=== PATIENT | male | born 1975 | race Caucasian/White ===

== ENCOUNTER 2018-04-03 13:10 | Emergency (ER) | payer OTHER, MEDICAID, SELFPAY ==
[2018-04-03 13:18] VITALS: BP 161/103; PULSE 85; RESP 16; TEMP 36.7; O2SAT 98; BMI 19.6
--- NOTE | 2018-04-03 13:35 | PC.NURSE ---
dental pain is upper and lower on left side. pt is in the middle of dental work, having cavities filled along with a root canal. pt couldn't finish the root canal due to bleeding, they have rescheduled to complete it.
--- NOTE | 2018-04-03 13:56 | ED.DENTAL ---
HPI - Dental/Oral <Pam Calle PA-C - Last Filed: 04/03/18 21:46> General Chief complaint: Dental/Oral Stated complaint: oral pain Time Seen by Provider: 04/03/18 13:48 Source: patient Mode of arrival: ambulatory Limitations: no limitations History of Present Illness HPI Narrative: This 42-year-old male comes in today due to dental pain. He states this is on the left side, both upper and lower teeth. He states that he had a crown placed and partial root canal last week and has follow-up with his dentist on Monday. He states that he has been taking Tylenol and ibuprofen (4 of each today), and tried salt water rinse and [id number] benzocaine without relief. He denies fever or drainage from the gums. He states this has been gradually worsening and comes in due to being unable to see the dentist sooner. Related Data Home Medications Medication Instructions Recorded Confirmed insulin aspart U-100 [Novolog See Label Instructions .ROUTE 04/03/18 04/03/18 Flexpen U-100 Insulin] .COMPLEX insulin glargine [Lantus U-100 35 unit SUBCUT DAILY 04/03/18 04/03/18 Insulin] Allergies Allergy/AdvReac Type Severity Reaction Status Date / Time No Known Drug Allergies Allergy Unknown Unverified 10/18/17 12:17 promethazine AdvReac Unknown GET LOOPY Verified 04/03/18 13:23 Exam <Pam Calle PA-C - Last Filed: 04/03/18 21:46> Narrative Exam Narrative: GENERAL APPEARANCE: Patient sitting comfortably, in no distress. HEAD: Mild left maxillary tenderness, none elsewhere EYES: PERRL, EOMI. EARS: Normal auditory canals, TMS intact with normal light reflexes. ORAL CAVITY: Left inferior dental work appears intact. Minimal tenderness over the tooth. Left upper labial surface there does appear to be some separation of the gum tissue where he is mildly tender. Otherwise, gums appear normal. No erythema or drainage. THROAT: Clear. NECK/THYROID: Neck supple, full range of motion, no cervical lymphadenopathy. LUNGS: Clear to auscultation bilaterally, clear to percussion, no cough on exam. HEART: RRR without murmur, nl S1, S2, no S3 or S4. MUSCULOSKELETAL: Full range of motion of the jaw with tenderness on lateral and medial deviation, able to open fully without tenderness. No crepitus Initial Vital Signs Initial Vital Signs: Vital Signs Temperature 98.0 F 04/03/18 13:18 Pulse Rate 85 04/03/18 13:18 Respiratory Rate 16 04/03/18 13:18 Blood Pressure 161/103 H 04/03/18 13:18 Pulse Oximetry 98 04/03/18 13:18 <Lalit Pineda DO - Last Filed: 04/04/18 07:03> Initial Vital Signs Initial Vital Signs: Vital Signs Temperature 98.0 F 04/03/18 13:18 Pulse Rate 85 04/03/18 13:18 Respiratory Rate 16 04/03/18 13:18 Blood Pressure 161/103 H 04/03/18 13:18 Pulse Oximetry 98 04/03/18 13:18 Course <Pam Calle PA-C - Last Filed: 04/03/18 21:46> Additional Information: We phoned patient's dentist and they are able to see him immediately, so he was discharged to follow up there Vital Signs - 8 hr 04/03/18 14:26 Pulse Rate 95 H Respiratory Rate 18 Blood Pressure 150/94 H Pulse Oximetry 100 <Lalit Pineda DO - Last Filed: 04/04/18 07:03> Vital Signs - 8 hr 04/03/18 14:26 Pulse Rate 95 H Respiratory Rate 18 Blood Pressure 150/94 H Pulse Oximetry 100 Discharge Plan Departure Patient Disposition: Home Clinical Impression: Pain, dental Discharge Date/Time: 04/03/18 14:26 Interventions: ED Discharge Assessment Last Done: 04/03/18 14:26 Instructions: DI for Dental Pain Activity Restrictions/Additional Instructions: We spoke with Dr. Jara's office and they will see you right away (please go directly there). There is no clear sign of infection or problem with your crown on your exam. You do seem to have some muscle pain in the jaw (it is possible that there is more than one problem contributing to your pain, so please review with him). Prescriptions: No Action insulin glargine [Lantus U-100 Insulin] 100 unit/mL Solution 35 unit SUBCUT DAILY RF: 0 insulin aspart U-100 [Novolog Flexpen U-100 Insulin] 100 unit/mL Insulin Pen See Label Instructions .ROUTE .COMPLEX RF: 0 <Lalit Pineda, DO - Last Filed: 04/04/18 07:03> Cosign ED Attending Royalature Attestation: I was available for consultation during this patient's emergency department encounter
[2018-04-03 14:26] VITALS: BP 150/94; PULSE 95; RESP 18; O2SAT 100
== END 2018-04-03 14:26 | disposition home or self-care (01) ==
PROVIDERS: Emergency Provider Internal Medicine
DX: K08.89 Other specified disorders of teeth and supporting structures (principal)
CPT/HCPCS: 99282

== ENCOUNTER 2019-07-30 12:03 | Emergency (ER) | payer OTHER, MEDICAID, SELFPAY ==
[2019-07-30 12:16] VITALS: BP 114/70; PULSE 110; RESP 13; TEMP 36.2; O2SAT 97
--- NOTE | 2019-07-30 13:03 | ED_ITS ---
HPI - Skin/Abscess/Foreign Bdy General Chief complaint: Skin/Abscess/Foreign Body Stated complaint: INFECTION ON LEFT LIMB Time Seen by Provider: 07/30/19 13:03 Source: patient Mode of arrival: Ambulatory Limitations: no limitations History of Present Illness HPI narrative: This is a 43-year-old male emergency department with complaint of redness and swelling of his left lower extremity. 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 He is also a type 1 diabetic. Patient states he was out in the snow about week ago and states that he banged his leg around a lot and he thinks that he had some scabs and abrasions. He states most of them healed but 1 had a small area that looked like a pimple that seemed to become more red went deeper and is now streaking up his leg. He denies fevers. He denies chills. He denies any chest pain or shortness of breath, no nausea, no vomiting no other GI or urinary symptoms. He states he doesn't really have pain in the leg. He states the area had several cm sized area of redness and it started streaking up his leg 2-3 days ago. Related Data Home Medications Medication Instructions Recorded Confirmed insulin aspart U-100 [Novolog See Rx Instructions .ROUTE .COMPLEX 04/03/18 07/30/19 Flexpen U-100 Insulin] insulin glargine [Basaglar KwikPen 35 unit SUBCUT 07/30/19 U-100 Insulin] methylphenidate HCl 36 mg PO BID 07/30/19 Previous Rx's Medication Instructions Recorded clindamycin HCl 300 mg PO QID #40 cap 07/30/19 Allergies Allergy/AdvReac Type Severity Reaction Status Date / Time No Known Drug Allergies Allergy Unknown Unverified 10/18/17 12:17 promethazine AdvReac Unknown GET LOOPY Verified 04/03/18 13:23 Review of Systems Review of Systems ROS Unobtainable: All systems reviewed & are unremarkable except as noted in HPI and below Patient History Medical History (Updated 07/30/19 @ 13:18 by Portia Maharaj DO) Insulin dependent diabetes mellitus (Chronic) Surgical History (Updated 07/30/19 @ 13:15 by Portia Maharaj DO) Hx of BKA (Acute) Social History Smoking Status: Never smoker Smoking Status: Never smoker alcohol intake frequency: 0-2 drinks per day Substance Use Type: does not use Exam Narrative Exam Narrative: GENERAL: Alert and oriented x three, thin, well-appearing male in mild distress. HEENT: Head normocephalic, atraumatic, EOMI, pupils reactive, face symmetric, moist mucous membranes NECK: Supple, full range of motion CARDIOVASCULAR: Regular rate and rhythm without murmurs, rubs or gallops. RESPIRATORY: Breath sounds equal bilaterally, no wheezes rales or rhonchi. ABDOMEN: Soft, nontender. Normoactive bowel sounds all 4 quadrants. No guarding or rebound, rigidity, no mass : No CVA tenderness EXTREMITIES: Normal range of motion, patient has left BKA with an area of erythema that is 3cm in size and streaking up thigh above knee. There is a scab without drainage or open skin. Non-tender to touch with no fluctuence. Moderate induration at site of scab. Neurovascularly intact. Distal end of BKA is healed. NEUROLOGICAL: Cranial nerves II through XII grossly intact. Moving all extremities SKIN: Warm, dry, no petechiae, see above. Initial Vital Signs Initial Vital Signs: Vital Signs Temperature 97.1 F L 07/30/19 12:16 Pulse Rate 110 H 07/30/19 12:16 Respiratory Rate 13 07/30/19 12:16 Blood Pressure 114/70 07/30/19 12:16 Pulse Oximetry 97 07/30/19 12:16 Course Orders Ordered: ED Orders 07/30/19 13:53 Basic Metabolic Panel Stat Complete Blood Count AUTO DIFF Stat Lactate (Lactic Acid) Stat Procalcitonin Stat 07/30/19 13:59 Blood Culture Stat Discontinued Medications Clindamycin Phosphate (Cleocin) 900 mg in 50 mls @ 50 mls/hr IV NOW ONE Stop: 07/30/19 14:10 Last Infusion: 07/30/19 14:48 Dose: 0 mls/hr Documented by: Admin: 07/30/19 13:57 Dose: 50 mls/hr Documented by: GEOFF Vital Signs Vital signs: Vital Signs - 8 hr 07/30/19 13:35 07/30/19 15:02 Temperature 98.4 F Pulse Rate 102 H 104 H Respiratory Rate 16 16 Blood Pressure 118/75 Blood Pressure [Left Arm] 138/78 Pulse Oximetry 99 99 MDM - Skin/Abscess/Foreign Bdy Lab Data Result diagrams: 07/30/19 13:53 07/30/19 13:53 Labs: Lab Results 07/30/19 07/30/19 07/30/19 Range/Units 13:53 13:53 13:53 WBC 13.5 H (4.5-11.0) X10^3/uL RBC 4.88 (4.5-5.9) X10^6/uL Hgb 15.0 (13.5-17.5) g/dL Hct 41.6 (41-53) % MCV 85.3 (80-100) fL MCH 30.7 (26-34) PG MCHC 36.1 H (30-36) % RDW 12.8 (11.6-14.8) % Plt Count 189 (150-400) X10^3/uL Neut % (Auto) 81.0 H (50-75) % Lymph % (Auto) 11.3 L (25-40) % [place] % (Auto) 5.9 (3-14) % Eos % (Auto) 0.7 L (2-4) % Baso % (Auto) 1.1 (0-2) % Neut # (Auto) 49659 H (1788-8045) /uL Lymph # (Auto) 1500 (9232-2572) /uL [place] # (Auto) 800 (0-900) /uL Eos # (Auto) 100 (0-450) /uL Baso # (Auto) 100 (0-100) /uL Sodium 134 L (137-145) mmol/L Potassium 3.9 (3.4-5.1) mmol/L Chloride 95 L (98-107) mmol/L Carbon Dioxide 31 (22-32) mmol/L BUN 25 H (9-20) mg/dL Creatinine 0.90 (0.66-1.25) mg/dL Estimated GFR > 60.0 (>60) mL/min BUN/Creatinine Ratio 27.8 H (6-22) Glucose 334 H (70-100) mg/dL Lactate (0.7-2.1) mmol/L Calcium 9.6 (8.4-10.2) mg/dL Procalcitonin 0.45 (<0.5) ng/mL 07/30/19 Range/Units 13:53 WBC (4.5-11.0) X10^3/uL RBC (4.5-5.9) X10^6/uL Hgb (13.5-17.5) g/dL Hct (41-53) % MCV (80-100) fL MCH (26-34) PG MCHC (30-36) % RDW (11.6-14.8) % Plt Count (150-400) X10^3/uL Neut % (Auto) (50-75) % Lymph % (Auto) (25-40) % [place] % (Auto) (3-14) % Eos % (Auto) (2-4) % Baso % (Auto) (0-2) % Neut # (Auto) (9427-0873) /uL Lymph # (Auto) (7888-5368) /uL [place] # (Auto) (0-900) /uL Eos # (Auto) (0-450) /uL Baso # (Auto) (0-100) /uL Sodium (137-145) mmol/L Potassium (3.4-5.1) mmol/L Chloride (98-107) mmol/L Carbon Dioxide (22-32) mmol/L BUN (9-20) mg/dL Creatinine (0.66-1.25) mg/dL Estimated GFR (>60) mL/min BUN/Creatinine Ratio (6-22) Glucose (70-100) mg/dL Lactate 2.0 (0.7-2.1) mmol/L Calcium (8.4-10.2) mg/dL Procalcitonin (<0.5) ng/mL MDM Narrative Medical decision making narrative: Patient and I discussed plan for labs, culture and start Clindamycin. Per patient he has not had issues with skin infections in the past. Patient rechecked his glucose with his own monitor at 1430 and is 230 range. Strict return precautions given and patient expressed understanding. Discharge Plan Departure Patient Disposition: Home Clinical Impression: Cellulitis of left leg Discharge Date/Time: 07/30/19 15:03 Instructions: DI for Cellulitis -- Adult Activity Restrictions/Additional Instructions: Return to the emergency department in the next 24 hours if your symptoms are worsening, otherwise follow up with your primary care for recheck. Take antibiotics daily until completely gone. Take your next dose during dinner tonight. Prescription was sent to [facility] in [place]. Continue home medication as prescribed. Return to the emergency department for fevers greater 100.4 F, rapidly worsening swelling, redness, drainage from your leg, new pain, lightheadedness, passing out, persistent vomiting, new chest pain or shortness of breath or other new or concerning symptoms. Prescriptions: New clindamycin HCl 300 mg capsule 300 mg PO QID Qty: 40 RF: 0 No Action methylphenidate HCl 36 mg tablet extended release 24hr 36 mg PO BID RF: 0 Basaglar KwikPen U-100 Insulin 100 unit/mL (3 mL) insulin pen 35 unit SUBCUT RF: 0 Novolog Flexpen U-100 Insulin 100 unit/mL Insulin Pen See Rx Instructions .ROUTE .COMPLEX RF: 0
[2019-07-30 13:35] VITALS: BP 138/78; PULSE 102; RESP 16; O2SAT 99
[2019-07-30 13:57] LABS: Add Manual Diff / Slide Review NO; Basophils Absolute Auto 100 /uL (0-100); Basophils Percent Auto 1.1 % (0-2); Eosinophils Absolute Auto 100 /uL (0-450); Eosinophils Percent Auto 0.7 % (2-4); Hematocrit 41.6 % (41-53); Lymphocytes Absolute Auto 1500 /uL (1100-4500); Lymphocytes Percent Auto 11.3 % (25-40); Mean Corpuscular HGB Conc 36.1 % (30-36); Mean Corpuscular Hemoglobin 30.7 PG (26-34); Mean Corpuscular Volume 85.3 fL (80-100); Monocytes Absolute Auto 800 /uL (0-900); Monocytes Percent Auto 5.9 % (3-14); Neutrophils Absolute Auto 10900 /uL (1500-7000); Platelet Count 189 X10^3/uL (150-400); Red Blood Cell Count 4.88 X10^6/uL (4.5-5.9); Red Cell Distribution Width 12.8 % (11.6-14.8); White Blood Cell Count 13.5 X10^3/uL (4.5-11.0)
[2019-07-30] MEDS: CLINDAMYCIN 900 MG/50 ML PIGGYBACK 50 MG IV (13:57)
[2019-07-30 14:10] LABS: BUN Creatinine Ratio 27.8 (6-22); Blood Urea Nitrogen 25 mg/dL (9-20); Calcium 9.6 mg/dL (8.4-10.2); Carbon Dioxide 31 mmol/L (22-32); Chloride 95 mmol/L (98-107); Estimated Glomerular Filt Rate > 60.0 mL/min (>60); Glucose 334 mg/dL (70-100); HEMOLYSIS < 15 (0-50); Potassium 3.9 mmol/L (3.4-5.1); Sodium 134 mmol/L (137-145)
[2019-07-30 14:41] LABS: Procalcitonin 0.45 ng/mL (<0.5)
--- NOTE | 2019-07-30 15:01 | PC.NURSE ---
Patient states he was using prosthetic while out in the snow on uneven ground and developed a sore to BKA. The sore has scabbed and healed however there is redness travelling up from scab on Left leg.
[2019-07-30 15:02] VITALS: BP 118/75; PULSE 104; RESP 16; TEMP 36.9; O2SAT 99
== END 2019-07-30 15:03 | disposition home or self-care (01) ==
PROVIDERS: Emergency Provider Emergency Medicine
DX: L03.116 Cellulitis of left lower limb (principal); E10.8 Type 1 diabetes mellitus with unspecified complications; Z79.4 Long term (current) use of insulin
CPT/HCPCS: 36415; 80048; 83605; 84145; 85025; 87040; 96365; 99284

== ENCOUNTER 2019-08-01 19:38 | Emergency (ER) | payer OTHER, MEDICAID, SELFPAY ==
[2019-08-01 19:59] VITALS: BP 150/85; PULSE 96; RESP 18; TEMP 36.8; O2SAT 100
[2019-08-01] MEDS: CEFTRIAXONE 2 GM/50 ML FROZ.PIGGY IV (23:13)
[2019-08-01 23:25] LABS: Alanine Aminotransferase 21 IU/L (<50); Albumin 3.9 g/dL (3.5-5.0); Albumin Globulin Ratio 1.2 (1.0-2.8); Alkaline Phosphatase 101 U/L (38-126); Aspartate Aminotransferase 25 IU/L (17-59); Bilirubin Total 0.9 mg/dL (0.2-1.3); Blood Urea Nitrogen 30 mg/dL (9-20); Calcium 9.4 mg/dL (8.4-10.2); Carbon Dioxide 29 mmol/L (22-32); Chloride 98 mmol/L (98-107); Estimated Glomerular Filt Rate > 60.0 mL/min (>60); Globulin 3.3 g/dL (1.7-4.1); Glucose 211 mg/dL (70-100); HEMOLYSIS < 15 (0-50); Potassium 3.7 mmol/L (3.4-5.1); Sodium 137 mmol/L (137-145); Total Protein 7.2 g/dL (6.3-8.2)
[2019-08-01 23:35] LABS: Add Manual Diff / Slide Review NO; Basophils Absolute Auto 100 /uL (0-100); Basophils Percent Auto 0.9 % (0-2); Eosinophils Absolute Auto 500 /uL (0-450); Eosinophils Percent Auto 5.4 % (2-4); Hematocrit 37.2 % (41-53); Hemoglobin 13.3 g/dL (13.5-17.5); Lymphocytes Absolute Auto 2300 /uL (1100-4500); Lymphocytes Percent Auto 26.2 % (25-40); Mean Corpuscular HGB Conc 35.8 % (30-36); Mean Corpuscular Hemoglobin 30.6 PG (26-34); Mean Corpuscular Volume 85.5 fL (80-100); Monocytes Absolute Auto 800 /uL (0-900); Monocytes Percent Auto 8.6 % (3-14); Neutrophils Absolute Auto 5300 /uL (1500-7000); Neutrophils Percent Auto 58.9 % (50-75); Platelet Count 243 X10^3/uL (150-400); Red Blood Cell Count 4.36 X10^6/uL (4.5-5.9); Red Cell Distribution Width 12.7 % (11.6-14.8)
[2019-08-02 00:42] VITALS: BP 146/93; PULSE 108; RESP 20; O2SAT 98
--- NOTE | 2019-08-02 01:53 | ED.EXTPRO ---
HPI - Extremity Problem General Chief complaint: Extremity Problem,Nontraumatic Stated complaint: INFECTION IN LT LEG Time Seen by Provider: 08/01/19 23:10 Source: patient Mode of arrival: Ambulatory Limitations: no limitations History of Present Illness HPI Narrative: 43-year-old gentleman, type 1 diabetes, with traumatic left BKA amputation. Presents with increasing pain and swelling to the distal portion of the stump. Apparently he had been out walking in the snow with his prosthesis recently. The uneven and slippery surface caused some abrasion from the prosthesis which cause some swelling that has since become infected. He was started on clindamycin recently but is noticing increased pain and is concerned that there's an abscess developing. There is no lymphangitic spread. Some ecchymosis and moderate erythema around the site itself. He denies fever and has no inguinal adenopathy Related Data Home Medications Medication Instructions Recorded Confirmed insulin aspart U-100 [Novolog See Rx Instructions .ROUTE .COMPLEX 04/03/18 07/30/19 Flexpen U-100 Insulin] insulin glargine [Basaglar KwikPen 35 unit SUBCUT 07/30/19 U-100 Insulin] methylphenidate HCl 36 mg PO BID 07/30/19 Previous Rx's Medication Instructions Recorded clindamycin HCl 300 mg PO QID #40 cap 07/30/19 Allergies Allergy/AdvReac Type Severity Reaction Status Date / Time No Known Drug Allergies Allergy Unknown Unverified 10/18/17 12:17 promethazine AdvReac Unknown GET LOOPY Verified 04/03/18 13:23 Review of Systems Review of Systems Narrative: All systems reviewed and are unremarkable except as noted in HPI and below Patient History Medical History Insulin dependent diabetes mellitus (Chronic) Surgical History Hx of BKA (Acute) Social History Smoking Status: Never smoker Smoking Status: Never smoker alcohol intake frequency: 0-2 drinks per day Substance Use Type: does not use Exam Narrative Exam Narrative: General: Alert appropriate in no acute distress Respiratory: Able to speak in full sentences, no obvious respiratory distress Skin: No obvious rashes, warm and dry Neurologic: Grossly intact no obvious asymmetries or abnormalities Psych, appropriate insight and affect, cooperative Left lower extremity with below-knee amputation. On the medial aspect of the stump there are 2 confluent areas each approximately 4 x 4 cm in size. The most distal 1 has some developing central skin breakdown is already to drain slightly. The area slightly more proximal to that feels full that is not yet draining. Initial Vital Signs Initial Vital Signs: Vital Signs Temperature 98.3 F 08/01/19 19:59 Pulse Rate 96 H 08/01/19 19:59 Respiratory Rate 18 08/01/19 19:59 Blood Pressure 150/85 H 08/01/19 19:59 Pulse Oximetry 100 08/01/19 19:59 Course Course Course Narrative: Procedure: I&D of left lower extremity abscess x2 10 cc of lidocaine 1% with epi is injected in total. 5 cc in the lower portion 5 cc in the proximal portion Using an 11 blade needle I incision is made over the central portion of the lower area of interest. Quite a bit of purulence material along with old blood clot is extruded. Similar attention was turned to the more proximal lesion there is no blood clot but some purulent material did return. Patient tolerated procedure well. A dressing was placed and then a pressure dressing on top of that to help control bleeding. Orders Ordered: ED Orders 08/01/19 22:45 Wound Culture and Gram Stain Stat 08/01/19 23:10 Complete Blood Count AUTO DIFF Stat Comprehensive Metabolic Panel Stat Discontinued Medications Ceftriaxone Sodium/Dextrose (Rocephin) 2 gm in 50 mls @ 100 mls/hr IV NOW ONE Stop: 08/01/19 23:28 Last Infusion: 08/02/19 00:15 Dose: 0 mls/hr Documented by: Admin: 08/01/19 23:13 Dose: 100 mls/hr Documented by: JOSÉ Vital Signs Vital signs: Vital Signs - 8 hr 08/01/19 19:59 08/02/19 00:42 Temperature 98.3 F Pulse Rate 96 H 108 H Respiratory Rate 18 20 Blood Pressure 150/85 H Blood Pressure [Right Arm] 146/93 H Pulse Oximetry 100 98 MDM - Extremity (Nontraumatic) Lab Data Result diagrams: 08/01/19 23:10 08/01/19 23:10 Labs: Lab Results 01/23/20 01/23/20 Range/Units 23:10 23:10 WBC 9.0 (4.5-11.0) X10^3/uL RBC 4.36 L (4.5-5.9) X10^6/uL Hgb 13.3 L (13.5-17.5) g/dL Hct 37.2 L (41-53) % MCV 85.5 (80-100) fL MCH 30.6 (26-34) PG MCHC 35.8 (30-36) % RDW 12.7 (11.6-14.8) % Plt Count 243 (150-400) X10^3/uL Neut % (Auto) 58.9 (50-75) % Lymph % (Auto) 26.2 (25-40) % [place] % (Auto) 8.6 (3-14) % Eos % (Auto) 5.4 H (2-4) % Baso % (Auto) 0.9 (0-2) % Neut # (Auto) 5300 (4669-2360) /uL Lymph # (Auto) 2300 (5888-5597) /uL [place] # (Auto) 800 (0-900) /uL Eos # (Auto) 500 H (0-450) /uL Baso # (Auto) 100 (0-100) /uL Sodium 137 (137-145) mmol/L Potassium 3.7 (3.4-5.1) mmol/L Chloride 98 (98-107) mmol/L Carbon Dioxide 29 (22-32) mmol/L BUN 30 H (9-20) mg/dL Creatinine 1.00 (0.66-1.25) mg/dL Estimated GFR > 60.0 (>60) mL/min BUN/Creatinine Ratio 30.0 H (6-22) Glucose 211 H D (70-100) mg/dL Calcium 9.4 (8.4-10.2) mg/dL Total Bilirubin 0.9 (0.2-1.3) mg/dL AST 25 (17-59) IU/L ALT 21 (<50) IU/L Alkaline Phosphatase 101 (38-126) U/L Total Protein 7.2 (6.3-8.2) g/dL Albumin 3.9 (3.5-5.0) g/dL Globulin 3.3 (1.7-4.1) g/dL Albumin/Globulin Ratio 1.2 (1.0-2.8) MDM Narrative Medical decision making narrative: Type 1 diabetic with left lower extremity amputation and irritation from prosthesis recently suspect that he irritated the area enough that it created at deep hematoma that since became infected. Clot and purulent material have been drained successfully. Will have him continue with clindamycin. He did get a single dose of 2 g of IV ceftriaxone will waiting to receive blood work back. Blood work does not suggest systemic infection nor sepsis. Dressing is applied to the wound. Wound care is reviewed in detail. He is safe for home discharge Discharge Plan Departure Patient Disposition: Home Clinical Impression: Abscess of left leg Instructions: DI for Skin Abscess Activity Restrictions/Additional Instructions: Thank you for coming in today. We were able to drain the double abscess on your stump. I suspect that the instability from the prosthesis why your hiking in the snow caused a subcutaneous hematoma that subsequently became infected. Please continue the antibiotics until they are gone. Tomorrow, I would encourage you to soak the lower extremity in warm water if there's additional drainage that is perfectly okay. If you develop fevers, notice increasing drainage or increasing swelling and fullness with no drainage along with increasing redness or streaks running appear leg you do need to return to the emergency room for additional evaluation. I hope that you heal quickly. Thank you for sharing your photography with me this evening Prescriptions: No Action methylphenidate HCl 36 mg tablet extended release 24hr 36 mg PO BID RF: 0 Basaglar KwikPen U-100 Insulin 100 unit/mL (3 mL) insulin pen 35 unit SUBCUT RF: 0 clindamycin HCl 300 mg capsule 300 mg PO QID Qty: 40 RF: 0 Novolog Flexpen U-100 Insulin 100 unit/mL Insulin Pen See Rx Instructions .ROUTE .COMPLEX RF: 0 Referrals: Neftaly Champagne [Primary Care Provider] -
[2019-08-02 02:09] VITALS: BP 147/93; PULSE 108; RESP 15; O2SAT 98
== END 2019-08-02 02:11 | disposition home or self-care (01) ==
PROVIDERS: Emergency Provider Emergency Medicine; Family Provider Internal Medicine; PCP Internal Medicine
DX: L02.416 Cutaneous abscess of left lower limb (principal)
CPT/HCPCS: 36415; 80053; 85025; 87070; 87075; 87077; 87147; 87186; 87205; 96365; 99284; J0696

== ENCOUNTER 2019-08-03 12:04 | Inpatient (IN) | payer MEDICAID, SELFPAY ==
[2019-08-03 13:44] VITALS: BP 138/84; PULSE 110; RESP 14; TEMP 37.1; O2SAT 98
[2019-08-03 15:18] LABS: Add Manual Diff / Slide Review NO; Basophils Absolute Auto 100 /uL (0-100); Basophils Percent Auto 1.1 % (0-2); Eosinophils Absolute Auto 400 /uL (0-450); Eosinophils Percent Auto 5.1 % (2-4); Hematocrit 38.3 % (41-53); Hemoglobin 13.7 g/dL (13.5-17.5); Lymphocytes Absolute Auto 2100 /uL (1100-4500); Lymphocytes Percent Auto 29.9 % (25-40); Mean Corpuscular HGB Conc 35.7 % (30-36); Mean Corpuscular Hemoglobin 30.6 PG (26-34); Mean Corpuscular Volume 85.6 fL (80-100); Monocytes Absolute Auto 600 /uL (0-900); Monocytes Percent Auto 8.4 % (3-14); Neutrophils Absolute Auto 4000 /uL (1500-7000); Neutrophils Percent Auto 55.5 % (50-75); Platelet Count 265 X10^3/uL (150-400); Red Blood Cell Count 4.48 X10^6/uL (4.5-5.9); Red Cell Distribution Width 12.7 % (11.6-14.8); White Blood Cell Count 7.1 X10^3/uL (4.5-11.0)
[2019-08-03 15:22] VITALS: BP 117/90; PULSE 111; RESP 16; TEMP 36.6; O2SAT 97
[2019-08-03 15:24] LABS: BUN Creatinine Ratio 24.4 (6-22); Blood Urea Nitrogen 22 mg/dL (9-20); Calcium 9.7 mg/dL (8.4-10.2); Carbon Dioxide 33 mmol/L (22-32); Chloride 101 mmol/L (98-107); Estimated Glomerular Filt Rate > 60.0 mL/min (>60); Glucose 85 mg/dL (70-100); HEMOLYSIS < 15 (0-50); Sodium 142 mmol/L (137-145)
[2019-08-03 15:25] LABS: Lactate (Lactic Acid) 1.5 mmol/L (0.7-2.1)
--- NOTE | 2019-08-03 15:25 | PC.NURSE ---
Pt arrived to ED for 3rd time in 5 days. Pt has L BKA from a talus fracture complication in childhood. wears prosthesis. states he was out in the snow and doing some activity in which he had some abrasions under his prosthesis, all healed except for area on medial aspect of calf below amp. was placed on clinda QID 07/30. arrived back 08/01 and had I&D with + wound culture for staph and IV abx. arrived back today 08/03 for not getting better. Pt is DM1 and glucoses do not seem to be controlled. pt last glucose on home machine 240's. HR 111 and pt states it is from the Ritalin he takes. BP WNL and afebrile. denies fevers at home. lungs clear. 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 AAOx3. IV placed and labs drawn including lactate. per Dr Lynch only BC x 1 needs to be drawn since BC x 2 was drawn at recent visit with negative result.
--- NOTE | 2019-08-03 15:32 | ED_ITS ---
HPI - Skin/Abscess/Foreign Bdy General Chief complaint: Skin/Abscess/Foreign Body Stated complaint: Infection On Left Leg Time Seen by Provider: 08/03/19 15:16 Source: patient Mode of arrival: Ambulatory Limitations: no limitations History of Present Illness HPI narrative: Patient is a 43-year-old diabetic male presenting for the 3rd time this week to the emergency department for a left jmlfu-yvw-eshk amputation infection. Initially he was started on clindamycin on 07/30/2019 on his 1st emergency department visit. He was seen evaluated again on the he given an IV dose of Rocephin and had some blood work done along with wound culture. Wound culture returned as staph coccus aureus. Sensitivity is still pending. He says that the redness seems to fluctuate but it continues to drain an it is sometimes painful. He denies any fever or chills at this time. MD complaint: rash and abscess/boil Location: LUE Related Data Home Medications Medication Instructions Recorded Confirmed insulin aspart U-100 [Novolog See Rx Instructions .ROUTE .COMPLEX 04/03/18 08/03/19 Flexpen U-100 Insulin] insulin glargine [Basaglar KwikPen 35 unit SUBCUT DAILY 07/30/19 08/03/19 U-100 Insulin] methylphenidate HCl 36 mg PO DAILY 07/30/19 08/03/19 Allergies Allergy/AdvReac Type Severity Reaction Status Date / Time promethazine AdvReac Unknown GET LOOPY Verified 04/03/18 13:23 Review of Systems Review of Systems Narrative: GENERAL: Denies chills, fatigue, malaise, fever, sweats, travel HEENT: Denies sinus pain, ear pain, sore throat, difficulty swallowing, neck pain RESPIRATORY: Denies dyspnea, cough, wheezing, hemoptysis, sputum. CARDIOVASCULAR: Denies chest pain, palpitations, orthopnea, edema GASTROINTESTINAL: Denies nausea, vomiting, abdominal pain, diarrhea, constipation, melena. : Denies dysuria, frequency, incontinence, hematuria, urinary retention, flank pain. MUSCULOSKELETAL: Denies weakness, joint pain, or bony pain SKIN: See HPI NEUROLOGIC: Denies weakness, dizziness, headache, numbness, change in speech, confusion PSYCHIATRIC: No concerning psychosocial issues. 12 point review of systems is negative except for those stated above and HPI Patient History Medical History Insulin dependent diabetes mellitus (Chronic) Surgical History Hx of BKA (Acute) Social History household members: none Smoking Status: Never smoker Smoking Status: Never smoker alcohol intake frequency: 0-2 drinks per day Substance Use Type: does not use Exam Initial Vital Signs Initial Vital Signs: Vital Signs Temperature 98.7 F 08/03/19 13:44 Pulse Rate 110 H 08/03/19 13:44 Respiratory Rate 14 08/03/19 13:44 Blood Pressure 138/84 08/03/19 13:44 Pulse Oximetry 98 08/03/19 13:44 GENERAL: Well-appearing, well-nourished and in no acute distress. HEENT: Head atraumatic,EOMI, pupils reactive CARDIOVASCULAR: Regular rate and rhythm without murmurs, rubs or gallops. RESPIRATORY: Breath sounds equal bilaterally, no wheezes rales or rhonchi. ABDOMEN: Soft, nontender. Normoactive bowel sounds all 4 quadrants. No guarding or rebound. EXTREMITIES: Normal range of motion, no clubbing or edema. Neurovascularly intact. Left BKA noted NEUROLOGICAL: Alert and oriented x4.Normal gait and speech. SKIN: Left lower extremity below the knee amputation with erythema. 3 cm x 3 cm with obvious drainage mild erythema that is streaking up beyond the knee. Course Orders Ordered: ED Orders 08/03/19 15:08 Basic Metabolic Panel Stat Complete Blood Count AUTO DIFF Stat Lactate (Lactic Acid) Stat Procalcitonin Stat 08/03/19 15:20 Blood Culture Stat Discontinued Medications Ceftriaxone Sodium/Dextrose (Rocephin) 1 gm in 50 mls @ 100 mls/hr IV NOW ONE Stop: 08/03/19 16:23 Last Infusion: 08/03/19 16:44 Dose: 0 mls/hr Documented by: Admin: 08/03/19 16:10 Dose: 100 mls/hr Documented by: TRISHA Vancomycin HCl (Vancomycin) 1,000 mg in 200 mls @ 200 mls/hr IV NOW ONE Stop: 08/03/19 17:04 Last Infusion: 08/03/19 17:45 Dose: 0 mls/hr Documented by: Admin: 08/03/19 16:48 Dose: 200 mls/hr Documented by: TRISHA Vital Signs Vital signs: Vital Signs - 8 hr 08/03/19 13:44 08/03/19 15:22 Temperature 98.7 F 97.9 F Pulse Rate 110 H 111 H Respiratory Rate 14 16 Blood Pressure 138/84 Blood Pressure [Left Arm] 117/90 Pulse Oximetry 98 97 MDM - Skin/Abscess/Foreign Bdy Lab Data Attestation: I reviewed the patient's lab results. Result diagrams: 08/03/19 15:08 08/03/19 15:08 Labs: Lab Results 08/03/19 08/03/19 08/03/19 Range/Units 15:08 15:08 15:08 WBC 7.1 (4.5-11.0) X10^3/uL RBC 4.48 L (4.5-5.9) X10^6/uL Hgb 13.7 (13.5-17.5) g/dL Hct 38.3 L (41-53) % MCV 85.6 (80-100) fL MCH 30.6 (26-34) PG MCHC 35.7 (30-36) % RDW 12.7 (11.6-14.8) % Plt Count 265 (150-400) X10^3/uL Neut % (Auto) 55.5 (50-75) % Lymph % (Auto) 29.9 (25-40) % [place] % (Auto) 8.4 (3-14) % Eos % (Auto) 5.1 H (2-4) % Baso % (Auto) 1.1 (0-2) % Neut # (Auto) 4000 (6609-1898) /uL Lymph # (Auto) 2100 (7444-7993) /uL [place] # (Auto) 600 (0-900) /uL Eos # (Auto) 400 (0-450) /uL Baso # (Auto) 100 (0-100) /uL Sodium 142 (137-145) mmol/L Potassium 4.0 (3.4-5.1) mmol/L Chloride 101 (98-107) mmol/L Carbon Dioxide 33 H (22-32) mmol/L BUN 22 H (9-20) mg/dL Creatinine 0.90 (0.66-1.25) mg/dL Estimated GFR > 60.0 (>60) mL/min BUN/Creatinine Ratio 24.4 H (6-22) Glucose 85 D (70-100) mg/dL Lactate 1.5 (0.7-2.1) mmol/L Calcium 9.7 (8.4-10.2) mg/dL Procalcitonin (<0.5) ng/mL 08/03/19 Range/Units 15:08 WBC (4.5-11.0) X10^3/uL RBC (4.5-5.9) X10^6/uL Hgb (13.5-17.5) g/dL Hct (41-53) % MCV (80-100) fL MCH (26-34) PG MCHC (30-36) % RDW (11.6-14.8) % Plt Count (150-400) X10^3/uL Neut % (Auto) (50-75) % Lymph % (Auto) (25-40) % [place] % (Auto) (3-14) % Eos % (Auto) (2-4) % Baso % (Auto) (0-2) % Neut # (Auto) (0335-0860) /uL Lymph # (Auto) (8939-9955) /uL [place] # (Auto) (0-900) /uL Eos # (Auto) (0-450) /uL Baso # (Auto) (0-100) /uL Sodium (137-145) mmol/L Potassium (3.4-5.1) mmol/L Chloride (98-107) mmol/L Carbon Dioxide (22-32) mmol/L BUN (9-20) mg/dL Creatinine (0.66-1.25) mg/dL Estimated GFR (>60) mL/min BUN/Creatinine Ratio (6-22) Glucose (70-100) mg/dL Lactate (0.7-2.1) mmol/L Calcium (8.4-10.2) mg/dL Procalcitonin 0.05 (<0.5) ng/mL MDM Narrative Medical decision making narrative: Patient has had 3 ER visits this week for not healing wound on left lower leg likely from prosthetic. He is failing outpat ient treatment. He has comorbidities of diabetes. At this time requires admission for close monitoring and IV antibiotics. A still awaiting culture and sensitivity from this weeks wound culture. her Rosales updated on patient's symptoms test results agrees with admission. Discharge Plan Departure Patient Disposition: Admitted As Inpatient Clinical Impression: Cellulitis of left leg, Abscess of left leg Discharge Date/Time: 08/03/19 17:45 Admit Date/Time: 08/03/19 16:28 Admit Provider: Trent Abarca
[2019-08-03] MEDS: CEFTRIAXONE 1 GM/50 ML FROZ.PIGGY IV (16:10)
[2019-08-03 16:11] LABS: Procalcitonin 0.05 ng/mL (<0.5)
[2019-08-03] MEDS: VANCOMYCIN 1,000 MG/200 ML PIGGYBACK 200 MG IV (16:48)
[2019-08-03 17:50] VITALS: BP 161/96; PULSE 108; RESP 16; TEMP 37.2; O2SAT 99
[2019-08-03 18:25] VITALS: BMI 19.5
[2019-08-03 20:10] VITALS: BP 156/95; PULSE 103; RESP 19; TEMP 36.8; O2SAT 100
--- NOTE | 2019-08-03 20:18 | P.HP_ITS ---
History of Present Illness History of Present Illness Date Patient Seen: 08/03/19 Time Patient Seen: 19:40 Chief complaint: Infection On Left Leg Narrative: Mr. Daniel Zapata is a 43-year-old male with history of type 1 diabetes, left lower kywng-[id number]-samz amputation status post talus fracture and ADHD on Concerta who presents to the ER for draining abscess and cellulitis. The patient reports he was out shoveling snow and had areas of abrasion from his prosthesis. He developed a few areas of irritation which healed except for the current wound which became more erythema, swollen and painful. The patient has presented to the ER 2 times previous initially on 07/30/2019 at which time he was prescribed clindamycin and discharged to home. The patient returned on 08/02/2019 with continued pain and worsening erythema at which time was given IV Rocephin. Id was performed and wound drainage was cultured which is revealed Staph aureus yet awaiting sensitivities. The patient again returns today with progressive symptoms with cellulitis of his left residual limb wound drainage and pain. The patient had a previous episode of severe infection a couple of years ago of his right 1st finger for which she had required PICC line placement and prolonged IV antibiotics. The patient has been closely monitoring his blood sugars using a continues blood sugar monitor and taking Lantus daily with correctional NovoLog. The patient denies systemic symptoms and has had no headaches or dizziness, fevers or chills. He denies nasal congestion or sore throat. He reports no chest pain or palpitations, shortness of breath cough or wheezing. He has no abdominal pain nausea vomiting or changes in bowel or bladder habits he gets up approximately once nightly to urinate. The patient is independent in his ADLs. His prosthesis reportedly fits well. Upon arrival to the ER the patient has a temperature of 98.7?, heart rate of 110, blood pressure of 138/84, respirations 14 saturating 98% on room air. Laboratory analysis obtained finding a white count of 7.1, hemoglobin 13.7, hematocrit of 38.3 and platelets of 265. Notably the patient on initial pre sentation [id number] had elevated white count at 13.5 which was read checked on 08/02 and found to be 9.0 following antibiotic treatment. Patient's electrolytes are within range with a BUN 22 and creatinine 0.9 glucose of 85. Lactic acid is 1.5 procalcitonin is 0.05. No imaging was obtained. Blood cultures were obtained and patient received vancomycin 1000 mg IV and Rocephin 1 g IV. The patient is admitted to the hospital for wound infection and IV antibiotics. Patient History Medical History (Updated 08/03/19 @ 20:56 by MANE Gregorio) Type 1 diabetes mellitus (Acute) Surgical History Hx of BKA (Acute) Family & Social History Social History: household members none Prior Living Arrangements RV Safety & Behavioral: Feels Safe in Current Yes Environment Been Physically Hurt or No Threatened By a Person Suicidal Ideation Description None Suicide Plan Description No Plan Tobacco & Substance use: Smoking Status Never smoker alcohol intake frequency 0-2 drinks per day Substance Use Type does not use Comment: The patient is single and lives alone in a double wide trailer. He knows little of his family history having been adopted. He did recently find his mother whom he describes in good health and a sister who also reports to be in good health. His father before he was born in a motorcycle accident. Occupation: Patient is disabled. Smoking: The patient quit smoking in 2017 before which he smoked less than 1 p ack per day. Alcohol: Patient denies consuming alcohol. Substance use: Patient denies recreational pharmaceuticals herbal products. His no current use of cannabis but had tried it in the distant past. Advanced directives: The patient has no formal advanced directives but states his desire to be FULL CODE. He designates his mother Lisa Padilla to be his surrogate decision maker. Meds Home Medications and Allergies Home Medications Medication Instructions Recorded Confirmed Type insulin aspart U-100 [Novolog See Rx Instructions .ROUTE .COMPLEX 04/03/18 08/03/19 History Flexpen U-100 Insulin] insulin glargine [Basaglar KwikPen 35 unit SUBCUT DAILY 07/30/19 08/03/19 History U-100 Insulin] methylphenidate HCl 36 mg PO DAILY 07/30/19 08/03/19 History Allergies Allergy/AdvReac Type Severity Reaction Status Date / Time promethazine AdvReac Unknown GET LOOPY Verified 04/03/18 13:23 Review of Systems Review of Systems Narrative: All systems reviewed and found unremarkable under discussed in the HPI above. Exam Vital Signs (past 8 hours): - 08/03/19 13:44 08/03/19 15:22 08/03/19 17:50 Temperature 98.7 F 97.9 F 98.9 F Pulse Rate 110 H 111 H 108 H Respiratory Rate 14 16 16 Blood Pressure 138/84 161/96 H Blood Pressure [Left Arm] 117/90 Pulse Oximetry 98 97 99 Oxygen Delivery Method Room Air Oxygen Flow Rate 0 Narrative Exam Narrative: GENERAL APPEARANCE: well developed, slender muscular male, BMI of 19.5, in no acute distress. HEENT: Normocephalic, PERRLA, conjunctiva clear, EOMs intact without nystagmus, no rhinorrhea, mucous membranes are moist and pink without lesions or exudate. NECK/THYROID: neck supple, no JVD, no carotid bruit, no thyromegaly, trachea midline. LYMPH NODES: no cervical or supraclavicular lymphadenopathy. SKIN: [place], warm and dry, multiple scabbed abrasions right lower extremity without signs of infection. HEART: Tachycardic with regular rhythm, S1-S2, no murmur, no rubs or gallops, brisk capillary refill, no edema LUNGS: clear to auscultation bilaterally, no coarseness crackles or wheezing, no cough present CHEST: Symmetrical movement, no accessory muscle use, good tidal volume. ABDOMEN: Soft, no distention, no abdominal tenderness, no guarding or peritoneal signs, no organomegaly, no flank tenderness, active bowel tones. BACK: Normal curvature, nontender to palpation, no CVA tenderness on percussion, continuous glucose monitor right abdomen. EXTREMITIES: Status post LLE below-knee amputation, 1/2 cm open draining wound with purulent material with 1.2 cm ring of brown tissue with erythema and warmth anterior residual limb distal to the knee, pain on palpation anterior tibia with slight swelling, warm to touch, good range of motion and strength remaining extremities. NEUROLOGIC: AAO x4, no focal neurologic deficits, csensation intact to light touch, hearing grossly normal to speech. PSYCH: Good judgment, good insight, linear thought process, cooperative, appropriate with stable behavior Objective Labs Result Diagrams: 08/03/19 15:08 08/03/19 15:08 Labs: Laboratory Results - last 24 hr 08/03/19 08/03/19 08/03/19 15:08 15:08 15:08 WBC 7.1 RBC 4.48 L Hgb 13.7 Hct 38.3 L MCV 85.6 MCH 30.6 MCHC 35.7 RDW 12.7 Plt Count 265 Neut % (Auto) 55.5 Lymph % (Auto) 29.9 [place] % (Auto) 8.4 Eos % (Auto) 5.1 H Baso % (Auto) 1.1 Neut # (Auto) 4000 Lymph # (Auto) 2100 [place] # (Auto) 600 Eos # (Auto) 400 Baso # (Auto) 100 Sodium 142 Potassium 4.0 Chloride 101 Carbon Dioxide 33 H BUN 22 H Creatinine 0.90 Estimated GFR > 60.0 BUN/Creatinine Ratio 24.4 H Glucose 85 D Lactate 1.5 Calcium 9.7 Procalcitonin 08/03/19 15:08 WBC RBC Hgb Hct MCV MCH MCHC RDW Plt Count Neut % (Auto) Lymph % (Auto) [place] % (Auto) Eos % (Auto) Baso % (Auto) Neut # (Auto) Lymph # (Auto) [place] # (Auto) Eos # (Auto) Baso # (Auto) Sodium Potassium Chloride Carbon Dioxide BUN Creatinine Estimated GFR BUN/Creatinine Ratio Glucose Lactate Calcium Procalcitonin 0.05 Assessment & Plan Assessment & Plan narrative: This is a 43-year-old male with history of type 1 diabetes who closely monitors blood sugars with a continuous monitor system who developed an infected wound of his left lower residual limb amputated related to severe fracture. He has been seen twice previously in the emergency room started on clindamycin (patient has been complient) and received Rocephin with improvement in white count but without clinical improvement of his wound and pain. Continues to have draining wound of his left anterior residual limb which is cultured positive for Staph aureus with sensitivities pending. 1. Wound infection left lower extremity, with cysts cellulitis, acute, present on admission, active. -patient developed wound while shoveling snow well wearing his prosthesis. No complaints of systemic symptoms, afebrile, no fevers or chills, no nausea vomiting. 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 -patient Vy started on clindamycin 07/30/2019, return to the ER on 08/02/2019 for I&D and IV Rocephin, returns 08/03/2019 with continued pain and redness. -WBC count improved from initial visit at 13.5 to 7.1 today, procalcitonin is 0.05, wound culture taken 08/02/2019 identify Staph aureus, sensitivities pending. -patient received 1 dose of Rocephin 1 g in the emergency department, ordered vancomycin 1000 mg IV every 12 hours, pharmacy to dose. -will obtain x-rays of LLE with wound overlying anterior tibia and concern for osteomyelitis. -wound appears to be developing eschar approximate 2 cm in diameter, will request General surgery consult for possible I&D and debridement. -will fall CBC and procalcitonin. 2. Type 1 diabetes, without complications, present on admission, active. -patient using continuous glucose monitor sampling every 10 minutes. Readings correlate well with hospital Accu-Chek readings. May continue to use patient's glucose monitor readings. -patient with preserved renal function with a BUN of 22 and creatinine of 0.9, no complaints of neuropathy or retinopathy. -will continue patient's home regimen of Lantus 35 units daily at bedtime. -assess glucose AC and HS, ordered correctional insulin low-dose range. -Medium constant carbohydrate diet. -will check hemoglobin A1c. 3. Status post left below-knee amputation, present on admission, stable -patient reports no impairment of ADLs. -he reports well-fitting prosthesis having had fairly recent repeat cast and refitted. -patient will not be able to use prosthesis until infection has resolved. -physical therapy to consult and treat. 4. Attention deficit hyperactive disorder, present on admission, stable. -patient is alert and appropriately interactive. -will continue patient's methylphenidate 36 mg daily. VTE prophylaxis: SCD right lower extremity, heparin. IVF: Saline lock. Diet: Medium consistent carbohydrate diet. The patient is admitted to the hospital due to severity of symptoms and failing outpatient treatment. Patient is admitted as an inpatient for IV antibiotics, expected length of stay to be greater than 2 midnights. Scores GCS [place] coma scale eye opening: Spontaneous [place] coma scale verbal response: Orientated [place] coma scale motor response: Obey commands [place] coma scale total score: 15 Quality VTE Deep Vein Thrombosis/Pulmonary Embolism Present on Admission: No
--- NOTE | 2019-08-03 20:32 | DI.RAD.S_ITS ---
PROCEDURE: XR KNEE LT 1TO2V INDICATIONS: S/P LBKA, infection of stump, R/O osteo of LLE TECHNIQUE: 2 views of the knee were acquired. COMPARISON: None. FINDINGS: Bones: No suspicious bony lesions. Surgical changes reflecting sttoa-knj-xmff amputation are identified. There is mild irregularity along the distal aspect of the fibula. However, this does not appear erosive and is suggestive of postsurgical change. Soft tissues: No joint effusion. No suspicious soft tissue calcifications. Soft tissue edema is present at the distal aspect of the lower extremity. IMPRESSION: Soft tissue edema surrounding the distal lower extremity reflecting znhop-kkk-ware amputation. No definitive areas of erosion are identified. Irregularity along the distal fibula is suspected to be post surgical. Dictated by: Suha Rice M.D. on 08/03/2019 at 21:01 Approved by: Suha Rice M.D. on 08/03/2019 at 21:03
[2019-08-03] MEDS: INSULIN GLARGINE 100 UNIT/ML 3ML PEN 35 UNIT SUBCUT (22:17)
[2019-08-03] MEDS: INSULIN ASPART 100 UNIT/ML INSULN PEN SUBCUT (22:20)
[2019-08-03] MEDS: HEPARIN 5,000 UNIT/ML VIAL 5000 UNIT SUBCUT (22:20)
[2019-08-03 23:30] VITALS: BP 157/94; PULSE 100; RESP 16; TEMP 36.5; O2SAT 99
[2019-08-04] VITALS (17 sets, daily range): BP systolic 99–149; BP diastolic 55–92; PULSE 75–105; RESP 10–18; TEMP 36.4–36.9; O2SAT 97–100
[2019-08-04] MEDS: ACETAMINOPHEN 325 MG TABLET 650 MG PO ×2 (01:42→08:45)
--- NOTE | 2019-08-04 02:08 | PC.NURSE ---
Patient is alert and oriented although drowsy having just woken up. Breath sounds diminished but CTA with RA sat of 99%. HRR but tachy at 100 bpm and has elevated BP of 157/94. Denies nausea. BT present and is passing flatus. Has been up to bathroom to void; denies dysuria, frequency or urgency. Moving self in bed. Noted to be hopping on his right leg when going to/from bathroom. Discussed risk of falling and needing to either use crutches or call for staff assist; verbalizes understanding. Discussed use of bed alarm but patient refuses use. Did provide non skid socks for better bilingual case manager when out of bed. Complains of 3/10 left stump pain so medicated with Tylenol. Dressing to stump lose so rewrapped and taped to help keep in place. Multiple scabbed abrasions noted on right anterior lower leg. CBG checked by fingerstick and was 50 compared to his glucose monitor which was 70. Provided snack and will recheck in 20 minutes. Discussed use of SCD to right leg as per [employer] order but declines to wear at this time. On contact isolation as sensitivities not yet back on wound culture done prior to admission; does have hx of MRSA in left index finger. Fall risk score is moderate.
[2019-08-04] MEDS: SODIUM CHLORIDE 0.9% 250 ML 21 ML IV (04:57)
[2019-08-04] MEDS: VANCOMYCIN 1,000 MG/200 ML PIGGYBACK 200 MG IV (04:57)
[2019-08-04] MEDS: SODIUM CHLORIDE 0.9% FLUSH 10 ML IV ×2 (04:58→08:44)
[2019-08-04 05:36] LABS: Add Manual Diff / Slide Review NO; Basophils Absolute Auto 100 /uL (0-100); Basophils Percent Auto 1.1 % (0-2); Eosinophils Absolute Auto 500 /uL (0-450); Eosinophils Percent Auto 7.6 % (2-4); Hematocrit 37.7 % (41-53); Hemoglobin 13.4 g/dL (13.5-17.5); Lymphocytes Absolute Auto 2200 /uL (1100-4500); Mean Corpuscular HGB Conc 35.4 % (30-36); Mean Corpuscular Hemoglobin 30.4 PG (26-34); Mean Corpuscular Volume 85.7 fL (80-100); Monocytes Absolute Auto 500 /uL (0-900); Monocytes Percent Auto 8.3 % (3-14); Neutrophils Absolute Auto 3000 /uL (1500-7000); Platelet Count 241 X10^3/uL (150-400); Red Cell Distribution Width 12.4 % (11.6-14.8); White Blood Cell Count 6.2 X10^3/uL (4.5-11.0)
[2019-08-04 05:43] LABS: BUN Creatinine Ratio 24.4 (6-22); Blood Urea Nitrogen 22 mg/dL (9-20); Calcium 9.2 mg/dL (8.4-10.2); Carbon Dioxide 32 mmol/L (22-32); Chloride 100 mmol/L (98-107); Estimated Glomerular Filt Rate > 60.0 mL/min (>60); Glucose 98 mg/dL (70-100); HEMOLYSIS < 15 (0-50); Potassium 4.3 mmol/L (3.4-5.1); Sodium 137 mmol/L (137-145)
[2019-08-04 05:48] LABS: Hemoglobin A1C% w Est Avg Glu 7.5 % (4.0-6.0)
[2019-08-04] MEDS: HEPARIN 5,000 UNIT/ML VIAL 5000 UNIT SUBCUT (08:44)
--- NOTE | 2019-08-04 09:28 | PM.PN.1 ---
Subjective Subjective Date Patient Seen: 08/04/19 Interval history: Patient is 43-year-old male with type 1 diabetes and left BKA admitted for cellulitis and abscess of left lower extremity over tibia portion. Wound culture from ER I and D on 08/02/2019 growing MRSA. His blood sugars this morning were down to 50 and came up after breakfast. Exam Vital Signs (past 8 hours): - 08/04/19 03:30 08/04/19 04:58 Temperature 97.9 F 97.9 F Pulse Rate 91 H 91 H Respiratory Rate 16 16 Blood Pressure 133/80 133/80 Pulse Oximetry 99 99 Oxygen Delivery Method Room Air Oxygen Flow Rate 0 Narrative Exam Narrative: General: Alert, pleasant and cooperative male Extremities: Left BKA. Above the stump there is area of macular erythema and mild swelling but no obvious fluctuance. There are 2 incisions where he had I and D. There is slight amount of pus oozing out of the lower incision. Objective Labs Result Diagrams: 08/04/19 05:08 08/04/19 05:08 Labs: Laboratory Results - last 24 hr 08/03/19 08/03/19 08/03/19 15:08 15:08 15:08 WBC 7.1 RBC 4.48 L Hgb 13.7 Hct 38.3 L MCV 85.6 MCH 30.6 MCHC 35.7 RDW 12.7 Plt Count 265 Neut % (Auto) 55.5 Lymph % (Auto) 29.9 [place] % (Auto) 8.4 Eos % (Auto) 5.1 H Baso % (Auto) 1.1 Neut # (Auto) 4000 Lymph # (Auto) 2100 [place] # (Auto) 600 Eos # (Auto) 400 Baso # (Auto) 100 Sodium 142 Potassium 4.0 Chloride 101 Carbon Dioxide 33 H BUN 22 H Creatinine 0.90 Estimated GFR > 60.0 BUN/Creatinine Ratio 24.4 H Glucose 85 D Hemoglobin A1c Lactate 1.5 Calcium 9.7 Procalcitonin 08/03/19 08/04/19 08/04/19 15:08 05:08 05:08 WBC 6.2 RBC 4.40 L Hgb 13.4 L Hct 37.7 L MCV 85.7 MCH 30.4 MCHC 35.4 RDW 12.4 Plt Count 241 Neut % (Auto) 48.0 L Lymph % (Auto) 35.0 [place] % (Auto) 8.3 Eos % (Auto) 7.6 H Baso % (Auto) 1.1 Neut # (Auto) 3000 Lymph # (Auto) 2200 [place] # (Auto) 500 Eos # (Auto) 500 H Baso # (Auto) 100 Sodium 137 Potassium 4.3 Chloride 100 Carbon Dioxide 32 BUN 22 H Creatinine 0.90 Estimated GFR > 60.0 BUN/Creatinine Ratio 24.4 H Glucose 98 Hemoglobin A1c Lactate Calcium 9.2 Procalcitonin 0.05 08/04/19 05:08 WBC RBC Hgb Hct MCV MCH MCHC RDW Plt Count Neut % (Auto) Lymph % (Auto) [place] % (Auto) Eos % (Auto) Baso % (Auto) Neut # (Auto) Lymph # (Auto) [place] # (Auto) Eos # (Auto) Baso # (Auto) Sodium Potassium Chloride Carbon Dioxide BUN Creatinine Estimated GFR BUN/Creatinine Ratio Glucose Hemoglobin A1c 7.5 H Lactate Calcium Procalcitonin Assessment & Plan Assessment & Plan narrative: Patient is 43-year-old male with type 1 diabetes and left BKA admitted for cellulitis and abscess of left lower extremity over tibia portion. Wound culture from ER I and D on 08/02/2019 growing MRSA. 1. Left lower extremity abscess and cellulitis, present on admission -patient developed wound above his BKA stump after shoveling snow while wearing his prosthesis -wound culture from I&D 08/02/2019 grew MRSA sensitive to vancomycin, clindamycin, and Bactrim -WBC improving and he is afebrile -x-ray without evidence of foreign body -surgery consult requested to assess if he needs OR I and D -continue IV vancomycin and switch to oral clindamycin or Bactrim on discharge 2. Type 1 diabetes -patient has continuous glucose monitor, well controlled with A1c 7.5 -hypoglycemic this morning with glucose 53 -decreased insulin glargine from 35 units to 30 units HS -low-dose sliding scale 3. Attention deficit hyperactive disorder -stable, continued on his methylphenidate 36 mg daily 4. DVT prophylaxis -subcu heparin Quality VTE Deep Vein Thrombosis/Pulmonary Embolism Present on Admission: No
--- NOTE | 2019-08-04 10:04 | PC.NURSE ---
Day shift: Per Dr Abarca he wants Pt's BG's to be checked with hospital glucose meter for hospital stay at this time. Possible Pt to d/c tomorrow. Will continue to monitor BG's per protocol. Call light in reach. Pt agrees to not get OOB w/o staff helping. Pt refused SCD's today. Discussed w/ Pt the reason for them but still declined use.
[2019-08-04] MEDS: DEXTROSE 5%-0.9% NS 1,000 ML 84 ML IV (11:42)
[2019-08-04] MEDS: VANCOMYCIN 1,000 MG/200 ML PIGGYBACK 150 MG IV ×2 (11:57→21:31)
--- NOTE | 2019-08-04 12:15 | PT.IIE ---
Surgical History (Last Reviewed 08/03/19 @ 20:56 by MANE Gregorio) Hx of BKA (Acute) Medical History (Last Updated 08/03/19 @ 20:56 by MANE Gregorio) Type 1 diabetes mellitus (Acute) Physical Therapy Inpatient Evaluation/Re-Eval M1 PT/OT-IP Prior Functional Status Start: 08/04/19 08:20 Freq: NEEDED Status: Active Protocol: Document 08/04/19 12:40 AW (Rec: 08/04/19 13:02 AW [id number]) Medical Review Prior Functional Status Medical History Reviewed Yes Diet/Fluid Consistency Regular Communication WNL Mobility and Gait Pt ambulates mod independent with LLE prosthesis. Without prosthesis donned, pt either hops on his right leg for short distances or uses forearm crutches. He typically ambulates without AD and has no limit on his distance. Activities of Daily Living and IADL's Independent. Pt does not drive . He depends on his mom to drive him. Mom and grandma live nearby. Prior Functional Level (Other details) Pt is under the care of Mariela Montiel CPO at [facility] . He states he acquired a new socket early last year but is well-accustomed to it and has had no other changes in his components. Social History Household Members none Living Arrangements RV Number of Floors (Floors) One Floor Number of Stairs To Enter/Railing? 4 [place] with narrow bilateral rails which can be reached simultaneously. 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 He states he spent a lot of time shooting at [place] during the recent snow which he feels contributed to his current wounds. M2 PT-IP Current Condition Start: 08/04/19 08:20 Freq: NEEDED Status: Active Protocol: Document 08/04/19 12:40 AW (Rec: 08/04/19 13:02 AW [id number]) Physical Therapy Current Condition Current Condition Evaluation Date 08/04/19 Treatment Diagnosis LLE wound infection, left TT amp, impaired mobility Onset Date 08/03/19 Precautions Other Precautions contact precautions (unknown organism) Weight Bearing Status Weight Bearing Status Full Weight Bearing M3 PT-IP Subjective Start: 08/04/19 08:20 Freq: NEEDED Status: Active Protocol: Document 08/04/19 12:40 AW (Rec: 08/04/19 13:02 AW [id number]) Subjective Physical Therapy Visit Type Type Initial Evaluation Visit Start Time 11:45 Visit Stop Time 11:58 Total Visit Minutes 13 Physical Therapy Visit Comments Patient Comments Pt willing to mobilize with therapy Patient Goals To go home Therapy Pain Assessment Pain When Pain Assessed During Mobility Pain Present Pain Present Denied Pain M4 PT-IP Mobility and Gait Start: 08/04/19 08:20 Freq: NEEDED Status: Active Protocol: Document 08/04/19 12:40 AW (Rec: 08/04/19 13:02 AW [id number]) PT-Bed Mobility Assessment Supine to Sit Supine to Sit Independent Sit to Supine Sit to Supine Independent Scooting Scooting to Edge of Bed Independent Scooting Up and Down in Bed Independent PT-Transfer Assessment Sit to and From Stand Sit to and from Stand Standby Assistance Equipment Transfer Assistive Device Gait Belt,Forearm Crutches Orthotic/Prosthetic Devices or Brace: No Transfers Transfer Destination Bed,Chair Transfer Technique pt ambulated with forearm crutches, no prosthesis Transfer Ability Level of Assist Standby Assistance,1 Person Assistance Comments Mobility Comments Pt completed bed mobility independently and sit to stand using forearm crutches SBA. He ambulated around the room, transferred to/from the folding chair, and returned to supine in the bed SBA. Pt was repositioned in the bed with call light and all needs within reach. Gait Assessment Gait Gait Assistance Required: Standby Assistance,1 Person Assist Distance (Feet) 50 Able to Maintain Weight Bearing Status Yes During Gait Assistive Devices Assistive Device Gait Belt,Forearm Crutches Orthotic/Prosthetic Devices or Brace: No Factors Limiting Gait Function Factors Limiting Gait Function Decreased Activity Tolerance Comments Gait Comments Pt ambulated in the room ~50 feet with forearm crutches SBA . He states he feels his activity tolerance has been affected by the infection, but is otherwise mobilizing near baseline without his prosthesis. Stair Climbing Assessment Comments Stair Climbing Comments Not assessed. PT-Balance Assessment Sitting Balance and Reactions Static Sitting Balance Ability Normal Dynamic Sitting Balance Ability Normal Standing Balance and Reactions Static Standing Balance Ability Good Dynamic Standing Balance Ability Good Device Used forearm crutches Balance Tests Single Limb Standing RLE stance 15 seconds M5 PT-IP Objective Assessments Start: 08/04/19 08:20 Freq: NEEDED Status: Active Protocol: Document 08/04/19 12:40 AW (Rec: 08/04/19 13:02 AW [id number]) Orientation Orientation/Cognition Level of Alertness Alert Orientation Name,Day of Week,Place, Situation Language Function Ability No Deficits Noted Safety Awareness Understands Safety Issues Memory Description No Deficits Noted Gross Range of Motion Upper Extremity ROM Assessment Right Impaired Impairments history of right shoulder impingement. AROM mildly painful Lower Extremity ROM Assessment Within Functional Limits Strength Upper Extremity Strength Assessment Within Functional Limits Lower Extremity Strength Assessment Within Functional Limits Hip B 4+/5 Knee R 5/5 Ankle R 4+/5 Coordination Assessment Gross Coordination Gross Coordination WNL Sensation Assessment Sensation Gross Sensation WNL M6 PT-IP Treatment Start: 08/04/19 08:20 Freq: NEEDED Status: Active Protocol: Document 08/04/19 12:40 AW (Rec: 08/04/19 13:02 AW [id number]) Physical Therapy Treatment Education Education Provided Precautions,Safety Other Treatments Other Treatment Performed Provided education on role of PT, plan of care, and safety with forearm crutches M7 PT-IP Assessment and Plan Start: 08/04/19 08:20 Freq: NEEDED Status: Active Protocol: Document 08/04/19 12:40 AW (Rec: 08/04/19 13:02 AW [id number]) PT Summary Assessment and Plan Potential Rehabilitation Potential Excellent Status of Condition at Evaluation Evolving Summary Impairments Balance,Gait,Activity Tolerance Assessment Summary Daniel is a 43 yo man with history of left transtibial amputation (2013) and type 1 diabetes. He was seen for PT evaluation after being admitted with infected wounds on his distal left LE after a sharp increase in activity ( shoveling and navigating terrain for photpography) during recent . At baseline, he is modified independent with all functional mobility using LLE prosthesis or forearm crutches when not using prosthesis. On evaluation, pt required no more than SBA for all mobility . Will plan to see this pt one more time if he remains in hospital to assess activity tolerance and stair navigation . Otherwise, this pt will be safe to discharge to home environment once medically cleared. Goals Transfer Goal Independent,Crutches Gait Goal Independent,Crutches Gait Distance 200 ft Other Goals -up/down 4 steps with bilateral rails SBA Days to Meet Goals 2 Frequency of Treatment Frequency Of Treatment Once a Day Treatment Plan Physical Therapy Treatment Plan Transfer Training,Gait Training,Therapeutic Exercise, Balance Retraining,Discharge Planning,Manual Therapy Other Recommendations and Next Treatment progress gait distance with Focus forearm cruthches; assess safety on stairs Recommendations To Nursing Amount of Assist Needed Standby Assistance Discharge Recommendations PT Discharge Recommendations Home with Assistance Transportation Needs at Discharge Private Vehicle
--- NOTE | 2019-08-04 14:59 | P.CONS_ITS ---
History of Present Illness Consult details Date Patient Seen: 08/04/19 Time Patient Seen: 14:59 Chief complaint: Infection On Left Leg Reason for consult: Infection amputation stump Requesting provider: Trent Abarca Narrative: Patient is a gentleman who is been the ER recently twice for drainage of an infection/abscess that occurred when he was on his prosthesis shoveling snow during recent snow storm. He has not had this before. His last visit in the ER was . He has been on clindamycin and he grew MRSA from the wound. It should be sensitive to that. He feels like they are still abscess in the area. it has been draining. Meds Home Medications and Allergies Home Medications Medication Instructions Recorded Confirmed Type insulin aspart U-100 [Novolog See Rx Instructions .ROUTE .COMPLEX 04/03/1807/11 History Flexpen U-100 Insulin] insulin glargine [Basaglar KwikPen 35 unit SUBCUT DAILY 07/30/19 08/03/19 History U-100 Insulin] methylphenidate HCl 36 mg PO DAILY 07/30/19 08/03/19 History Allergies Allergy/AdvReac Type Severity Reaction Status Date / Time promethazine AdvReac Unknown GET LOOPY Verified 04/03/18 13:23 Review of Systems Review of Systems Narrative: No visual difficulties double vision pain is eyes earache sore throats. No trouble swallowing. No cough cold or asthma. No chest pain heart problems or murmurs. No black or bloody bowel movements. No seizures or blackouts. No problems urinating blood in his urine or history kidney stones. Amputation was done for trauma and not related to his diabetes. Exam Vital Signs (past 8 hours): - 08/04/19 08:00 08/04/19 09:00 08/04/19 11:36 Temperature 98.0 F 98.4 F Pulse Rate 97 H 96 H Respiratory Rate 16 16 Blood Pressure 146/89 H 147/88 H Pulse Oximetry 100 98 98 Oxygen Delivery Method Room Air Oxygen Flow Rate 0 Narrative Exam Narrative: Cooperative no apparent distress. Thin gentleman. Appears younger than his stated age. His eyes are nonicteric. Pupils equal round reactive to light. Conjunctiva may be little pale. Ears without lesion nasal septum midline. Oral mucosa pink moist without open lesions. No splits is lips. His lungs are clear to auscultation without rales or rhonchi in equal percussion. No nodes in the neck supraclavicular areas. Heart regular rate and rhythm without murmur gallop. No heave lift or thrill. Abdomen is scaphoid soft nontender there are no palpable masses liver and spleen are not enlarged. Amputation site is a below-knee amputation on the left. There to I&D sites on the medial side of the scar from the amputation. They are not on the and. There is no bony tenderness. I really can't express any pus. There is no cellulitis. Patient is alert and oriented x3. Speech rate and content are appropriate affect is appropriate. Objective Labs Result Diagrams: 08/04/19 05:08 08/04/19 05:08 Labs: Laboratory Results - last 24 hr 08/03/19 08/03/19 08/03/19 15:08 15:08 15:08 WBC 7.1 RBC 4.48 L Hgb 13.7 Hct 38.3 L MCV 85.6 MCH 30.6 MCHC 35.7 RDW 12.7 Plt Count 265 Neut % (Auto) 55.5 Lymph % (Auto) 29.9 Brewster % (Auto) 8.4 Eos % (Auto) 5.1 H Baso % (Auto) 1.1 Neut # (Auto) 4000 Lymph # (Auto) 2100 Brewster # (Auto) 600 Eos # (Auto) 400 Baso # (Auto) 100 Sodium 142 Potassium 4.0 Chloride 101 Carbon Dioxide 33 H BUN 22 H Creatinine 0.90 Estimated GFR > 60.0 BUN/Creatinine Ratio 24.4 H Glucose 85 D Hemoglobin A1c Lactate 1.5 Calcium 9.7 Procalcitonin 08/03/19 08/04/19 08/04/19 15:08 05:08 05:08 WBC 6.2 RBC 4.40 L Hgb 13.4 L Hct 37.7 L MCV 85.7 MCH 30.4 MCHC 35.4 RDW 12.4 Plt Count 241 Neut % (Auto) 48.0 L Lymph % (Auto) 35.0 Brewster % (Auto) 8.3 Eos % (Auto) 7.6 H Baso % (Auto) 1.1 Neut # (Auto) 3000 Lymph # (Auto) 2200 Brewster # (Auto) 500 Eos # (Auto) 500 H Baso # (Auto) 100 Sodium 137 Potassium 4.3 Chloride 100 Carbon Dioxide 32 BUN 22 H Creatinine 0.90 Estimated GFR > 60.0 BUN/Creatinine Ratio 24.4 H Glucose 98 Hemoglobin A1c Lactate Calcium 9.2 Procalcitonin 0.05 08/04/19 05:08 WBC RBC Hgb Hct MCV MCH MCHC RDW Plt Count Neut % (Auto) Lymph % (Auto) Brewster % (Auto) Eos % (Auto) Baso % (Auto) Neut # (Auto) Lymph # (Auto) Brewster # (Auto) Eos # (Auto) Baso # (Auto) Sodium Potassium Chloride Carbon Dioxide BUN Creatinine Estimated GFR BUN/Creatinine Ratio Glucose Hemoglobin A1c 7.5 H Lactate Calcium Procalcitonin Assessment & Plan Assessment & Plan narrative: Patient post I&D of infection in his left BKA stump. Very concerned that he feels something within it. There is no obvious abscess or cellulitis. Even so given his sensation and the fact that infection in diabetics contract along tendons and not have much of an external appearance I would prefer to proceed to explore under anesthesia. risks of bleeding infection failure to heal and need to revise the amputation all discussed. He appears to understand it and wishes to proceed
--- NOTE | 2019-08-04 15:24 | PM.PREOP ---
Pre-operative Note Interval Note History & Physical reviewed/Exam performed by Physician: Yes Changes to H&P: No
[2019-08-04] MEDS: LACTATED RINGERS 1,000 ML 42 ML IV (16:00)
--- NOTE | 2019-08-04 16:28 | SUR.OPER ---
Supine on padded OR bed, head on pillow, arms secured on padded arm boards at <90 degrees abduction, legs uncrossed, safety belt at waist, tape over blanket over lower right leg. Left leg controlled by surgeon.
--- NOTE | 2019-08-04 16:32 | CM.DANOTE ---
Discharge Planning/Care Management Case received, EMR reviewed. Discussed in Team Rounds. Pt is a 43 year old male who admitted to care of hospitalist team. Dr. Barrera: consulting with plan for I&D in OR. Payer: [employer]/Medicaid Pt carries dx of type I diabetes and with L BKA and prosthetic use. Due to lateness of hour must defer rest of assessment process to the DCP team on tomorrow. Dr. Abarca does anticipate pt will be going home at d/c and on oral antibiotics but team will follow prn as needs unfold. PT is seeing him today. CM Discharge Assessment Start: 08/04/19 16:30 Freq: Status: Active Protocol: Document 08/04/19 16:31 ITV (Rec: 08/04/19 16:32 ITV [id number]) Discharge Planning Assessment Advance Directives? No History Provided By Medical Record Prior Living Arrangements RV Household Members none Independent with ADL's Yes Is patient alert and oriented? Yes Review Status In Process
[2019-08-04] MEDS: BUPIVACAINE 0.5% W/ EPI (PF) 30 ML VIAL 10 ML INJ (16:56)
--- NOTE | 2019-08-04 16:58 | PM.OP.1 ---
Operative Date/Time/Diagnoses Date of procedure: 08/04/19 Time of procedure: 16:52 Pre-op diagnosis: Abscess left leg at near BKA stump post I and D in the emergency room Post-op diagnosis: same Procedure & Clinicians Procedure: Wound exploration, drainage and debridement of small amounts of skin, subcutaneous fat, muscle. Same procedure as scheduled: Yes Indications: Patient post I and D with persistent sensation of abscess brought to the operating room Surgeon: Idris Barrera Click Yes if Unassisted: Yes Anesthesia Type: General Operative Notes Findings: Small amount of pus. The to I&D sites connected underneath the long tendon sheath. The entire length was opened. Closure Type: not applicable Specimen(s): none sent Estimated Blood Loss (mL): 10 Blood products transfused: none Procedure in detail: The patient was placed supine on the operating room table underwent general LMA anesthesia. He was prepped and draped in the usual fashion. We removed it scabs from his I and D sites and probed the wounds. There was a small cavity beneath each of these. The incision was extended to the length of the cavity and in probing the upper opening it connected with a lower so I just interconnected the whole thing through 1 incision. This ultimately left him with about a 3-1/2 inch incision on the medial aspect of his leg above his amputation site. I debrided a small amount of skin is subcutaneous fat and a small amount of muscle. I evacuated pus probed cavities and irrigated out the wound copiously. I then packed the wound with 0.5% Marcaine with epinephrine soaked gauze and a dry dressing was applied along with a Kerlix and Da. Patient was transferred to his bed awakened and recovered in the operating room due to his MRSA infection. Complications: none Post-operative Condition: stable Disposition: PACU (Recovered in the operating room) Plan for aftercare: Admit back to the floor
--- NOTE | 2019-08-04 17:45 | SUR.PHASEI ---
Normal PACU stay. Pt to room on room air. Sats 100% in room. Dressing remained c/d/i. Pt left with Ashley and left in stable condition.
--- NOTE | 2019-08-04 17:59 | SUR.PHASEI ---
Late entry: blood sugar 53, 25 g dextrose given by Dr. Clayton. Repeat blood glucose 76. Apple juice given per Dr. Clayton's instructions. Report called to OCHOA Ramirez.
[2019-08-04] MEDS: OXYCODONE IR 10 MG TABLET PO (20:33)
[2019-08-04 21:04] LABS: Vancomycin Trough 10.1 ug/mL (10-20)
[2019-08-04] MEDS: VANCOMYCIN TROUGH 1 REQUEST MISC (21:32)
[2019-08-04] MEDS: INSULIN GLARGINE 100 UNIT/ML 3ML PEN 30 UNIT SUBCUT (21:33)
[2019-08-05] VITALS (9 sets, daily range): BP systolic 126–145; BP diastolic 79–92; PULSE 93–107; RESP 16–18; TEMP 36.1–36.9; O2SAT 96–100
[2019-08-05] MEDS: INSULIN ASPART 100 UNIT/ML 10ML VIAL 10 UNIT SUBCUT (03:31)
[2019-08-05] MEDS: VANCOMYCIN 1,000 MG/200 ML PIGGYBACK 150 MG IV ×3 (05:01→20:53)
[2019-08-05] MEDS: INSULIN ASPART 100 UNIT/ML INSULN PEN SUBCUT ×5 (08:48→20:55)
[2019-08-05 09:13] LABS: BUN Creatinine Ratio 36.3 (6-22); Blood Urea Nitrogen 29 mg/dL (9-20); Calcium 9.4 mg/dL (8.4-10.2); Carbon Dioxide 29 mmol/L (22-32); Chloride 99 mmol/L (98-107); Estimated Glomerular Filt Rate > 60.0 mL/min (>60); Glucose 436 mg/dL (70-100); HEMOLYSIS < 15 (0-50); Potassium 4.6 mmol/L (3.4-5.1); Sodium 135 mmol/L (137-145)
--- NOTE | 2019-08-05 10:39 | CM.DPC ---
DCP Cont: Was able to meet with patient this morning. Introduced self and role. Patient was sitting up in bed, alert and oriented. Confirmed with patient that his primary MD is still Dr. Champagne. Patient does live alone, but stated that he does have family in the area if he needs any assistance. Patient is active, he wears prostesis, secondary to amputation, but has had some infections at the site. Discussed discharge. Patient did state he has had home infusions before. At this time it is noted that the plan is for discharge on oral antibiotics. Discussed this at team rounds as well. P: DCP to continue to follow and will be available for any resources needed at discharge. Ness Chavez RN/Hard[employer] Floor Installation Helper
--- NOTE | 2019-08-05 10:51 | PT.IPTN ---
Current Diagnoses Infection of amputation stump, left lower extremity (08/03/19) Surgery Performed Operation Date: 08/04/19 15:25 Actual Procedures p Incision and Drainage Wound left leg (stump of BKA)(Left) - Idris Barrera MD Physical Therapy Treatment Note M2 PT-IP Current Condition Start: 08/04/19 08:20 Freq: NEEDED Status: Active Protocol: Document 08/04/19 12:40 AW (Rec: 08/04/19 13:02 AW [id number]) Physical Therapy Current Condition Current Condition Evaluation Date 08/04/19 Treatment Diagnosis LLE wound infection, left TT amp, impaired mobility Onset Date 08/03/19 Precautions Other Precautions contact precautions (unknown organism) Weight Bearing Status Weight Bearing Status Full Weight Bearing M3 PT-IP Subjective Start: 08/04/19 08:20 Freq: NEEDED Status: Active Protocol: Document 08/05/19 10:44 AW (Rec: 08/05/19 10:51 AW [id number]) Subjective Physical Therapy Visit Type Type Treatment Note Visit Start Time 09:53 Visit Stop Time 10:03 Total Visit Minutes 10 Notes Pt had I&D of LLE wounds under anesthesia yesterday Physical Therapy Visit Comments Patient Comments Pt feeling better and happy to mobilize with PT Patient Goals To go home Therapy Pain Assessment Pain When Pain Assessed During Mobility Pain Present Pain Present Denied Pain M4 PT-IP Mobility and Gait Start: 08/04/19 08:20 Freq: NEEDED Status: Active Protocol: Document 08/05/19 10:44 AW (Rec: 08/05/19 10:51 AW [id number]) PT-Bed Mobility Assessment Supine to Sit Supine to Sit Independent Sit to Supine Sit to Supine Independent Scooting Scooting to Edge of Bed Independent PT-Transfer Assessment Sit to and From Stand Sit to and from Stand Independent Equipment Transfer Assistive Device Gait Belt,Forearm Crutches Orthotic/Prosthetic Devices or Brace: No Transfers Transfer Destination Bed Transfer Technique pt ambulated with forearm crutches, no prosthesis Transfer Ability Level of Assist Independent Comments Mobility Comments Pt transferred to and from the bed independently without prosthesis and with forearm crutches. Gait Assessment Gait Gait Assistance Required: Independent Distance (Feet) 320 Able to Maintain Weight Bearing Status Yes During Gait Assistive Devices Assistive Device Gait Belt,Forearm Crutches Orthotic/Prosthetic Devices or Brace: No Factors Limiting Gait Function Factors Limiting Gait Function Decreased Activity Tolerance Comments Gait Comments Pt ambulated 160 feet to the stairs and back using forearm crutches independently. He states he feels he is moving as well as he ever does without his prosthesis. Stair Climbing Assessment Evaluation Level of Assist On Stairs Standby Assistance Devices Stair Climbing Assistive Devices Forearm Crutches Technique/Endurance Stair Climbing Direction Ascend and Descend Number of Steps Climbed 3 Stair Climbing Set # Repetitions (reps) 2 Comments Stair Climbing Comments Pt required no more than SBA for stair navigation using only forearm crutches with good patterning and good safety awareness. PT-Balance Assessment Sitting Balance and Reactions Static Sitting Balance Ability Normal Dynamic Sitting Balance Ability Normal Standing Balance and Reactions Static Standing Balance Ability Good Dynamic Standing Balance Ability Good Device Used forearm crutches M5 PT-IP Objective Assessments Start: 08/04/19 08:20 Freq: NEEDED Status: Active Protocol: Document 08/04/19 12:40 AW (Rec: 08/04/19 13:02 AW [id number]) Orientation Orientation/Cognition Level of Alertness Alert Orientation Name,Day of Week,Place, Situation Language Function Ability No Deficits Noted Safety Awareness Understands Safety Issues Memory Description No Deficits Noted Gross Range of Motion Upper Extremity ROM Assessment Right Impaired Impairments history of right shoulder impingement. AROM mildly painful Lower Extremity ROM Assessment Within Functional Limits Strength Upper Extremity Strength Assessment Within Functional Limits Lower Extremity Strength Assessment Within Functional Limits Hip B 4+/5 Knee R 5/5 Ankle R 4+/5 Coordination Assessment Gross Coordination Gross Coordination WNL Sensation Assessment Sensation Gross Sensation WNL M6 PT-IP Treatment Start: 08/04/19 08:20 Freq: NEEDED Status: Active Protocol: Document 08/05/19 10:44 AW (Rec: 08/05/19 10:51 AW [id number]) Physical Therapy Treatment Education Education Provided Precautions,Safety M7 PT-IP Assessment and Plan Start: 08/04/19 08:20 Freq: NEEDED Status: Active Protocol: Document 08/05/19 10:44 AW (Rec: 08/05/19 10:51 AW [id number]) PT Summary Assessment and Plan Potential Rehabilitation Potential Excellent Summary Impairments Balance,Gait,Activity Tolerance Progress Towards Goals Safe For Discharge,Goals Met Assessment Summary Daniel has met all goals of this plan of care and will be safe to discharge back to home when medically cleared. Goals Transfer Goal Independent,Crutches Gait Goal Independent,Crutches Gait Distance 200 ft Other Goals -up/down 4 steps with bilateral rails SBA Frequency of Treatment Frequency Of Treatment Discharge Recommendations To Nursing Amount of Assist Needed Independent Discharge Recommendations PT Discharge Recommendations Home with Assistance Transportation Needs at Discharge Private Vehicle
[2019-08-05] MEDS: SODIUM CHLORIDE 0.9% 250 ML 21 ML IV (12:24)
--- NOTE | 2019-08-05 12:27 | P.PN_ITS ---
Subjective Subjective Date Patient Seen: 08/05/19 Interval history: Daniel Zapata is a 43-year-old male with a past medical history significant for diabetes mellitus type 1 with continuous glucose monitor, left [id number] amputation status post talus fracture and ADHD on Concerta who presented to the ED for draining abscess and cellulitis of left stump. The patient is resting in bed comfortably. He has no complaints. He denies headache, shortness of breath, chest pain, abdominal pain, nausea, vomiting, fever, chills, pain at stump, dysuria, diarrhea or constipation. He is voiding without difficulty. He up ambulating with assistance. Exam Vital Signs (past 8 hours): - 08/05/19 07:40 08/05/19 08:09 08/05/19 11:04 Temperature 97.6 F 98 F Pulse Rate 94 H 93 H Respiratory Rate 16 16 Blood Pressure 126/82 130/85 Pulse Oximetry 99 99 100 Oxygen Delivery Method Room Air Oxygen Flow Rate 0 Narrative Exam Narrative: General: Middle aged male sitting in bed and in no acute distress, well- developed, well-nourished, appropriately interactive. HEENT: Normocephalic, atraumatic. External ears without defect. Pupils equal, round, and reactive to light and accommodation. Anicteric sclerae, moist conjunctivae, and no lid lag. Neck: Supple with full range of motion. No lymphadenopathy or thyromegaly. Cardiovascular: Regular rate and rhythm without murmurs, rubs, or gallops appreciated. Pulmonary: Clear to auscultation bilaterally without crackles, wheezes, or rhonchi. Normal respiratory effort with no use of accessory muscles. Abdomen: Soft, bowel sounds nontender, nondistended. No hepatosplenomegaly or masses appreciated. Left stump with dressing in place C/D/I. Extremities: No clubbing, cyanosis, or edema. Skin: Normal temperature, turgor, and texture; no rash, ulcers, or subcutaneous nodules appreciated. Neurological: Cranial nerves grossly intact. Psychiatric: Normal mood and affect. Alert and oriented to person, place, and time. Objective Labs Result Diagrams: 08/04/19 05:08 08/05/19 08:09 Labs: Laboratory Results - last 24 hr 08/04/19 08/05/19 20:30 08:09 Sodium 135 L Potassium 4.6 Chloride 99 Carbon Dioxide 29 BUN 29 H Creatinine 0.80 Estimated GFR > 60.0 BUN/Creatinine Ratio 36.3 H Glucose 436 H D Calcium 9.4 Vancomycin Trough 10.1 Assessment & Plan Assessment & Plan narrative: Daniel Zapata is a 43-year-old male with a past medical history significant for diabetes mellitus type 1 with continuous glucose monitor, left [id number] amputation status post talus fracture and ADHD on Concerta who presented to the ED for draining abscess and cellulitis of left stump. 1. Left lower extremity abscess and cellulitis, status post I&D and debridement with washout, present on admission. Resolving. -Patient developed wound above his BKA stump after shoveling snow while wearing his prosthesis. -Wound culture from I&D 08/02/2019 grew MRSA sensitive to vancomycin, clindamycin, doxycycline and Bactrim. -X-ray left lower extremity demonstrated soft tissue edema surrounding the distal lower extremity reflecting [id number] amputation without definitive areas of erosion or foreign body are identified. Irregularity along the distal fibula is suspected to be post surgical. -Consulted general surgery, Dr. Barrera, who performed debridement and washout. -Continue vancomycin with dosing per pharmacist and plan to discharge likely tomorrow on doxycycline. 2. Diabetes mellitus type 1, chronic, present on admission. Stable. -Patient has continuous glucose monitor and is well controlled with hemoglobin A1c 7.5 %. -Continue [facility] blood glucose checks and low-dose correctional scale insulin. -Continue home Lantus decreased from 35 units to 30 units daily at bedtime. -Continue carbohydrate consistent diet. 3. Attention deficit hyperactive disorder -Continue methylphenidate 36 mg daily. Code status: Full code DVT prophylaxis: SQ Heparin Disposition: Patient likely discharge home tomorrow once he has had 48 hours of IV antibiotics and has been taught by nursing staff how to change dressing. Quality VTE Deep Vein Thrombosis/Pulmonary Embolism Present on Admission: No
[2019-08-05] MEDS: ACETAMINOPHEN 325 MG TABLET 650 MG PO (15:57)
--- NOTE | 2019-08-05 17:11 | PM.PNPO.1 ---
Subjective Subjective Date Patient Seen: 08/05/19 Time Patient Seen: 17:11 Interval history: Patient post incision and drainage of an abscess left BK stump. Feeling fine. Pressure sensation no longer there. Exam Vital Signs (past 8 hours): - 08/05/19 11:04 08/05/19 15:30 Temperature 98 F 98.5 F Pulse Rate 93 H 95 H Respiratory Rate 16 16 Blood Pressure 130/85 128/81 Pulse Oximetry 100 100 Oxygen Delivery Method Room Air Oxygen Flow Rate 0 Narrative Exam Narrative: The wound looks good. I removed the gauze and reinserted New Gauze. I demonstrated to the patient had a do a normal saline wet to dry dressing. Objective Labs Result Diagrams: 08/04/19 05:08 08/05/19 08:09 Labs: Laboratory Results - last 24 hr 08/04/19 08/05/19 20:30 08:09 Sodium 135 L Potassium 4.6 Chloride 99 Carbon Dioxide 29 BUN 29 H Creatinine 0.80 Estimated GFR > 60.0 BUN/Creatinine Ratio 36.3 H Glucose 436 H D Calcium 9.4 Vancomycin Trough 10.1 Assessment & Plan Post-op Postoperative Procedures: Procedures Operation Date: 08/04/19 15:25 Actual Procedures Side Surgeon p Incision and Drainage Wound left leg (stump of BKA) Left Idris Barrera MD Postoperative status: doing well Postoperative plan narrative: Sugar control per primary care providers. Can probably be discharged tomorrow on oral medication with home health nursing normal saline wet to dry covered with a Kerlix and coban daily Quality VTE Deep Vein Thrombosis/Pulmonary Embolism Present on Admission: No
[2019-08-05] MEDS: OXYCODONE IR 10 MG TABLET PO (17:17)
[2019-08-05] MEDS: INSULIN GLARGINE 100 UNIT/ML 3ML PEN 30 UNIT SUBCUT (20:54)
[2019-08-06] VITALS: BP 145/93; PULSE 86; RESP 16; TEMP 36.5; O2SAT 96
[2019-08-06] MEDS: VANCOMYCIN 1,000 MG/200 ML PIGGYBACK 200 MG IV (05:04)
[2019-08-06 05:47] VITALS: BP 137/79; PULSE 86; RESP 16; TEMP 36.5; O2SAT 99
[2019-08-06 08:00] VITALS: BP 110/69; PULSE 84; RESP 16; TEMP 36.4; O2SAT 100
[2019-08-06 08:27] VITALS: O2SAT 99
[2019-08-06] MEDS: INSULIN ASPART 100 UNIT/ML INSULN PEN SUBCUT (08:37)
--- NOTE | 2019-08-06 09:27 | P.DS_ITS ---
History of Present Illness History of Present Illness Chief complaint: Infection On Left Leg Narrative: Mr. Daniel Zapata is a 43-year-old male with history of type 1 diabetes, left lower fzlxc-man-cbyi amputation status post talus fracture and ADHD on Concerta who presents to the ER for draining abscess and cellulitis. The patient reports he was out shoveling snow and had areas of abrasion from his prosthesis. He developed a few areas of irritation which healed except for the current wound which became more erythema, swollen and painful. The patient has presented to the ER 2 times previous initially on 07/30/2019 at which time he was prescribed clindamycin and discharged to home. The patient returned on 08/02/2019 with continued pain and worsening erythema at which time was given IV Rocephin. Id was performed and wound drainage was cultured which is revealed Staph aureus yet awaiting sensitivities. The patient again returns today with progressive symptoms with cellulitis of his left residual limb wound drainage and pain. The patient had a previous episode of severe infection a couple of years ago of his right 1st finger for which she had required PICC line placement and prolonged IV antibiotics. The patient has been closely monitoring his blood sugars using a continues blood sugar monitor and taking Lantus daily with correctional NovoLog. The patient denies systemic symptoms and has had no headaches or dizziness, fevers or chills. He denies nasal congestion or sore throat. He reports no chest pain or palpitations, shortness of breath cough or wheezing. He has no abdominal pain nausea vomiting or changes in bowel or bladder habits he gets up approximately once nightly to urinate. The patient is independent in his ADLs. His prosthesis reportedly fits well. Upon arrival to the ER the patient has a temperature of 98.7?, heart rate of 110, blood pressure of 138/84, respirations 14 saturating 98% on room air. Laboratory analysis obtained finding a white count of 7.1, hemoglobin 13.7, hematocrit of 38.3 and platelets of 265. Notably the patient on initial pres entation [id number] had elevated white count at 13.5 which was read checked on 08/02 and found to be 9.0 following antibiotic treatment. Patient's electrolytes are within range with a BUN 22 and creatinine 0.9 glucose of 85. Lactic acid is 1.5 procalcitonin is 0.05. No imaging was obtained. Blood cultures were obtained and patient received vancomycin 1000 mg IV and Rocephin 1 g IV. The patient is admitted to the hospital for wound infection and IV antibiotics. Discharge Providers Provider Date of admission: 08/03/19 16:28 Discharge Date: 08/06/19 Primary care physician: Neftaly Champagne Consults: 08/03/19 20:14 Consult to Discharge Planning Routine Comment: 08/03/19 21:36 Consult to Physical Therapy Evaluate & Treat Comment: History L BKA, wound infection and cellulitis LLE Physician Instructions: Evaluate and Treat 08/03/19 21:54 Consult to General Surgery Routine Comment: Consulting Provider: Idris Barrera Reason for consultation: abcess LLE, Hx LBKA, possible debridement. Has provider been notified: No 08/05/19 17:15 Consult to Discharge Planning Routine Comment: Home health needed. Daily wound care. See note Discharge provider: Trent Abarca MD Summary Hospital Course Discharge Diagnosis: 1. Left lower extremity cellulitis and abscess, MRSA 2. Diabetes mellitus type 1, well controlled in a globin A1c 7.5 3. Hypoglycemia, resolved 4. Status post left BKA 5. Attention deficit hyperactivity disorder, controlled Hospital Course: Patient admitted due to left lower leg cellulitis and abscess above his BKA with failure of outpatient antibiotic management and I and D in the ER. His wound culture from 08/02/2019 grew MRSA susceptible to doxycycline, clindamycin and Bactrim. Due to failure of outpatient oral antibiotic he was started on vancomycin. Dr. Barrera was consulted for surgery and took patient to the OR on 08/04/2019 for I and D. patient has resolving cellulitis and per surgery note the wound looks good postop. He has instructions on normal saline wet to dry dressing changes. He will also follow-up at wound care clinic. He did have some hypoglycemia the 1st day of admission which has corrected. He is being discharged on doxycycline x1 week. Status at Discharge Cognitive/behavioral status at discharge: oriented Functional status at discharge: independent ambulation Overall status at discharge: patient is progressing back to baseline Time Spent with Patient Time spent: Less than 30 minutes Exam Vital Signs (past 8 hours): - 08/06/19 05:47 08/06/19 08:00 08/06/19 08:27 Temperature 97.7 F 97.5 F L Pulse Rate 86 84 Respiratory Rate 16 16 Blood Pressure 137/79 110/69 Pulse Oximetry 99 100 99 Oxygen Delivery Method Room Air Oxygen Flow Rate 0 Objective Labs Result Diagrams: 08/04/19 05:08 08/05/19 08:09 Discharge Plan Discharge Plan Patient Disposition: Home Discharge orders & Medications Prescriptions: New doxycycline hyclate 100 mg tablet 100 mg PO BID Qty: 14 RF: 0 Continued methylphenidate HCl 36 mg tablet extended release 24hr 72 mg PO DAILY RF: 0 Basaglar KwikPen U-100 Insulin 100 unit/mL (3 mL) insulin pen 35 unit SUBCUT DAILY RF: 0 Novolog Flexpen U-100 Insulin 100 unit/mL Insulin Pen See Rx Instructions .ROUTE .COMPLEX RF: 0 Follow up/Referrals: Alexey Gil MD [Physician] - 3-5 Days Neftaly Champagne [Primary Care Provider] - Discharge Health Status Multidrug resistant organism: MRSA Diet/Activity/Treatments Diet: Carb-consistent/Diabetic Visit Report/Discharge Packet Instructions: How to Care for a Surgical Wound, DI for Wound Infection, How to Change a Wet-to-dry Wound Dressing, DI for Incision and Drainage, How to Wrap Multilayer Compression Bandage for Leg Wounds Discharge Data Primary Care Provider: Neftaly Champagne Quality VTE Deep Vein Thrombosis/Pulmonary Embolism Present on Admission: No
--- NOTE | 2019-08-06 10:25 | PC.NURSE ---
Day shift: Paperwork signed and all questions answered. MD appointment made. Pt has all personal belongings. script is at Pt's pharmacy. Pt has his home meds with him now. Taken to private car in by [employer]. Pt supplied with dressing materials if they are needed. Per Pt The doctor showed me how to change this dressing. Off unit at approx 1030.
== END 2019-08-06 11:10 | disposition home or self-care (01) | DRG 501 ==
LOC: ED 16:06 → AC 16:29
PROVIDERS: Nurse Practitioner Adult Health; Specialist; Admitting Provider Internal Medicine; Emergency Provider Emergency Medicine; Family Provider Internal Medicine; PCP Internal Medicine; Visit Provider Internal Medicine
PROC: 0KBT0ZZ Excision of Left Lower Leg Muscle, Open Approach (ICD-10-PCS; principal; 2019-08-04 15:25)
DX: T87.44 Infection of amputation stump, left lower extremity (principal); L03.116 Cellulitis of left lower limb; E10.649 Type 1 diabetes mellitus with hypoglycemia without coma; F90.9 Attention-deficit hyperactivity disorder, unspecified type; Z89.512 Acquired absence of left leg below knee; Z87.891 Personal history of nicotine dependence; Z79.4 Long term (current) use of insulin
CPT/HCPCS: 36415; 73560; 80048; 80202; 82962; 83036; 83605; 84145; 85025; 87040; 96365; 96367; 97116; 97161; 99283; 99284; J1100; J1644; J2250; J2405; J3010

== ENCOUNTER → 2019-08-08 14:01 | Outpatient (CLI) | payer OTHER, MEDICAID, SELFPAY ==
[2019-08-03 18:25] VITALS: BMI 19.5
== END ==
PROVIDERS: Family Provider Internal Medicine; PCP Internal Medicine; Visit Provider Family Medicine
DX: E10.628 Type 1 diabetes mellitus with other skin complications (principal); S81.802A Unspecified open wound, left lower leg, initial encounter; B95.62 Methicillin resistant Staphylococcus aureus infection as the cause of diseases classified elsewhere; Z89.512 Acquired absence of left leg below knee; Z79.4 Long term (current) use of insulin; Z72.0 Tobacco use
CPT/HCPCS: 11043; 99203; 99213

== ENCOUNTER → 2019-08-12 14:37 | Outpatient (CLI) | payer OTHER, MEDICAID, SELFPAY ==
[2019-08-03 18:25] VITALS: BMI 19.5
== END ==
PROVIDERS: Family Provider Internal Medicine; PCP Internal Medicine; Referring Provider Internal Medicine; Visit Provider Family Medicine
DX: S81.802A Unspecified open wound, left lower leg, initial encounter (principal)
CPT/HCPCS: 99213

== ENCOUNTER → 2019-08-14 10:41 | Outpatient (CLI) | payer OTHER, MEDICAID, SELFPAY ==
[2019-08-03 18:25] VITALS: BMI 19.5
== END ==
PROVIDERS: Family Provider Internal Medicine; PCP Internal Medicine; Referring Provider Internal Medicine; Visit Provider Family Medicine
DX: E10.628 Type 1 diabetes mellitus with other skin complications (principal); S81.802A Unspecified open wound, left lower leg, initial encounter; Z79.4 Long term (current) use of insulin; Z89.512 Acquired absence of left leg below knee
CPT/HCPCS: 11042; 97605

== ENCOUNTER → 2019-08-16 13:07 | Outpatient (CLI) | payer OTHER, MEDICAID, SELFPAY ==
[2019-08-03 18:25] VITALS: BMI 19.5
== END ==
PROVIDERS: Family Provider Internal Medicine; PCP Internal Medicine; Referring Provider Internal Medicine; Visit Provider Family Medicine
DX: S81.802A Unspecified open wound, left lower leg, initial encounter (principal)
CPT/HCPCS: 97605; 99212

== ENCOUNTER → 2019-08-20 14:15 | Outpatient (CLI) | payer OTHER, MEDICAID, SELFPAY ==
[2019-08-03 18:25] VITALS: BMI 19.5
== END ==
PROVIDERS: Family Provider Internal Medicine; PCP Internal Medicine; Referring Provider Internal Medicine; Visit Provider Family Medicine
DX: S81.802A Unspecified open wound, left lower leg, initial encounter (principal)
CPT/HCPCS: 97607

== ENCOUNTER → 2019-08-23 14:31 | Outpatient (CLI) | payer OTHER, MEDICAID, SELFPAY ==
[2019-08-03 18:25] VITALS: BMI 19.5
== END ==
PROVIDERS: Family Provider Internal Medicine; PCP Internal Medicine; Referring Provider Internal Medicine; Visit Provider Family Medicine
DX: S81.802A Unspecified open wound, left lower leg, initial encounter (principal)
CPT/HCPCS: 97607

== ENCOUNTER → 2019-08-30 14:19 | Outpatient (CLI) | payer OTHER, MEDICAID, SELFPAY ==
[2019-08-03 18:25] VITALS: BMI 19.5
== END ==
PROVIDERS: Family Provider Internal Medicine; PCP Internal Medicine; Referring Provider Internal Medicine; Visit Provider Family Medicine
DX: E10.628 Type 1 diabetes mellitus with other skin complications (principal); S81.802A Unspecified open wound, left lower leg, initial encounter; Z89.512 Acquired absence of left leg below knee; Z79.4 Long term (current) use of insulin; Z72.0 Tobacco use
CPT/HCPCS: 97597

== ENCOUNTER → 2019-09-06 13:01 | Outpatient (CLI) | payer OTHER, MEDICAID, SELFPAY | PROVIDERS: Family Provider Internal Medicine; PCP Internal Medicine; Referring Provider Internal Medicine; Visit Provider Family Medicine | DX: E10.622 Type 1 diabetes mellitus with other skin ulcer (principal); S81.802A Unspecified open wound, left lower leg, initial encounter; Z89.512 Acquired absence of left leg below knee; Z79.4 Long term (current) use of insulin; Z72.0 Tobacco use | CPT/HCPCS: 99213 ==

== ENCOUNTER → 2019-09-13 12:58 | Outpatient (CLI) | payer OTHER, MEDICAID, SELFPAY | PROVIDERS: Family Provider Internal Medicine; PCP Internal Medicine; Referring Provider Internal Medicine; Visit Provider Family Medicine | DX: E10.622 Type 1 diabetes mellitus with other skin ulcer (principal); S81.802A Unspecified open wound, left lower leg, initial encounter; Z89.512 Acquired absence of left leg below knee; Z79.4 Long term (current) use of insulin; Z72.0 Tobacco use | CPT/HCPCS: 99213 ==

== ENCOUNTER → 2019-09-20 13:04 | Outpatient (CLI) | payer OTHER, MEDICAID, SELFPAY | PROVIDERS: Family Provider Internal Medicine; PCP Internal Medicine; Referring Provider Internal Medicine; Visit Provider Family Medicine | DX: S81.802D Unspecified open wound, left lower leg, subsequent encounter (principal); Z89.512 Acquired absence of left leg below knee | CPT/HCPCS: 99212; 99213 ==

== ENCOUNTER 2020-07-20 00:06 | Emergency (ER) | payer OTHER, MEDICAID, SELFPAY ==
[2020-07-20 00:11] VITALS: BP 174/102; PULSE 91; RESP 20; TEMP 36.6; O2SAT 99
--- NOTE | 2020-07-20 00:24 | ED_ITS ---
HPI - General Adult General Chief complaint: Extremity Injury, Upper Stated complaint: right thumb blue/fingernail has pressure under it Time Seen by Provider: 07/20/20 00:09 Source: patient Mode of arrival: Ambulatory Limitations: no limitations History of Present Illness HPI narrative: Patient is a 44-year-old insulin-dependent diabetic here for evaluation of a right thumb injury. He states that yesterday evening he shut his right thumb in a truck tailgate. Since that time has had pain in bruising under the fingernail causing him to have quite a bit of discomfort. Has not tried anything for symptoms prior to arrival Related Data Home Medications Medication Instructions Recorded Confirmed Novolog Flexpen U-100 Insulin See Rx Instructions .ROUTE .COMPLEX 04/03/18 08/03/19 Basaglar KwikPen U-100 Insulin 35 unit SUBCUT DAILY 07/30/19 08/03/19 methylphenidate HCl 72 mg PO DAILY 07/30/19 08/06/19 Previous Rx's Medication Instructions Recorded doxycycline hyclate 100 mg PO BID #14 tab 08/06/19 Allergies Allergy/AdvReac Type Severity Reaction Status Date / Time promethazine AdvReac Unknown GET LOOPY Verified 04/03/18 13:23 Review of Systems Constitutional Constitutional: Denies fever(s) Musculoskeletal Musculoskeletal: Denies tingling Comments: Right thumb pain Integumentary/Breasts Comments: Bruising under the right fingernail Neurologic Neurologic: Denies tingling Hematologic/Lymphatic On Anticoagulants: No Patient History Medical History Type 1 diabetes mellitus Surgical History Hx of BKA Social History household members: none Smoking Status: Never smoker Smoking Status: Never smoker alcohol intake frequency: 0-2 drinks per day Substance Use Type: does not use Exam Initial Vital Signs Initial Vital Signs: Vital Signs Temperature 97.9 F 07/20/20 00:11 Pulse Rate 91 H 07/20/20 00:11 Respiratory Rate 20 07/20/20 00:11 Blood Pressure 174/102 H 07/20/20 00:11 Pulse Oximetry 99 07/20/20 00:11 Const General: cooperative and healthy appearing Skin Other: Patient with a hematoma on the skin around the right thumb Neuro Sensory Exam: no sensory deficits noted Extrem Other: Subungual hematoma right thumb. No signs of a felon Psych Appearance: grossly normal and well kempt Procedures Nail Trephination Time out: Yes Location (finger): right and thumb Sterile prep: betadine Method of drainage: needle Procedure successful: Yes Patient tolerated procedure: well and no complications Course Orders Ordered: ED Orders 07/20/20 00:24 XR finger RT min 2V Stat Vital Signs Vital signs: Vital Signs - 8 hr 07/20/20 00:11 Temperature 97.9 F Pulse Rate 91 H Respiratory Rate 20 Blood Pressure 174/102 H Pulse Oximetry 99 Medical Decision Making Imaging Data Extremity x-ray #1: Attestation: I personally reviewed and interpreted this imaging study as follows: My Impression: No fractures noted on the x-ray MDM Narrative Medical decision making narrative: For no fractures on the x-ray, I was able to place 3 holes in the nail with a right thumb with return of blood. I was able to evacuate some of the blood from the skin surrounding the right thumb. Patient reported improvement of symptoms after this. There were no fractures noted on the x-ray. I did inform him that given his presentation is most likely that he is going to lose his nail in his right thumb over the next couple days. He was informed that this could mean that his nail would not grow back looking ?normal? he was given care instructions and return precautions. He expressed understanding and agreement Discharge Plan Departure Patient Disposition: Home Clinical Impression: Contusion of right thumb Qualifiers: Encounter type: initial encounter Damage to nail status: with damage Qualified Code(s): S60.111A - Contusion of right thumb with damage to nail, initial en counter Subungual hematoma of digit of hand Qualifiers: Encounter type: initial encounter Qualified Code(s): S60.10XA - Contusion of unspecified finger with damage to nail, initial encounter Instructions: DI for Subungual Hematoma Activity Restrictions/Additional Instructions: Expect some continued drainage from the right thumb. You can take Tylenol and/or ibuprofen for any discomfort. Contact your primary provider for follow- up. Return to the emergency department for any new or worsening symptoms Prescriptions: No Action methylphenidate HCl 36 mg tablet extended release 24hr 72 mg PO DAILY RF: 0 Basaglar KwikPen U-100 Insulin 100 unit/mL (3 mL) insulin pen 35 unit SUBCUT DAILY RF: 0 doxycycline hyclate 100 mg tablet 100 mg PO BID Qty: 14 RF: 0 Novolog Flexpen U-100 Insulin 100 unit/mL Insulin Pen See Rx Instructions .ROUTE .COMPLEX RF: 0 Referrals: Neftaly Champagne MD [Primary Care Provider] -
--- NOTE | 2020-07-20 00:24 | DI.RAD.S_ITS ---
PROCEDURE: XR FINGER RT MIN 2V INDICATIONS: Right thumb injury with subungual hematoma TECHNIQUE: AP hand, 2 views of the right 1st finger(s) acquired. COMPARISON: None. FINDINGS: Bones: No fractures or dislocations. No suspicious bony lesions. Chronic appearing 5th metacarpal fracture. 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 Soft tissues: No suspicious soft tissue calcifications. IMPRESSION: No fracture. No acute osseous lesion. If symptoms and/or clinical suspicion for pathology persists, further assessment with repeat radiographs (7-10 days) or advanced imaging (e.g. CT, MRI or bone scan) should be considered. Dictated by: Shavon Montanez MD, PhD on 07/20/2020 at 7:16 Approved by: Shavon Montanez MD, PhD on 07/20/2020 at 7:18
== END 2020-07-20 01:23 | disposition home or self-care (01) ==
PROVIDERS: Emergency Provider Emergency Medicine; Family Provider Internal Medicine; PCP Internal Medicine
DX: S60.111A Contusion of right thumb with damage to nail, initial encounter (principal); W23.0XXA Caught, crushed, jammed, or pinched between moving objects, initial encounter; E10.8 Type 1 diabetes mellitus with unspecified complications; Z79.4 Long term (current) use of insulin
CPT/HCPCS: 11730; 73140; 99283

== ENCOUNTER 2020-09-29 18:30 | Emergency (ER) | payer OTHER, MEDICAID, SELFPAY ==
[2020-09-29 18:32] VITALS: BP 129/77; PULSE 107; RESP 16; TEMP 36.4; O2SAT 100; BMI 20.9
[2020-09-29] MEDS: TET,DIPH,PERTUSS(ACELL),VAC/PF 0.5 ML SYRINGE IM (19:01)
[2020-09-29] MEDS: LIDOCAINE 1% W/EPI 30 ML (19:35)
--- NOTE | 2020-09-29 19:44 | ED_ITS ---
HPI - General Adult General Chief complaint: Syncope Stated complaint: FALL HIT HEAD BLACKED OUT Time Seen by Provider: 09/29/20 19:29 Source: patient Mode of arrival: Ambulatory Limitations: no limitations History of Present Illness HPI narrative: 44-year-old insulin-dependent diabetic male states that he woke up feeling like his blood sugar was low. He is very lightheaded and fell and hit his head. He is not on blood thinners. He started bleeding from his head to we put pressure over the area. He did eat some cereal to increase his blood sugar and contacted his girlfriend. Arrives the emergency department by private vehicle. Related Data Home Medications Medication Instructions Recorded Confirmed Novolog Flexpen U-100 Insulin See Rx Instructions .ROUTE .COMPLEX 04/03/18 08/03/19 Basaglar KwikPen U-100 Insulin 35 unit SUBCUT DAILY 07/30/19 08/03/19 methylphenidate HCl 72 mg PO DAILY 07/30/19 08/06/19 Previous Rx's Medication Instructions Recorded doxycycline hyclate 100 mg PO BID #14 tab 08/06/19 Allergies Allergy/AdvReac Type Severity Reaction Status Date / Time promethazine AdvReac Unknown GET LOOPY Verified 04/03/18 13:23 Review of Systems Constitutional Constitutional: Denies fever(s) and Denies frequent falls Eyes Eyes: Denies change in vision ENT Ears, Nose, Mouth, and Throat: Reports dizziness and Reports disequilibrium Cardiovascular Cardiovascular: Denies chest pain, Reports syncope, Denies rapid heart rate, Reports lightheadedness and Denies dyspnea Respiratory Respiratory: Denies cough and Denies dyspnea Gastrointestinal Gastrointestinal: Denies abdominal pain, Denies nausea and Denies vomiting Genitourinary Genitourinary: Denies dysuria Genitourinary: Denies dysuria Musculoskeletal Musculoskeletal: Denies arthralgias and Denies myalgias Integumentary/Breasts Comments: Cut to forehead Neurologic Neurologic: Reports dizziness, Reports syncope, Denies frequent falls and Reports disequilibrium Hematologic/Lymphatic On Anticoagulants: No Patient History Medical History Type 1 diabetes mellitus Surgical History Hx of BKA Social History household members: none Smoking Status: Never smoker Smoking Status: Never smoker alcohol intake frequency: 0-2 drinks per day Substance Use Type: does not use Exam Initial Vital Signs Initial Vital Signs: Vital Signs Temperature 97.5 F L 09/29/20 18:32 Pulse Rate 107 H 09/29/20 18:32 Respiratory Rate 16 09/29/20 18:32 Blood Pressure 129/77 09/29/20 18:32 Pulse Oximetry 100 09/29/20 18:32 Const General: cooperative and comfortable Limitations: mental status not altered HENMT Head: laceration (Scalp) Nose: external nose normal Resp Effort & Inspection: normal respiratory effort Auscultation: clear to auscultation bilaterally Cardio Rate: tachycardic Rhythm: regular rhythm Skin Other: Patient with a 2 cm laceration on the right side of his scalp on the frontal/parietal region. Neuro General: patient alert, patient awake and patient oriented x3 Cognition: normal cognition Speech: speech normal Extrem General: capillary refill normal Psych Appearance: grossly normal and well kempt Procedures Laceration Repair Laceration 1: Site: scalp Side (If applicable): right Size (cm): 2 Description: linear Depth: simple, single layer Local Anesthetic: lidocaine 1% and with epi Amount of anesthesia used (mL): 4 Pre-repair: irrigated extensively and deep structures intact Skin layer closed with: nylon Size (cm): 4-0 Number of sutures: 4 Technique: simple, interrupted (Three stitches) and horizontal mattress (One stitch) Scores [facility] [place] coma scale eye opening: Spontaneous [place] coma scale verbal response: Orientated Maikel coma scale motor response: Obey commands [place] coma scale total score: 15 Nexus Score for C-Spine Focal Neurologic deficit present: No Midline spinal tenderness present: No Altered level of conciousness present: No Intoxication present: No Distracting Injury Present: No Nexus Criteria for C-spine: 0 Course Orders Ordered: ED Orders 09/29/20 18:42 EKG-12 Lead Stat Discontinued Medications Diphtheria/Tetanus/Acell Pertussis (Tet,Diph,Pertuss(Acell),Vac/Pf 0.5 Ml Syringe) 0.5 ml IM .ONCE ONE Stop: 09/29/20 18:43 Last Admin: 09/29/20 19:01 Dose: 0.5 ml Documented by: USAMA Insulin Aspart (Insulin Aspart 100 Unit/Ml 10ml Vial) 11 unit SUBCUT NOW ONE Stop: 09/29/20 20:16 Last Admin: 09/29/20 20:38 Dose: 11 unit Documented by: JOSÉ Cosigned by: SUSU Vital Signs Vital signs: Vital Signs - 8 hr 09/29/20 18:32 09/29/20 21:29 Temperature 97.5 F L 97.9 F Pulse Rate 107 H 116 H Respiratory Rate 16 18 Blood Pressure 129/77 124/68 Pulse Oximetry 100 99 Medical Decision Making Lab Data Labs: Point of Care Testing Glucose POC 358 Point of care testing: Point of Care Testing Glucose POC 358 ECG Data Attestation: I personally reviewed and interpreted this ECG as follows: Prior ECG tracings: not available for review Interpretation: Sinus tachycardia Ventricular rate 106 Left axis deviation No ST T wave changes MDM Narrative Medical decision making narrative: Patient's fall today is related to his hypoglycemia. He is now alert and oriented x3. Is actually hyperglycemic. He was given his no long that he would normally take at home given his blood sugar the way that it is. He was bleeding from his scalp which was controlled with lidocaine with epinephrine and also stitches. One mattress stitch was needed in order to control the bleeding. He was observed in the emergency depart without any continued bleeding there was no other reported injuries from the event. No other injuries were found on the exam. Patient states that he feels safe to go home. He was given return precautions and follow-up instructions. He expressed understanding and agreement. Discharge Plan Departure Patient Disposition: Home Clinical Impression: Laceration of scalp, Hyperglycemia Instructions: DI for Laceration Repair Activity Restrictions/Additional Instructions: Be sure to continue to take your blood sugars at home. We did give you 11 units of insulin here in the ER. The stitches do need to be removed in 7-10 days. Contact your primary provider for a follow-up. Tomorrow you can shower like normal. Return to the emergency department for any new or worsening symptoms Prescriptions: No Action methylphenidate HCl 36 mg tablet extended release 24hr 72 mg PO DAILY RF: 0 Basaglar KwikPen U-100 Insulin 100 unit/mL (3 mL) insulin pen 35 unit SUBCUT DAILY RF: 0 doxycycline hyclate 100 mg tablet 100 mg PO BID Qty: 14 RF: 0 Novolog Flexpen U-100 Insulin 100 unit/mL Insulin Pen See Rx Instructions .ROUTE .COMPLEX RF: 0 Referrals: Neftaly Champagne MD [Primary Care Provider] -
[2020-09-29] MEDS: INSULIN ASPART 100 UNIT/ML 10ML VIAL 11 UNIT SUBCUT (20:38)
[2020-09-29 21:29] VITALS: BP 124/68; PULSE 116; RESP 18; TEMP 36.6; O2SAT 99
== END 2020-09-29 21:31 | disposition home or self-care (01) ==
PROVIDERS: Emergency Provider Emergency Medicine; Family Provider Internal Medicine; PCP Internal Medicine
DX: S01.01XA Laceration without foreign body of scalp, initial encounter (principal); E10.65 Type 1 diabetes mellitus with hyperglycemia; Z79.4 Long term (current) use of insulin; W19.XXXA Unspecified fall, initial encounter; Z23 Encounter for immunization
CPT/HCPCS: 82962; 90471; 93005; 93010; 96372; 99283; 90715

== ENCOUNTER 2022-05-05 01:28 | Emergency (ER) | payer OTHER, MEDICAID, SELFPAY ==
[2022-05-05 01:47] VITALS: BP 153/94; PULSE 108; RESP 16; TEMP 36.2; O2SAT 98; BMI 20.9
--- NOTE | 2022-05-05 04:02 | ED.WOUNDLAC ---
HPI - Wound/Laceration General Chief Complaint: Wound/Laceration Stated Complaint: stabbed self with screw drive left hand Time Seen by Provider: 05/05/22 03:54 Source: patient Mode of arrival: Ambulatory History of Present Illness HPI narrative: Patient complains a puncture wound to the left hand. Palmar surface at the 2nd MCP surface area. Patient was using a flat head screwdriver to build a robot. It slipped in his hand in punctured his left hand. Patient is right-handed. Tetanus is up-to-date. Related Data Home Medications Medication Instructions Recorded Confirmed insulin aspart U-100 100 unit/mL See Rx Instructions .Route .COMPLEX 04/03/18 08/03/19 (3 mL) subcutaneous pen (Novolog Flexpen U-100 Insulin aspart) insulin glargine 100 unit/mL (3 35 unit SUBCUT DAILY 07/30/19 08/03/19 mL) subcutaneous pen (Basaglar KwikPen U-100 Insulin) methylphenidate HCl 36 mg 72 mg PO DAILY 07/30/19 08/06/19 tablet,extended release 24 hr Previous Rx's Medication Instructions Recorded doxycycline hyclate 100 mg tablet 100 mg PO BID #14 tabs 08/06/19 cephalexin 500 mg capsule 500 mg PO QID #20 caps 05/05/22 Allergies Allergy/AdvReac Type Severity Reaction Status Date / Time promethazine AdvReac Unknown GET LOOPY Verified 05/05/22 01:47 Review of Systems Review of Systems Narrative: GENERAL: Denies chills, fatigue, malaise, fever, sweats. HEENT: Denies sinus pain, ear pain, sore throat RESPIRATORY: Denies dyspnea, cough CARDIOVASCULAR: Denies chest pain, palpitations GASTROINTESTINAL: Denies nausea, vomiting, abdominal pain : Denies dysuria, frequency, hematuria MUSCULOSKELETAL: denies muscle or bony pain SKIN: Denies rash, skin lesions, positive skin injury NEUROLOGIC: Denies weakness, numbness ROS Unobtainable: All systems reviewed & are unremarkable except as noted in HPI and below Patient History Medical History Type 1 diabetes mellitus Surgical History Hx of BKA Social History household members: none Smoking Status: Never smoker Smoking Status: Never smoker alcohol intake frequency: 0-2 drinks per day Substance Use Type: does not use Exam Narrative Exam Narrative: GENERAL: in no distress, not toxic not dyspneic HEAD: Normocephalic. EYES: Pupils equal round No scleral icterus. EXTREMITIES: No gross deformities. Examination left hand. Small punctate 2-3 mm puncture wound at the MCP surface of the 2nd metacarpal. No active bleeding. Based visualized. No bony muscle or tendon injury seen. Patient able to fully flex and extend at the MCP PIP and PIP joints. Brisk cap refills. Light touch intact to fingers. No foreign body seen NEURO: AOx4. SKIN: Warm and dry PSYCH: Not anxious, is cooperative Initial Vital Signs Initial Vital Signs: Vital Signs Temperature 97.2 F L 05/05/22 01:47 Pulse Rate 108 H 05/05/22 01:47 Respiratory Rate 16 05/05/22 01:47 Blood Pressure 153/94 H 05/05/22 01:47 Pulse Oximetry 98 05/05/22 01:47 Oxygen Delivery Method 05/05/22 01:47 Course Course Course Narrative: No new issues during course of stay Orders Ordered: Discontinued Medications Bacitracin (Bacitracin Oint 0.9 Gm Pckt) 1 applic TOP NOW ONE Stop: 05/05/22 04:04 Last Admin: 05/05/22 04:05 Dose: 1 applic Documented By: FABRICIO Cephalexin HCl (Cephalexin 250 Mg Capsule) 500 mg PO NOW ONE Stop: 05/05/22 04:03 Last Admin: 05/05/22 04:05 Dose: 500 mg Documented By: FABRICIO Reevaluation(s) Reevaluation #1: Patient tolerated wound care very well. Return precautions reviewed with him. Pain controlled. Antibiotics started Time: 04:10 Vital Signs Vital signs: Vital Signs - 8 hr 05/05/22 01:47 Temperature 97.2 F L Pulse Rate 108 H Respiratory Rate 16 Blood Pressure 153/94 H Pulse Oximetry 98 Oxygen Delivery Method Room Air MDM - Wound/Laceration Differential Diagnosis Differential diagnosis: Likely laceration, avulsion of skin and other (Puncture wound) MDM Narrative Medical decision making narrative: Appropriate for discharge home. No imaging indicated. Based visualized. No active bleeding. No foreign body bony or muscle injury seen. Antibiotics started here. No suturing required has punctate puncture wound. Neurovascularly intact. Return precautions reviewed with patient. Hibiclens and normal saline used to thoroughly irrigate the wound. Meticulously evaluated the wound. Copious normal saline to irrigate into the wound. No sutures indicated. Discharge Plan Departure Patient Disposition: Home Clinical Impression: Puncture wound Instructions: DI for Puncture Wound Activity Restrictions/Additional Instructions: Change dressing twice a day with warm soap and water and apply a thin layer of topical antibiotic. See family doctor in a week for re-evaluation. Return if any redness or discharge from the wound. May shower but no submersion of the hand under water. Continue prescribed antibiotic. Prescriptions: New cephalexin 500 mg capsule 500 mg PO QID Qty: 20 0RF No Action methylphenidate HCl 36 mg tablet extended release 24hr 72 mg PO DAILY Basaglar KwikPen U-100 Insulin 100 unit/mL (3 mL) insulin pen 35 unit SUBCUT DAILY doxycycline hyclate 100 mg tablet 100 mg PO BID Qty: 14 0RF Novolog Flexpen U-100 Insulin 100 unit/mL Insulin Pen See Rx Instructions .ROUTE .COMPLEX Rx Instructions: Sliding scale: Patient does own sliding scale no direct instructions. Referrals: Neftaly Champagne MD [Primary Care Provider] - Visit Report Forms: Patient Portal/API
[2022-05-05] MEDS: BACITRACIN OINT 0.9 GM PCKT 1 APPLIC TOP (04:05)
[2022-05-05] MEDS: cephALEXin 250 MG CAPSULE 500 MG PO (04:05)
== END 2022-05-05 04:12 | disposition home or self-care (01) ==
PROVIDERS: Emergency Provider Emergency Medicine; Family Provider Internal Medicine; PCP Internal Medicine
DX: S61.432A Puncture wound without foreign body of left hand, initial encounter (principal); W27.0XXA Contact with workbench tool, initial encounter
CPT/HCPCS: 99283

== ENCOUNTER 2022-07-30 18:17 | Emergency (ER) | payer OTHER, MEDICAID, SELFPAY ==
[2022-07-30 18:41] VITALS: BP 119/73; PULSE 110; RESP 19; TEMP 37.1; O2SAT 100; BMI 21.6
[2022-07-30 19:24] LABS: COVID19 -Nasal RAPID Negative (Negative)
--- NOTE | 2022-07-30 19:42 | ED.GENADULT ---
HPI - General Adult General Chief complaint: Upper Respiratory Symptoms Stated complaint: throat pain and difficulty swallowing Time Seen by Provider: 07/30/22 19:33 Source: patient Mode of arrival: Ambulatory Limitations: no limitations History of Present Illness HPI narrative: Otherwise healthy 46-year-old male who is here for evaluation of throat pain and difficulty swallowing he states has been going on for the past day. No fevers. No coughing. Pain with swallowing. No body aches. Is an insulin-dependent diabetic. Has not tried anything for symptoms prior to arrival. Related Data Home Medications Medication Instructions Recorded Confirmed insulin aspart U-100 100 unit/mL See Rx Instructions .Route .COMPLEX 04/03/18 08/03/19 (3 mL) subcutaneous pen (Novolog Flexpen U-100 Insulin aspart) insulin glargine 100 unit/mL (3 35 unit SUBCUT DAILY 07/30/19 08/03/19 mL) subcutaneous pen (Basaglar KwikPen U-100 Insulin) methylphenidate HCl 36 mg 72 mg PO DAILY 07/30/19 08/06/19 tablet,extended release 24 hr Previous Rx's Medication Instructions Recorded doxycycline hyclate 100 mg tablet 100 mg PO BID #14 tabs 08/06/19 cephalexin 500 mg capsule 500 mg PO QID #20 caps 05/05/22 Allergies Allergy/AdvReac Type Severity Reaction Status Date / Time promethazine AdvReac Unknown GET LOOPY Verified 05/05/22 01:47 Review of Systems ENT Ears, Nose, Mouth, and Throat: Reports system reviewed and no additional complaints, except as documented Respiratory Respiratory: Reports system reviewed and no additional complaints, except as documented Integumentary/Breasts Skin/Breast: Reports system reviewed and no additional complaints, except as documented Patient History Medical History Type 1 diabetes mellitus Surgical History Hx of BKA Social History household members: none Smoking Status: Former smoker Smoking Status: Former smoker alcohol intake frequency: 0-2 drinks per day Substance Use Type: former substance user Exam Initial Vital Signs Initial Vital Signs: Vital Signs Temperature 98.7 F 07/30/22 18:41 Pulse Rate 110 H 07/30/22 18:41 Respiratory Rate 19 07/30/22 18:41 Blood Pressure 119/73 07/30/22 18:41 Pulse Oximetry 100 07/30/22 18:41 Oxygen Delivery Method 07/30/22 18:41 [facility] Head: normal to inspection and normocephalic Mouth: moist mucous membranes Throat: posterior oropharynx abnormal edema, erythema and exudates and no uvular edema Neck Lymphatic: lymphadenopathy Skin General: no rashes or lesions noted Neuro General: patient alert, patient awake and moves all extremities Extrem General: capillary refill normal Course Orders Ordered: ED Orders 07/30/22 18:55 COVID19 -Nasal RAPID/Pre-Proc Stat 07/30/22 18:56 Throat Culture Stat Discontinued Medications Dexamethasone (Dexamethasone 4 Mg Tablet) 12 mg PO NOW ONE Stop: 07/30/22 19:44 Last Admin: 07/30/22 20:21 Dose: 12 mg Documented By: JANETTE Penicillin G Benzathine (Penicillin G Benzathine 1,200,000 Unit/2 Ml Syringe) 1,200,000 unit IM NOW ONE Stop: 07/30/22 19:44 Last Admin: 07/30/22 20:21 Dose: 1,200,000 unit Documented By: JANETTE Vital Signs Vital signs: Vital Signs - 8 hr 07/30/22 18:41 07/30/22 20:44 Temperature 98.7 F 98.2 F Pulse Rate 110 H 76 Respiratory Rate 19 18 Blood Pressure 119/73 128/74 Pulse Oximetry 100 98 Oxygen Delivery Method Room Air Room Air Medical Decision Making Differential Diagnosis Differential Diagnosis: Strep throat, peritonsillar abscess, retropharyngeal abscess, viral illness Condition is:: Well Controlled Lab Data Lab results reviewed: Yes I reviewed the patient's lab results. Labs: Lab Results 07/30/22 Range/Units 18:55 SARS-CoV-2 (PCR) Negative (Negative) Point of Care Testing Rapid Strep A Negative Point of care testing: Point of Care Testing Rapid Strep A Negative MDM Narrative Medical decision making narrative: Patient does foul-smelling breath. He also has exudates and lymphadenopathy and no cough. He is not having a fever. His rapid strep was negative. A throat culture was obtained. His COVID was negative. Had a discussion with him regarding his options to include treating with steroids to see if this will help his symptoms of waiting for the throat culture to result verses treating with antibiotics today. We discussed the risks and benefits of both of these. After this discussion he opted to be treated with antibiotics. We then discussed options with antibiotics to include IM versus p.o.. After this discussion he opted for the IM injection of penicillin. We also gave a dose of steroids. Will discharge patient home with strict return precautions. He expressed understanding and agreement. Discharge Plan Departure Patient Disposition: Home Clinical Impression: Acute streptococcal pharyngitis Instructions: Strep Throat Activity Restrictions/Additional Instructions: You were treated today with the penicillin shot which should take care of the presumed strep throat. I do recommend that you try to increase your fluid intake as much as possible. The steroids that you were given here today should help your sore throat as well but that will take several hours to kick in. Contact your primary doctor for a follow-up. Return to the emergency department for any new or worsening symptoms. Prescriptions: No Action methylphenidate HCl 36 mg tablet extended release 24hr 72 mg PO DAILY Basaglar KwikPen U-100 Insulin 100 unit/mL (3 mL) insulin pen 35 unit SUBCUT DAILY doxycycline hyclate 100 mg tablet 100 mg PO BID Qty: 14 0RF cephalexin 500 mg capsule 500 mg PO QID Qty: 20 0RF Novolog Flexpen U-100 Insulin 100 unit/mL Insulin Pen See Rx Instructions .ROUTE .COMPLEX Rx Instructions: Sliding scale: Patient does own sliding scale no direct instructions. Referrals: Neftaly Champagne MD [Primary Care Provider] - Stand Alone Forms: Patient Portal/API
[2022-07-30] MEDS: dexAMETHasone 4 MG TABLET 12 MG PO (20:21)
[2022-07-30] MEDS: PENICILLIN G BENZATHINE 1,200,000 UNIT/2 ML SYRINGE 1200000 UNIT IM (20:21)
[2022-07-30 20:44] VITALS: BP 128/74; PULSE 76; RESP 18; TEMP 36.8; O2SAT 98
== END 2022-07-30 20:45 | disposition home or self-care (01) ==
PROVIDERS: Emergency Provider Emergency Medicine; Family Provider Internal Medicine; PCP Internal Medicine
DX: J02.0 Streptococcal pharyngitis (principal); Z20.822 Contact with and (suspected) exposure to COVID-19; Z87.891 Personal history of nicotine dependence
CPT/HCPCS: 87070; 87635; 87880; 96372; 99283; C9803; J0561

== ENCOUNTER 2022-09-05 13:27 | Emergency (ER) | payer OTHER, MEDICAID, SELFPAY ==
[2022-09-05] VITALS (15 sets, daily range): BP systolic 154–217; BP diastolic 90–120; PULSE 103–120; RESP 14–22; TEMP 36.1; O2SAT 88–98
[2022-09-05] MEDS: DEXTROSE 10 % IN WATER 250 ML 999 ML IV (13:33)
--- NOTE | 2022-09-05 13:40 | ED.GENADULT ---
HPI - General Adult General Chief complaint: Diabetic Problem Stated complaint: shaking Time Seen by Provider: 09/05/22 13:29 Source: patient and other (Friend) Mode of arrival: Family Vehicle Limitations: no limitations History of Present Illness HPI narrative: Patient is a 46-year-old male. History of insulin-dependent diabetes. Arrives by private vehicle. Had to be removed by a vehicle from staff for shaking. It was reported by the patient's friend who was with him that this has happened what his blood sugar gets very low. Patient was able to speak during the episodes of shaking. Did not seem to be able to control the shaking. Difficult to initially obtain any HPI. Related Data Home Medications Medication Instructions Recorded Confirmed insulin aspart U-100 100 unit/mL See Rx Instructions .Route .COMPLEX 04/03/18 08/03/19 (3 mL) subcutaneous pen (Novolog FlexPen U-100 Insulin aspart) insulin glargine 100 unit/mL (3 35 unit SUBCUT DAILY 07/30/19 08/03/19 mL) subcutaneous pen (Basaglar KwikPen U-100 Insulin) methylphenidate HCl 36 mg 72 mg PO DAILY 07/30/19 08/06/19 tablet,extended release 24 hr Previous Rx's Medication Instructions Recorded doxycycline hyclate 100 mg tablet 100 mg PO BID #14 tabs 08/06/19 cephalexin 500 mg capsule 500 mg PO QID #20 caps 05/05/22 Allergies Allergy/AdvReac Type Severity Reaction Status Date / Time promethazine AdvReac Unknown GET LOOPY Verified 05/05/22 01:47 Review of Systems Review of Systems Narrative: Patient was shaking, he was able to tell us his name, he denied chest pain or abdominal pain or shortness of breath but review of systems was limited Patient History Medical History (Updated 09/05/22 @ 16:15 by Lalit Pineda DO) Type 1 diabetes mellitus Surgical History Hx of BKA Social History household members: none Smoking Status: Former smoker Smoking Status: Former smoker alcohol intake frequency: 0-2 drinks per day Substance Use Type: former substance user Exam Initial Vital Signs Initial Vital Signs: Vital Signs Temperature 97.0 F L 09/05/22 13:30 Pulse Rate 120 H 09/05/22 13:30 Respiratory Rate 22 09/05/22 13:30 Blood Pressure 217/120 H 09/05/22 13:30 Pulse Oximetry 98 09/05/22 13:30 Oxygen Delivery Method 09/05/22 13:30 [facility] Head: normal to inspection and normocephalic Resp Effort & Inspection: tachypneic Auscultation: clear to auscultation bilaterally Cardio Rate: tachycardic Rhythm: regular rhythm GI Inspection: normal to inspection and non-distended Skin General: no rashes or lesions noted Neuro Other: Patient has whole-body shaking, eyes are open, he is able to speak but it is limited, Extrem Other: Left lower extremity BKA upper extremities and right lower extremity unremarkable Psych Appearance: grossly normal and well kempt Course Orders Ordered: ED Orders 09/05/22 13:32 Complete Blood Count AUTO DIFF Stat Comprehensive Metabolic Panel Stat Lipase Stat Discontinued Medications Dextrose (Dextrose 50 % In Water 25 Gm/50 Ml Syringe) 25 gm IV NOW ONE Stop: 09/05/22 13:30 Last Admin: 09/05/22 13:53 Dose: Not Given Documented By: MARCELINO Dextrose ([email or web address]) 250 mls @ 999 mls/hr IV PRN PRN PRN Reason: Hypoglycemia Vital Signs Vital signs: Vital Signs - 8 hr 09/05/22 13:30 09/05/22 13:35 09/05/22 13:56 Temperature 97.0 F L Pulse Rate 120 H 113 H Respiratory Rate 22 22 Blood Pressure 217/120 H 173/101 H Pulse Oximetry 98 95 Oxygen Delivery Method Room Air 09/05/22 13:56 09/05/22 14:00 09/05/22 14:00 Temperature Pulse Rate 107 H 104 H Respiratory Rate 16 16 Blood Pressure 183/107 H Pulse Oximetry 96 92 Oxygen Delivery Method 09/05/22 14:10 09/05/22 14:10 09/05/22 14:20 Temperature Pulse Rate 104 H 103 H Respiratory Rate 17 17 Blood Pressure 177/100 H Pulse Oximetry 92 92 Oxygen Delivery Method 09/05/22 14:20 09/05/22 14:30 09/05/22 14:30 Temperature Pulse Rate 107 H Respiratory Rate 16 Blood Pressure 164/96 H 157/94 H Pulse Oximetry 94 Oxygen Delivery Method 09/05/22 14:40 09/05/22 14:40 09/05/22 14:50 Temperature Pulse Rate 106 H 104 H Respiratory Rate 15 14 Blood Pressure 166/98 H Pulse Oximetry 91 91 Oxygen Delivery Method 09/05/22 14:50 09/05/22 15:00 09/05/22 15:00 Temperature Pulse Rate 107 H Respiratory Rate 17 Blood Pressure 155/90 H 157/91 H Pulse Oximetry 92 Oxygen Delivery Method 09/05/22 15:10 09/05/22 15:10 09/05/22 15:20 Temperature Pulse Rate 105 H 106 H Respiratory Rate 16 15 Blood Pressure 158/92 H Pulse Oximetry 94 94 Oxygen Delivery Method 09/05/22 15:20 09/05/22 15:30 09/05/22 15:30 Temperature Pulse Rate 110 H Respiratory Rate 17 Blood Pressure 166/97 H 164/98 H Pulse Oximetry 88 L Oxygen Delivery Method 09/05/22 15:40 09/05/22 15:40 09/05/22 15:50 Temperature Pulse Rate 112 H 111 H Respiratory Rate 20 19 Blood Pressure 159/99 H Pulse Oximetry 97 97 Oxygen Delivery Method 09/05/22 15:50 Temperature Pulse Rate Respiratory Rate Blood Pressure 154/98 H Pulse Oximetry Oxygen Delivery Method Medical Decision Making Lab Data Lab results reviewed: Yes I reviewed the patient's lab results. 09/05/22 13:32 09/05/22 13:32 Labs: Lab Results 09/05/22 09/05/22 09/05/22 Range/Units 13:32 13:32 13:32 WBC 12.7 H (4.5-11.0) X10^3/uL RBC 5.35 (4.5-5.9) X10^6/uL Hgb 16.4 (13.5-17.5) g/dL Hct 46.6 (41-53) % MCV 87.0 (80-100) fL MCH 30.6 (26-34) PG MCHC 35.1 (30-36) % RDW 13.9 (11.6-14.8) % Plt Count 259 (150-400) X10^3/uL Neut % (Auto) 47.8 L (50-75) % Lymph % (Auto) 38.5 (25-40) % [place] % (Auto) 8.5 (3-14) % Eos % (Auto) 4.1 H (2-4) % Baso % (Auto) 1.1 (0-2) % Neut # (Auto) 6100 (3570-4505) /uL Lymph # (Auto) 4900 H (2567-4887) /uL [place] # (Auto) 1100 H (0-900) /uL Eos # (Auto) 500 H (0-450) /uL Baso # (Auto) 100 (0-100) /uL Sodium 144 (137-145) mmol/L Potassium 2.8 L (3.4-5.1) mmol/L Chloride 102 (98-107) mmol/L Carbon Dioxide 23 (22-32) mmol/L BUN 26 H (9-20) mg/dL Creatinine 0.95 (0.66-1.25) mg/dL Estimated GFR > 60 (>60) mL/min BUN/Creatinine Ratio 27.4 H (6-22) Glucose 24 L* (70-100) mg/dL Calcium 9.9 (8.4-10.2) mg/dL Total Bilirubin 0.8 (0.2-1.3) mg/dL AST 46 (17-59) IU/L ALT 79 H (<50) IU/L Alkaline Phosphatase 99 (38-126) U/L Total Protein 8.5 H (6.3-8.2) g/dL Albumin 5.0 (3.5-5.0) g/dL Globulin 3.5 (1.7-4.1) g/dL Albumin/Globulin Ratio 1.4 (1.0-2.8) Lipase 39 (23-300) U/L Point of Care Testing Glucose POC 186 Point of care testing: Point of Care Testing Glucose POC 186 [facility] Narrative Medical decision making narrative: Patient was hypoglycemic upon arrival. He was given sugar both orally and IV. This improved his blood sugar. He felt much better. Patient states he does not remember much about his presentation here in the ER. He stated that this has happened to him in the past when his blood sugar was low. Patient's blood sugar has remained elevated. He states he is feeling normal again. Will discharge patient home with return precautions. He expressed understanding and agreement. Discharge Plan Departure Patient Disposition: Home Clinical Impression: Hypoglycemia Instructions: DI for Hypoglycemia Activity Restrictions/Additional Instructions: Continue to take all of your medications as directed. Contact your primary doctor for follow-up. Return to the emergency department for any new or worsening symptoms. Prescriptions: No Action methylphenidate HCl 36 mg tablet extended release 24hr 72 mg PO DAILY Basaglar KwikPen U-100 Insulin 100 unit/mL (3 mL) insulin pen 35 unit SUBCUT DAILY doxycycline hyclate 100 mg tablet 100 mg PO BID Qty: 14 0RF cephalexin 500 mg capsule 500 mg PO QID Qty: 20 0RF Novolog FlexPen U-100 Insulin 100 unit/mL Insulin Pen See Rx Instructions .ROUTE .COMPLEX Rx Instructions: Sliding scale: Patient does own sliding scale no direct instructions. Referrals: Neftaly Champagne MD [Primary Care Provider] - Stand Alone Forms: Patient Portal/API
[2022-09-05 13:42] LABS: Add Manual Diff / Slide Review NO; Basophils Absolute Auto 100 /uL (0-100); Basophils Percent Auto 1.1 % (0-2); Eosinophils Absolute Auto 500 /uL (0-450); Eosinophils Percent Auto 4.1 % (2-4); Hematocrit 46.6 % (41-53); Hemoglobin 16.4 g/dL (13.5-17.5); Lymphocytes Absolute Auto 4900 /uL (1100-4500); Lymphocytes Percent Auto 38.5 % (25-40); Mean Corpuscular HGB Conc 35.1 % (30-36); Mean Corpuscular Hemoglobin 30.6 PG (26-34); Monocytes Absolute Auto 1100 /uL (0-900); Monocytes Percent Auto 8.5 % (3-14); Neutrophils Absolute Auto 6100 /uL (1500-7000); Neutrophils Percent Auto 47.8 % (50-75); Platelet Count 259 X10^3/uL (150-400); Red Blood Cell Count 5.35 X10^6/uL (4.5-5.9); Red Cell Distribution Width 13.9 % (11.6-14.8); White Blood Cell Count 12.7 X10^3/uL (4.5-11.0)
--- NOTE | 2022-09-05 13:42 | PC.NURSE ---
Patient states he feels like his blood sugar is low. He is a type 1 diabetic brought in by friend. he does not have his monitor with him to be able to tell his blood sugar. Glucometer reads less than 200. Patient is alert and talking, Tremorous, cold and pale. Able to swallow. Given orange juice per request form Dr. Pineda. IV's started bilaterally and verbal order given for D10 250 to be hung wide open.
[2022-09-05 13:57] LABS: Albumin Globulin Ratio 1.4 (1.0-2.8); Alkaline Phosphatase 99 U/L (38-126); Aspartate Aminotransferase 46 IU/L (17-59); BUN Creatinine Ratio 27.4 (6-22); Bilirubin Total 0.8 mg/dL (0.2-1.3); Blood Urea Nitrogen 26 mg/dL (9-20); Calcium 9.9 mg/dL (8.4-10.2); Carbon Dioxide 23 mmol/L (22-32); Chloride 102 mmol/L (98-107); Estimated Glomerular Filt Rate > 60 mL/min (>60); Globulin 3.5 g/dL (1.7-4.1); HEMOLYSIS 16 (0-50); Lipase 39 U/L (23-300); Potassium 2.8 mmol/L (3.4-5.1); Sodium 144 mmol/L (137-145); Total Protein 8.5 g/dL (6.3-8.2)
[2022-09-05 14:18] LABS: Alanine Aminotransferase 79 IU/L (<50); Glucose 24 mg/dL (70-100)
== END 2022-09-05 16:20 | disposition home or self-care (01) ==
PROVIDERS: Emergency Provider Emergency Medicine; Family Provider Internal Medicine; PCP Internal Medicine
DX: E10.649 Type 1 diabetes mellitus with hypoglycemia without coma (principal); Z79.4 Long term (current) use of insulin
CPT/HCPCS: 36415; 80053; 82962; 83690; 85025; 99283; 99284

== ENCOUNTER 2023-05-25 10:16 | Emergency (ER) | payer OTHER, MEDICAID, SELFPAY ==
[2023-05-25 10:27] VITALS: BP 156/92; PULSE 105; RESP 20; TEMP 36.7; O2SAT 100; BMI 20.9
--- NOTE | 2023-05-25 10:31 | ED.GENADULT ---
HPI - General Adult General Chief complaint: Back Pain/Injury Stated complaint: lower back pain, can't lay down Time Seen by Provider: 05/25/23 10:31 Source: patient Mode of arrival: Ambulatory Limitations: no limitations History of Present Illness HPI narrative: Patient is a 47-year-old male who is here for evaluation of bilateral back discomfort. He states that the symptoms started last evening it became worse last night specifically with lying down. He does not know of any specific injury that may have caused the event. Related Data Home Medications Medication Instructions Recorded Confirmed insulin aspart U-100 100 unit/mL See Rx Instructions .Route .COMPLEX 04/03/18 08/03/19 (3 mL) subcutaneous pen (Novolog FlexPen U-100 Insulin aspart) insulin glargine 100 unit/mL (3 35 unit SUBCUT DAILY 07/30/19 08/03/19 mL) subcutaneous pen (Basaglar KwikPen U-100 Insulin) methylphenidate HCl 36 mg 72 mg PO DAILY 07/30/19 08/06/19 tablet,extended release 24 hr Previous Rx's Medication Instructions Recorded doxycycline hyclate 100 mg tablet 100 mg PO BID #14 tabs 08/06/19 cephalexin 500 mg capsule 500 mg PO QID #20 caps 05/05/22 cyclobenzaprine 10 mg tablet 10 mg PO TID PRN muscle spasm #14 05/25/23 tabs Allergies Allergy/AdvReac Type Severity Reaction Status Date / Time promethazine AdvReac Unknown GET LOOPY Verified 05/05/22 01:47 Review of Systems Constitutional Constitutional: Reports system reviewed and no additional complaints, except as documented Gastrointestinal Gastrointestinal: Reports system reviewed and no additional complaints, except as documented Genitourinary Genitourinary: Reports system reviewed and no additional complaints, except as documented Musculoskeletal Musculoskeletal: Reports system reviewed and no additional complaints, except as documented Patient History Medical History (Updated 05/25/23 @ 10:44 by Lalit Pineda DO) Type 1 diabetes mellitus Surgical History Hx of BKA Social History household members: none Smoking Status: Former smoker Smoking Status: Former smoker alcohol intake frequency: 0-2 drinks per day Substance Use Type: former substance user Exam Initial Vital Signs Initial Vital Signs: Vital Signs Temperature 98.1 F 05/25/23 10:27 Pulse Rate 105 H 05/25/23 10:27 Respiratory Rate 20 05/25/23 10:27 Blood Pressure 156/92 H 05/25/23 10:27 Pulse Oximetry 100 05/25/23 10:27 Oxygen Delivery Method Room Air 05/25/23 10:27 Const General: cooperative and No ill appearing Back/Spine/Pelvis Other: Patient has significant muscle fullness and discomfort in the paraspinal region of the lumbar area. It does seem to improve as he movement to the thoracolumbar in the thorax region. Skin General: no rashes or lesions noted Extrem General: normal to inspection and capillary refill normal Course Orders Ordered: Discontinued Medications Cyclobenzaprine HCl (Cyclobenzaprine 10 Mg Tablet) 10 mg PO NOW ONE Stop: 05/25/23 10:33 Last Admin: 05/25/23 10:34 Dose: 10 mg Vital Signs Vital signs: Vital Signs - 8 hr 05/25/23 10:27 Temperature 98.1 F Pulse Rate 105 H Respiratory Rate 20 Blood Pressure 156/92 H Pulse Oximetry 100 Oxygen Delivery Method Room Air Medical Decision Making MDM Narrative Medical decision making narrative: Patient has no urinary symptoms. Has significant discomfort paraspinal region in the lumbar area that corresponds to where he is having discomfort. Low suspicion for fracture. No trauma. Will discharge home with a prescription for muscle relaxers. Discharge Plan Departure Patient Disposition: Home Clinical Impression: Lumbar paraspinal muscle spasm Instructions: DI for Muscle Spasm Activity Restrictions/Additional Instructions: I do recommend that you continue with conservative measures such as heat/ice/light stretching. I suspect that your symptoms will improve over the next couple days. You can use the muscle relaxers as needed. Contact your primary provider for follow-up. Prescriptions: New cyclobenzaprine 10 mg tablet 10 mg PO TID PRN (Reason: muscle spasm) Qty: 14 0RF No Action methylphenidate HCl 36 mg tablet extended release 24hr 72 mg PO DAILY Basaglar KwikPen U-100 Insulin 100 unit/mL (3 mL) insulin pen 35 unit SUBCUT DAILY doxycycline hyclate 100 mg tablet 100 mg PO BID Qty: 14 0RF cephalexin 500 mg capsule 500 mg PO QID Qty: 20 0RF Novolog FlexPen U-100 Insulin 100 unit/mL Insulin Pen See Rx Instructions .ROUTE .COMPLEX Rx Instructions: Sliding scale: Patient does own sliding scale no direct instructions. Referrals: Neftaly Champagne MD [Primary Care Provider] - Stand Alone Forms: Patient Portal/API
[2023-05-25] MEDS: CYCLOBENZAPRINE 10 MG TABLET PO (10:34)
--- NOTE | 2023-05-25 10:36 | PC.NURSE ---
ambulatory, reports has a ride home, a xo 4
[2023-05-25 10:56] VITALS: PULSE 99; RESP 16; O2SAT 100
== END 2023-05-25 10:58 | disposition home or self-care (01) ==
PROVIDERS: Emergency Provider Emergency Medicine; Family Provider Internal Medicine; PCP Internal Medicine
DX: M62.830 Muscle spasm of back (principal)

== ENCOUNTER 2023-05-25 19:12 | Emergency (ER) | payer OTHER, MEDICAID, SELFPAY ==
[2023-05-25 19:20] VITALS: BP 139/94; PULSE 111; RESP 18; TEMP 37.1; O2SAT 100; BMI 20.9
--- NOTE | 2023-05-25 19:26 | PC.NURSE ---
Dr. Membreno at bedside for eval
--- NOTE | 2023-05-25 19:30 | DI.MRI.S_ITS ---
PROCEDURE: MR LUMBAR SPINE WO/W CON INDICATIONS: SPine pain in diabetic smoker with staph infection no trauma TECHNIQUE: Noncontrast sagittal T1 spin echo and T2 fast spin echo, sagittal STIR, axial T1 and T2 fast spin echo through the lumbar spine. In cases with scoliosis, additional coronal T2 fast spin echo may be performed. After the administration of contrast, sagittal and axial T1 spin echo with fat saturation through the lumbar spine. COMPARISON: None. FINDINGS: Image quality: Excellent. Alignment and curvature: There is normal bony alignment. Marrow: Marrow is of normal overall signal. No acute vertebral body compression fractures. No suspicious marrow enhancement. Spinal cord: Conus medullaris terminates at the L1 level. Visualized spinal cord demonstrates normal signal, without suspicious enhancement. Paraspinous soft tissues: No paravertebral masses or abnormal enhancement. T12-L1: Normal appearance. L1-L2: Normal appearance. L2-L3: Ligamentum flavum hypertrophy and epidural lipomatosis. L3-L4: Ligamentum flavum hypertrophy and epidural lipomatosis. Mild bilateral neural foraminal narrowing. L4-L5: Broad-based disc bulge. Mild facet hypertrophy. Ligamentum flavum hypertrophy. Mild bilateral neural foraminal narrowing. L5-S1: Asymmetric posterior disc bulge. Mild facet hypertrophy. Mild bilateral neural foraminal narrowing. IMPRESSION: No evidence of discitis/osteomyelitis. Mild, multilevel degenerative disc disease. No significant spinal canal or neural foraminal narrowing. Dictated by: Minh Moeller M.D. on 05/25/2023 at 21:15 Approved by: Minh Moeller M.D. on 05/25/2023 at 21:20
--- NOTE | 2023-05-25 19:35 | ED_ITS ---
HPI - Back Pain/Injury General Chief Complaint: Back Pain/Injury Stated Complaint: here earlier sym. has gotten worst Time Seen by Provider: 05/25/23 19:22 Source: patient History of Present Illness HPI Narrative: Gentleman comes to the ED with 2 days of lumbar pain. He can recall no specific injury nor does he have history of lumbar pain. The pain is so severe that he can not lay down or put his head in a dependent position. Says that if he stands erect the pain is less severe but if he bends at the waist or attempts to lay supine the pain is unbearable. He says for the past 2 nights he is needed to rest while kneeling resting his torso on the back of the couch. He is not had fever or chills. No nausea or vomiting. No abdominal pain. No dysuria. He does have a remote history of left lower extremity amputation [id number] from a traumatic injury. He also has diabetes and he does smoke cigarettes. 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 No previous spine surgery. Related Data Home Medications Medication Instructions Recorded Confirmed insulin aspart U-100 100 unit/mL See Rx Instructions .Route .COMPLEX 04/03/18 08/03/19 (3 mL) subcutaneous pen (Novolog FlexPen U-100 Insulin aspart) insulin glargine 100 unit/mL (3 35 unit SUBCUT DAILY 07/30/19 08/03/19 mL) subcutaneous pen (Basaglar KwikPen U-100 Insulin) methylphenidate HCl 36 mg 72 mg PO DAILY 07/30/19 08/06/19 tablet,extended release 24 hr Previous Rx's Medication Instructions Recorded doxycycline hyclate 100 mg tablet 100 mg PO BID #14 tabs 08/06/19 cephalexin 500 mg capsule 500 mg PO QID #20 caps 05/05/22 cyclobenzaprine 10 mg tablet 10 mg PO TID PRN muscle spasm #14 05/25/23 tabs cyclobenzaprine 30 mg 30 mg PO Q4-6H PRN muscle spasm 05/25/23 capsule,extended release 24 hr #10 caps Allergies Allergy/AdvReac Type Severity Reaction Status Date / Time promethazine AdvReac Unknown GET LOOPY Verified 05/05/22 01:47 Patient History Medical History (Updated 05/25/23 @ 21:56 by Lyndon Membreno MD) Type 1 diabetes mellitus Surgical History Hx of BKA Social History household members: none Smoking Status: Former smoker Smoking Status: Former smoker alcohol intake frequency: 0-2 drinks per day Substance Use Type: former substance user Exam Narrative Exam Narrative: GENERAL: Alert, cooperative and in no distress. Patient is comfortable and normal-appearing while standing erect but when I lay him down to examine him the pain becomes immediately very severe and intolerable and he asks to be able to get up and stand again. HEAD: Atraumatic. Normocephalic. EYES: Sclera are clear without icterus. Extraocular movements are full. ENT: No rhinorrhea. Oropharynx is moist. Mouth exam is benign. NECK: Supple. Full range of motion. CARDIOVASCULAR: Normal rate and rhythm without murmur gallop or rub. RESPIRATORY: Clear to auscultation. Breath sounds equal bilaterally. No wheezes, rales, or rhonchi. GASTROINTESTINAL: Abdomen soft, non-tender, nondistended. EXTREMITIES: No edema, full range of motion. No obvious trauma. BKA on the left BACK: Normal inspection, no CVA tenderness. Straight leg test positive on the right negative on the left NEURO: Nonfocal examination, normal speech, normal gait. Normal dorsiflexion and plantar flexion at the right ankle. Left side is not testable because of amputation SKIN: No rash or erythema of visible areas PSYCH: Normally oriented. Normal range of affect. Appropriate behavior Initial Vital Signs Initial Vital Signs: Vital Signs Temperature 98.7 F 05/25/23 19:20 Pulse Rate 111 H 05/25/23 19:20 Respiratory Rate 18 05/25/23 19:20 Blood Pressure 139/94 H 05/25/23 19:20 Pulse Oximetry 100 05/25/23 19:20 Oxygen Delivery Method Room Air 05/25/23 19:20 Course Course Course Narrative: 47-year-old man with remote left-sided BKA and diabetes and history of staph infections comes with atraumatic lumbar pain radiating into the legs. He has no incontinence of bowel or bladder. He reports no fever when questioned multiple times. He denies current infection. He has no hard neurologic findings. He wonders if it might be a kidney or bladder infection. This seems less likely in an asymptomatic young man but will test for this. If there is no obvious explanation in the urinalysis I think MR imaging to exclude spinal epidural abscess is the next appropriate step. Additional Information: 2151 MRI shows no cauda equina or epidural abscess. No dangerous nerve impingement. Pain is adequately controlled with medications given here. Recommend outpatient therapy for musculoskeletal back pain. Orders Ordered: ED Orders 05/25/23 19:30 MR lumbar spine wo/w con Stat 05/25/23 19:40 CBC Auto Diff [Complete Blood Count AUTO DIFF] Stat CMP [Comprehensive Metabolic Panel] Stat 05/25/23 19:55 UA dip and micro [Urinalysis and Microscopic] Stat Discontinued Medications Acetaminophen (Acetaminophen 325 Mg Tablet) 975 mg PO NOW ONE Stop: 05/25/23 19:31 Last Admin: 05/25/23 19:38 Dose: 975 mg Documented By: FRANCESCA Ibuprofen (Ibuprofen 400 Mg Tablet) 800 mg PO NOW ONE Stop: 05/25/23 19:31 Last Admin: 05/25/23 19:38 Dose: 800 mg Documented By: FRANCESCA Oxycodone HCl (Oxycodone Ir 5 Mg Tablet) 5 mg PO NOW ONE Stop: 05/25/23 19:31 Last Admin: 05/25/23 19:39 Dose: 5 mg Documented By: FRANCESCA Vital Signs Vital signs: Vital Signs - 8 hr 05/25/23 19:20 05/25/23 21:23 Temperature 98.7 F Pulse Rate 111 H 95 H Respiratory Rate 18 16 Blood Pressure 139/94 H 148/89 H Pulse Oximetry 100 98 Oxygen Delivery Method Room Air Room Air MDM - Back Pain/Injury Lab Data 05/25/23 19:40 05/25/23 19:40 Labs: Lab Results 05/25/23 05/25/23 Range/Units 19:40 19:55 WBC 10.8 (4.5-11.0) X10^3/uL RBC 4.47 L (4.5-5.9) X10^6/uL Hgb 13.9 (13.5-17.5) g/dL Hct 38.6 L (41-53) % MCV 86.3 (80-100) fL MCH 31.0 (26-34) PG MCHC 35.9 (30-36) % RDW 13.0 (11.6-14.8) % Plt Count 193 (150-400) X10^3/uL Neut % (Auto) 77.3 H (50-75) % Lymph % (Auto) 13.4 L (25-40) % Power % (Auto) 7.1 (3-14) % Eos % (Auto) 1.5 L (2-4) % Baso % (Auto) 0.7 (0-2) % Neut # (Auto) 8300 H (0676-3104) /uL Lymph # (Auto) 1400 (9491-9410) /uL Power # (Auto) 800 (0-900) /uL Eos # (Auto) 200 (0-450) /uL Baso # (Auto) 100 (0-100) /uL Sodium 134 L (137-145) mmol/L Potassium 4.1 (3.4-5.1) mmol/L Chloride 98 (98-107) mmol/L Carbon Dioxide 28 (22-32) mmol/L BUN 33 H (9-20) mg/dL Creatinine 0.69 (0.66-1.25) mg/dL Estimated GFR > 60 (>60) mL/min BUN/Creatinine Ratio 47.8 H (6-22) Glucose 448 H (70-100) mg/dL Calcium 9.7 (8.4-10.2) mg/dL Total Bilirubin 0.9 (0.2-1.3) mg/dL AST 33 (17-59) IU/L ALT 43 (<50) IU/L Alkaline Phosphatase 107 (38-126) U/L Total Protein 7.1 (6.3-8.2) g/dL Albumin 4.1 (3.5-5.0) g/dL Globulin 3.0 (1.7-4.1) g/dL Albumin/Globulin Ratio 1.4 (1.0-2.8) Urine Color Yellow Urine Appearance Clear Urine pH 6.5 (4.5-8.0) Ur Specific [place] 1.010 (1.000-1.035) Urine Protein Trace H (Negative) Urine Glucose (UA) 3+ H (Negative) g/dL Urine Ketones Negative (NEGATIVE) Urine Occult Blood Negative (Negative) Urine Nitrate Negative (Negative) Urine Bilirubin Negative (NEGATIVE) Urine Urobilinogen 0.2 (0.2) E.U./dL Ur Leukocyte Esterase Negative (NEGATIVE) Urine RBC 0-1/hpf (0-5/HPF) Urine WBC None seen (0-5/HPF) Ur Squamous Epith Cells None seen (0-5/HPF) Urine Bacteria None seen (None) Ur Culture Indicated? Cult not indicated Discharge Plan Departure Patient Disposition: Home Clinical Impression: Strain of lumbar region Instructions: DI for Low Back Pain Activity Restrictions/Additional Instructions: After very careful evaluation including MRI, no dangerous cause of your back pain is identified. For now I recommend treatment for musculoskeletal back pain which is gentle activity. Tylenol 1000 mg taken together with ibuprofen 600 mg every 6 hours. Cyclobenzaprine as needed for more severe pain. Follow up at the clinic in a week if symptoms are not improving. Follow-up right away for loss of control of bowels or bladder, high fever or loss of function of lower extremities. Prescriptions: New cyclobenzaprine 30 mg capsule,extended release 24hr 30 mg PO Q4-6H PRN (Reason: muscle spasm) Qty: 10 0RF No Action methylphenidate HCl 36 mg tablet extended release 24hr 72 mg PO DAILY Basaglar KwikPen U-100 Insulin 100 unit/mL (3 mL) insulin pen 35 unit SUBCUT DAILY doxycycline hyclate 100 mg tablet 100 mg PO BID Qty: 14 0RF cephalexin 500 mg capsule 500 mg PO QID Qty: 20 0RF Novolog FlexPen U-100 Insulin 100 unit/mL Insulin Pen See Rx Instructions .ROUTE .COMPLEX Rx Instructions: Sliding scale: Patient does own sliding scale no direct instructions. cyclobenzaprine 10 mg tablet 10 mg PO TID PRN (Reason: muscle spasm) Qty: 14 0RF Referrals: Neftaly Champagne MD [Primary Care Provider] - Stand Alone Forms: Patient Portal/API
[2023-05-25] MEDS: IBUPROFEN 400 MG TABLET 800 MG PO (19:38)
[2023-05-25] MEDS: ACETAMINOPHEN 325 MG TABLET 975 MG PO (19:38)
[2023-05-25] MEDS: OXYCODONE IR 5 MG TABLET PO (19:39)
[2023-05-25 19:55] LABS: Add Manual Diff / Slide Review NO; Basophils Absolute Auto 100 /uL (0-100); Basophils Percent Auto 0.7 % (0-2); Eosinophils Absolute Auto 200 /uL (0-450); Eosinophils Percent Auto 1.5 % (2-4); Hematocrit 38.6 % (41-53); Hemoglobin 13.9 g/dL (13.5-17.5); Lymphocytes Absolute Auto 1400 /uL (1100-4500); Lymphocytes Percent Auto 13.4 % (25-40); Mean Corpuscular HGB Conc 35.9 % (30-36); Mean Corpuscular Volume 86.3 fL (80-100); Monocytes Absolute Auto 800 /uL (0-900); Monocytes Percent Auto 7.1 % (3-14); Neutrophils Absolute Auto 8300 /uL (1500-7000); Neutrophils Percent Auto 77.3 % (50-75); Platelet Count 193 X10^3/uL (150-400); Red Blood Cell Count 4.47 X10^6/uL (4.5-5.9); White Blood Cell Count 10.8 X10^3/uL (4.5-11.0)
[2023-05-25 20:01] LABS: Alanine Aminotransferase 43 IU/L (<50); Albumin 4.1 g/dL (3.5-5.0); Albumin Globulin Ratio 1.4 (1.0-2.8); Alkaline Phosphatase 107 U/L (38-126); Aspartate Aminotransferase 33 IU/L (17-59); Bilirubin Total 0.9 mg/dL (0.2-1.3); Blood Urea Nitrogen 33 mg/dL (9-20); Calcium 9.7 mg/dL (8.4-10.2); Carbon Dioxide 28 mmol/L (22-32); Chloride 98 mmol/L (98-107); Glucose 448 mg/dL (70-100); Potassium 4.1 mmol/L (3.4-5.1); Sodium 134 mmol/L (137-145); Total Protein 7.1 g/dL (6.3-8.2)
[2023-05-25 20:06] LABS: Appearance Urine UA CLEAR; Bilirubin Urine UA NEGATIVE (NEGATIVE); Color Urine UA YELLOW; Glucose Urine UA 3+ g/dL (Negative); Ketones Urine UA NEGATIVE (NEGATIVE); Leukocyte Esterase Urine UA NEGATIVE (NEGATIVE); Nitrite Urine UA NEGATIVE (Negative); Occult Blood Urine UA NEGATIVE (Negative); Protein Urine UA TRACE (Negative); Urobilinogen Urine UA 0.2 E.U./dL (0.2); pH Urine UA 6.5 (4.5-8.0)
[2023-05-25 20:36] LABS: Bacteria Urine None Seen; Culture Indicated Urine Cult Not Indicated; RBC Urine 0-1/HPF (0-5/HPF); Squamous Epithelial Cell Urine None Seen (0-5/HPF); WBC Urine None Seen (0-5/HPF)
[2023-05-25 20:40] LABS: BUN Creatinine Ratio 47.8 (6-22); Estimated Glomerular Filt Rate > 60 mL/min (>60); HEMOLYSIS 30 (0-50)
[2023-05-25 21:23] VITALS: BP 148/89; PULSE 95; RESP 16; O2SAT 98
[2023-05-25 22:06] VITALS: BP 148/92; PULSE 97; RESP 16; O2SAT 99
== END 2023-05-25 22:07 | disposition home or self-care (01) ==
PROVIDERS: Emergency Provider Family Medicine Addiction Medicine; Family Provider Internal Medicine; PCP Internal Medicine
DX: S39.012A Strain of muscle, fascia and tendon of lower back, initial encounter (principal); E10.65 Type 1 diabetes mellitus with hyperglycemia; Z79.899 Other long term (current) drug therapy; M62.830 Muscle spasm of back
CPT/HCPCS: 36415; 72158; 80053; 81001; 85025; 99283; 99284; A9579

== ENCOUNTER 2024-03-06 17:08 | Emergency (ER) | payer OTHER, MEDICAID, SELFPAY ==
[2024-03-06 17:17] VITALS: BP 164/99; PULSE 110; RESP 17; TEMP 36.8; O2SAT 100; BMI 20.6
--- NOTE | 2024-03-06 18:04 | ED.SKABFB ---
HPI - Skin/Abscess/Foreign Bdy <Bridgette Rosales PA-C - Last Filed: 03/06/24 19:40> General Chief complaint: Skin/Abscess/Foreign Body Stated complaint: cellulitis in left leg Time Seen by Provider: 03/06/24 17:49 Source: patient Mode of arrival: Ambulatory Limitations: no limitations History of Present Illness HPI narrative: 48-year-old male presents today for concerns of a left knee stump infection. He has had infections in the past and was under the care of our wound care clinic at 1 point and he does have a history of MRSA. He states he is having some drainage from his distal stump and believes he has another abscess forming on the thigh. Denies any prior history of osteomyelitis. He has been hospitalized for a deeper abscess that required significant wound care and wound VAC in 2019. He has had no fevers, no injury, his amputation is secondary to a significant talus fracture so he opted for the [id number] amputation for better orthopedic function. He is denying feeling unwell, no recent illness, he has just been doing basic soap and water cleanse. History is significant for type 1 diabetes mellitus. He has a real-time monitor that transmits his sugar results every 10 minutes to his cell phone current reading is 146. All other systems are reviewed and are negative. Related Data Home Medications Medication Instructions Recorded Confirmed insulin aspart U-100 100 unit/mL See Rx Instructions .Route .COMPLEX 04/03/18 08/03/19 (3 mL) subcutaneous pen (Novolog FlexPen U-100 Insulin aspart) insulin glargine 100 unit/mL (3 35 unit SUBCUT DAILY 07/30/19 08/03/19 mL) subcutaneous pen (Basaglar KwikPen U-100 Insulin) methylphenidate HCl 36 mg 72 mg PO DAILY 07/30/19 08/06/19 tablet,extended release 24 hr Previous Rx's Medication Instructions Recorded doxycycline hyclate 100 mg tablet 100 mg PO BID #14 tabs 08/06/19 cephalexin 500 mg capsule 500 mg PO QID #20 caps 05/05/22 cyclobenzaprine 10 mg tablet 10 mg PO TID PRN muscle spasm #14 05/25/23 tabs cyclobenzaprine 30 mg 30 mg PO Q4-6H PRN muscle spasm 05/25/23 capsule,extended release 24 hr #10 caps clindamycin HCl 300 mg capsule 300 mg PO Q6H #40 caps 03/06/24 Allergies Allergy/AdvReac Type Severity Reaction Status Date / Time promethazine AdvReac Unknown GET LOOPY Verified 03/06/24 17:26 Review of Systems <Bridgette Rosales PA-C - Last Filed: 03/06/24 19:40> Review of Systems Narrative: All other systems are reviewed and are negative. Patient History <Bridgette Rosales PA-C - Last Filed: 03/06/24 19:40> Medical History (Updated 03/06/24 @ 18:56 by Bridgette Rosales PA-C) Type 1 diabetes mellitus Surgical History Hx of BKA Social History household members: none Smoking Status: Current every day smoker Smoking Status: Current every day smoker tobacco type: cigarettes alcohol intake frequency: 0-2 drinks per day Substance Use Type: former substance user Exam <Bridgette Rosales PA-C - Last Filed: 03/06/24 19:40> Initial Vital Signs Initial Vital Signs: Vital Signs Temperature 98.3 F 03/06/24 17:17 Pulse Rate 110 H 03/06/24 17:17 Respiratory Rate 17 03/06/24 17:17 Blood Pressure 164/99 H 03/06/24 17:17 Pulse Oximetry 100 03/06/24 17:17 Oxygen Delivery Method Room Air 03/06/24 17:17 Vital signs reviewed and are normal except for elevated blood pressure reading today. Recheck of his heart rate it is 96 per minute. Const Other: Smiling, seated, no distress. Work of breathing is normal. Nontoxic appearing. Resp Auscultation: clear to auscultation bilaterally, no rales, no rhonchi and no wheezes Cardio Rate: regular rate Rhythm: regular rhythm Extrem Left lower extremity: full ROM, normal capillary refill and no joint enlargement; no cyanosis and no edema Other: Left BKA, there is some serous drainage from the distal tip of his stump site, the skin otherwise is intact, it is dry and flaking, there is minimal redness locally, with normal capillary refill, the skin is warm not hot to the touch, there is no induration, or palpable border. No vesicles. No pustules. Just proximal on the medial anterior thigh is tender area of tissue without fluctuance this may represent an early abscess formation, the skin again is intact. He has full non-painful range of motion of the knee joint itself and no joint line tenderness. No pretibial tenderness. No popliteal tenderness, swelling or lymph notes. No inguinal lymph nodes, no lymphangitis. <Lalit Pineda DO - Last Filed: 03/06/24 20:26> Initial Vital Signs Initial Vital Signs: Vital Signs Temperature 98.3 F 03/06/24 17:17 Pulse Rate 110 H 03/06/24 17:17 Respiratory Rate 17 03/06/24 17:17 Blood Pressure 164/99 H 03/06/24 17:17 Pulse Oximetry 100 03/06/24 17:17 Oxygen Delivery Method Room Air 03/06/24 17:17 Course <Bridgette Rosales PA-C - Last Filed: 03/06/24 19:40> Orders Ordered: ED Orders 03/06/24 18:11 XR knee LT 3V Stat 03/06/24 18:19 Wound Culture and Gram Stain Stat Discontinued Medications Clindamycin HCl (Clindamycin 150 Mg Capsule) 300 mg PO NOW ONE Stop: 03/06/24 18:54 Last Admin: 03/06/24 18:58 Dose: 300 mg Documented By: MELVIN Vital Signs Vital signs: Vital Signs - 8 hr 03/06/24 17:17 03/06/24 19:09 Temperature 98.3 F Pulse Rate 110 H 107 H Respiratory Rate 17 16 Blood Pressure 164/99 H 165/99 H Pulse Oximetry 100 99 Oxygen Delivery Method Room Air <Lalit Pineda DO - Last Filed: 03/06/24 20:26> Orders Ordered: ED Orders 03/06/24 18:11 XR knee LT 3V Stat 03/06/24 18:19 Wound Culture and Gram Stain Stat Discontinued Medications Clindamycin HCl (Clindamycin 150 Mg Capsule) 300 mg PO NOW ONE Stop: 03/06/24 18:54 Last Admin: 03/06/24 18:58 Dose: 300 mg Documented By: MELVIN Vital Signs Vital signs: Vital Signs - 8 hr 03/06/24 17:17 03/06/24 19:09 Temperature 98.3 F Pulse Rate 110 H 107 H Respiratory Rate 17 16 Blood Pressure 164/99 H 165/99 H Pulse Oximetry 100 99 Oxygen Delivery Method Room Air MDM - Skin/Abscess/Foreign Bdy <Bridgette Rosales PA-C - Last Filed: 03/06/24 19:40> Lab Data Lab results narrative: Wound culture is pending. Imaging Data Extremity x-ray #1: My Impression: Deferred to Radiologist interpretation. Radiologist's Impression: PROCEDURE: XR KNEE LT 3V INDICATIONS: draining abscess at stump site. R/O osteomyelitis TECHNIQUE: 3 views of the knee were acquired. COMPARISON: [facility], , XR KNEE LT 1TO2V, 08/03/2019, 20:41. FINDINGS: Bones: There is prior below the knee amputation of left lower leg. Subtle radiolucency is noted involving anterior aspect of distal tibial stump, early erosion secondary to osteomyelitis cannot be excluded. No acute fracture or dislocation. No significant patellar subluxation. Soft tissues: Ulceration involving left lower leg stump is seen. No significant subcutaneous emphysema. IMPRESSION: Prior below the knee amputation. Ulceration involving lower leg stump with subtle radiolucency involving left distal tibial stump concerning for early osteomyelitis. No fracture or dislocation. Dictated by: Diaz Solano M.D. on 03/06/2024 at 19:06 Approved by: Diaz Solano M.D. on 03/06/2024 at 19:07 [facility] Narrative Medical decision making narrative: He is afebrile and has minimal discomfort. His wound culture is pending, I have covered him with clindamycin 300 mg 4 times daily for 10 day course, with his first dose administered in the ED/Fast-track, no adverse reaction. and he will contact the wound care clinic tomorrow morning for follow-up and re-evaluation. His x-ray showed a subtle radiolucency involving the left distal tibial stump which is concerning for early osteomyelitis. He is actively draining non-purulent serous fluid with no clinical findings to suggest erysipelas or cellulitis. He opted for outpatient management at this point, he has been seen at the wound clinic before and he has a pre-existing patient. Red flag warning signs were discussed in detail, he will return immediately to the emergency department if he experiences any fever, generally feeling unwell, any swelling, redness, skin that is hot to the touch. Outpatient MRI is warranted which can be ordered from his primary care provider or the wound care clinic. He may require surgical intervention, as bone biopsy is the only definitive way to confirm osteomyelitis. The patient left prior to official radiologist results available.. I attempted to call him on his mobile phone, but his voice mailbox was full. A second attempt was made at 1935 hours, with the same message. Discharge Plan Departure Patient Disposition: Home Clinical Impression: Abscess of left leg Instructions: DI for Skin Abscess Activity Restrictions/Additional Instructions: Try to keep your activity light, elevate your left leg, apply warm moist compresses to the lower part that will really help bring out the early abscess formation, it should soften and then be ready for incision and drainage, or it might resolve with the antibiotic therapy as your already draining from your stoma site. Please monitor for any worsening signs and seek medical attention immediately if you have any fever, increased swelling, redness, heat to the skin increased pain. I would like you to follow-up with the wound care clinic again please call them in the morning, you are a pre-established patient. I did send them an internal note through the system. Thank you for coming in I wish you the best of luck and again please do not hesitate to return if anything changes or you have any new worrisome symptoms. Prescriptions: New clindamycin HCl 300 mg capsule 300 mg PO Q6H Qty: 40 0RF No Action methylphenidate HCl 36 mg tablet extended release 24hr 72 mg PO DAILY Basaglar KwikPen U-100 Insulin 100 unit/mL (3 mL) insulin pen 35 unit SUBCUT DAILY doxycycline hyclate 100 mg tablet 100 mg PO BID Qty: 14 0RF cephalexin 500 mg capsule 500 mg PO QID Qty: 20 0RF Novolog FlexPen U-100 Insulin 100 unit/mL Insulin Pen See Rx Instructions .ROUTE .COMPLEX Rx Instructions: Sliding scale: Patient does own sliding scale no direct instructions. cyclobenzaprine 10 mg tablet 10 mg PO TID PRN (Reason: muscle spasm) Qty: 14 0RF cyclobenzaprine 30 mg capsule,extended release 24hr 30 mg PO Q4-6H PRN (Reason: muscle spasm) Qty: 10 0RF Referrals: Kaelyn Gomez PA-C [Advanced Returns Clerk] - (Left lower leg wound, draining abscess of BKA. Has been seen in the past. Culture pending. On clindamycin 300mg q6hrs. ) Neftaly Champagne MD [Primary Care Provider] - Stand Alone Forms: Patient Portal/API ED Sign-out <Lalit Pineda DO - Last Filed: 03/06/24 20:26> Cosign ED Attending Cosignature Attestation: Dr Pineda Co-Sign Statement: I was available for consultation during this patient's emergency department visit. This chart is signed by myself for administrative purposes only. I did not have direct contact with this patient during this visit. They were seen independently by the APC.
--- NOTE | 2024-03-06 18:11 | DI.RAD.S_ITS ---
PROCEDURE: XR KNEE LT 3V INDICATIONS: draining abscess at stump site. R/O osteomyelitis TECHNIQUE: 3 views of the knee were acquired. COMPARISON: [facility], CR, XR KNEE LT 1TO2V, 08/03/2019, 20:41. FINDINGS: Bones: There is prior below the knee amputation of left lower leg. Subtle radiolucency is noted involving anterior aspect of distal tibial stump, early erosion secondary to osteomyelitis cannot be excluded. No acute fracture or dislocation. No significant patellar subluxation. Soft tissues: Ulceration involving left lower leg stump is seen. No significant subcutaneous emphysema. IMPRESSION: Prior below the knee amputation. Ulceration involving lower leg stump with subtle radiolucency involving left distal tibial stump concerning for early osteomyelitis. No fracture or dislocation. Dictated by: Diaz Solano M.D. on 03/06/2024 at 19:06 Approved by: Diaz Solano M.D. on 03/06/2024 at 19:07
[2024-03-06] MEDS: CLINDAMYCIN 150 MG CAPSULE 300 MG PO (18:58)
[2024-03-06 19:09] VITALS: BP 165/99; PULSE 107; RESP 16; O2SAT 99
--- NOTE | 2024-03-06 19:09 | PC.NURSE ---
concern for infection in left lower leg; afebrile at home. states sugars have been well maintained.
== END 2024-03-06 19:14 | disposition home or self-care (01) ==
PROVIDERS: Emergency Provider Physician Assistant Medical; Family Provider Internal Medicine; PCP Internal Medicine
DX: L02.416 Cutaneous abscess of left lower limb (principal)
CPT/HCPCS: 73562; 87070; 87075; 87077; 87147; 87186; 87205; 99283

== ENCOUNTER 2024-04-16 08:21 | Inpatient (IN) | payer OTHER, MEDICAID, SELFPAY ==
[2024-04-16] VITALS (13 sets, daily range): BP systolic 122–177; BP diastolic 71–99; PULSE 95–108; RESP 19–24; TEMP 36.6–37; O2SAT 91–100; BMI 26.2
--- NOTE | 2024-04-16 08:44 | EKG_ITS ---
[facility] [address], [place] [address] Test Date: 2024-04-16 Pat Name: Daniel Zapata Department: [facility] Room: Gender: Male Chief Analytics Officer: VALENTINA : 1975 Requested By: Order Number: [id number] Reading MD: Pio Pineda MD Measurements Intervals [place] Rate: 108 P: 86 NV: 140 QRS: -60 QRSD: 86 T: 82 QT: 342 QTc: 458 Interpretive Statements Sinus tachycardia Possible Left atrial enlargement Left anterior fascicular block Possible Inferior infarct , age undetermined Anterior infarct , age undetermined Electronically Signed On 04-16-2024 12:04:05 PDT by Pio Pineda MD
[2024-04-16 08:52] LABS: Add Manual Diff / Slide Review NO; Basophils Absolute Auto 100 /uL (0-100); Basophils Percent Auto 0.4 % (0-2); Eosinophils Absolute Auto 200 /uL (0-450); Eosinophils Percent Auto 0.7 % (2-4); Hematocrit 39.1 % (41-53); Hemoglobin 13.7 g/dL (13.5-17.5); Lymphocytes Absolute Auto 1700 /uL (1100-4500); Lymphocytes Percent Auto 8.3 % (25-40); Mean Corpuscular Hemoglobin 30.3 PG (26-34); Mean Corpuscular Volume 86.6 fL (80-100); Monocytes Absolute Auto 1500 /uL (0-900); Monocytes Percent Auto 7.1 % (3-14); Neutrophils Absolute Auto 17400 /uL (1500-7000); Neutrophils Percent Auto 83.5 % (50-75); Platelet Count 293 X10^3/uL (150-400); Red Blood Cell Count 4.51 X10^6/uL (4.5-5.9); Red Cell Distribution Width 13.5 % (11.6-14.8); White Blood Cell Count 20.8 X10^3/uL (4.5-11.0)
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
[2024-04-16 09:32] LABS: Adenovirus Not Detected (Not Detect); B. parapertussis Not Detected (Not Detecte); Bordetella pertussis Not Detected (Not Detect); Chlamydophila pneumoniae Not Detected (Not Detect); Coronavirus 229E Not Detected (Not Detect); Coronavirus HKU1 Not Detected (Not Detect); Coronavirus NL 63 Not Detected (Not Detect); Coronavirus OC43 Not Detected (Not Detect); Human Metapneumovirus Not Detected (Not Detect); Human Rhinovirus/Enterovirus Detected (Not Detect); Influenza A Not Detected (Not Detect); Influenza B Not Detected (Not Detect); Mycoplasma pneumoniae Not Detected (Not Detect); Parainfluenza Virus 1 Not Detected (Not Detect); Parainfluenza Virus 2 Not Detected (Not Detect); Parainfluenza Virus 3 Not Detected (Not Detect); Parainfluenza Virus 4 Not Detected (Not Detect); Respiratory Syncytial Virus Not Detected (Not Detect); SARS- CoV-2 Not Detected (Not Detecte)
[2024-04-16 09:32] LABS: Base Excess VBG 1.4 mmol/L (0-4); HCO3 VBG 25 mmol/L (24-28); Oxygen Saturation VBG 85 % (70-75); PCO2 VBG 36.2 mmHg (45-50); PO2 VBG 47 mmHg (35-45); Total CO2 VBG 25 mmol/L (24-29); pH VBG 7.45 (7.33-7.43)
--- NOTE | 2024-04-16 09:34 | DI.RAD.S_ITS ---
PROCEDURE: XR TIBIA FIBULA LT 2V INDICATIONS: WBC 20k, ?prior osteo, eval stump, remote AKA TECHNIQUE: 2 views of the tibia and fibula were acquired. COMPARISON: None. FINDINGS: Bones: Irregularity of at the distal tibia/fibula at amputation site.. No suspicious bony lesions. Soft tissues: No suspicious soft tissue calcifications or masses. IMPRESSION: Irregularity of the distal tibia/fibula at amputation site. Chronicity is indeterminate and no priors are available for comparison. However, if concern is present for osteomyelitis, MRI is recommended. Dictated by: Suha Rice M.D. on 04/16/2024 at 10:38 Approved by: Suha Rice M.D. on 04/16/2024 at 10:47
--- NOTE | 2024-04-16 09:36 | DI.RAD.S_ITS ---
PROCEDURE: XR CHEST 1V INDICATIONS: cough, WBC 20k, eval for penumonia TECHNIQUE: One view of the chest was acquired. COMPARISON: None. FINDINGS: Surgical changes and devices: None. Lungs and pleura: Streaky right basilar opacities. Mediastinum: Mediastinal contours appear normal. Heart size is normal. Bones and chest wall: No suspicious bony lesions. Overlying soft tissues appear unremarkable. IMPRESSION: Streaky right basilar opacities suggestive developing pneumonia. Dictated by: Suha Rice M.D. on 04/16/2024 at 10:48 Approved by: Suha Rice M.D. on 04/16/2024 at 10:48
[2024-04-16 09:54] LABS: Alanine Aminotransferase 50 IU/L (<50); Albumin 3.6 g/dL (3.5-5.0); Albumin Globulin Ratio 1.2 (1.0-2.8); Alkaline Phosphatase 213 U/L (38-126); Aspartate Aminotransferase 46 IU/L (17-59); BUN Creatinine Ratio 51.4 (6-22); Bilirubin Total 0.7 mg/dL (0.2-1.3); Blood Urea Nitrogen 54 mg/dL (9-20); Calcium 9.4 mg/dL (8.4-10.2); Carbon Dioxide 21 mmol/L (22-32); Chloride 92 mmol/L (98-107); Estimated Glomerular Filt Rate > 60 mL/min (>60); Potassium 4.5 mmol/L (3.4-5.1); Sodium 125 mmol/L (137-145); Total Protein 6.6 g/dL (6.3-8.2)
[2024-04-16 09:55] LABS: Lactate (Lactic Acid) 0.9 mmol/L (0.7-2.1)
[2024-04-16 09:57] LABS: Erythrocyte Sedimentation Rate 85 MM/HR (0-15)
[2024-04-16 10:01] LABS: HEMOLYSIS 20 (0-50)
[2024-04-16 10:02] LABS: Glucose 616 mg/dL (70-100)
[2024-04-16 10:04] LABS: C-Reactive Protein Quant 18.9 mg/dL (<1.0)
[2024-04-16 10:34] LABS: Appearance Urine UA CLEAR; Bilirubin Urine UA NEGATIVE (NEGATIVE); Color Urine UA YELLOW; Glucose Urine UA 3+ g/dL (Negative); Ketones Urine UA 1+ (NEGATIVE); Leukocyte Esterase Urine UA NEGATIVE (NEGATIVE); Nitrite Urine UA NEGATIVE (Negative); Occult Blood Urine UA TRACE-INTACT (Negative); Protein Urine UA TRACE (Negative); Specific Gravity Urine UA <=1.005 (1.000-1.035); Urobilinogen Urine UA 0.2 E.U./dL (0.2)
[2024-04-16] MEDS: INSULIN REGULAR 100 UNIT/ML 3 ML VIAL 10 UNIT SUBCUT (10:40)
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
[2024-04-16 11:00] LABS: Bacteria Urine None Seen; Culture Indicated Urine Cult Not Indicated; RBC Urine 0-1/HPF (0-5/HPF); Squamous Epithelial Cell Urine None Seen (0-5/HPF); Urine Volume 10mL (spun); WBC Urine 0-1/HPF (0-5/HPF)
--- NOTE | 2024-04-16 11:23 | PC.NURSE ---
Pt reports high bs x5 days. c/o congestion. pt states left lower limb at amputation site was concerned for osteomyelitis. Pt states he has been weak lately. Denies abdominal pain. Pt states he has been giving himself 20 units regular insulin w/o improvement.
[2024-04-16] MEDS: cefTRIAXone 1,000 MG in SODIUM CHLORIDE 0.9% 100 ML 200 MG IV (11:27)
[2024-04-16] MEDS: DOXYCYCLINE HYCLATE 100 MG TABLET PO (11:28)
[2024-04-16] MEDS: SODIUM CHLORIDE 0.9% 500 ML 1000 ML IV (13:17)
--- NOTE | 2024-04-16 13:45 | PC.NURSE ---
Testing the patients blood glucose and its still above 500, noted that the patient felt clammy, took oral temp 98.6. Notified the provider and suggested that we start 500 bolus of NS, see MAR
[2024-04-16] MEDS: SODIUM CHLORIDE 0.9% 1,000 ML 150 ML IV (17:13)
--- NOTE | 2024-04-16 17:14 | PM.HP.1 ---
History of Present Illness History of Present Illness Date Patient Seen: 04/16/24 Time Patient Seen: 17:14 Chief complaint: per pt blood sugar out of control Narrative: He has been ill for several days with rhinorrhea and a cough. He was also had hyperglycemia. He was in been eating much trying to mitigate his high blood sugars. He has been on antibiotics intermittently for his left stump wound which has been infected. He denies any pain there. He was followed by [facility]. He presented today to the emergency department. There he was found to be hyperglycemic and have a leukocytosis with a WBC of 20 K. he was afebrile. His respiratory swab was positive for rhino virus, and he would streaky infiltrate in his chest x-ray. He was started on antibiotics, and an MRI of his BKA stump site revealed probable osteomyelitis. He was given IV fluids and some insulin has improved. His blood sugar was 600 initially and was 375 upon arrival to the floor. He denies nausea, vomiting, or diarrhea. No pain. He was not confused but does feel dehydrated. [facility] Medical History Type 1 diabetes mellitus Surgical History Hx of BKA Social History household members: none Smoking Status: Former smoker alcohol intake: never Meds Home Medications and Allergies Home Medications Medication Instructions Recorded Confirmed Type insulin aspart U-100 100 unit/mL See Rx Instructions .Route .COMPLEX 04/03/18 08/03/19 History (3 mL) subcutaneous pen (Novolog FlexPen U-100 Insulin aspart) insulin glargine 100 unit/mL (3 35 unit SUBCUT DAILY 07/30/19 08/03/19 History mL) subcutaneous pen (Basaglar KwikPen U-100 Insulin) methylphenidate HCl 36 mg 72 mg PO DAILY 07/30/19 04/16/24 History tablet,extended release 24 hr doxycycline hyclate 100 mg tablet 100 mg PO BID #14 tabs 08/06/19 Rx cyclobenzaprine 10 mg tablet 10 mg PO TID PRN muscle spasm #14 05/25/23 Rx tabs cyclobenzaprine 30 mg 30 mg PO Q4-6H PRN muscle spasm 05/25/23 Rx capsule,extended release 24 hr #10 caps clindamycin HCl 300 mg capsule 300 mg PO Q6H #40 caps 03/06/24 Rx Allergies Allergy/AdvReac Type Severity Reaction Status Date / Time promethazine AdvReac Unknown GET LOOPY Verified 04/16/24 08:40 Review of Systems Review of Systems Narrative: All else reviewed and otherwise unremarkable except as noted in the history and physical. Exam Vital Signs (past 8 hours): - 04/16/24 11:22 04/16/24 11:30 04/16/24 11:30 Pulse Rate 104 H 106 H Respiratory Rate 23 24 Blood Pressure 126/71 Pulse Oximetry 98 98 Oxygen Delivery Method 04/16/24 12:00 04/16/24 12:00 04/16/24 12:30 Pulse Rate 105 H 106 H Respiratory Rate 20 19 Blood Pressure 158/99 H Pulse Oximetry 91 98 Oxygen Delivery Method Room Air 04/16/24 12:30 04/16/24 13:00 04/16/24 13:00 Pulse Rate 101 H Respiratory Rate 22 Blood Pressure 130/81 126/81 Pulse Oximetry 99 Oxygen Delivery Method 04/16/24 13:30 04/16/24 13:30 04/16/24 14:46 Pulse Rate 97 H Respiratory Rate Blood Pressure 146/88 H 139/84 Pulse Oximetry 100 Oxygen Delivery Method 04/16/24 14:46 04/16/24 15:00 04/16/24 15:00 Pulse Rate 96 H 95 H Respiratory Rate 24 23 Blood Pressure 137/86 Pulse Oximetry 98 100 Oxygen Delivery Method 04/16/24 15:27 04/16/24 15:30 04/16/24 15:30 Pulse Rate 99 H Respiratory Rate 20 Blood Pressure 164/98 H Pulse Oximetry 99 Oxygen Delivery Method Room Air 04/16/24 16:00 04/16/24 16:00 Pulse Rate 100 H Respiratory Rate 19 Blood Pressure 177/89 H Pulse Oximetry 99 Oxygen Delivery Method Oxygen Delivery Method Room Air Narrative Exam Narrative: NAD, alert and oriented, fluent speech, calm. He appears chronically ill. Normocephalic skull, EOMI, anicteric sclera, symmetric pupils. Oropharynx unremarkable, no droop. Neck supple, midline trachea, no adenopathy. Lungs clear, normal rate and effort. Heart regular, no murmur gallop or rub. Abdomen is soft, non distended and non tender. Extremities are free of edema. The left BKA stump site is chronically inflamed, there is no opening or purulent discharge. There was minimal erythema. Skin is free of rash or lesions. Joints are not swollen or deformed. Judgment appears to be normal. Objective ECG Impression: Sinus tachycardia Possible Left atrial enlargement Left anterior fascicular block Possible Inferior infarct , age undetermined Anterior infarct , age undetermined Imaging Multiple studies:: Radiologist's impression: Chest x-ray: Streaky right basilar opacities suggestive developing pneumonia. Lower extremity MRI: 1. Ulceration and cellulitis involving left lower leg stump. No discrete drainable abscess collection. 2. Suggestion of osteomyelitis involving tibial stump with marrow edema and erosive changes. No fracture or dislocation. No other area of abnormal marrow signal. 3. No lower leg muscle signal abnormalities. Labs 04/16/24 08:35 04/16/24 08:35 Labs: Laboratory Results - last 24 hr 04/16/24 04/16/24 04/16/24 08:35 08:37 09:36 WBC 20.8 H RBC 4.51 Hgb 13.7 Hct 39.1 L MCV 86.6 MCH 30.3 MCHC 35.0 RDW 13.5 Plt Count 293 Neut % (Auto) 83.5 H Lymph % (Auto) 8.3 L [place] % (Auto) 7.1 Eos % (Auto) 0.7 L Baso % (Auto) 0.4 Neut # (Auto) 82781 H Lymph # (Auto) 1700 [place] # (Auto) 1500 H Eos # (Auto) 200 Baso # (Auto) 100 ESR 85 H VBG pH 7.45 H VBG pCO2 36.2 L VBG pO2 47 H VBG HCO3 25 VBG Total CO2 25 VBG O2 Saturation 85 H VBG Base Excess 1.4 Sodium 125 L Potassium 4.5 Chloride 92 L Carbon Dioxide 21 L BUN 54 H Creatinine 1.05 Estimated GFR > 60 BUN/Creatinine Ratio 51.4 H Glucose 616 H* Lactate 0.9 Calcium 9.4 Total Bilirubin 0.7 AST 46 ALT 50 H Alkaline Phosphatase 213 H C-Reactive Protein 18.9 H Total Protein 6.6 Albumin 3.6 Globulin 3.0 Albumin/Globulin Ratio 1.2 Urine Color Urine Appearance Urine pH Ur Specific [place] Urine Protein Urine Glucose (UA) Urine Ketones Urine Occult Blood Urine Nitrate Urine Bilirubin Urine Urobilinogen Ur Leukocyte Esterase Urine RBC Urine WBC Ur Squamous Epith Cells Urine Bacteria Ur Culture Indicated? Vol Urine Centrifuged Chlamy pneumoniae PCR Not detected Adenovirus (PCR) Not detected B. pertussis DNA (PCR) Not detected B.parapertussis DNA PCR Not detected Coronavirus OC43 (PCR) Not detected Coronavirus HKU1 (PCR) Not detected Coronavirus 229E (PCR) Not detected SARS-CoV-2 (PCR) Not detected Coronavirus NL63 (PCR) Not detected Human Metapneumovir PCR Not detected Influenza Type A (PCR) Not detected Influenza Type B (PCR) Not detected M. pneumoniae (PCR) Not detected Parainfluenza 1 (PCR) Not detected Parainfluenza 2 (PCR) Not detected Parainfluenza 3 (PCR) Not detected Parainfluenza 4 (PCR) Not detected RSV (PCR) Not detected Entero/Rhino (PCR) Detected H 04/16/24 10:12 WBC RBC Hgb Hct MCV MCH MCHC RDW Plt Count Neut % (Auto) Lymph % (Auto) [place] % (Auto) Eos % (Auto) Baso % (Auto) Neut # (Auto) Lymph # (Auto) [place] # (Auto) Eos # (Auto) Baso # (Auto) ESR VBG pH VBG pCO2 VBG pO2 VBG HCO3 VBG Total CO2 VBG O2 Saturation VBG Base Excess Sodium Potassium Chloride Carbon Dioxide BUN Creatinine Estimated GFR BUN/Creatinine Ratio Glucose Lactate Calcium Total Bilirubin AST ALT Alkaline Phosphatase C-Reactive Protein Total Protein Albumin Globulin Albumin/Globulin Ratio Urine Color Yellow Urine Appearance Clear Urine pH 6.0 Ur Specific [place] <=1.005 Urine Protein Trace H Urine Glucose (UA) 3+ H Urine Ketones 1+ H Urine Occult Blood Trace-intact Urine Nitrate Negative Urine Bilirubin Negative Urine Urobilinogen 0.2 Ur Leukocyte Esterase Negative Urine RBC 0-1/hpf Urine WBC 0-1/hpf Ur Squamous Epith Cells None seen Urine Bacteria None seen Ur Culture Indicated? Cult not indicated Vol Urine Centrifuged 10ml (spun) Chlamy pneumoniae PCR Adenovirus (PCR) B. pertussis DNA (PCR) B.parapertussis DNA PCR Coronavirus OC43 (PCR) Coronavirus HKU1 (PCR) Coronavirus 229E (PCR) SARS-CoV-2 (PCR) Coronavirus NL63 (PCR) Human Metapneumovir PCR Influenza Type A (PCR) Influenza Type B (PCR) M. pneumoniae (PCR) Parainfluenza 1 (PCR) Parainfluenza 2 (PCR) Parainfluenza 3 (PCR) Parainfluenza 4 (PCR) RSV (PCR) Entero/Rhino (PCR) Assessment & Plan Assessment & Plan narrative: 1. With a BKA cellulitis and osteomyelitis, present on admission and active. 2. Possible pneumonia, present on admission and active. 3. Dm 2 which is uncontrolled with a glucose of 600 and normal anion gap, present on admission and active. PLAN: -IV fluids -IV antibiotics, we will broaden to cefepime and vancomycin. -blood cultures -wound culture -we will discuss with Infectious Disease and Orthopedics tomorrow -Lantus 20 units subcutaneous now -high dose correctional insulin Inpatient status, anticipate a 2 midnight length of stay. MILAGROS is April 18 Full resuscitation Mother is proxy decision maker. Time-Based Coding :: 35 min spent with patient and on the chart (including review of chart, obtaining history, exam, reviewing outside data, placing orders, documenting exam and treatment plan, and counseling patient) on04/16. Quality VTE Deep Vein Thrombosis/Pulmonary Embolism Present on Admission: No MIPS - Admit I confirm the patient?s Advance Care Plan is present, Code status is documented, Surrogate decision maker is in patient?s record [If Yes, STOP here]: Yes MIPS - Meds 'Current medications' to include all prescriptions, [id number] products, herbals, cannabis/cannabidiol products, and vitamin/mineral/dietary (nutritional) supplements. I have utilized all available resources to obtain, update, or review the patient?s current medications. [If Yes, STOP here]: Yes
[2024-04-16] MEDS: INSULIN GLARGINE 100 UNIT/ML 3ML PEN 20 UNIT SUBCUT (17:17)
[2024-04-16] MEDS: INSULIN LISPRO 100 UNIT/ML 3ML VIAL SUBCUT ×2 (17:19→20:50)
[2024-04-16] MEDS: CEFEPIME 2 GM in SODIUM CHLORIDE 0.9% 100 ML IV (17:54)
[2024-04-16] MEDS: VANCOMYCIN 1,000 MG/200 ML PIGGYBACK 200 MG IV (18:50)
[2024-04-16] MEDS: HEPARIN 5,000 UNIT/ML VIAL 5000 UNIT SUBCUT (20:50)
[2024-04-17] VITALS (7 sets, daily range): BP systolic 126–153; BP diastolic 77–99; PULSE 87–93; RESP 15–20; TEMP 36.3–36.8; O2SAT 98–99
[2024-04-17] MEDS: SODIUM CHLORIDE 0.9% 1,000 ML 150 ML IV (01:24)
[2024-04-17] MEDS: CEFEPIME 2 GM in SODIUM CHLORIDE 0.9% 100 ML IV ×2 (05:48→17:34)
[2024-04-17 06:17] LABS: Add Manual Diff / Slide Review NO; Basophils Absolute Auto 200 /uL (0-100); Basophils Percent Auto 1.8 % (0-2); Eosinophils Absolute Auto 400 /uL (0-450); Eosinophils Percent Auto 4.1 % (2-4); Hematocrit 36.8 % (41-53); Hemoglobin 12.9 g/dL (13.5-17.5); Lymphocytes Absolute Auto 1600 /uL (1100-4500); Lymphocytes Percent Auto 16.1 % (25-40); Mean Corpuscular HGB Conc 35.1 % (30-36); Mean Corpuscular Hemoglobin 30.3 PG (26-34); Mean Corpuscular Volume 86.3 fL (80-100); Monocytes Absolute Auto 500 /uL (0-900); Monocytes Percent Auto 5.3 % (3-14); Neutrophils Absolute Auto 7400 /uL (1500-7000); Neutrophils Percent Auto 72.7 % (50-75); Platelet Count 260 X10^3/uL (150-400); Red Blood Cell Count 4.26 X10^6/uL (4.5-5.9); Red Cell Distribution Width 13.5 % (11.6-14.8); White Blood Cell Count 10.1 X10^3/uL (4.5-11.0)
[2024-04-17 06:40] LABS: BUN Creatinine Ratio 41.1 (6-22); Blood Urea Nitrogen 30 mg/dL (9-20); Calcium 8.8 mg/dL (8.4-10.2); Carbon Dioxide 27 mmol/L (22-32); Chloride 105 mmol/L (98-107); Estimated Glomerular Filt Rate > 60 mL/min (>60); Glucose 190 mg/dL (70-100); HEMOLYSIS < 15 (0-50); Potassium 3.8 mmol/L (3.4-5.1); Sodium 136 mmol/L (137-145)
[2024-04-17] MEDS: VANCOMYCIN 1,000 MG/200 ML PIGGYBACK 200 MG IV ×2 (07:05→18:20)
--- NOTE | 2024-04-17 07:39 | P.PN_ITS ---
Subjective Subjective Interval history: Admitted with left stump osteomyelitis. Also Rhinovirus and possible pneumonia. S: He feels better today. Glucose was about to 95 this morning. No stump pain, fevers, or chills. His cough is diminished in his breathing is stable. Exam Vital Signs (past 8 hours): - 04/17/24 00:00 04/17/24 04:00 Temperature 98.3 F 97.3 F L Pulse Rate 87 88 Respiratory Rate 20 20 Blood Pressure 126/77 145/90 H Pulse Oximetry 98 98 Oxygen Flow Rate 0 0 Oxygen Delivery Method Room Air Oxygen Flow Rate 0 Narrative Exam Narrative: NAD, alert and oriented. Fluent speech. Lungs are clear, normal rate and effort. Heart is regular, no murmur gallop or rub. Abdomen is soft, non distended. Extremities are free of edema. Left BKA stump site is unchanged. Objective Labs 04/17/24 05:53 04/17/24 05:53 Labs: Laboratory Results - last 24 hr 04/16/24 04/16/24 04/16/24 08:35 08:37 09:36 WBC 20.8 H RBC 4.51 Hgb 13.7 Hct 39.1 L MCV 86.6 MCH 30.3 MCHC 35.0 RDW 13.5 Plt Count 293 Neut % (Auto) 83.5 H Lymph % (Auto) 8.3 L [place] % (Auto) 7.1 Eos % (Auto) 0.7 L Baso % (Auto) 0.4 Neut # (Auto) 66784 H Lymph # (Auto) 1700 [place] # (Auto) 1500 H Eos # (Auto) 200 Baso # (Auto) 100 ESR 85 H VBG pH 7.45 H VBG pCO2 36.2 L VBG pO2 47 H VBG HCO3 25 VBG Total CO2 25 VBG O2 Saturation 85 H VBG Base Excess 1.4 Sodium 125 L Potassium 4.5 Chloride 92 L Carbon Dioxide 21 L BUN 54 H Creatinine 1.05 Estimated GFR > 60 BUN/Creatinine Ratio 51.4 H Glucose 616 H* Lactate 0.9 Calcium 9.4 Total Bilirubin 0.7 AST 46 ALT 50 H Alkaline Phosphatase 213 H C-Reactive Protein 18.9 H Total Protein 6.6 Albumin 3.6 Globulin 3.0 Albumin/Globulin Ratio 1.2 Urine Color Urine Appearance Urine pH Ur Specific [place] Urine Protein Urine Glucose (UA) Urine Ketones Urine Occult Blood Urine Nitrate Urine Bilirubin Urine Urobilinogen Ur Leukocyte Esterase Urine RBC Urine WBC Ur Squamous Epith Cells Urine Bacteria Ur Culture Indicated? Vol Urine Centrifuged Chlamy pneumoniae PCR Not detected Adenovirus (PCR) Not detected B. pertussis DNA (PCR) Not detected B.parapertussis DNA PCR Not detected Coronavirus OC43 (PCR) Not detected Coronavirus HKU1 (PCR) Not detected Coronavirus 229E (PCR) Not detected SARS-CoV-2 (PCR) Not detected Coronavirus NL63 (PCR) Not detected Human Metapneumovir PCR Not detected Influenza Type A (PCR) Not detected Influenza Type B (PCR) Not detected M. pneumoniae (PCR) Not detected Parainfluenza 1 (PCR) Not detected Parainfluenza 2 (PCR) Not detected Parainfluenza 3 (PCR) Not detected Parainfluenza 4 (PCR) Not detected RSV (PCR) Not detected Entero/Rhino (PCR) Detected H 04/16/24 04/17/24 10:12 05:53 WBC 10.1 D RBC 4.26 L Hgb 12.9 L Hct 36.8 L MCV 86.3 MCH 30.3 MCHC 35.1 RDW 13.5 Plt Count 260 Neut % (Auto) 72.7 Lymph % (Auto) 16.1 L [place] % (Auto) 5.3 Eos % (Auto) 4.1 H Baso % (Auto) 1.8 Neut # (Auto) 7400 H Lymph # (Auto) 1600 [place] # (Auto) 500 Eos # (Auto) 400 Baso # (Auto) 200 H ESR VBG pH VBG pCO2 VBG pO2 VBG HCO3 VBG Total CO2 VBG O2 Saturation VBG Base Excess Sodium 136 L D Potassium 3.8 Chloride 105 Carbon Dioxide 27 BUN 30 H Creatinine 0.73 Estimated GFR > 60 BUN/Creatinine Ratio 41.1 H Glucose 190 H D Lactate Calcium 8.8 Total Bilirubin AST ALT Alkaline Phosphatase C-Reactive Protein Total Protein Albumin Globulin Albumin/Globulin Ratio Urine Color Yellow Urine Appearance Clear Urine pH 6.0 Ur Specific [place] <=1.005 Urine Protein Trace H Urine Glucose (UA) 3+ H Urine Ketones 1+ H Urine Occult Blood Trace-intact Urine Nitrate Negative Urine Bilirubin Negative Urine Urobilinogen 0.2 Ur Leukocyte Esterase Negative Urine RBC 0-1/hpf Urine WBC 0-1/hpf Ur Squamous Epith Cells None seen Urine Bacteria None seen Ur Culture Indicated? Cult not indicated Vol Urine Centrifuged 10ml (spun) Chlamy pneumoniae PCR Adenovirus (PCR) B. pertussis DNA (PCR) B.parapertussis DNA PCR Coronavirus OC43 (PCR) Coronavirus HKU1 (PCR) Coronavirus 229E (PCR) SARS-CoV-2 (PCR) Coronavirus NL63 (PCR) Human Metapneumovir PCR Influenza Type A (PCR) Influenza Type B (PCR) M. pneumoniae (PCR) Parainfluenza 1 (PCR) Parainfluenza 2 (PCR) Parainfluenza 3 (PCR) Parainfluenza 4 (PCR) RSV (PCR) Entero/Rhino (PCR) PFSH Medical History Type 1 diabetes mellitus Surgical History Hx of BKA Social History household members: none Smoking Status: Former smoker alcohol intake: never Assessment & Plan Assessment & Plan narrative: 1. With a BKA cellulitis and osteomyelitis, present on admission and active. 2. Possible pneumonia, present on admission and active. 3. Dm 2 which is uncontrolled with a glucose of 600 and normal anion gap, present on admission and active. PLAN: -stop IV fluids -continue IV antibiotics, cefepime and vancomycin. -discussed with orthopedics and Infectious Disease today. -Lantus 30 units q.a.m. we will be started this morning. Inpatient status, anticipate a 2 midnight length of stay. MILAGROS is April 18 Full resuscitation Mother is proxy decision maker. Time-Based Coding :: [TOTAL MINUTES] spent with patient and on the chart (including review of chart, obtaining history, exam, reviewing outside data, placing orders, documenting exam and treatment plan, and counseling patient) on [DATE]. Quality VTE Deep Vein Thrombosis/Pulmonary Embolism Present on Admission: No
[2024-04-17] MEDS: INSULIN LISPRO 100 UNIT/ML 3ML VIAL SUBCUT ×3 (08:03→17:33)
[2024-04-17] MEDS: HEPARIN 5,000 UNIT/ML VIAL 5000 UNIT SUBCUT ×2 (08:11→21:25)
--- NOTE | 2024-04-17 10:58 | DIET.CONS ---
Dietary Consultation Note Admission Date: 04/16/2024 15:26 Assessment: 48 y M admitted for hyperglycemia with rhinovirus, BKA cellulitis and osteomyelitis. Nutrition screened for low MNA. Met w/ pt at bedside. Reports 5 days of just no food intake, just fluids d/t concerns about his high BG. Noted weight loss during that period of time, looser fitting clothes. Pt has appetite now. 100% POs, asking for snack. Pt reports [employer] G5 transmitter was taken off for MRI and he has no replacements for next 3 months. Discussed getting replacement from [employer]. Reports A1c has been up lately at 11 when previously was controlled closer to 7. Follows endo in [facility] and has seen [facility] before. Endo has recc a insulin pump. Has thought about transitioning to insulin pump. Provided information for diabetes educ here. Nutrition focused physical exam performed with no significant results. Per EMR review, pt's BKA occurred years ago when he was younger. Ht: 152.4 cm (unsure if height is accurate) Wt: 61.054 kg BMI: 26.2 UBW: 68.18 kg per pt (10.5% weight loss in 1 month) Last BM: 04/15/24 (04/16/24 15:27) MNA: 9 Blue Score: 19 Diet: 04/16/24 Dinner Carbohydrate Consistent Diet Diet Modifications: Carbohydrate level: Medium (3 CHO) Reflex DM orders: No Nutrition Percent Meal Consumed 100% 04/17/24 08:57 Percent Meal Consumed 100% 04/16/24 18:00 Labs: RBC 4.26 X10^6/uL (4.5-5.9) L 04/17/24 05:53 Hgb 12.9 g/dL (13.5-17.5) L 04/17/24 05:53 Hct 36.8 % (41-53) L 04/17/24 05:53 Creatinine 0.73 mg/dL (0.66-1.25) 04/17/24 05:53 Lactate 0.9 mmol/L (0.7-2.1) 04/16/24 09:36 Nutrition Diagnosis: Severe acute protein calorie malnutrition r/t pt was avoiding food due to high BG as evidenced by 10.5% weight loss in 1 month (severe) and no food intake for 5 days (<25% of estimated energy needs, severe) Interventions: 1. Pt has ordered a double protein serving at both meals and asked for ONS for a snack - will continue to monitor meal composition and po intakes to ensure meeting needs EER: 80-90 g protein (1.25-1.5 g/kg per PCM) [id number] kcals (27-30 kcals/kg) Monitoring/Evaluations: po intakes Electronically Signed by: Kimmie Mack 04/17/24 10:58 Clinical Dietitian [address] [address]
[2024-04-17] MEDS: INSULIN GLARGINE 100 UNIT/ML 3ML PEN 30 UNIT SUBCUT (11:57)
--- NOTE | 2024-04-17 15:31 | P.CONS_ITS ---
History of Present Illness Consult details Date Patient Seen: 04/17/24 Time Patient Seen: 15:31 Chief complaint: per pt blood sugar out of control Reason for consult: h/o BKA, cellulitis Narrative: Per hospitalist H&P: He has been ill for several days with rhinorrhea and a cough. He was also had hyperglycemia. He was in been eating much trying to mitigate his high blood sugars. He has been on antibiotics intermittently for his left stump wound which has been infected. He denies any pain there. He was followed by [facility]. He presented today to the emergency department. There he was found to be hyperglycemic and have a leukocytosis with a WBC of 20 K. he was afebrile. His respiratory swab was positive for rhino virus, and he would streaky infiltrate in his chest x-ray. He was started on antibiotics, and an MRI of his BKA stump site revealed probable osteomyelitis. He was given IV fluids and some insulin has improved. His blood sugar was 600 initially and was 375 upon arrival to the floor. On my visit, he is sleeping and awakens easily to voice. EMERY about 10 years ago. Says he was in the ED for cellulitis about 2 weeks ago and treated w/ abx; he has not been able to wear his prosthesis since this time. He says he does not have regular follow up w/ anyone for stump/wound care. Meds Home Medications and Allergies Home Medications Medication Instructions Recorded Confirmed Type insulin aspart U-100 100 unit/mL See Rx Instructions .Route .COMPLEX 04/03/18 04/16/24 History (3 mL) subcutaneous pen (Novolog FlexPen U-100 Insulin aspart) insulin glargine 100 unit/mL (3 39 unit SUBCUT DAILY 07/30/19 04/16/24 History mL) subcutaneous pen (Basaglar KwikPen U-100 Insulin) methylphenidate HCl 36 mg 72 mg PO DAILY 07/30/19 04/16/24 History tablet,extended release 24 hr Allergies Allergy/AdvReac Type Severity Reaction Status Date / Time promethazine AdvReac Unknown GET LOOPY Verified 04/16/24 08:40 Review of Systems Review of Systems ROS: Yes All systems reviewed with the patient and are negative except as otherwise documented Exam Vital Signs (past 8 hours): - 04/17/24 08:00 04/17/24 12:00 Temperature 97.6 F 97.7 F Pulse Rate 88 93 H Respiratory Rate 15 17 Blood Pressure 153/93 H 149/99 H Pulse Oximetry 99 98 Oxygen Flow Rate 0 Oxygen Delivery Method Room Air Oxygen Flow Rate 0 Narrative Exam Narrative: AA&O x 3 Extrem Other: Callus noted to LEFT BKA stump. This is nontender to palpation. There is no redness, swelling, or drainage that would suggest persistent infection. Objective Labs 04/17/24 05:53 04/17/24 05:53 Labs: Laboratory Results - last 24 hr 04/17/24 05:53 WBC 10.1 D RBC 4.26 L Hgb 12.9 L Hct 36.8 L MCV 86.3 MCH 30.3 MCHC 35.1 RDW 13.5 Plt Count 260 Neut % (Auto) 72.7 Lymph % (Auto) 16.1 L [place] % (Auto) 5.3 Eos % (Auto) 4.1 H Baso % (Auto) 1.8 Neut # (Auto) 7400 H Lymph # (Auto) 1600 [place] # (Auto) 500 Eos # (Auto) 400 Baso # (Auto) 200 H Sodium 136 L D Potassium 3.8 Chloride 105 Carbon Dioxide 27 BUN 30 H Creatinine 0.73 Estimated GFR > 60 BUN/Creatinine Ratio 41.1 H Glucose 190 H D Calcium 8.8 PFSH Medical History Type 1 diabetes mellitus Surgical History Hx of BKA Social History household members: none Tobacco & Substance Use Smoking Status: Former smoker alcohol intake: never Assessment & Plan Assessment and plan (1) Hx of left BKA: Status: Acute Plan: History, exam, and pictures reviewed w/ Dr Carrero. No appearance of abscess or cellulitis at this time. No need for orthopedic follow up or intervention. Pt can follow up with wound care as an outpatient if needed. Please reconsult ortho if needed. Time-Based Coding :: [TOTAL MINUTES] spent with patient and on the chart (including review of chart, obtaining history, exam, reviewing outside data, placing orders, documenting exam and treatment plan, and counseling patient) on [DATE].
[2024-04-18 04:00] VITALS: BP 135/82; PULSE 90; RESP 18; TEMP 36.8; O2SAT 98
[2024-04-18] MEDS: CEFEPIME 2 GM in SODIUM CHLORIDE 0.9% 100 ML IV (05:36)
[2024-04-18] MEDS: VANCOMYCIN TROUGH 1 REQUEST MISC (06:05)
[2024-04-18 06:22] LABS: Add Manual Diff / Slide Review NO; Basophils Absolute Auto 100 /uL (0-100); Basophils Percent Auto 0.7 % (0-2); Eosinophils Absolute Auto 400 /uL (0-450); Eosinophils Percent Auto 4.8 % (2-4); Hematocrit 35.8 % (41-53); Hemoglobin 12.6 g/dL (13.5-17.5); Lymphocytes Absolute Auto 1900 /uL (1100-4500); Lymphocytes Percent Auto 24.1 % (25-40); Mean Corpuscular HGB Conc 35.1 % (30-36); Mean Corpuscular Hemoglobin 30.5 PG (26-34); Mean Corpuscular Volume 86.8 fL (80-100); Monocytes Absolute Auto 600 /uL (0-900); Monocytes Percent Auto 7.7 % (3-14); Neutrophils Absolute Auto 5000 /uL (1500-7000); Neutrophils Percent Auto 62.7 % (50-75); Platelet Count 255 X10^3/uL (150-400); Red Blood Cell Count 4.12 X10^6/uL (4.5-5.9); Red Cell Distribution Width 13.4 % (11.6-14.8); White Blood Cell Count 7.9 X10^3/uL (4.5-11.0)
[2024-04-18 06:38] LABS: Calcium 8.8 mg/dL (8.4-10.2); Carbon Dioxide 33 mmol/L (22-32); Chloride 102 mmol/L (98-107); Glucose 154 mg/dL (70-100); HEMOLYSIS < 15 (0-50); Potassium 3.6 mmol/L (3.4-5.1); Sodium 135 mmol/L (137-145)
[2024-04-18] MEDS: VANCOMYCIN 1,000 MG/200 ML PIGGYBACK 200 MG IV (06:40)
[2024-04-18 06:54] LABS: BUN Creatinine Ratio 36.1 (6-22); Blood Urea Nitrogen 26 mg/dL (9-20); Estimated Glomerular Filt Rate > 60 mL/min (>60)
[2024-04-18 07:00] VITALS: O2SAT 98
[2024-04-18 07:02] LABS: Vancomycin Trough 7.3 ug/mL (10-20)
--- NOTE | 2024-04-18 07:18 | PM.PN.1 ---
Subjective Subjective Interval history: S: Exam Vital Signs (past 8 hours): - 04/18/24 04:00 Temperature 98.3 F Pulse Rate 90 Respiratory Rate 18 Blood Pressure 135/82 Pulse Oximetry 98 Oxygen Flow Rate 0 Oxygen Delivery Method Room Air Oxygen Flow Rate 0 Narrative Exam Narrative: NAD, alert and oriented. Fluent speech. Lungs are clear, normal rate and effort. Heart is regular, no murmur gallop or rub. Abdomen is soft, non distended. Extremities are free of edema. Objective Labs 04/18/24 06:00 04/18/24 06:00 Labs: Laboratory Results - last 24 hr 04/18/24 06:00 WBC 7.9 RBC 4.12 L Hgb 12.6 L Hct 35.8 L MCV 86.8 MCH 30.5 MCHC 35.1 RDW 13.4 Plt Count 255 Neut % (Auto) 62.7 Lymph % (Auto) 24.1 L [place] % (Auto) 7.7 Eos % (Auto) 4.8 H Baso % (Auto) 0.7 Neut # (Auto) 5000 Lymph # (Auto) 1900 [place] # (Auto) 600 Eos # (Auto) 400 Baso # (Auto) 100 Sodium 135 L Potassium 3.6 Chloride 102 Carbon Dioxide 33 H BUN 26 H Creatinine 0.72 Estimated GFR > 60 BUN/Creatinine Ratio 36.1 H Glucose 154 H Calcium 8.8 Vancomycin Trough 7.3 L PFSH Medical History Type 1 diabetes mellitus Surgical History Hx of BKA Social History household members: none Smoking Status: Former smoker alcohol intake: never Assessment & Plan Assessment & Plan narrative: 1. With a BKA cellulitis and osteomyelitis, present on admission and active. 2. Possible pneumonia, present on admission and active. 3. Dm 2 which is uncontrolled with a glucose of 600 and normal anion gap, present on admission and active. PLAN: -stop IV fluids -continue IV antibiotics, cefepime and vancomycin. -discussed with orthopedics and Infectious Disease today. -Lantus 30 units q.a.m. we will be started this morning. Inpatient status, anticipate a 2 midnight length of stay. MILAGROS is April 19 Full resuscitation Mother is proxy decision maker. Time-Based Coding :: [TOTAL MINUTES] spent with patient and on the chart (including review of chart, obtaining history, exam, reviewing outside data, placing orders, documenting exam and treatment plan, and counseling patient) on [DATE]. Quality VTE Deep Vein Thrombosis/Pulmonary Embolism Present on Admission: No
[2024-04-18] MEDS: INSULIN GLARGINE 100 UNIT/ML 3ML PEN 30 UNIT SUBCUT (08:08)
[2024-04-18] MEDS: INSULIN LISPRO 100 UNIT/ML 3ML VIAL SUBCUT ×2 (08:09→11:34)
[2024-04-18] MEDS: HEPARIN 5,000 UNIT/ML VIAL 5000 UNIT SUBCUT (08:14)
[2024-04-18 09:55] LABS: Vancomycin Peak 18.9 ug/mL (20-40)
[2024-04-18] MEDS: VANCOMYCIN PEAK 1 REQUEST MISC (10:00)
[2024-04-18 12:00] VITALS: BP 123/78; PULSE 89; RESP 16; TEMP 36.8; O2SAT 98
--- NOTE | 2024-04-18 12:48 | CM.DANOTE ---
Initial DCP Assessment Visit Note Reviewed EMR and team rounds for status updates. Met with pt at bedside to introduce self and role, pt was found to be alert/oriented, expressing that he's feeling much better today, and is ready to d/c home. He has been medically cleared for d/c, his mother or friends will be coming to transport him at d/c. He denies any CM assistance needs or resources. 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 He's been receiving OP wound care for this for some time. In the ED, he was found to have osteomyelitis of the wound, as well as pneumonia, and uncontrolled blood sugars (diabetic). He was started on a bolus of IV fluids, as well as IV ABO's, then admitted for further tx/eval. 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 No History Provided By Patient,Medical Record Has Patient been admitted in last 30 No days? Prior Living Arrangements House Household Members none Type of transporation used prior to Relies on Others admit Independent with ADL's Yes: modified due to BKA Is patient alert and oriented? Yes DME Already Rented / Owned Cane Comment OP Ortho f/u Barriers to Discharge No Discharge Plan Home Community Services Wound Care Referrals Initiated None needed Whiteboard Updated in Patient Room with Yes name and ext. # of Trucking Contractor Review Status In Process Please Provide Date Initial DC 04/18/24 Assessment Was Performed
[2024-04-18 14:21] LABS: MRSA (Nasal) PCR NOT DETECTED (Not Detect)
--- NOTE | 2024-04-18 15:57 | PM.DS.1 ---
History of Present Illness History of Present Illness Chief complaint: per pt blood sugar out of control Narrative: He has been ill for several days with rhinorrhea and a cough. He was also had hyperglycemia. He was in been eating much trying to mitigate his high blood sugars. He has been on antibiotics intermittently for his left stump wound which has been infected. He denies any pain there. He was followed by [facility]. He presented today to the emergency department. There he was found to be hyperglycemic and have a leukocytosis with a WBC of 20 K. he was afebrile. His respiratory swab was positive for rhino virus, and he would streaky infiltrate in his chest x-ray. He was started on antibiotics, and an MRI of his BKA stump site revealed probable osteomyelitis. He was given IV fluids and some insulin has improved. His blood sugar was 600 initially and was 375 upon arrival to the floor. He denies nausea, vomiting, or diarrhea. No pain. He was not confused but does feel dehydrated. Discharge Providers Provider Date of admission: 04/16/24 15:26 Discharge Date: 04/19/24 Primary care physician: Neftaly Champagne MD Consults: 04/17/24 13:34 Consult to Orthopedic Surgery Routine Comment: Consulting Provider: Radha Carrero Reason for consultation: osteo? Has provider been notified: Yes Discharge provider: Trent Guo MD Summary Hospital Course Discharge Diagnosis: 1. With a BKA cellulitis and osteomyelitis, present on admission and improved. 2. Possible pneumonia, present on admission and improved. 3. Dm 2 which is uncontrolled with a glucose of 600 and normal anion gap, present on admission and improved. Hospital Course: The patient was admitted with hyperglycemia and volume depletion as well as evidence of rhino virus and possible pneumonia. He was treated with IV fluids and subcutaneous insulin and improved. The patient had had a fever for several days and hyperglycemia in spite of taking his insulin. The patient did have a leukocytosis and negative blood cultures. He was treated empirically for pneumonia and there was also concern about his chronically abnormal BKA stump site. He was not been using his prosthesis for about 2 months because of a wound there he was had multiple courses of oral antibiotics. Imaging did show some evidence of bony changes at the site of cellulitis as well as subcutaneous cellulitis. The case was discussed with Infectious Disease as well as Orthopedics. Orthopedics consult was obtained as well. There is no recommendations for immediate intervention. Ultimately recommendations were to have the patient follow up at [facility] amputation [facility], where he gets most of his care for re-evaluation and decision making regarding whether or not he needs a revision of his BKA. The patient will be placed on antibiotics until that time and understands instructions and agrees that has a good idea to reestablish with [facility] as he is gotten all of his care there for his BKA. He was felt to be stable for discharge on oral antibiotics with close follow up. Status at Discharge Cognitive/behavioral status at discharge: oriented Functional status at discharge: wheelchair bound Overall status at discharge: patient is back to baseline Time Spent with Patient Time spent: Greater than 30 minutes Exam Vital Signs (past 8 hours): Oxygen Delivery Method Room Air Oxygen Flow Rate 0 Narrative Exam Narrative: NAD, alert and oriented. Fluent speech. Lungs are clear, normal rate and effort. Heart is regular, no murmur gallop or rub. Abdomen is soft, non distended. Extremities are free of edema. Left BKA stump wound is stable (see media) Objective ECG Impression: Sinus tachycardia Possible Left atrial enlargement Left anterior fascicular block Possible Inferior infarct , age undetermined Anterior infarct , age undetermined Imaging MUltiple studies:: Radiologist's impression: Leg MRI: 1. Ulceration and cellulitis involving left lower leg stump. No discrete drainable abscess collection. 2. Suggestion of osteomyelitis involving tibial stump with marrow edema and erosive changes. No fracture or dislocation. No other area of abnormal marrow signal. 3. No lower leg muscle signal abnormalities. CXR: Streaky right basilar opacities suggestive developing pneumonia. Leg Xray: Irregularity of the distal tibia/fibula at amputation site. Chronicity is indeterminate and no priors are available for comparison. However, if concern is present for osteomyelitis, MRI is recommended. Labs 04/18/24 06:00 04/18/24 06:00 Labs: Laboratory Results - last 24 hr 04/18/24 04/18/24 04/18/24 06:00 09:05 13:00 WBC 7.9 RBC 4.12 L Hgb 12.6 L Hct 35.8 L MCV 86.8 MCH 30.5 MCHC 35.1 RDW 13.4 Plt Count 255 Neut % (Auto) 62.7 Lymph % (Auto) 24.1 L Barnes % (Auto) 7.7 Eos % (Auto) 4.8 H Baso % (Auto) 0.7 Neut # (Auto) 5000 Lymph # (Auto) 1900 Barnes # (Auto) 600 Eos # (Auto) 400 Baso # (Auto) 100 Sodium 135 L Potassium 3.6 Chloride 102 Carbon Dioxide 33 H BUN 26 H Creatinine 0.72 Estimated GFR > 60 BUN/Creatinine Ratio 36.1 H Glucose 154 H Calcium 8.8 Nasal Screen MRSA (PCR) Not detected Vancomycin Peak 18.9 L Vancomycin Trough 7.3 L PFSH Medical History Type 1 diabetes mellitus Surgical History Hx of BKA Social History household members: none Smoking Status: Former smoker alcohol intake: never Discharge Assessment & Plan Assessment and Plan Assessment: 1. With a BKA cellulitis and osteomyelitis, present on admission and improved. 2. Possible pneumonia, present on admission and improved. 3. Dm 2 which is uncontrolled with a glucose of 600 and normal anion gap, present on admission and improved. Discharge Plan Discharge Plan Patient Disposition: Home Provider Discharge Comment: Stable for discharge on oral antibiotics with close follow up with [place] [facility] to have his BKA stump site infection and status reassessed. He may need a revision. Discharge orders & Medications Prescriptions: New doxycycline monohydrate 100 mg capsule 100 mg PO BID Qty: 30 0RF Continued methylphenidate HCl 36 mg tablet extended release 24hr 72 mg PO DAILY insulin glargine [Basaglar KwikPen U-100 Insulin] 100 unit/mL (3 mL) insulin pen 39 unit SUBCUT DAILY insulin aspart U-100 [Novolog FlexPen U-100 Insulin] 100 unit/mL Insulin Pen See Rx Instructions .ROUTE .COMPLEX Rx Instructions: Sliding scale: Patient does own sliding scale no direct instructions. 13-18 units before meals based on what pt eats Medication counseling provided by Pharmacist: Yes Follow up/Referrals: Neftaly Champagne MD [Primary Care Provider] - Discharge Health Status Multidrug resistant organism: No MDRO Diet/Activity/Treatments Diet: Carb-consistent/Diabetic Activity: As tolerated Skin/Wound/Dressing Care Report to your healthcare provider any signs of infection, such as:: chills, fever, night sweats, increased pain, unusual drainage and unusual redness Visit Report/Discharge Packet Instructions: DI for Cellulitis -- Adult Stand Alone Forms: Patient Portal/API Discharge Data Primary Care Provider: Neftaly Champagne VTE Deep Vein Thrombosis/Pulmonary Embolism Present on Admission: No
--- NOTE | 2024-04-18 16:33 | PC.NURSE ---
Patient is A&Ox4, VSS, afebrile on RA. He is able to mobilize independently in his room with crutch/canes. He denies any pain today. He is cleared for discharge this afternoon on oral antibiotics. He verbalizes understanding of medication, to return to ED with worsening symptoms, as well as plan for follow up with [place] for stump site reassessment. He is escorted via w/ch by RN with all of his personal belongings to ED entrance where his ride in a private vehicle would be arriving to transport him home today at 1608.
== END 2024-04-18 16:10 | disposition home or self-care (01) | DRG 344 ==
LOC: ED 14:43 → AC 17:06
PROVIDERS: Admitting Provider Hospitalist; Emergency Provider Emergency Medicine; Family Provider Internal Medicine; PCP Internal Medicine; Visit Provider Hospitalist
DX: M86.8X6 Other osteomyelitis, lower leg (principal); J18.9 Pneumonia, unspecified organism; L03.116 Cellulitis of left lower limb; B97.89 Other viral agents as the cause of diseases classified elsewhere; E10.65 Type 1 diabetes mellitus with hyperglycemia; Z87.891 Personal history of nicotine dependence; Z79.4 Long term (current) use of insulin; Z89.512 Acquired absence of left leg below knee
CPT/HCPCS: 36415; 71045; 73590; 73720; 80048; 80053; 80202; 81001; 82805; 82962; 83605; 85025; 85651; 86140; 87040; 87633; 87797; 93005; 93010; 96361; 96365; 96372; 99284; 99285; J0692; J0696; J1644; J1815

== ENCOUNTER 2024-10-04 15:09 | Inpatient (IN) | payer OTHER, SELFPAY ==
[2024-04-16 15:27] VITALS: BMI 26.2
[2024-10-04] VITALS (22 sets, daily range): BP systolic 108–177; BP diastolic 56–104; PULSE 96–117; RESP 14–32; TEMP 36.8; O2SAT 97–100; BMI 19.8
--- NOTE | 2024-10-04 15:20 | DI.RAD.S_ITS ---
PROCEDURE: XR CHEST 1V INDICATIONS: chest pain TECHNIQUE: One view of the chest was acquired. COMPARISON: [facility], [place], XR CHEST 1V, 04/16/2024, 10:01. [facility], [place], CHEST 2 VIEW, 03/29/2017, 11:24. FINDINGS: Surgical changes and devices: None. Lungs and pleura: Lungs are clear. No pleural effusions or pneumothorax. Mediastinum: Mediastinal contours appear normal. Heart size is normal. Bones and chest wall: No suspicious bony lesions. Overlying soft tissues appear unremarkable. IMPRESSION: No acute cardiopulmonary abnormality is seen. Dictated by: Minh Moeller M.D. on 10/04/2024 at 15:51 Approved by: Minh Moeller M.D. on 10/04/2024 at 15:52
--- NOTE | 2024-10-04 15:20 | EKG_ITS ---
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
[2024-10-04] MEDS: SODIUM CHLORIDE 0.9% 1,000 ML 1000 ML IV ×3 (15:29→17:31)
[2024-10-04 15:36] LABS: Base Excess VBG -12.7 mmol/L (0-4); HCO3 VBG 14 mmol/L (24-28); Oxygen Saturation VBG 53 % (70-75); PCO2 VBG 32.6 mmHg (45-50); PO2 VBG 33 mmHg (35-45); Total CO2 VBG 13 mmol/L (24-29); pH VBG 7.23 (7.33-7.43)
[2024-10-04] MEDS: INSULIN REGULAR 100 UNIT/ML 3 ML VIAL 10 UNIT IV (15:36)
[2024-10-04 15:39] LABS: Add Manual Diff / Slide Review NO; Basophils Absolute Auto 100 /uL (0-100); Basophils Percent Auto 0.8 % (0-2); Eosinophils Absolute Auto 0 /uL (0-450); Lymphocytes Absolute Auto 1900 /uL (1100-4500); Lymphocytes Percent Auto 11.3 % (25-40); Mean Corpuscular HGB Conc 34.8 % (30-36); Mean Corpuscular Hemoglobin 30.7 PG (26-34); Mean Corpuscular Volume 88.1 fL (80-100); Monocytes Absolute Auto 700 /uL (0-900); Monocytes Percent Auto 3.9 % (3-14); Neutrophils Absolute Auto 14200 /uL (1500-7000); Platelet Count 268 X10^3/uL (150-400); Red Blood Cell Count 5.22 X10^6/uL (4.5-5.9); Red Cell Distribution Width 13.2 % (11.6-14.8); White Blood Cell Count 16.9 X10^3/uL (4.5-11.0)
[2024-10-04 15:47] LABS: INR 0.9 (0.9-1.3); Prothrombin Time 10.4 SECONDS (9.4-12.5)
[2024-10-04 15:50] LABS: PTT Partial Thromboplastin Tim 37 SECONDS (25.1-36.5)
[2024-10-04 15:52] LABS: Alanine Aminotransferase 55 IU/L (<50); Albumin 4.2 g/dL (3.5-5.0); Albumin Globulin Ratio 1.7 (1.0-2.8); Alkaline Phosphatase 139 U/L (38-126); Aspartate Aminotransferase 28 IU/L (17-59); Blood Urea Nitrogen 37 mg/dL (9-20); Calcium 9.3 mg/dL (8.4-10.2); Chloride 97 mmol/L (98-107); Creatine Kinase 49 U/L (55-170); Estimated Glomerular Filt Rate 56 mL/min (>60); Globulin 2.5 g/dL (1.7-4.1); Glucose 466 mg/dL (70-100); HEMOLYSIS < 15 (0-50); Lipase 23 U/L (23-300); Magnesium 2.1 mg/dL (1.6-2.3); Potassium 4.6 mmol/L (3.4-5.1); Sodium 134 mmol/L (137-145); Total Protein 6.7 g/dL (6.3-8.2)
[2024-10-04 16:03] LABS: Troponin I < 0.012 ng/mL (0.01-0.034)
[2024-10-04 16:05] LABS: Carbon Dioxide 9 mmol/L (22-32)
[2024-10-04 16:21] LABS: NT-proBNP (BNP-Adult 18+) 99 pg/mL (<125)
--- NOTE | 2024-10-04 16:46 | ED.GENADULT ---
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 Patient was brought patient was brought in via EMS on he was he normally takes 32 units of Lantus and Humalog sliding scale with meals. He lost his glucometer a few weeks ago and does not know what his sugar has been running. Other than what is day 14 point review of system is negative Related Data Home Medications Medication Instructions Recorded Confirmed insulin aspart U-100 100 unit/mL See Rx Instructions .Route .COMPLEX 04/03/18 10/05/24 (3 mL) subcutaneous pen (Novolog FlexPen U-100 Insulin aspart) insulin glargine 100 unit/mL (3 39 unit SUBCUT DAILY 07/30/19 10/05/24 mL) subcutaneous pen (Basaglar KwikPen U-100 Insulin) methylphenidate HCl 36 mg 72 mg PO DAILY 07/30/19 10/05/24 tablet,extended release 24 hr Allergies Allergy/AdvReac Type Severity Reaction Status Date / Time promethazine AdvReac Unknown GET LOOPY Verified 04/16/24 08:40 Review of Systems Review of Systems ROS Unobtainable: All systems reviewed & are unremarkable except as noted in HPI and below Patient History Medical History (Updated 10/04/24 @ 18:00 by Pio Flores DO) Type 1 diabetes mellitus Surgical History Hx of BKA Social History household members: none Smoking Status: Former smoker alcohol intake: never Smoking Status: Former smoker tobacco type: cigarettes alcohol intake frequency: 0-2 drinks per day Exam Narrative Exam Narrative: GENERAL: [48] year old patient appears stated age. Well-developed patient, in mild distress. HEAD: Atraumatic. Normocephalic. EYES: Pupils equal round and reactive. Extraocular motions intact. No scleral icterus. No injection or drainage. ENT: Nose without bleeding, purulent drainage. Throat without erythema, tonsillar hypertrophy or exudate. Airway patent. NECK: Trachea midline. Non tender CARDIOVASCULAR: Tachycardic, but Regular rate and rhythm without murmurs, gallops, or rubs. RESPIRATORY: Clear to auscultation. Breath sounds equal bilaterally. No wheezes, rales, or rhonchi. GASTROINTESTINAL: Abdomen soft, non-tender, nondistended. EXTREMITIES: No edema or joint tenderness. BACK: Nontender without deformity or crepitance. No flank tenderness. NEURO: AOx3. SKIN: No rash or erythema of visible areas Initial Vital Signs Initial Vital Signs: Vital Signs Temperature 98.3 F 10/04/24 15:12 Pulse Rate 111 H 10/04/24 15:12 Respiratory Rate 20 10/04/24 15:12 Blood Pressure 108/58 L 10/04/24 15:12 Pulse Oximetry 100 10/04/24 15:12 Oxygen Delivery Method Room Air 10/04/24 15:12 Course Orders Ordered: Acetaminophen (Acetaminophen 325 Mg Tablet) 650 mg PO Q6H PRN PRN Reason: Fever/Mild Pain (1-3) Last Admin: 10/05/24 21:41 Dose: 650 mg Documented By: GALILEA Dextrose/Sodium Chloride (Dextrose 5%-0.45% Ns) 1,000 mls @ 150 mls/hr IV CONT BLAS Last Infusion: 10/05/24 03:32 Dose: Infused Documented By: Infusion: 10/05/24 00:20 Dose: 150 mls/hr Documented By: Infusion: 10/04/24 22:54 Dose: 250 mls/hr Documented By: Admin: 10/04/24 19:56 Dose: 150 mls/hr Documented By: Sodium Chloride (Normal Saline 0.45%) 1,000 mls @ 250 mls/hr IV CONT BLAS Last Infusion: 10/04/24 22:01 Dose: 0 mls/hr Documented By: Admin: 10/04/24 20:00 Dose: 250 mls/hr Documented By: Dextrose (D10w) 100 mls @ 999 mls/hr IV PRN PRN PRN Reason: Hypoglycemia Insulin Human Lispro (Insulin Lispro 100 Unit/Ml 3ml Vial) 0 unit SUBCUT ACHS [facility]; Protocol Last Admin: 10/05/24 21:41 Dose: 2 unit Documented By: GALILEA Co-signed By: Admin: 10/05/24 18:32 Dose: Not Given Documented By: Admin: 10/05/24 13:07 Dose: Not Given Documented By: Naloxone HCl (Naloxone 0.4 Mg/Ml Vial) 0.2 mg IV Q2MIN PRN PRN Reason: Opiate Reversal Non-Formulary Medication (Methylphenidate Hcl) 72 mg PO DAILY [facility] Last Admin: 10/05/24 09:12 Dose: Not Given Documented By: LYNETTE Pantoprazole Sodium (Pantoprazole 40 Mg Vial) 40 mg IV DAILY [facility] Last Admin: 10/05/24 08:47 Dose: 40 mg Documented By: LYNETTE Sodium Chloride (Sodium Chloride 0.9% Flush) 10 ml IV PRN PRN PRN Reason: Flush Discontinued Medications Aspirin (Aspirin 81 Mg Chew Tab) 324 mg PO NOW ONE Stop: 10/04/24 15:21 Last Admin: 10/04/24 15:28 Dose: Not Given Documented By: LYNETTE Sodium Chloride (Normal Saline 0.9%) 1,000 mls @ 1,000 mls/hr IV BOLUS ONE Stop: 10/04/24 16:23 Last Infusion: 10/04/24 16:23 Dose: Infused Documented By: Admin: 10/04/24 15:29 Dose: 1,000 mls/hr Documented By: RLS Sodium Chloride (Normal Saline 0.9%) 1,000 mls @ 1,000 mls/hr IV BOLUS ONE Stop: 10/04/24 16:24 Last Infusion: 10/04/24 17:27 Dose: Infused Documented By: Admin: 10/04/24 16:25 Dose: 1,000 mls/hr Documented By: RLS Sodium Chloride (Normal Saline 0.9%) 1,000 mls @ 1,000 mls/hr IV BOLUS ONE Stop: 10/04/24 18:27 Last Infusion: 10/04/24 19:30 Dose: Infused Documented By: Admin: 10/04/24 17:31 Dose: 1,000 mls/hr Documented By: LYNETTE Dextrose (D10w) 100 mls @ 999 mls/hr IV PRN PRN PRN Reason: Hypoglycemia Sodium Chloride (Normal Saline 0.9%) 1,000 mls @ 1,000 mls/hr IV BOLUS ONE Stop: 10/04/24 19:11 Last Admin: 10/05/24 08:05 Dose: Not Given Documented By: LYNETTE INSULIN DRIP PREMIX (Myxredlin Drip Premix) 100 unit in 100 mls @ 6.804 mls/hr IV TITRATE BLAS; Protocol Last Admin: 10/05/24 08:05 Dose: Not Given Documented By: LYNETTE POTASSIUM CHLORIDE IN WATER (Potassium Cl 10 Meq/100 Ml Cindy) 10 meq in 100 mls @ 100 mls/hr IV Q1H BLAS Stop: 10/05/24 01:29 Last Infusion: 10/05/24 02:36 Dose: Infused Documented By: Admin: 10/05/24 01:34 Dose: 100 mls/hr Documented By: Infusion: 10/05/24 00:35 Dose: Infused Documented By: Admin: 10/04/24 23:32 Dose: 100 mls/hr Documented By: Potassium Chloride/Dextrose/Sod Cl (Dextrose 5%-0.45%Ns W/Kcl 20meq) 1,000 mls @ 150 mls/hr IV CONT BLAS Last Infusion: 10/05/24 09:34 Dose: Infused Documented By: Infusion: 10/05/24 08:10 Dose: 150 mls/hr Documented By: Admin: 10/05/24 03:31 Dose: 175 mls/hr Documented By: INSULIN DRIP PREMIX (Myxredlin Drip Premix) 100 unit in 100 mls @ 6.804 mls/hr IV TITRATE BLAS; Protocol Last Titration: 10/05/24 12:00 Dose: Infused Documented By: Co-signed By: CARY Admin: 10/05/24 11:25 Dose: 6.8 unit/kg/hr, 462.665 mls/hr Documented By: Co-signed By: CARY Sodium Chloride (Normal Saline 0.9%) 1,000 mls @ 150 mls/hr IV CONT BLAS Stop: 10/05/24 17:54 Last Admin: 10/05/24 12:18 Dose: 150 mls/hr Documented By: INSULIN DRIP PREMIX (Myxredlin Drip Premix) 100 unit in 100 mls @ 6.804 mls/hr IV TITRATE BLAS; Protocol Last Admin: 10/05/24 15:40 Dose: Not Given Documented By: Insulin Glargine (Insulin Glargine 100 Unit/Ml 3ml Pen) 20 unit SUBCUT NOW ONE Stop: 10/05/24 11:04 Last Admin: 10/05/24 12:16 Dose: 20 unit Documented By: Co-signed By: CARY Insulin Human Regular (Insulin Regular 100 Unit/Ml 3 Ml Vial) 10 unit IV NOW ONE Stop: 10/04/24 15:27 Last Admin: 10/04/24 15:36 Dose: 10 unit Documented By: LYNETTE Co-signed By: VIOLETTE Magnesium Chloride (Magnesium Chloride 64 Mg Tablet) 128 mg PO NOW ONE Stop: 10/05/24 12:01 Last Admin: 10/05/24 12:21 Dose: 128 mg Documented By: Potassium Chloride (Potassium Chloride 20 Meq/15 Ml Udc) 40 meq PO NOW ONE Stop: 10/04/24 23:19 Last Admin: 10/04/24 23:27 Dose: 40 meq Documented By: Potassium Chloride (Potassium Chloride 20 Meq Tab) 40 meq PO NOW ONE Stop: 10/05/24 15:46 Last Admin: 10/05/24 16:35 Dose: 40 meq Documented By: Vital Signs Vital signs: Vital Signs - 8 hr 10/04/24 15:12 10/04/24 15:48 10/04/24 15:48 Temperature 98.3 F Pulse Rate 111 H 113 H Respiratory Rate 20 14 Blood Pressure 108/58 L 162/86 H Pulse Oximetry 100 100 Oxygen Delivery Method Room Air Room Air 10/04/24 16:00 10/04/24 16:00 10/04/24 16:30 Temperature Pulse Rate 117 H Respiratory Rate 18 Blood Pressure 164/88 H 163/86 H Pulse Oximetry 100 Oxygen Delivery Method 10/04/24 16:30 10/04/24 17:00 10/04/24 17:00 Temperature Pulse Rate 116 H 114 H Respiratory Rate 16 17 Blood Pressure 177/94 H Pulse Oximetry 100 99 Oxygen Delivery Method Room Air 10/04/24 17:30 10/04/24 17:30 Temperature Pulse Rate 114 H Respiratory Rate 18 Blood Pressure 142/74 H Pulse Oximetry 99 Oxygen Delivery Method Medical Decision Making Lab Data 10/05/24 04:45 10/05/24 11:40 Labs: Lab Results 10/04/24 10/04/24 Range/Units 15:28 15:31 WBC 16.9 H (4.5-11.0) X10^3/uL RBC 5.22 (4.5-5.9) X10^6/uL Hgb 16.0 (13.5-17.5) g/dL Hct 46.0 (41-53) % MCV 88.1 (80-100) fL MCH 30.7 (26-34) PG MCHC 34.8 (30-36) % RDW 13.2 (11.6-14.8) % Plt Count 268 (150-400) X10^3/uL Neut % (Auto) 84.0 H (50-75) % Lymph % (Auto) 11.3 L (25-40) % [place] % (Auto) 3.9 (3-14) % Eos % (Auto) 0.0 L (2-4) % Baso % (Auto) 0.8 (0-2) % Neut # (Auto) 62348 H (6042-5638) /uL Lymph # (Auto) 1900 (6092-7190) /uL [place] # (Auto) 700 (0-900) /uL Eos # (Auto) 0 (0-450) /uL Baso # (Auto) 100 (0-100) /uL PT 10.4 (9.4-12.5) SECONDS INR 0.9 (0.9-1.3) APTT 37 H (25.1-36.5) SECONDS VBG pH 7.23 L (7.33-7.43) VBG pCO2 32.6 L (45-50) mmHg VBG pO2 33 L (35-45) mmHg VBG HCO3 14 L (24-28) mmol/L VBG Total CO2 13 L (24-29) mmol/L VBG O2 Saturation 53 L (70-75) % VBG Base Excess -12.7 L (0-4) mmol/L Sodium 134 L (137-145) mmol/L Potassium 4.6 (3.4-5.1) mmol/L Chloride 97 L (98-107) mmol/L Carbon Dioxide 9 L* (22-32) mmol/L BUN 37 H (9-20) mg/dL Creatinine 1.54 H (0.66-1.25) mg/dL Estimated GFR 56 L (>60) mL/min BUN/Creatinine Ratio 24.0 H (6-22) Glucose 466 H (70-100) mg/dL Hemoglobin A1c 8.5 H (4.0-6.0) % Calcium 9.3 (8.4-10.2) mg/dL Magnesium 2.1 (1.6-2.3) mg/dL Total Bilirubin 1.0 (0.2-1.3) mg/dL AST 28 (17-59) IU/L ALT 55 H (<50) IU/L Alkaline Phosphatase 139 H (38-126) U/L Total Creatine Kinase 49 L (55-170) U/L Troponin I < 0.012 (0.01-0.034) ng/mL NT-Pro-B Natriuret Pep 99 (<125) pg/mL Total Protein 6.7 (6.3-8.2) g/dL Albumin 4.2 (3.5-5.0) g/dL Globulin 2.5 (1.7-4.1) g/dL Albumin/Globulin Ratio 1.7 (1.0-2.8) Lipase 23 (23-300) U/L Ketones 10.0 H (<0.27) mmol/L Point of Care Testing Glucose POC 190 Point of care testing: Point of Care Testing Glucose POC 190 ECG Data Attestation: I personally reviewed and interpreted this ECG as follows: Interpretation: Sinust Tach LAFB No st-t wave changes HR 107 Unchanged from 04/16/24 MDM Narrative Medical decision making narrative: All lab work EKG nurse triage note vital Signs medication list reviewed. All previous ER visits also reviewed. Patient given 2 L of normal saline 1 L bolus along with Humalog 10 units IV x1 blood sugars down to 301. I did discuss the patient with Dr. Thompson the admitting hospitalist who is now going to be signing off to the nighttime telehealth hospitalists who will be managing the patient in our ER since we have no ice nurse but our ER nurses will carry out the orders for the telehealth hospitalist orders. On patient will be started on a insulin drip at 7 units an hour. Differential diagnosis includes DKA, hyperglycemia, noncompliance, sepsis, HHNK. Critical Care Time Critical Care Time Total Critical Care Time: 30 Discharge Plan Departure Patient Disposition: Admitted As Inpatient Clinical Impression: DKA (diabetic ketoacidosis) Admit Date/Time: 10/04/24 17:56 Admit Provider: Brooke Thompson
[2024-10-04 18:35] LABS: Hemoglobin A1C% w Est Avg Glu 8.5 % (4.0-6.0)
[2024-10-04 18:46] LABS: Bilirubin Urine UA 1+ (NEGATIVE); Color Urine UA YELLOW; Glucose Urine UA 3+ g/dL (Negative); Ketones Urine UA 3+ (NEGATIVE); Leukocyte Esterase Urine UA NEGATIVE (NEGATIVE); Nitrite Urine UA NEGATIVE (Negative); Occult Blood Urine UA TRACE-INTACT (Negative); Protein Urine UA 1+ (Negative); Specific Gravity Urine UA 1.025 (1.000-1.035); Urobilinogen Urine UA 0.2 E.U./dL (0.2); pH Urine UA 5.5 (4.5-8.0)
[2024-10-04 18:51] LABS: UR Morphine/Opiate cutoff 300 Negative (Negative); Ur Creatinine Normal (Normal); Ur Specific Gravity Normal (Normal); Urine Amphetamines Negative (Negative); Urine Barbiturates Negative (Negative); Urine Benzodiazepines Negative (Negative); Urine Cocaine Negative (Negative); Urine MDMA Negative (Negative); Urine Methadone Negative (Negative); Urine Methamphetamines Positive (Negative); Urine Oxycodone Negative (Negative); Urine Phencyclidine Negative (Negative); Urine Tetrahydrocannabinol Negative (Negative); Urine Tricyclic Antidepressant Negative (Negative); Urine pH Normal (Normal)
[2024-10-04 18:55] LABS: BUN Creatinine Ratio 26.7 (6-22); Blood Urea Nitrogen 31 mg/dL (9-20); Calcium 7.9 mg/dL (8.4-10.2); Chloride 107 mmol/L (98-107); Estimated Glomerular Filt Rate > 60 mL/min (>60); Glucose 313 mg/dL (70-100); Sodium 133 mmol/L (137-145)
[2024-10-04 19:02] LABS: Appearance Urine UA Clear; Bacteria Urine None Seen; Culture Indicated Urine Cult Not Indicated; Hyaline Casts Urine 0-1/LPF; Ictotest Urine Negative (Negative); RBC Urine 0-1/HPF (0-5/HPF); Squamous Epithelial Cell Urine 0-1 /HPF (0-5/HPF); Urine Volume 10mL (spun); WBC Urine None Seen (0-5/HPF)
[2024-10-04 19:03] LABS: HEMOLYSIS 71 (0-50)
[2024-10-04 19:06] LABS: Carbon Dioxide 6 mmol/L (22-32)
[2024-10-04 19:07] LABS: Potassium 4.8 mmol/L (3.4-5.1)
[2024-10-04] MEDS: DEXTROSE 5%-0.45% NS 1,000 ML 150 ML IV (19:56)
[2024-10-04] MEDS: SODIUM CHLORIDE 0.45% 1,000 ML 250 ML IV (20:00)
[2024-10-04 22:46] LABS: BUN Creatinine Ratio 26.5 (6-22); Blood Urea Nitrogen 27 mg/dL (9-20); Calcium 8.4 mg/dL (8.4-10.2); Carbon Dioxide 18 mmol/L (22-32); Chloride 109 mmol/L (98-107); Estimated Glomerular Filt Rate > 60 mL/min (>60); Glucose 109 mg/dL (70-100); HEMOLYSIS < 15 (0-50); Potassium 3.4 mmol/L (3.4-5.1); Sodium 136 mmol/L (137-145)
[2024-10-04] MEDS: POTASSIUM CHLORIDE 20 MEQ/15 ML UDC 40 MEQ PO (23:27)
[2024-10-04] MEDS: POTASSIUM CHLORIDE IN WATER 10 MEQ/100 ML PIGGYBACK 100 MEQ IV (23:32)
[2024-10-05] VITALS (35 sets, daily range): BP systolic 131–179; BP diastolic 75–105; PULSE 81–112; RESP 11–20; TEMP 36.3–36.4; O2SAT 91–100; BMI 19.8
[2024-10-05] MEDS: POTASSIUM CHLORIDE IN WATER 10 MEQ/100 ML PIGGYBACK 100 MEQ IV (01:34)
--- NOTE | 2024-10-05 02:30 | PM.HP.1 ---
History of Present Illness History of Present Illness Chief complaint: diabetic crisis Narrative: 48-year-old male with past medical history of insulin-dependent diabetes and ADHD presents with elevated glucose. Per the patient's report, over the last week or so, the patient has lost his glucometer and he has not been checking his glucose daily. Today the patient felt nauseous and fatigue. The patient normally takes 32 units of Lantus but has not taken his sliding scale as he does not know what his sugar was. EMS was called and found the patient to be in hyperglycemic. Otherwise the patient denies any vomiting, fever, chills, abdominal pain, coughing, chest pain or shortness of breath. In our emergency room, the patient was hemodynamically stable. WBC was 17 venous gas shows a pH of 7.23 pCO2 32 pO2 of 33 bicarb of 14 sodium 136 serum bicarb of 18 BUN 27 creatinine 1.0 A1c of 8.5 ALT 55 AST 28 UA was positive for ketones urine tox was positive for methamphetamine and glucose was 466. The patient was started on DKA protocol with insulin [facility] Medical History (Updated 10/04/24 @ 18:00 by Pio Flores DO) Type 1 diabetes mellitus Surgical History Hx of BKA Social History household members: none Smoking Status: Former smoker alcohol intake: never Meds Home Medications and Allergies Home Medications Medication Instructions Recorded Confirmed Type insulin aspart U-100 100 unit/mL See Rx Instructions .Route .COMPLEX 04/03/18 04/16/24 History (3 mL) subcutaneous pen (Novolog FlexPen U-100 Insulin aspart) insulin glargine 100 unit/mL (3 39 unit SUBCUT DAILY 07/30/19 04/16/24 History mL) subcutaneous pen (Basaglar KwikPen U-100 Insulin) methylphenidate HCl 36 mg 72 mg PO DAILY 07/30/19 04/16/24 History tablet,extended release 24 hr doxycycline monohydrate 100 mg 100 mg PO BID #30 caps 04/18/24 Rx capsule Allergies Allergy/AdvReac Type Severity Reaction Status Date / Time promethazine AdvReac Unknown GET LOOPY Verified 04/16/24 08:40 Review of Systems Review of Systems ROS: Yes All systems reviewed with the patient and are negative except as otherwise documented Exam Vital Signs (past 8 hours): - 10/04/24 18:31 10/04/24 18:31 10/04/24 19:00 Pulse Rate 111 H 117 H Respiratory Rate 21 18 Blood Pressure 110/56 L Blood Pressure [Left Arm] Pulse Oximetry 100 Oxygen Delivery Method 10/04/24 19:00 10/04/24 19:30 10/04/24 19:30 Pulse Rate 116 H Respiratory Rate 16 Blood Pressure 154/86 H 172/96 H Blood Pressure [Left Arm] Pulse Oximetry 100 Oxygen Delivery Method 10/04/24 20:00 10/04/24 20:00 10/04/24 20:15 Pulse Rate 109 H 109 H Respiratory Rate 16 18 Blood Pressure 131/74 Blood Pressure [Left Arm] 131/84 Pulse Oximetry 98 100 Oxygen Delivery Method Room Air 10/04/24 20:30 10/04/24 20:30 10/04/24 20:30 Pulse Rate 109 H Respiratory Rate 15 Blood Pressure 176/99 H 176/99 H Blood Pressure [Left Arm] Pulse Oximetry 99 Oxygen Delivery Method 10/04/24 20:31 10/04/24 20:31 10/04/24 21:00 Pulse Rate 110 H 109 H Respiratory Rate 15 15 Blood Pressure 171/98 H Blood Pressure [Left Arm] Pulse Oximetry 99 99 Oxygen Delivery Method 10/04/24 21:00 10/04/24 21:30 10/04/24 21:30 Pulse Rate 109 H Respiratory Rate 18 Blood Pressure 164/92 H 128/67 Blood Pressure [Left Arm] Pulse Oximetry 99 Oxygen Delivery Method 10/04/24 21:50 10/04/24 21:50 10/04/24 22:00 Pulse Rate 100 H 100 H Respiratory Rate 14 Blood Pressure 132/68 Blood Pressure [Left Arm] Pulse Oximetry 99 Oxygen Delivery Method 10/04/24 22:00 10/04/24 22:30 10/04/24 22:30 Pulse Rate 96 H Respiratory Rate 17 Blood Pressure 165/95 H 176/96 H Blood Pressure [Left Arm] Pulse Oximetry 99 Oxygen Delivery Method 10/04/24 23:00 10/04/24 23:00 10/04/24 23:30 Pulse Rate 97 H Respiratory Rate 32 H Blood Pressure 168/104 H 159/96 H Blood Pressure [Left Arm] Pulse Oximetry 99 Oxygen Delivery Method 10/04/24 23:30 10/05/24 00:00 10/05/24 00:00 Pulse Rate 100 H 101 H Respiratory Rate 17 16 Blood Pressure 179/99 H Blood Pressure [Left Arm] Pulse Oximetry 98 97 Oxygen Delivery Method 10/05/24 00:30 10/05/24 00:30 10/05/24 01:00 Pulse Rate 106 H 110 H Respiratory Rate 13 16 Blood Pressure 167/98 H Blood Pressure [Left Arm] Pulse Oximetry 97 97 Oxygen Delivery Method 10/05/24 01:00 10/05/24 01:30 10/05/24 01:30 Pulse Rate 110 H Respiratory Rate 16 Blood Pressure 150/83 H 131/75 Blood Pressure [Left Arm] Pulse Oximetry 97 Oxygen Delivery Method 10/05/24 02:00 10/05/24 02:00 10/05/24 02:09 Pulse Rate 105 H 109 H Respiratory Rate 15 13 Blood Pressure 135/76 135/76 Blood Pressure [Left Arm] Pulse Oximetry 95 97 Oxygen Delivery Method Room Air Oxygen Delivery Method Room Air Narrative Exam Narrative: Physical Exam: GENERAL: The patient is not in any acute distressed. Awake and alert. HEENT: Nonicteric sclerae, PERRLA, EOMI. Oropharynx clear. Moist mucous membranes. Conjunctivae appear well perfused. HEART: Regular rate and rhythm without murmurs. No lower extremities edema. LUNGS: Clear to auscultation bilaterally. No wheezing, crackles or rhonchi ABDOMEN: Soft, positive bowel sounds, nontender. SKIN: No rash, no excessive bruising, petechiae, or purpura. NEUROLOGIC: AxO x 3. Cranial nerves II-XII intact without motor/sensory deficit. Objective Labs 10/04/24 15:28 10/04/24 22:13 Labs: Laboratory Results - last 24 hr 10/04/24 10/04/24 10/04/24 15:28 15:31 18:28 WBC 16.9 H RBC 5.22 Hgb 16.0 Hct 46.0 MCV 88.1 MCH 30.7 MCHC 34.8 RDW 13.2 Plt Count 268 Neut % (Auto) 84.0 H Lymph % (Auto) 11.3 L [place] % (Auto) 3.9 Eos % (Auto) 0.0 L Baso % (Auto) 0.8 Neut # (Auto) 08325 H Lymph # (Auto) 1900 [place] # (Auto) 700 Eos # (Auto) 0 Baso # (Auto) 100 PT 10.4 INR 0.9 APTT 37 H VBG pH 7.23 L VBG pCO2 32.6 L VBG pO2 33 L VBG HCO3 14 L VBG Total CO2 13 L VBG O2 Saturation 53 L VBG Base Excess -12.7 L Sodium 134 L Potassium 4.6 Chloride 97 L Carbon Dioxide 9 L* BUN 37 H Creatinine 1.54 H Estimated GFR 56 L BUN/Creatinine Ratio 24.0 H Glucose 466 H Hemoglobin A1c 8.5 H Calcium 9.3 Magnesium 2.1 Total Bilirubin 1.0 AST 28 ALT 55 H Alkaline Phosphatase 139 H Total Creatine Kinase 49 L Troponin I < 0.012 NT-Pro-B Natriuret Pep 99 Total Protein 6.7 Albumin 4.2 Globulin 2.5 Albumin/Globulin Ratio 1.7 Lipase 23 Urine Color Yellow Urine Appearance Clear Urine pH 5.5 Ur Specific [place] 1.025 Urine Protein 1+ H Urine Glucose (UA) 3+ H Urine Ketones 3+ H Urine Occult Blood Trace-intact Urine Nitrate Negative Urine Bilirubin 1+ H Ur Bilirubin Confirm Negative Urine Urobilinogen 0.2 Ur Leukocyte Esterase Negative Urine RBC 0-1/hpf Urine WBC None seen Ur Squamous Epith Cells 0-1 /hpf Urine Bacteria None seen Hyaline Casts 0-1/lpf Ur Culture Indicated? Cult not indicated Vol Urine Centrifuged 10ml (spun) U Opiates 300ng/mL cut Negative Ur Oxycodone Screen Negative Urine Methadone Screen Negative Ur Barbiturates Screen Negative U Tricyclic Antidepress Negative Ur Phencyclidine Scrn Negative Ur Amphetamines Screen Negative U Methamphetamines Scrn Positive H Ur MDMA Scrn (Ecstasy) Negative U Benzodiazepines Scrn Negative Urine Cocaine Screen Negative U Marijuana (THC) Screen Negative Urine Specific [place] Ketones 10.0 H Ur Creatinine 10/04/24 10/04/24 10/04/24 18:28 18:35 22:13 WBC RBC Hgb Hct MCV MCH MCHC RDW Plt Count Neut % (Auto) Lymph % (Auto) [place] % (Auto) Eos % (Auto) Baso % (Auto) Neut # (Auto) Lymph # (Auto) [place] # (Auto) Eos # (Auto) Baso # (Auto) PT INR APTT VBG pH VBG pCO2 VBG pO2 VBG HCO3 VBG Total CO2 VBG O2 Saturation VBG Base Excess Sodium 133 L 136 L Potassium 4.8 3.4 D Chloride 107 109 H Carbon Dioxide 6 L* 18 L BUN 31 H 27 H Creatinine 1.16 1.02 Estimated GFR > 60 > 60 BUN/Creatinine Ratio 26.7 H 26.5 H Glucose 313 H D 109 H D Hemoglobin A1c Calcium 7.9 L 8.4 Magnesium Total Bilirubin AST ALT Alkaline Phosphatase Total Creatine Kinase Troponin I NT-Pro-B Natriuret Pep Total Protein Albumin Globulin Albumin/Globulin Ratio Lipase Urine Color Urine Appearance Urine pH Normal Ur Specific [place] Urine Protein Urine Glucose (UA) Urine Ketones Urine Occult Blood Urine Nitrate Urine Bilirubin Ur Bilirubin Confirm Urine Urobilinogen Ur Leukocyte Esterase Urine RBC Urine WBC Ur Squamous Epith Cells Urine Bacteria Hyaline Casts Ur Culture Indicated? Vol Urine Centrifuged U Opiates 300ng/mL cut Ur Oxycodone Screen Urine Methadone Screen Ur Barbiturates Screen U Tricyclic Antidepress Ur Phencyclidine Scrn Ur Amphetamines Screen U Methamphetamines Scrn Ur MDMA Scrn (Ecstasy) U Benzodiazepines Scrn Urine Cocaine Screen U Marijuana (THC) Screen Urine Specific [place] Normal Ketones Ur Creatinine Normal Assessment & Plan Assessment & Plan narrative: DKA. Admit the patient to ICU. Continue aggressive IV fluid with DKA protocol. Continue insulin drip and monitor glucose closely. Monitor electrolytes and renal function. Patient likely noncompliant with his insulin at home and has been taking methamphetamine. Methamphetamine abuse. Monitor for agitation with as needed Ativan if needed. Dehydration. IV fluid. History of ADHD. Resume home medication. DVT prophylaxis Lovenox. CODE STATUS full code. Disposition likely home in 2 to 3 days - As the provider of this telehealth evaluation, requested by the patient's evaluating physician, I attest that I introduced myself to the patient, provided my credentials and determined that telemedicine via a real-time, 2 way interactive audio and video platform is an appropriate and effective means of providing this service. - I reviewed the patient's chart and had a discussion with the member of the patient's treatment team. - The patient and I mutually agreed with continuation of this evaluation via telemedicine. The patient consented for the telemedicine evaluation. - This virtual encounter was taken place from [place]. The encounter was approximately 35 minutes. The nurse was present during the entire time of the encounter and was able to move the stethoscope in appropriate directions. The patient was evaluated at [facility]. Time-Based Coding :: [TOTAL MINUTES] spent with patient and on the chart (including review of chart, obtaining history, exam, reviewing outside data, placing orders, documenting exam and treatment plan, and counseling patient) on [DATE].
[2024-10-05 03:06] LABS: BUN Creatinine Ratio 25.9 (6-22); Blood Urea Nitrogen 22 mg/dL (9-20); Calcium 8.3 mg/dL (8.4-10.2); Carbon Dioxide 21 mmol/L (22-32); Chloride 109 mmol/L (98-107); Estimated Glomerular Filt Rate > 60 mL/min (>60); Glucose 143 mg/dL (70-100); HEMOLYSIS 16 (0-50); Sodium 134 mmol/L (137-145)
[2024-10-05] MEDS: DEXTROSE 5%-0.45NS W/KCL 20MEQ 1,000 ML 175 MEQ IV (03:31)
--- NOTE | 2024-10-05 04:01 | PC.NURSE ---
Patient became irate, yelling at the staff that he needed to get up and go to the bathroom. I explained that he was hooked up to two IV's (with pumps) and manager monitoring, and he needed to give me a moment to unhook him. He yelled at me stating you guys need to be more prepared for this and ripped off all his leads, oxygen sensor and scooted to the end of the bed. I was able to unhook the IVs, stood aside and let him walk down the [place] naked to the bathroom.
[2024-10-05 04:56] LABS: Base Excess VBG -1.5 mmol/L (0-4); HCO3 VBG 24 mmol/L (24-28); Oxygen Saturation VBG 83 % (70-75); PCO2 VBG 41.8 mmHg (45-50); PO2 VBG 49 mmHg (35-45); Total CO2 VBG 23 mmol/L (24-29); pH VBG 7.37 (7.33-7.43)
[2024-10-05 04:59] LABS: Add Manual Diff / Slide Review NO; Basophils Absolute Auto 100 /uL (0-100); Basophils Percent Auto 0.7 % (0-2); Eosinophils Absolute Auto 100 /uL (0-450); Hematocrit 38.2 % (41-53); Hemoglobin 13.7 g/dL (13.5-17.5); Lymphocytes Absolute Auto 2500 /uL (1100-4500); Lymphocytes Percent Auto 19.1 % (25-40); Mean Corpuscular HGB Conc 35.8 % (30-36); Mean Corpuscular Hemoglobin 30.4 PG (26-34); Mean Corpuscular Volume 84.8 fL (80-100); Monocytes Absolute Auto 800 /uL (0-900); Monocytes Percent Auto 6.1 % (3-14); Neutrophils Absolute Auto 9500 /uL (1500-7000); Neutrophils Percent Auto 73.1 % (50-75); Platelet Count 200 X10^3/uL (150-400); Red Blood Cell Count 4.51 X10^6/uL (4.5-5.9); Red Cell Distribution Width 13.4 % (11.6-14.8)
[2024-10-05 05:06] LABS: Magnesium 1.5 mg/dL (1.6-2.3)
[2024-10-05 06:31] LABS: Base Excess VBG -4.9 mmol/L (0-4); HCO3 VBG 20 mmol/L (24-28); PCO2 VBG 36.1 mmHg (45-50); PO2 VBG 67 mmHg (35-45); Total CO2 VBG 19 mmol/L (24-29); pH VBG 7.35 (7.33-7.43)
[2024-10-05 06:32] LABS: Oxygen Saturation VBG 67 % (70-75)
[2024-10-05] MEDS: PANTOPRAZOLE 40 MG VIAL IV (08:47)
[2024-10-05] MEDS: INSULIN DRIP PREMIX 100 UNIT/100 ML PLAST..BAG 462.665 UNIT IV (11:25)
[2024-10-05 12:01] LABS: BUN Creatinine Ratio 21.9 (6-22); Blood Urea Nitrogen 14 mg/dL (9-20); Calcium 8.6 mg/dL (8.4-10.2); Carbon Dioxide 20 mmol/L (22-32); Chloride 106 mmol/L (98-107); Estimated Glomerular Filt Rate > 60 mL/min (>60); Glucose 203 mg/dL (70-100); HEMOLYSIS < 15 (0-50); Potassium 3.4 mmol/L (3.4-5.1); Sodium 133 mmol/L (137-145)
[2024-10-05] MEDS: INSULIN GLARGINE 100 UNIT/ML 3ML PEN 20 UNIT SUBCUT (12:16)
[2024-10-05] MEDS: SODIUM CHLORIDE 0.9% 1,000 ML 150 ML IV (12:18)
[2024-10-05] MEDS: MAGNESIUM CHLORIDE 64 MG TABLET 128 MG PO (12:21)
--- NOTE | 2024-10-05 14:15 | PC.NURSE ---
Addendum entered by Suzanne Lopez R.N. 10/05/24 14:25: 1216 Lantus administered as ordered, will turn off Insulin gtt at [address] Hutton. 1300 Insulin gtt discontinued as ordered, current CBG 99, unable to complete insulin gtt in emar as emar shows gtt completed at 1200 (due to emar thinking bag was empty). Pt downgraded to acute care status per Dr hutton. No further needs at this time, care on going. Original Note: 1015 Pt arrived via gurney, able to move from gurney to bed with little difficulty. Connected to monitoring equipment, insulin gtt infusing as ordered (see emar documentation), pt refusing skin check at this time, has a L BKA with a prosthetic in place which he refuses to remove his prosthetic. Most recent vitals and CBG charted, admission assessment completed. Dr Hutton at bedside, waiting for new orders. No further needs at this time, care ongoing.
[2024-10-05] MEDS: POTASSIUM CHLORIDE 20 MEQ TAB 40 MEQ PO (16:35)
--- NOTE | 2024-10-05 19:16 | PM.PN.1 ---
Subjective Subjective Interval history: 48-year-old male with type 1 diabetes, history of traumatic talus fracture status post left BKA, former smoker, and report of former substance use (unable to verify), and presumed ADHD for which he is prescribed methylphenidate who was admitted with DKA overnight. He reportedly was quite encephalopathic in the emergency department and was noted to take his clothes off and was difficult to redirect in the emergency department. His anion gap closed overnight. He was boarded in the emergency department as there were no ICU beds available. He is now up in the intensive care unit. He is quite somnolent. His urine tox screen was positive for methamphetamines. He is able to tell me that he had his BKA related to ?a pulverized talus?. He also tells me he takes Lantus and regular insulin, but I am unable to verify how much. He tells me he stopped his insulin 2 days ago, but I am unable to ascertain why. He mumbles most answers and is very difficult to understand. Exam Vital Signs (past 8 hours): - 10/05/24 11:54 10/05/24 12:00 10/05/24 12:00 Temperature Pulse Rate 99 H 111 H Respiratory Rate 13 20 Blood Pressure 137/88 137/88 Pulse Oximetry 98 98 10/05/24 12:00 10/05/24 12:30 10/05/24 13:00 Temperature Pulse Rate 99 H 102 H Respiratory Rate 13 19 Blood Pressure 163/105 H Pulse Oximetry 98 98 10/05/24 13:00 10/05/24 13:30 10/05/24 14:00 Temperature Pulse Rate 96 H 96 H Respiratory Rate 16 12 Blood Pressure 170/104 H Pulse Oximetry 100 99 10/05/24 14:00 10/05/24 14:30 10/05/24 15:00 Temperature Pulse Rate 103 H 98 H 101 H Respiratory Rate 15 14 16 Blood Pressure Pulse Oximetry 99 99 99 10/05/24 18:30 10/05/24 18:47 10/05/24 18:48 Temperature 97.6 F Pulse Rate 94 H 93 H 94 H Respiratory Rate 18 Blood Pressure 132/76 Pulse Oximetry 99 91 99 10/05/24 18:48 Temperature Pulse Rate Respiratory Rate Blood Pressure 132/76 Pulse Oximetry Oxygen Delivery Method Room Air Narrative Exam Narrative: GEN: Somnolent adult male, oriented x 1-2, NAD HEENT:NC, Face symmetric CHEST: Respiratory excursions symmetric, CTAB CV: RRR, no M/R/G ABD: Soft, NT/ND, BT present in all 4 quadrants, no organomegaly or masses EXTR: warm, well perfused, no C/C/E SKIN: warm and dry, no rash NEURO: Nonfocal Objective Labs 10/05/24 04:45 10/05/24 11:40 Labs: Laboratory Results - last 24 hr 10/04/24 10/04/24 10/05/24 22:13 23:02 02:44 WBC RBC Hgb Hct MCV MCH MCHC RDW Plt Count Neut % (Auto) Lymph % (Auto) [place] % (Auto) Eos % (Auto) Baso % (Auto) Neut # (Auto) Lymph # (Auto) [place] # (Auto) Eos # (Auto) Baso # (Auto) VBG pH 7.35 VBG pCO2 36.1 L VBG pO2 67 H VBG HCO3 20 L VBG Total CO2 19 L VBG O2 Saturation 67 L VBG Base Excess -4.9 L Sodium 136 L 134 L Potassium 3.4 D 4.0 Chloride 109 H 109 H Carbon Dioxide 18 L 21 L BUN 27 H 22 H Creatinine 1.02 0.85 Estimated GFR > 60 > 60 BUN/Creatinine Ratio 26.5 H 25.9 H Glucose 109 H D 143 H Calcium 8.4 8.3 L Magnesium 10/05/24 10/05/24 10/05/24 04:45 04:51 11:40 WBC 13.0 H RBC 4.51 Hgb 13.7 Hct 38.2 L MCV 84.8 D MCH 30.4 MCHC 35.8 RDW 13.4 Plt Count 200 Neut % (Auto) 73.1 Lymph % (Auto) 19.1 L [place] % (Auto) 6.1 Eos % (Auto) 1.0 L Baso % (Auto) 0.7 Neut # (Auto) 9500 H Lymph # (Auto) 2500 [place] # (Auto) 800 Eos # (Auto) 100 Baso # (Auto) 100 VBG pH 7.37 VBG pCO2 41.8 L VBG pO2 49 H VBG HCO3 24 VBG Total CO2 23 L VBG O2 Saturation 83 H VBG Base Excess -1.5 L Sodium 133 L Potassium 3.4 Chloride 106 Carbon Dioxide 20 L BUN 14 Creatinine 0.64 L Estimated GFR > 60 BUN/Creatinine Ratio 21.9 Glucose 203 H Calcium 8.6 Magnesium 1.5 L PFSH Medical History (Updated 10/04/24 @ 18:00 by Pio Flores DO) Type 1 diabetes mellitus Surgical History Hx of BKA Social History household members: none Smoking Status: Former smoker alcohol intake: never Assessment & Plan Assessment & Plan narrative: 1. DKA Presumably secondary to being off of his insulin. His anion gap has now closed. We will give Lantus and initiate sliding scale. We will wean off of the insulin drip and initiate a controlled carb diet. As he is so somnolent, will continue IV fluids to continue ensuring adequate hydration. 2. Urine tox screen positive for methamphetamine Unclear current status of his use as I am unable to verify. Uncertain if he smokes, uses intravenously, or snorts it. Uncertain when he last used. 3. Leukocytosis Likely reactive from DKA, improving 4. Hyponatremia Mild. Will monitor. 5. Diabetes mellitus, type 1 Hemoglobin A1c is 8.5%, consistent with not unreasonable control given his type 1 diabetes. I am uncertain how long he has been diagnosed. Will need to further verify his regimen and access to meds when he is more awake/alert Code status Full Prophylaxis Low Quang score Disposition Will transition to acute care Time-Based Coding :: [TOTAL MINUTES] spent with patient and on the chart (including review of chart, obtaining history, exam, reviewing outside data, placing orders, documenting exam and treatment plan, and counseling patient) on [DATE].
[2024-10-05] MEDS: INSULIN LISPRO 100 UNIT/ML 3ML VIAL SUBCUT (21:41)
[2024-10-05] MEDS: ACETAMINOPHEN 325 MG TABLET 650 MG PO (21:41)
[2024-10-06 04:00] VITALS: BP 125/76; PULSE 96; RESP 18; TEMP 36.8; O2SAT 98
[2024-10-06 06:21] VITALS: PULSE 93; O2SAT 98
[2024-10-06 06:24] VITALS: BP 125/76; PULSE 95; O2SAT 98
[2024-10-06 06:40] LABS: BUN Creatinine Ratio 21.5 (6-22); Blood Urea Nitrogen 17 mg/dL (9-20); Calcium 8.9 mg/dL (8.4-10.2); Carbon Dioxide 29 mmol/L (22-32); Chloride 107 mmol/L (98-107); Estimated Glomerular Filt Rate > 60 mL/min (>60); Glucose 142 mg/dL (70-100); HEMOLYSIS < 15 (0-50); Magnesium 1.6 mg/dL (1.6-2.3); Potassium 3.4 mmol/L (3.4-5.1); Sodium 137 mmol/L (137-145)
[2024-10-06 07:52] LABS: Basophils Absolute Auto 100 /uL (0-100); Basophils Percent Auto 0.9 % (0-2); Eosinophils Absolute Auto 300 /uL (0-450); Hematocrit 37.6 % (41-53); Hemoglobin 13.4 g/dL (13.5-17.5); Lymphocytes Absolute Auto 2300 /uL (1100-4500); Lymphocytes Percent Auto 30.8 % (25-40); Mean Corpuscular Hemoglobin 30.7 PG (26-34); Mean Corpuscular Volume 85.8 fL (80-100); Monocytes Absolute Auto 500 /uL (0-900); Monocytes Percent Auto 6.3 % (3-14); Neutrophils Absolute Auto 4400 /uL (1500-7000); Platelet Count 164 X10^3/uL (150-400); Red Blood Cell Count 4.38 X10^6/uL (4.5-5.9); Red Cell Distribution Width 13.3 % (11.6-14.8); White Blood Cell Count 7.6 X10^3/uL (4.5-11.0)
[2024-10-06 07:53] LABS: Add Manual Diff / Slide Review SLIDE REVIEW
[2024-10-06 07:54] LABS: Mean Corpuscular HGB Conc 35.8 % (30-36)
[2024-10-06 07:55] LABS: Hypersegmented Neutrophils 1+; Rouleaux 1+
[2024-10-06 07:56] LABS: Anisocytosis 1+
[2024-10-06 08:00] VITALS: BP 112/57; PULSE 99; RESP 16; TEMP 37.1; O2SAT 98
[2024-10-06 08:09] VITALS: O2SAT 100
[2024-10-06 08:10] VITALS: BP 112/57; PULSE 99; O2SAT 98
[2024-10-06] MEDS: PANTOPRAZOLE 40 MG VIAL IV (08:41)
[2024-10-06] MEDS: POTASSIUM CHLORIDE 20 MEQ TAB 40 MEQ PO (08:41)
[2024-10-06] MEDS: INSULIN GLARGINE 100 UNIT/ML 3ML PEN 24 UNIT SUBCUT (08:42)
[2024-10-06] MEDS: INSULIN LISPRO 100 UNIT/ML 3ML VIAL SUBCUT (08:43)
[2024-10-06] MEDS: ACETAMINOPHEN 325 MG TABLET 650 MG PO (09:13)
[2024-10-06] MEDS: MAGNESIUM CHLORIDE 64 MG TABLET 128 MG PO (09:33)
--- NOTE | 2024-10-06 09:35 | DI.RAD.S_ITS ---
PROCEDURE: XR HAND RT MIN 3V INDICATIONS: pain TECHNIQUE: 3 views of the hand(s) acquired. COMPARISON: None. FINDINGS/IMPRESSION: Extra-articular fracture of the 4th proximal phalanx shaft, extending to the distal metadiaphysis. Suspected nondisplaced fracture of the 5th proximal phalanx metadiaphysis. Correlate with point tenderness. Minimally displaced, intra-articular fracture of the 5th metacarpal head. Dictated by: Minh Moeller M.D. on 10/06/2024 at 10:14 Approved by: Minh Moeller M.D. on 10/06/2024 at 10:15
--- NOTE | 2024-10-06 11:24 | P.DS_ITS ---
History of Present Illness History of Present Illness Chief complaint: diabetic crisis Narrative: From H&P: 48-year-old male with past medical history of insulin-dependent diabetes and ADHD presents with elevated glucose. Per the patient's report, over the last week or so, the patient has lost his glucometer and he has not been checking his glucose daily. Today the patient felt nauseous and fatigue. The patient normally takes 32 units of Lantus but has not taken his sliding scale as he does not know what his sugar was. EMS was called and found the patient to be in hyperglycemic. Otherwise the patient denies any vomiting, fever, chills, abdominal pain, coughing, chest pain or shortness of breath. In our emergency room, the patient was hemodynamically stable. WBC was 17 venous gas shows a pH of 7.23 pCO2 32 pO2 of 33 bicarb of 14 sodium 136 serum bicarb of 18 BUN 27 creatinine 1.0 A1c of 8.5 ALT 55 AST 28 UA was positive for ketones urine tox was positive for methamphetamine and glucose was 466. The patient was started on DKA protocol with insulin Discharge Providers Provider Date of admission: 10/04/24 17:56 Discharge Date: 10/06/24 Primary care physician: Neftaly Champagne MD Consults: 10/04/24 18:14 Consult to Dietitian, Adult Routine Comment: Reason For Exam: Once DKA resolved Discharge provider: Trent Guo MD Summary Hospital Course Discharge Diagnosis: 1. DKA, Present on admission and resolved. Presumably secondary to being off of his insulin. His anion gap has now closed. We will give Lantus and initiate sliding scale. We will wean off of the insulin drip and initiate a controlled carb diet. As he is so somnolent, will continue IV fluids to continue ensuring adequate hydration. 2. Urine tox screen positive for methamphetamine. Present on admission and active. Unclear current status of his use as I am unable to verify. Uncertain if he smokes, uses intravenously, or snorts it. Uncertain when he last used. 3. Leukocytosis. Present on admission and improved. Likely reactive from DKA, improving 4. Hyponatremia. Present on admission and improved. Mild. Will monitor. 5. Diabetes mellitus, type 1 Present on admission and stable. Hemoglobin A1c is 8.5%, consistent with not unreasonable control given his type 1 diabetes. I am uncertain how long he has been diagnosed. Will need to further verify his regimen and access to meds when he is more awake/alert 6. Right hand 4th finger proximal phalanx fracture with intra-articular extension. Present on admission and active. Code status Full Prophylaxis Low Quang score Disposition Will transition to acute care Hospital Course: He was admitted for DKA and fluid resuscitated. The patient was treated with insulin drip and improved. Electrolytes were managed. The patient had hyponatremia related to his hyperglycemia which improved. His urine tox was positive for methamphetamines. On the day of discharge he was at baseline but noted right hand 4th proximal finger pain. An x-ray was obtained revealing a proximal phalangeal fracture. Orthopedics was available and splinted the finger and we will see him in follow up. Please see their note. Status at Discharge Cognitive/behavioral status at discharge: oriented Functional status at discharge: independent ambulation Overall status at discharge: patient is back to baseline Time Spent with Patient Time spent: Greater than 30 minutes Exam Vital Signs (past 8 hours): - 10/06/24 04:00 10/06/24 06:21 10/06/24 06:24 Temperature 98.3 F Pulse Rate 96 H 93 H 95 H Respiratory Rate 18 Blood Pressure 125/76 Pulse Oximetry 98 98 98 Oxygen Flow Rate 0 10/06/24 06:24 10/06/24 08:00 10/06/24 08:09 Temperature 98.8 F Pulse Rate 99 H Respiratory Rate 16 Blood Pressure 125/76 112/57 L Pulse Oximetry 98 100 Oxygen Flow Rate 0 10/06/24 08:10 10/06/24 08:10 Temperature Pulse Rate 99 H Respiratory Rate Blood Pressure 112/57 L Pulse Oximetry 98 Oxygen Flow Rate Oxygen Delivery Method Room Air Oxygen Flow Rate 0 Narrative Exam Narrative: NAD, alert and oriented. Fluent speech. Lungs are clear, normal rate and effort. Heart is regular, no murmur gallop or rub. Abdomen is soft, non distended. Extremities are free of edema. Right hand proximal phalanx of the 4th finger is tender to palpation. Objective Imaging Multiple studies:: Radiologist's impression: Chest x-ray: No acute cardiopulmonary abnormality is seen. Hand x-ray: Extra-articular fracture of the 4th proximal phalanx shaft, extending to the distal metadiaphysis. Suspected nondisplaced fracture of the 5th proximal phalanx metadiaphysis. Correlate with point tenderness. Minimally displaced, intra-articular fracture of the 5th metacarpal head. Labs 10/06/24 06:20 10/06/24 06:20 Labs: Laboratory Results - last 24 hr 10/05/24 10/06/24 11:40 06:20 WBC 7.6 RBC 4.38 L Hgb 13.4 L Hct 37.6 L MCV 85.8 MCH 30.7 MCHC 35.8 RDW 13.3 Plt Count 164 Neut % (Auto) 58.0 Lymph % (Auto) 30.8 [place] % (Auto) 6.3 Eos % (Auto) 4.0 Baso % (Auto) 0.9 Neut # (Auto) 4400 Lymph # (Auto) 2300 [place] # (Auto) 500 Eos # (Auto) 300 Baso # (Auto) 100 Hypersegmented Neuts 1+ RBC Morphology See below Anisocytosis 1+ H Rouleaux 1+ H Sodium 133 L 137 Potassium 3.4 3.4 Chloride 106 107 Carbon Dioxide 20 L 29 BUN 14 17 Creatinine 0.64 L 0.79 Estimated GFR > 60 > 60 BUN/Creatinine Ratio 21.9 21.5 Glucose 203 H 142 H Calcium 8.6 8.9 Magnesium 1.6 PFSH Medical History Type 1 diabetes mellitus Surgical History Hx of BKA Social History household members: none Smoking Status: Former smoker alcohol intake: never Discharge Assessment & Plan Assessment and Plan Assessment: 1. DKA, Present on admission and resolved. Presumably secondary to being off of his insulin. His anion gap has now closed. We will give Lantus and initiate sliding scale. We will wean off of the insulin drip and initiate a controlled carb diet. As he is so somnolent, will continue IV fluids to continue ensuring adequate hydration. 2. Urine tox screen positive for methamphetamine. Present on admission and active. Unclear current status of his use as I am unable to verify. Uncertain if he smokes, uses intravenously, or snorts it. Uncertain when he last used. 3. Leukocytosis. Present on admission and improved. Likely reactive from DKA, improving 4. Hyponatremia. Present on admission and improved. Mild. Will monitor. 5. Diabetes mellitus, type 1 Present on admission and stable. Hemoglobin A1c is 8.5%, consistent with not unreasonable control given his type 1 diabetes. I am uncertain how long he has been diagnosed. Will need to further verify his regimen and access to meds when he is more awake/alert 6. Right hand 4th finger proximal phalanx fracture with intra-articular extension. Present on admission and active. Plan of Treatment: Stable for discharge home, resume usual regimen. His right hand is splinted and he will follow up with Orthopedics as arranged. Discharge Plan Discharge Plan Patient Disposition: Home Provider Discharge Comment: Stable for discharge home to resume usual medications. Dr. Baez of Orthopedics did splint the broken finger and we will see h Discharge orders & Medications Prescriptions: Continued methylphenidate HCl 36 mg tablet extended release 24hr 72 mg PO DAILY insulin glargine [Basaglar KwikPen U-100 Insulin] 100 unit/mL (3 mL) insulin pen 39 unit SUBCUT DAILY insulin aspart U-100 [Novolog FlexPen U-100 Insulin] 100 unit/mL Insulin Pen See Rx Instructions .ROUTE .COMPLEX Rx Instructions: Sliding scale: Patient does own sliding scale no direct instructions. 13-18 units before meals based on what pt eats Follow up/Referrals: Neftaly Champagne MD [Primary Care Provider] - Misti Baez MD [Physician] - Diet/Activity/Treatments Diet: Carb-consistent/Diabetic Visit Report/Discharge Packet Instructions: DI for Finger Fracture, DI for Diabetic Ketoacidosis Stand Alone Forms: Patient Portal/API Discharge Data Primary Care Provider: Neftaly Champagne
--- NOTE | 2024-10-06 11:42 | CM.DANOTE ---
B DCP Assessment Note pt is a 48yo M admitted with DKA, tested pos for methamphetamine use in the ED. PCP [facility] and self pay FASHION SHOW DIRECTOR reviewed EMR. per chart review, pt also broke finger in right hand. Dr. Baez placed cast on hand this morning. Per hospitalist, DKA resolved likely dc today. FASHION SHOW DIRECTOR met with pt in room and introduced self and role. Standing walking around room with cast. indep with ADLs. lives home alone in [place]. reports plans to call PCP office and fire alarm mechanic about supplies for his diabetes. denies drug use resources at this time. eager to dc home. reports having someone that can take him home. denies other DCP/CM needs at this time P: dc home today, OP F/u recommended with PCP/ortho/fire alarm mechanic. no CM needs at this time, will continue to follow as needed NAWAF Lopez Discharge Planning/Care Management CM Discharge Assessment Start: 10/06/24 11:42 Freq: Status: Active Protocol: Document 10/06/24 11:22 SL (Rec: 10/06/24 11:42 SL Desktop) Discharge Planning Assessment Assigned Stoker Installation Mechanic NAWAF Johnson Advance Directives? No History Provided By Patient,Medical Record Prior Living Arrangements House Household Members none Independent with ADL's Yes Is patient alert and oriented? Yes Discharge Plan Home Referrals Initiated None needed Review Status In Process Please Provide Date Initial DC 10/06/24 Assessment Was Performed Next Review Type Continued Stay Review
--- NOTE | 2024-10-06 12:03 | P.HP_ITS ---
History of Present Illness History of Present Illness Date Patient Seen: 10/06/24 Time Patient Seen: 11:00 Chief complaint: diabetic crisis Narrative: This is a 48-year-old gentleman with insulin-dependent diabetes. He was admitted with diabetic ketoacidosis. His tox screen was positive for methamphetamine. Orthopedic consultation was requested for a right hand injury. He said he was pulling hard to put his prosthesis on for his left leg when he injured his left hand. He says it happened a couple of days ago. He notes pain in the right hand. He is right-hand dominant. [facility] Medical History (Updated 10/06/24 @ 12:12 by Misti Baez MD) Type 1 diabetes mellitus Surgical History Hx of BKA Social History household members: none Smoking Status: Former smoker alcohol intake: never Meds Home Medications and Allergies Home Medications Medication Instructions Recorded Confirmed Type insulin aspart U-100 100 unit/mL See Rx Instructions .Route .COMPLEX 04/03/18 10/05/24 History (3 mL) subcutaneous pen (Novolog FlexPen U-100 Insulin aspart) insulin glargine 100 unit/mL (3 39 unit SUBCUT DAILY 07/30/19 10/05/24 History mL) subcutaneous pen (Basaglar KwikPen U-100 Insulin) methylphenidate HCl 36 mg 72 mg PO DAILY 07/30/19 10/05/24 History tablet,extended release 24 hr Allergies Allergy/AdvReac Type Severity Reaction Status Date / Time promethazine AdvReac Unknown GET LOOPY Verified 04/16/24 08:40 Review of Systems Review of Systems Narrative: No prior hand fracture, severely crushed left talus and subsequent below-knee amputation. Exam Vital Signs (past 8 hours): - 10/06/24 06:21 10/06/24 06:24 10/06/24 06:24 Temperature Pulse Rate 93 H 95 H Respiratory Rate Blood Pressure 125/76 Pulse Oximetry 98 98 Oxygen Flow Rate 10/06/24 08:00 10/06/24 08:09 10/06/24 08:10 Temperature 98.8 F Pulse Rate 99 H Respiratory Rate 16 Blood Pressure 112/57 L 112/57 L Pulse Oximetry 98 100 Oxygen Flow Rate 0 10/06/24 08:10 Temperature Pulse Rate 99 H Respiratory Rate Blood Pressure Pulse Oximetry 98 Oxygen Flow Rate Oxygen Delivery Method Room Air Oxygen Flow Rate 0 Narrative Exam Narrative: He is alert he is oriented he is interactive. His right upper extremity is remarkable for obvious bruising along the right hand especially along the ring finger. There is no rotatory deformity. There is some pain both on the 4th and small finger. Skin is intact. Objective Labs 10/06/24 06:20 10/06/24 06:20 Labs: Laboratory Results - last 24 hr 10/05/24 10/06/24 11:40 06:20 WBC 7.6 RBC 4.38 L Hgb 13.4 L Hct 37.6 L MCV 85.8 MCH 30.7 MCHC 35.8 RDW 13.3 Plt Count 164 Neut % (Auto) 58.0 Lymph % (Auto) 30.8 [place] % (Auto) 6.3 Eos % (Auto) 4.0 Baso % (Auto) 0.9 Neut # (Auto) 4400 Lymph # (Auto) 2300 [place] # (Auto) 500 Eos # (Auto) 300 Baso # (Auto) 100 Hypersegmented Neuts 1+ RBC Morphology See below Anisocytosis 1+ H Rouleaux 1+ H Sodium 133 L 137 Potassium 3.4 3.4 Chloride 106 107 Carbon Dioxide 20 L 29 BUN 14 17 Creatinine 0.64 L 0.79 Estimated GFR > 60 > 60 BUN/Creatinine Ratio 21.9 21.5 Glucose 203 H 142 H Calcium 8.6 8.9 Magnesium 1.6 x-rays show a comminuted right hand proximal phalanx fracture of the ring finger without significant displacement, there is also a nondisplaced fracture in the 5th finger small finger MCP joint with a nondisplaced fracture of the metacarpal head and a nondisplaced proximal phalanx fracture Assessment & Plan Assessment and plan (1) DKA (diabetic ketoacidosis): Status: Acute (2) Hx of left BKA: Status: Acute (3) History of diabetes mellitus: Status: Acute (4) Proximal phalanx fracture of finger: Qualifiers: Encounter type: initial encounter Finger: ring finger Fracture type: c losed Laterality: right Status: Acute (5) Fracture, metacarpal, neck: Qualifiers: Encounter type: initial encounter Metacarpal bone: fifth Fracture type: closed Fracture alignment: nondisplaced Laterality: right Qualified Code(s): S62.366A - Nondisplaced fracture of neck of fifth metacarpal bone, right hand, initial encounter for closed fracture Status: Acute Plan He has a ring and small finger right hand fractures with a comminuted but not very displaced proximal phalanx fracture of his ring finger. I have recommended a gauntlet cast. He was placed in a short-arm gauntlet cast. We will plan to have him return for follow up in 4 weeks for x-rays out of plaster. I instructed him to keep his cast dry. Time-Based Coding :: [TOTAL MINUTES] spent with patient and on the chart (including review of chart, obtaining history, exam, reviewing outside data, placing orders, documenting exam and treatment plan, and counseling patient) on [DATE].
--- NOTE | 2024-10-06 12:28 | PC.NURSE ---
Discharge Note Patient A&O, VSS, RA, no complaints of pain/discomfort. PIV discontinued. Patient able to dress self and pack all belongings. Patient reminded to schedule follow-up appointment post cast placement today by MD Baez. Discharge packet reviewed with patient, all questions/concerns addressed. Patient walked down exit.
== END 2024-10-06 12:15 | disposition home or self-care (01) | DRG 420 ==
LOC: ED 15:28 → AC 18:00 → ICU 10-05 09:28
PROVIDERS: Admitting Provider Family Medicine; Emergency Provider Internal Medicine; Family Provider Internal Medicine; PCP Internal Medicine; Referring Provider Family Medicine; Visit Provider Family Medicine
DX: E10.10 Type 1 diabetes mellitus with ketoacidosis without coma (principal); F15.10 Other stimulant abuse, uncomplicated; E86.0 Dehydration; F90.9 Attention-deficit hyperactivity disorder, unspecified type; T38.3X6A Underdosing of insulin and oral hypoglycemic [antidiabetic] drugs, initial encounter; E87.1 Hypo-osmolality and hyponatremia; S62.614A Displaced fracture of proximal phalanx of right ring finger, initial encounter for closed fracture; S92.351A Displaced fracture of fifth metatarsal bone, right foot, initial encounter for closed fracture; X50.0XXA Overexertion from strenuous movement or load, initial encounter; Z89.512 Acquired absence of left leg below knee; Z91.148 Patient's other noncompliance with medication regimen for other reason; Z87.891 Personal history of nicotine dependence
CPT/HCPCS: 36415; 71045; 73130; 80048; 80053; 80305; 81001; 82009; 82550; 82805; 82962; 83036; 83690; 83735; 83880; 84484; 85025; 85610; 85730; 93005; 93010; 96361; 96365; 96366; 96375; 99284; 99291; J1815; J2470; J7050

== ENCOUNTER 2024-10-28 14:51 | Inpatient (IN) | payer OTHER, SELFPAY ==
[2024-10-05 10:00] VITALS: BMI 19.8
[2024-10-28] VITALS (14 sets, daily range): BP systolic 119–174; BP diastolic 68–106; PULSE 108–122; RESP 13–19; TEMP 36.6–37.2; O2SAT 97–99; BMI 19.5
--- NOTE | 2024-10-28 15:34 | DI.RAD.S_ITS ---
PROCEDURE: XR CHEST 1V INDICATIONS: suspected sepsis TECHNIQUE: One view of the chest was acquired. COMPARISON: Merged With [facility], CR, XR CHEST 1V, 10/04/2024, 15:26. FINDINGS: Surgical changes and devices: None. Lungs and pleura: Lungs are clear. No pleural effusions or pneumothorax. Mediastinum: Mediastinal contours appear normal. Heart size is normal. Bones and chest wall: No suspicious bony lesions. Overlying soft tissues appear unremarkable. IMPRESSION: No acute cardiopulmonary pathology. Dictated by: Diaz Solano M.D. on 10/28/2024 at 15:53 Approved by: Diaz Solano M.D. on 10/28/2024 at 15:53
[2024-10-28 15:49] LABS: Base Excess VBG -2.5 mmol/L (0-4); HCO3 VBG 23 mmol/L (24-28); Oxygen Saturation VBG 74 % (70-75); PCO2 VBG 42.6 mmHg (45-50); PO2 VBG 41 mmHg (35-45); Total CO2 VBG 23 mmol/L (24-29); pH VBG 7.35 (7.33-7.43)
[2024-10-28 15:54] LABS: Add Manual Diff / Slide Review NO; Basophils Absolute Auto 100 /uL (0-100); Basophils Percent Auto 0.7 % (0-2); Eosinophils Absolute Auto 100 /uL (0-450); Eosinophils Percent Auto 0.9 % (2-4); Hematocrit 39.3 % (41-53); Hemoglobin 13.5 g/dL (13.5-17.5); Lymphocytes Absolute Auto 1500 /uL (1100-4500); Lymphocytes Percent Auto 13.1 % (25-40); Mean Corpuscular HGB Conc 34.4 % (30-36); Mean Corpuscular Hemoglobin 30.6 PG (26-34); Mean Corpuscular Volume 89.1 fL (80-100); Monocytes Absolute Auto 800 /uL (0-900); Monocytes Percent Auto 6.8 % (3-14); Neutrophils Absolute Auto 8800 /uL (1500-7000); Neutrophils Percent Auto 78.5 % (50-75); Platelet Count 261 X10^3/uL (150-400); Red Blood Cell Count 4.42 X10^6/uL (4.5-5.9); Red Cell Distribution Width 13.6 % (11.6-14.8); White Blood Cell Count 11.3 X10^3/uL (4.5-11.0)
--- NOTE | 2024-10-28 16:09 | EKG_ITS ---
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
[2024-10-28 16:10] LABS: Alanine Aminotransferase 40 IU/L (<50); Albumin 3.7 g/dL (3.5-5.0); Albumin Globulin Ratio 1.4 (1.0-2.8); Alkaline Phosphatase 164 U/L (38-126); Aspartate Aminotransferase 33 IU/L (17-59); BUN Creatinine Ratio 29.4 (6-22); Blood Urea Nitrogen 25 mg/dL (9-20); Calcium 9.7 mg/dL (8.4-10.2); Carbon Dioxide 21 mmol/L (22-32); Chloride 95 mmol/L (98-107); Estimated Glomerular Filt Rate > 60 mL/min (>60); Globulin 2.7 g/dL (1.7-4.1); Glucose 424 mg/dL (70-100); HEMOLYSIS 15 (0-50); INR 0.9 (0.9-1.3); Lipase 25 U/L (23-300); Potassium 4.2 mmol/L (3.4-5.1); Prothrombin Time 10.3 SECONDS (9.4-12.5); Sodium 129 mmol/L (137-145); Total Protein 6.4 g/dL (6.3-8.2)
[2024-10-28 16:11] LABS: Lactate (Lactic Acid) 1.7 mmol/L (0.7-2.1)
[2024-10-28 16:13] LABS: PTT Partial Thromboplastin Tim 36 SECONDS (25.1-36.5)
[2024-10-28 16:17] LABS: Ketones (Beta-Hydroxybutyrate) 4.74 mmol/L (<0.27)
[2024-10-28 16:29] LABS: Procalcitonin 0.493 ng/mL (<0.5)
[2024-10-28] MEDS: SODIUM CHLORIDE 0.9% 1,000 ML 1000 ML IV (16:43)
[2024-10-28 17:07] LABS: Bacteria Urine Occasional (0-1); Culture Indicated Urine Cult Not Indicated; RBC Urine 0-1/HPF (0-5/HPF); Squamous Epithelial Cell Urine 0-1 /HPF (0-5/HPF); Urine Volume 10mL (spun); WBC Urine 0-1/HPF (0-5/HPF)
--- NOTE | 2024-10-28 17:29 | DI.RAD.S_ITS ---
PROCEDURE: XR TIBIA FIBULA LT 2V INDICATIONS: infection of BKA distal end TECHNIQUE: 2 views of the tibia and fibula were acquired. COMPARISON: [facility], CR, XR TIBIA FIBULA LT 2V, 04/16/2024, 10:01. FINDINGS: Status post below-knee amputation with a pseudoarthrosis at the tibial and fibular diaphyseal stumps. No periosteal reaction. No osseous erosions. No focal osteopenia. Possible subcutaneous emphysema along the posterior aspect of the stump. Medial and lateral compartment chondrocalcinosis at the knee. IMPRESSION: Possible subcutaneous emphysema at the posterior stump without radiographic evidence of osteomyelitis. Dictated by: Jamal Baxter M.D. on 10/28/2024 at 17:55 Approved by: Jamal Baxter M.D. on 10/28/2024 at 17:56
--- NOTE | 2024-10-28 17:32 | ED_ITS ---
HPI - Skin/Abscess/Foreign Bdy <Portia Maharaj, - Last Filed: 10/29/24 07:42> General Chief complaint: Skin/Abscess/Foreign Body Stated complaint: Infection below LT knee amputation site Time Seen by Provider: 10/28/24 17:09 Source: patient, RN notes reviewed and old records reviewed Mode of arrival: Ambulatory Limitations: no limitations History of Present Illness HPI narrative: 48-year-old male history of insulin-dependent diabetes, prior remote left BKA concern for left BKA stump infection as well as hyperglycemia. Patient comes in states he was not feeling well he states his glucose has been elevated he ran out of his Lantus about 2 or 3 weeks ago he also ran out of his lisinopril 1 or 2 weeks ago as well. States he has been using his short-acting insulin but blood sugars has been variable. Patient denies fevers, no chest pain or shortness of breath. No nausea or vomiting. Denies issues with bowel movements or urination. States he feels generally unwell. States it is stump opened up at the distal tip of his BKA in the last several days. States it has been draining clear fluid. Increased redness and discomfort. Patient states it was happened before sometimes he has had IV antibiotics and surgery also appears he was had oral antibiotics in the past as well. Patient states home medications currently include Ritalin, short-acting insulin, he was supposed to be on Lantus as well and lisinopril but is out of those. States his initial BKA was at [facility] but had subsequent surgery here when he had an infection. Denies any allergies, no tobacco, alcohol or recreational drugs. Related Data Home Medications Medication Instructions Recorded Confirmed insulin aspart U-100 100 unit/mL See Rx Instructions .Route .COMPLEX 04/03/18 10/28/24 (3 mL) subcutaneous pen (Novolog FlexPen U-100 Insulin aspart) insulin glargine 100 unit/mL (3 39 unit SUBCUT DAILY 07/30/19 10/28/24 mL) subcutaneous pen (Basaglar KwikPen U-100 Insulin) methylphenidate HCl 36 mg 72 mg PO DAILY 07/30/19 10/28/24 tablet,extended release 24 hr Allergies Allergy/AdvReac Type Severity Reaction Status Date / Time promethazine AdvReac Unknown GET LOOPY Verified 10/08/24 08:40 Patient History <Portia Maharaj DO - Last Filed: 10/29/24 07:42> Medical History (Updated 10/28/24 @ 17:48 by Portia Maharaj DO) Type 1 diabetes mellitus Surgical History (Updated 10/28/24 @ 17:49 by Portia Maharaj DO) Hx of BKA Social History household members: none Smoking Status: Former smoker alcohol intake: never Smoking Status: Former smoker tobacco type: cigarettes alcohol intake frequency: 0-2 drinks per day Exam <Portia Maharaj DO - Last Filed: 10/29/24 07:42> Narrative Exam Narrative: GENERAL: Alert and oriented x three, thin male mild distress. HEENT: Head normocephalic, atraumatic, EOMI, pupils reactive, face symmetric, moist mucous membranes NECK: Supple, full range of motion CARDIOVASCULAR: Regular but tachycardic without murmurs, rubs or gallops. RESPIRATORY: Breath sounds equal bilaterally, no wheezes rales or rhonchi. ABDOMEN: Soft, nontender. Normoactive bowel sounds all 4 quadrants. No guarding or rebound, rigidity, no mass : No CVA tenderness EXTREMITIES: Normal range of motion, no clubbing or edema. Patient was left BKA, the distal end of the stump does not appear to have a small about 0.5 cm opening with the exposure of subcutaneous, no bony exposure there some mild erythema tracking in the medial side about 5 or 6 cm up of the lower extremity, it was not circumferential there some warmth. There some whitish discoloration over the tissue itself but no purulent drainage appears to be more serous. Neurovascularly intact. NEUROLOGICAL: Cranial nerves II through XII grossly intact. Moving all extremities SKIN: Warm, dry, no petechiae, no rashes or lesions otherwise noted. Initial Vital Signs Initial Vital Signs: Vital Signs Temperature 97.9 F 10/28/24 14:54 Pulse Rate 113 H 10/28/24 14:54 Respiratory Rate 16 10/28/24 14:54 Blood Pressure 148/83 H 10/28/24 14:54 Pulse Oximetry 99 10/28/24 14:54 Oxygen Delivery Method Room Air 10/28/24 14:54 <Dave Gonzalez DO - Last Filed: 10/28/24 20:38> Initial Vital Signs Initial Vital Signs: Vital Signs Temperature 97.9 F 10/28/24 14:54 Pulse Rate 113 H 10/28/24 14:54 Respiratory Rate 16 10/28/24 14:54 Blood Pressure 148/83 H 10/28/24 14:54 Pulse Oximetry 99 10/28/24 14:54 Oxygen Delivery Method Room Air 10/28/24 14:54 Course <Portia Maharaj DO - Last Filed: 10/29/24 07:42> Orders Ordered: Acetaminophen (Acetaminophen 325 Mg Tablet) 650 mg PO Q6H PRN PRN Reason: Fever/Mild Pain (1-3) Hydrocodone Bitart/Acetaminophen (Hydrocodone/Acet 5/325 Tablet) 1 tab PO Q4H PRN PRN Reason: Pain, Moderate (4-6) Sodium Chloride (Normal Saline 0.9%) 1,000 mls @ 100 mls/hr IV CONT BLAS Last Admin: 10/28/24 22:44 Dose: 100 mls/hr Documented By: JAMIL Ceftriaxone Sodium 1,000 mg/ (Sodium Chloride) 100 mls @ 200 mls/hr IV DAILY BLAS Vancomycin HCl 1,000 mg/ (Sodium Chloride) 250 mls @ 125 mls/hr IV Q12H BLAS Last Admin: 10/29/24 06:05 Dose: 125 mls/hr Documented By: JAMIL Dextrose (D10w) 100 mls @ 999 mls/hr IV PRN PRN PRN Reason: Hypoglycemia Influenza Virus Vaccine (Influenza Vaccine Qiv 0.5 Ml Syringe) 0.5 ml IM .ONCE ONE Stop: 10/30/24 09:01 Insulin Glargine (Insulin Glargine 100 Unit/Ml 3ml Pen) 40 unit SUBCUT DAILY REPLACED BY [facility] Insulin Human Lispro (Insulin Lispro 100 Unit/Ml 3ml Vial) 0 unit SUBCUT Q6H REPLACED BY [facility]; Protocol Last Admin: 10/29/24 06:25 Dose: Not Given Documented By: Admin: 10/29/24 00:49 Dose: 7 unit Documented By: JAMIL Co-signed By: RAJAN Naloxone HCl (Naloxone 0.4 Mg/Ml Vial) 0.2 mg IV Q2MIN PRN PRN Reason: Opiate Reversal Ondansetron HCl (Ondansetron 4 Mg/2 Ml Inj) 4 mg IV Q8HR PRN PRN Reason: Nausea And Vomiting Vancomycin HCl (Vancomycin Per Pharmacy) 1 request MISC NOW PRN PRN Reason: cellulitis and abscess Discontinued Medications Sodium Chloride (Normal Saline 0.9%) 1,000 mls @ 1,000 mls/hr IV BOLUS ONE Stop: 10/28/24 16:33 Last Infusion: 10/28/24 17:43 Dose: Infused Documented By: Admin: 10/28/24 16:43 Dose: 1,000 mls/hr Documented By: ALDAIR Ceftriaxone Sodium 1,000 mg/ (Sodium Chloride) 100 mls @ 200 mls/hr IV NOW ONE Stop: 10/28/24 17:30 Last Infusion: 10/28/24 18:30 Dose: Infused Documented By: Admin: 10/28/24 17:50 Dose: 200 mls/hr Documented By: HALEY Vancomycin HCl/Dextrose (Vancomycin) 1,500 mg in 300 mls @ 200 mls/hr IV NOW ONE Stop: 10/28/24 18:58 Last Infusion: 10/28/24 20:03 Dose: Infused Documented By: Admin: 10/28/24 18:30 Dose: 200 mls/hr Documented By: HALEY Lactated Ringer's (Lactated Ringers) 1,000 mls @ 1,000 mls/hr IV BOLUS ONE Stop: 10/28/24 18:48 Last Infusion: 10/28/24 19:12 Dose: Infused Documented By: Admin: 10/28/24 17:53 Dose: 1,000 mls/hr Documented By: HALEY Insulin Glargine (Insulin Glargine 100 Unit/Ml 3ml Pen) 40 unit SUBCUT NOW ONE Stop: 10/28/24 20:50 Last Admin: 10/28/24 22:44 Dose: 40 unit Documented By: MM Co-signed By: RAJAN Insulin Human Regular (Insulin Regular 100 Unit/Ml 3 Ml Vial) 10 unit IV NOW ONE Stop: 10/28/24 17:47 Last Admin: 10/28/24 17:51 Dose: 10 unit Documented By: HALEY Co-signed By: MPO Ondansetron HCl (Ondansetron 4 Mg/2 Ml Inj) 4 mg IV NOW PRN PRN Reason: Nausea And Vomiting Ondansetron HCl (Ondansetron 4 Mg Odt) 4 mg SL NOW PRN PRN Reason: Nausea And Vomiting Vital Signs Vital signs: Vital Signs - 8 hr 10/28/24 14:54 10/28/24 16:15 10/28/24 16:30 Temperature 97.9 F Pulse Rate 113 H 110 H 114 H Respiratory Rate 16 15 17 Blood Pressure 148/83 H Pulse Oximetry 99 97 97 Oxygen Delivery Method Room Air 10/28/24 17:00 10/28/24 17:30 10/28/24 17:45 Temperature Pulse Rate 117 H 118 H 118 H Respiratory Rate 13 14 14 Blood Pressure Pulse Oximetry 99 97 97 Oxygen Delivery Method 10/28/24 17:45 10/28/24 18:07 10/28/24 18:07 Temperature Pulse Rate 122 H Respiratory Rate 18 Blood Pressure 128/68 138/75 Pulse Oximetry 98 Oxygen Delivery Method 10/28/24 18:30 10/28/24 18:30 10/28/24 19:00 Temperature Pulse Rate 120 H 112 H Respiratory Rate 14 17 Blood Pressure 153/90 H Pulse Oximetry 97 97 Oxygen Delivery Method Room Air 10/28/24 19:00 10/28/24 19:30 10/28/24 19:30 Temperature Pulse Rate 108 H Respiratory Rate 13 Blood Pressure 142/85 H 151/88 H Pulse Oximetry 98 Oxygen Delivery Method 10/28/24 20:00 10/28/24 20:00 10/28/24 20:30 Temperature Pulse Rate 109 H Respiratory Rate 13 Blood Pressure 174/106 H 145/82 H Pulse Oximetry 98 Oxygen Delivery Method 10/28/24 20:30 Temperature Pulse Rate 108 H Respiratory Rate 16 Blood Pressure Pulse Oximetry 98 Oxygen Delivery Method <Dave Gonzalez DO - Last Filed: 10/28/24 20:38> Orders Ordered: Acetaminophen (Acetaminophen 325 Mg Tablet) 650 mg PO Q6H PRN PRN Reason: Fever/Mild Pain (1-3) Hydrocodone Bitart/Acetaminophen (Hydrocodone/Acet 5/325 Tablet) 1 tab PO Q4H PRN PRN Reason: Pain, Moderate (4-6) Sodium Chloride (Normal Saline 0.9%) 1,000 mls @ 100 mls/hr IV CONT BLAS Last Admin: 10/28/24 22:44 Dose: 100 mls/hr Documented By: MM Ceftriaxone Sodium 1,000 mg/ (Sodium Chloride) 100 mls @ 200 mls/hr IV DAILY BLAS Vancomycin HCl 1,000 mg/ (Sodium Chloride) 250 mls @ 125 mls/hr IV Q12H REPLACED BY [facility] Last Admin: 10/29/24 06:05 Dose: 125 mls/hr Documented By: JAMIL Dextrose (D10w) 100 mls @ 999 mls/hr IV PRN PRN PRN Reason: Hypoglycemia Influenza Virus Vaccine (Influenza Vaccine Qiv 0.5 Ml Syringe) 0.5 ml IM .ONCE ONE Stop: 10/30/24 09:01 Insulin Glargine (Insulin Glargine 100 Unit/Ml 3ml Pen) 40 unit SUBCUT DAILY REPLACED BY [facility] Insulin Human Lispro (Insulin Lispro 100 Unit/Ml 3ml Vial) 0 unit SUBCUT Q6H REPLACED BY [facility]; Protocol Last Admin: 10/29/24 06:25 Dose: Not Given Documented By: Admin: 10/29/24 00:49 Dose: 7 unit Documented By: JAMIL Co-signed By: RAJAN Naloxone HCl (Naloxone 0.4 Mg/Ml Vial) 0.2 mg IV Q2MIN PRN PRN Reason: Opiate Reversal Ondansetron HCl (Ondansetron 4 Mg/2 Ml Inj) 4 mg IV Q8HR PRN PRN Reason: Nausea And Vomiting Vancomycin HCl (Vancomycin Per Pharmacy) 1 request MISC NOW PRN PRN Reason: cellulitis and abscess Discontinued Medications Sodium Chloride (Normal Saline 0.9%) 1,000 mls @ 1,000 mls/hr IV BOLUS ONE Stop: 10/28/24 16:33 Last Infusion: 10/28/24 17:43 Dose: Infused Documented By: Admin: 10/28/24 16:43 Dose: 1,000 mls/hr Documented By: ALDAIR Ceftriaxone Sodium 1,000 mg/ (Sodium Chloride) 100 mls @ 200 mls/hr IV NOW ONE Stop: 10/28/24 17:30 Last Infusion: 10/28/24 18:30 Dose: Infused Documented By: Admin: 10/28/24 17:50 Dose: 200 mls/hr Documented By: HALEY Vancomycin HCl/Dextrose (Vancomycin) 1,500 mg in 300 mls @ 200 mls/hr IV NOW ONE Stop: 10/28/24 18:58 Last Infusion: 10/28/24 20:03 Dose: Infused Documented By: Admin: 10/28/24 18:30 Dose: 200 mls/hr Documented By: HALEY Lactated Ringer's (Lactated Ringers) 1,000 mls @ 1,000 mls/hr IV BOLUS ONE Stop: 10/28/24 18:48 Last Infusion: 10/28/24 19:12 Dose: Infused Documented By: Admin: 10/28/24 17:53 Dose: 1,000 mls/hr Documented By: HALEY Insulin Glargine (Insulin Glargine 100 Unit/Ml 3ml Pen) 40 unit SUBCUT NOW ONE Stop: 10/28/24 20:50 Last Admin: 10/28/24 22:44 Dose: 40 unit Documented By: JAMIL Co-signed By: RAJAN Insulin Human Regular (Insulin Regular 100 Unit/Ml 3 Ml Vial) 10 unit IV NOW ONE Stop: 10/28/24 17:47 Last Admin: 10/28/24 17:51 Dose: 10 unit Documented By: HALEY Co-signed By: MAGALI Ondansetron HCl (Ondansetron 4 Mg/2 Ml Inj) 4 mg IV NOW PRN PRN Reason: Nausea And Vomiting Ondansetron HCl (Ondansetron 4 Mg Odt) 4 mg SL NOW PRN PRN Reason: Nausea And Vomiting Vital Signs Vital signs: Vital Signs - 8 hr 10/28/24 14:54 10/28/24 16:15 10/28/24 16:30 Temperature 97.9 F Pulse Rate 113 H 110 H 114 H Respiratory Rate 16 15 17 Blood Pressure 148/83 H Pulse Oximetry 99 97 97 Oxygen Delivery Method Room Air 10/28/24 17:00 10/28/24 17:30 10/28/24 17:45 Temperature Pulse Rate 117 H 118 H 118 H Respiratory Rate 13 14 14 Blood Pressure Pulse Oximetry 99 97 97 Oxygen Delivery Method 10/28/24 17:45 10/28/24 18:07 10/28/24 18:07 Temperature Pulse Rate 122 H Respiratory Rate 18 Blood Pressure 128/68 138/75 Pulse Oximetry 98 Oxygen Delivery Method 10/28/24 18:30 10/28/24 18:30 10/28/24 19:00 Temperature Pulse Rate 120 H 112 H Respiratory Rate 14 17 Blood Pressure 153/90 H Pulse Oximetry 97 97 Oxygen Delivery Method Room Air 10/28/24 19:00 10/28/24 19:30 10/28/24 19:30 Temperature Pulse Rate 108 H Respiratory Rate 13 Blood Pressure 142/85 H 151/88 H Pulse Oximetry 98 Oxygen Delivery Method 10/28/24 20:00 10/28/24 20:00 10/28/24 20:30 Temperature Pulse Rate 109 H Respiratory Rate 13 Blood Pressure 174/106 H 145/82 H Pulse Oximetry 98 Oxygen Delivery Method 10/28/24 20:30 Temperature Pulse Rate 108 H Respiratory Rate 16 Blood Pressure Pulse Oximetry 98 Oxygen Delivery Method MDM - Skin/Abscess/Foreign Bdy <Portia Lowemelissa, DO - Last Filed: 10/29/24 07:42> Lab Data 10/29/24 05:50 10/29/24 05:50 Labs: Lab Results 10/28/24 10/28/24 10/28/24 Range/Units 15:41 15:45 16:44 WBC 11.3 H (4.5-11.0) X10^3/uL RBC 4.42 L (4.5-5.9) X10^6/uL Hgb 13.5 (13.5-17.5) g/dL Hct 39.3 L (41-53) % MCV 89.1 (80-100) fL MCH 30.6 (26-34) PG MCHC 34.4 (30-36) % RDW 13.6 (11.6-14.8) % Plt Count 261 (150-400) X10^3/uL Neut % (Auto) 78.5 H (50-75) % Lymph % (Auto) 13.1 L (25-40) % [place] % (Auto) 6.8 (3-14) % Eos % (Auto) 0.9 L (2-4) % Baso % (Auto) 0.7 (0-2) % Neut # (Auto) 8800 H (4382-3307) /uL Lymph # (Auto) 1500 (7943-0025) /uL [place]iken # (Auto) 800 (0-900) /uL Eos # (Auto) 100 (0-450) /uL Baso # (Auto) 100 (0-100) /uL PT 10.3 (9.4-12.5) SECONDS INR 0.9 (0.9-1.3) APTT 36 (25.1-36.5) SECONDS VBG pH 7.35 (7.33-7.43) VBG pCO2 42.6 L (45-50) mmHg VBG pO2 41 (35-45) mmHg VBG HCO3 23 L (24-28) mmol/L VBG Total CO2 23 L (24-29) mmol/L VBG O2 Saturation 74 (70-75) % VBG Base Excess -2.5 L (0-4) mmol/L Sodium 129 L (137-145) mmol/L Potassium 4.2 (3.4-5.1) mmol/L Chloride 95 L (98-107) mmol/L Carbon Dioxide 21 L (22-32) mmol/L BUN 25 H (9-20) mg/dL Creatinine 0.85 (0.66-1.25) mg/dL Estimated GFR > 60 (>60) mL/min BUN/Creatinine Ratio 29.4 H (6-22) Glucose 424 H (70-100) mg/dL Lactate 1.7 (0.7-2.1) mmol/L Calcium 9.7 (8.4-10.2) mg/dL Total Bilirubin 1.0 (0.2-1.3) mg/dL AST 33 (17-59) IU/L ALT 40 (<50) IU/L Alkaline Phosphatase 164 H (38-126) U/L Total Protein 6.4 (6.3-8.2) g/dL Albumin 3.7 (3.5-5.0) g/dL Globulin 2.7 (1.7-4.1) g/dL Albumin/Globulin Ratio 1.4 (1.0-2.8) Lipase 25 (23-300) U/L Procalcitonin 0.493 (<0.5) ng/mL Urine RBC 0-1/hpf (0-5/HPF) Urine WBC 0-1/hpf (0-5/HPF) Ur Squamous Epith Cells 0-1 /hpf (0-5/HPF) Urine Bacteria Occasional (0-1) (None) Ur Culture Indicated? Cult not indicated Vol Urine Centrifuged 10ml (spun) Ketones 4.74 H (<0.27) mmol/L Point of Care Testing Glucose POC 348 Urine Dip Bedside Urine Glucose 1000 mg/dl Bedside Urine Bilirubin - Negative Bedside Urine Ketone +++ 80 Urine Specific [place] 1.015 Bedside Urine Occult Blood - Negative Bedside Urine pH 6.0 Bedside Urine Protein +/- 15 Bedside Urine Urobilinogen - Negative Bedside Urine Nitrite - Negative Bedside Urine Leukocytes - Negative Esterase ECG Data Attestation: I personally reviewed and interpreted this ECG as follows: Interpretation: Sinus tachycardia, left ventricular fascicular block rate of 112, [place] 138 QRS of 92 QTC of 466, no acute ST changes. MDM Narrative Medical decision making narrative: 48-year-old male presents with a complaint of elevated sugars and hyperglycemia states he was ran out of his Lantus recently also notes they has a wound that is opened up at the distal end of his BKA has happened in the past has had an I and D several years ago here at [facility]. Was recently admitted in September of 2024 for DKA. Patient is afebrile but tachycardic here in the department without any improvement after a L of fluids. Labs show white count 11, hemoglobin of 13 platelets of 261, coags are negative, I sodium is 129 but corrected for hyperglycemia is 134, potassium is 4.2 chloride 95 bicarb is 21 with a BUN 25 creatinine 0.85 glucose is 424, anion gap is 13. Patient's lactate 1.7 LFTs are otherwise appropriate alk-phos is 164. Procalcitonin is 0.493. Urine micro shows ketones, glucose, protein no nitrates or leuks. Point of care urine shows 1 red cell 1 white cell 1 squamous occasional bacteria. Ketones are 4.74. Blood cultures are pending. Wound culture was sent for the wound on his distal left lower extremity. Chest x-ray shows no acute change. VBG shows a pH of 7.35 pCO2 of 42 PO2 of 41 bicarb of 23. Tib/Fib xray, possible subcutaneous emphysema posterior stump without radiographic evidence of osteomyelitis. Patient received a 1L of fluids minimal change to his heart rate. Patient is started on broad-spectrum antibiotics does not appear to have a wound with some surrounding cellulitis is tachycardic and hyperglycemic white count 11. Spoke with Dr. Kay. Patient is hyperglycemic, tachycardic, does not appear to be in DKA. Does appear to have a developing infection with open wound and cellulitis surrounding. Discussed if no abscess would would attempt potential oral antibiotics as outpatient if patient has hyperglycemia tachycardia improved. Discussed patient has been persistently tachycardic suspect some of this is from dehydration and hyperglycemia. Patient was not in DKA. If abscess present would consult with General surgery to make sure they are willing to follow up with the patient. Patient signed out to Dr. Gonzalez while awaiting CT imaging. 1800: Patient was signed out to me by Dr. Maharaj, patient with a history of noncompliant insulin-dependent diabetes, presenting for possible infection to left [id number] amputation. He states that this has been causing him some issues over the past few days, denies any trauma or falls, he states that in the past he did require an I and D to that area previously. On exam there is a open wound to the distal aspect of the stump, surrounding erythema but no crepitus noted. Patient not in DKA has already received 10 of insulin, 2 L normal saline. He does have a leukocytosis tachycardia meeting sepsis criteria. He has already received vancomycin and Rocephin. Final disposition most likely admission pending CT of the lower extremity for cellulitis versus abscess 1942: Discussed case with general surgeon Dr. Diana, states will see in consult agrees no further interventions, agrees medicine admission, this was instructed/relate to the patient understands and agrees with the admission call placed out to hospitalist for admission The patient's management plan was discussed Dr. Henderson, who agrees to admit the patient to their service and assumes care of this patient at this time. Full admission orders will be placed by the primary team. <Dave Gonzalez, DO - Last Filed: 10/28/24 20:38> Lab Data Labs: Lab Results 10/28/24 10/28/24 10/28/24 Range/Units 15:41 15:45 16:44 WBC 11.3 H (4.5-11.0) X10^3/uL RBC 4.42 L (4.5-5.9) X10^6/uL Hgb 13.5 (13.5-17.5) g/dL Hct 39.3 L (41-53) % MCV 89.1 (80-100) fL MCH 30.6 (26-34) PG MCHC 34.4 (30-36) % RDW 13.6 (11.6-14.8) % Plt Count 261 (150-400) X10^3/uL Neut % (Auto) 78.5 H (50-75) % Lymph % (Auto) 13.1 L (25-40) % Aiken % (Auto) 6.8 (3-14) % Eos % (Auto) 0.9 L (2-4) % Baso % (Auto) 0.7 (0-2) % Neut # (Auto) 8800 H (1494-6971) /uL Lymph # (Auto) 1500 (6048-0615) /uL Aiken # (Auto) 800 (0-900) /uL Eos # (Auto) 100 (0-450) /uL Baso # (Auto) 100 (0-100) /uL PT 10.3 (9.4-12.5) SECONDS INR 0.9 (0.9-1.3) APTT 36 (25.1-36.5) SECONDS VBG pH 7.35 (7.33-7.43) VBG pCO2 42.6 L (45-50) mmHg VBG pO2 41 (35-45) mmHg VBG HCO3 23 L (24-28) mmol/L VBG Total CO2 23 L (24-29) mmol/L VBG O2 Saturation 74 (70-75) % VBG Base Excess -2.5 L (0-4) mmol/L Sodium 129 L (137-145) mmol/L Potassium 4.2 (3.4-5.1) mmol/L Chloride 95 L (98-107) mmol/L Carbon Dioxide 21 L (22-32) mmol/L BUN 25 H (9-20) mg/dL Creatinine 0.85 (0.66-1.25) mg/dL Estimated GFR > 60 (>60) mL/min BUN/Creatinine Ratio 29.4 H (6-22) Glucose 424 H (70-100) mg/dL Lactate 1.7 (0.7-2.1) mmol/L Calcium 9.7 (8.4-10.2) mg/dL Total Bilirubin 1.0 (0.2-1.3) mg/dL AST 33 (17-59) IU/L ALT 40 (<50) IU/L Alkaline Phosphatase 164 H (38-126) U/L Total Protein 6.4 (6.3-8.2) g/dL Albumin 3.7 (3.5-5.0) g/dL Globulin 2.7 (1.7-4.1) g/dL Albumin/Globulin Ratio 1.4 (1.0-2.8) Lipase 25 (23-300) U/L Procalcitonin 0.493 (<0.5) ng/mL Urine RBC 0-1/hpf (0-5/HPF) Urine WBC 0-1/hpf (0-5/HPF) Ur Squamous Epith Cells 0-1 /hpf (0-5/HPF) Urine Bacteria Occasional (0-1) (None) Ur Culture Indicated? Cult not indicated Vol Urine Centrifuged 10ml (spun) Ketones 4.74 H (<0.27) mmol/L Point of Care Testing Glucose POC 348 Urine Dip Bedside Urine Glucose 1000 mg/dl Bedside Urine Bilirubin - Negative Bedside Urine Ketone +++ 80 Urine Specific [place] 1.015 Bedside Urine Occult Blood - Negative Bedside Urine pH 6.0 Bedside Urine Protein +/- 15 Bedside Urine Urobilinogen - Negative Bedside Urine Nitrite - Negative Bedside Urine Leukocytes - Negative Esterase Imaging Data CT lower extremity: Radiologist's Impression: [address] [address] [address] Scan Report Signed Patient: Daniel Zapata MR#: [id number] : 1975 Acct:[id number] Age/Sex: 48 / M Date of Service: 10/28/24 Loc: ED Accession Number: [id number] Procedure: CT LE LT w con Ordering Provider: Portia Maharaj D.O. PROCEDURE: CT LE LT W CON INDICATIONS: eval for abscess, cellulitis wound distal BKA stump TECHNIQUE: After the administration of intravenous contrast, 3 mm axial sections acquired of the left knee , with coronal and sagittal reformats. For radiation dose reduction, the following was used: automated exposure control, adjustment of mA and/or kV according to patient size. COMPARISON: [facility], CR, XR TIBIA FIBULA LT 2V, 10/28/2024, 17:27. FINDINGS: Image quality: Excellent. Bones: No acute fracture or dislocation. Status post below-knee amputation to the level of the proximal tibial and fibular diaphyses. Developing pseudoarthrosis at the tibial and fibular stumps (). No periosteal reaction, osseous erosions, or focal osteopenia. Joints: No significant knee joint effusion. Medial and lateral compartment chondrocalcinosis. Muscles: Mild fatty replacement of the calf musculature. Tendons: The quadriceps and patellar tendon contours are preserved. Vessels: The visualized arterial vasculature is patent. Mild atherosclerosis. Multiple superficial varicose veins. Lymph nodes: No popliteal lymphadenopathy. Other soft tissues: Hypodense 1.9 x 2.4 x 1.6 cm fluid collection at the base of the stump along with small foci of gas (6/81; 5/386). Diffuse subcutaneous edema of the calf. IMPRESSION: 1. Small 2.4 cm phlegmon versus abscess at the base of the stump, with likely cellulitis. 2. No CT evidence of osteomyelitis or intramuscular emphysema. Extremity x-ray #1: Radiologist's Impression: [address] [address] XRay Report Signed Patient: Daniel Zapata MR#: [id number] : 1975 Acct:[id number] Age/Sex: 48 / M Date of Service: 10/28/24 Loc: ED Accession Number: [id number] Procedure: XR tibia fibula LT 2V Ordering Provider: Portia Maharaj D.O. PROCEDURE: XR TIBIA FIBULA LT 2V INDICATIONS: infection of BKA distal end TECHNIQUE: 2 views of the tibia and fibula were acquired. COMPARISON: [facility], CR, XR TIBIA FIBULA LT 2V, 04/16/2024, 10:01. FINDINGS: Status post below-knee amputation with a pseudoarthrosis at the tibial and fibular diaphyseal stumps. No periosteal reaction. No osseous erosions. No focal osteopenia. Possible subcutaneous emphysema along the posterior aspect of the stump. Medial and lateral compartment chondrocalcinosis at the knee. IMPRESSION: Possible subcutaneous emphysema at the posterior stump without radiographic evidence of osteomyelitis. [facility] Narrative Medical decision making narrative: 48-year-old male presents with a complaint of elevated sugars and hyperglycemia states he was ran out of his Lantus recently also notes they has a wound that is opened up at the distal end of his BKA has happened in the past has had an I and D several years ago here at [place]. Was recently admitted in September of 2024 for DKA. Patient is afebrile but tachycardic here in the department without any improvement after a L of fluids. Labs show white count 11, hemoglobin of 13 platelets of 261, coags are negative, I sodium is 129 but corrected for hyperglycemia is 134, potassium is 4.2 chloride 95 bicarb is 21 with a BUN 25 creatinine 0.85 glucose is 424, anion gap is 13. Patient's lactate 1.7 LFTs are otherwise appropriate alk-phos is 164. Procalcitonin is 0.493. Urine micro shows ketones, glucose, protein no nitrates or leuks. Point of care urine shows 1 red cell 1 white cell 1 squamous occasional bacteria. Ketones are 4.74. Blood cultures are pending. Wound culture was sent for the wound on his distal left lower extremity. Chest x-ray shows no acute change. VBG shows a pH of 7.35 pCO2 of 42 PO2 of 41 bicarb of 23. Tib/Fib xray Patient received a L of fluids minimal change to his heart rate. Patient is started on broad-spectrum antibiotics does not appear to have a wound with some surrounding cellulitis is tachycardic and hyperglycemic white count 11. 1800: Patient was signed out to me by Dr. Maharaj, patient with a history of noncompliant insulin-dependent diabetes, presenting for possible infection to left [id number] amputation. He states that this has been causing him some issues over the past few days, denies any trauma or falls, he states that in the past he did require an I and D to that area previously. On exam there is a open wound to the distal aspect of the stump, surrounding erythema but no crepitus noted. Patient not in DKA has already received 10 of insulin, 2 L normal saline. He does have a leukocytosis tachycardia meeting sepsis criteria. He has already received vancomycin and Rocephin. Final disposition most likely admission pending CT of the lower extremity for cellulitis versus abscess 1942: Discussed case with general surgeon Dr. Diana, states will see in consult agrees no further interventions, agrees medicine admission, this was instructed/relate to the patient understands and agrees with the admission call placed out to hospitalist for admission The patient's management plan was discussed Dr. Henderson, who agrees to admit the patient to their service and assumes care of this patient at this time. Full admission orders will be placed by the primary team. Discharge Plan Departure Patient Disposition: Admitted As Inpatient Clinical Impression: Hyperglycemia, Infected wound, Hx of left BKA Admit Date/Time: 10/28/24 21:03 Admit Provider: Alexey Henderson
--- NOTE | 2024-10-28 17:44 | DI.CT.S_ITS ---
PROCEDURE: CT LE LT W CON INDICATIONS: eval for abscess, cellulitis wound distal BKA stump TECHNIQUE: After the administration of intravenous contrast, 3 mm axial sections acquired of the left knee , with coronal and sagittal reformats. For radiation dose reduction, the following was used: automated exposure control, adjustment of mA and/or kV according to patient size. COMPARISON: [facility], CR, XR TIBIA FIBULA LT 2V, 10/28/2024, 17:27. FINDINGS: Image quality: Excellent. Bones: No acute fracture or dislocation. Status post below-knee amputation to the level of the proximal tibial and fibular diaphyses. Developing pseudoarthrosis at the tibial and fibular stumps (). No periosteal reaction, osseous erosions, or focal osteopenia. Joints: No significant knee joint effusion. Medial and lateral compartment chondrocalcinosis. Muscles: Mild fatty replacement of the calf musculature. Tendons: The quadriceps and patellar tendon contours are preserved. Vessels: The visualized arterial vasculature is patent. Mild atherosclerosis. Multiple superficial varicose veins. Lymph nodes: No popliteal lymphadenopathy. Other soft tissues: Hypodense 1.9 x 2.4 x 1.6 cm fluid collection at the base of the stump along with small foci of gas (6/81; 5/386). Diffuse subcutaneous edema of the calf. IMPRESSION: 1. Small 2.4 cm phlegmon versus abscess at the base of the stump, with likely cellulitis. 2. No CT evidence of osteomyelitis or intramuscular emphysema. Dictated by: Jamal Baxter M.D. on 10/28/2024 at 18:27 Approved by: Jamal Baxter M.D. on 10/28/2024 at 18:33
[2024-10-28] MEDS: cefTRIAXone 1,000 MG in SODIUM CHLORIDE 0.9% 100 ML 200 MG IV (17:50)
[2024-10-28] MEDS: INSULIN REGULAR 100 UNIT/ML 3 ML VIAL 10 UNIT IV (17:51)
[2024-10-28] MEDS: LACTATED RINGERS 1,000 ML 1000 ML IV (17:53)
[2024-10-28] MEDS: VANCOMYCIN 1,500 MG/300 ML PIGGYBACK 200 MG IV (18:30)
[2024-10-28] MEDS: SODIUM CHLORIDE 0.9% 1,000 ML 100 ML IV (22:44)
[2024-10-28] MEDS: INSULIN GLARGINE 100 UNIT/ML 3ML PEN 40 UNIT SUBCUT (22:44)
[2024-10-29] VITALS: BP 141/86; PULSE 106; RESP 16; TEMP 37.2; O2SAT 97
[2024-10-29] MEDS: INSULIN LISPRO 100 UNIT/ML 3ML VIAL SUBCUT ×3 (00:49→20:47)
--- NOTE | 2024-10-29 02:43 | PM.HP.1 ---
History of Present Illness History of Present Illness Chief complaint: Infection below knee amputation site Narrative: 48-year-old male with past medical history of insulin-dependent diabetes, left BKA, and hypertension presents with concern for cellulitis. Per the patient's report, about 2 days ago, the patient started to notice increased redness and swelling below his left knee amputation site. The patient denies any known injury directly to this area. The patient also states that he ran out of his Lantus about 2 weeks ago as well as his lisinopril. The patient does notice that his glucose was elevated at home. Otherwise the patient denies any recent fever, chills, nausea, vomiting, diarrhea or chest pain. In the emergency room, the patient was hemodynamically stable without signs of sepsis. Blood close however was in the 400s. CT scan of the left lower leg shows sign of cellulitis as well as small 2.4 cm phlegmon versus abscess at the base of the stump. General surgery was consulted and recommended that we admit the patient for IV antibiotic and general surgeon will consult in the morning. The patient was given IV fluid, IV vancomycin, IV ceftriaxone and 10 units subcu insulin. Recheck glucose was in the 300s. Of note the patient has no clear sign of DKA at this point. [facility] Medical History (Updated 10/28/24 @ 17:48 by Portia Maharaj DO) Type 1 diabetes mellitus Surgical History (Updated 10/28/24 @ 17:49 by Portia Maharaj DO) Hx of BKA Social History household members: none Smoking Status: Former smoker alcohol intake: never Meds Home Medications and Allergies Home Medications Medication Instructions Recorded Confirmed Type insulin aspart U-100 100 unit/mL See Rx Instructions .Route .COMPLEX 04/03/18 10/28/24 History (3 mL) subcutaneous pen (Novolog FlexPen U-100 Insulin aspart) insulin glargine 100 unit/mL (3 39 unit SUBCUT DAILY 07/30/19 10/28/24 History mL) subcutaneous pen (Basaglar KwikPen U-100 Insulin) methylphenidate HCl 36 mg 72 mg PO DAILY 07/30/19 10/28/24 History tablet,extended release 24 hr Allergies Allergy/AdvReac Type Severity Reaction Status Date / Time promethazine AdvReac Unknown GET LOOPY Verified 04/16/24 08:40 Review of Systems Review of Systems Narrative: 12 points of ROS are negative except for what was mentioned per HPI. ROS: Yes All systems reviewed with the patient and are negative except as otherwise documented Exam Vital Signs (past 8 hours): - 10/28/24 19:00 10/28/24 19:00 10/28/24 19:30 Temperature Pulse Rate 112 H 108 H Respiratory Rate 17 13 Blood Pressure 142/85 H Pulse Oximetry 97 98 Oxygen Delivery Method Room Air Oxygen Flow Rate 10/28/24 19:30 10/28/24 20:00 10/28/24 20:00 Temperature Pulse Rate 109 H Respiratory Rate 13 Blood Pressure 151/88 H 174/106 H Pulse Oximetry 98 Oxygen Delivery Method Oxygen Flow Rate 10/28/24 20:30 10/28/24 20:30 10/28/24 21:00 Temperature Pulse Rate 108 H Respiratory Rate 16 Blood Pressure 145/82 H 137/77 Pulse Oximetry 98 Oxygen Delivery Method Oxygen Flow Rate 10/28/24 21:00 10/28/24 21:45 10/29/24 00:00 Temperature 98.9 F 99.0 F Pulse Rate 112 H 111 H 106 H Respiratory Rate 19 16 16 Blood Pressure 119/73 141/86 H Pulse Oximetry 98 97 97 Oxygen Delivery Method Room Air Oxygen Flow Rate 0 0 Oxygen Delivery Method Room Air Oxygen Flow Rate 0 Narrative Exam Narrative: Physical Exam: GENERAL: The patient is not in any acute distressed. Awake and alert. HEENT: Nonicteric sclerae, PERRLA, EOMI. Oropharynx clear. Moist mucous membranes. Conjunctivae appear well perfused. HEART: Regular rate and rhythm without murmurs. No lower extremities edema. LUNGS: Clear to auscultation bilaterally. No wheezing, crackles or rhonchi ABDOMEN: Soft, positive bowel sounds, nontender. SKIN: Left stumb BKA shows redness some swelling and open wound. No rash, no excessive bruising, petechiae, or purpura. NEUROLOGIC: AxO x 3. Cranial nerves II-XII intact without motor/sensory deficit. Objective Labs 10/28/24 15:41 10/28/24 15:41 Labs: Laboratory Results - last 24 hr 10/28/24 10/28/24 10/28/24 15:41 15:45 16:44 WBC 11.3 H RBC 4.42 L Hgb 13.5 Hct 39.3 L MCV 89.1 MCH 30.6 MCHC 34.4 RDW 13.6 Plt Count 261 Neut % (Auto) 78.5 H Lymph % (Auto) 13.1 L Starr % (Auto) 6.8 Eos % (Auto) 0.9 L Baso % (Auto) 0.7 Neut # (Auto) 8800 H Lymph # (Auto) 1500 Starr # (Auto) 800 Eos # (Auto) 100 Baso # (Auto) 100 PT 10.3 INR 0.9 APTT 36 VBG pH 7.35 VBG pCO2 42.6 L VBG pO2 41 VBG HCO3 23 L VBG Total CO2 23 L VBG O2 Saturation 74 VBG Base Excess -2.5 L Sodium 129 L Potassium 4.2 Chloride 95 L Carbon Dioxide 21 L BUN 25 H Creatinine 0.85 Estimated GFR > 60 BUN/Creatinine Ratio 29.4 H Glucose 424 H Lactate 1.7 Calcium 9.7 Total Bilirubin 1.0 AST 33 ALT 40 Alkaline Phosphatase 164 H Total Protein 6.4 Albumin 3.7 Globulin 2.7 Albumin/Globulin Ratio 1.4 Lipase 25 Procalcitonin 0.493 Urine RBC 0-1/hpf Urine WBC 0-1/hpf Ur Squamous Epith Cells 0-1 /hpf Urine Bacteria Occasional (0-1) Ur Culture Indicated? Cult not indicated Vol Urine Centrifuged 10ml (spun) Ketones 4.74 H Assessment & Plan Assessment & Plan narrative: Left stump below BKA cellulitis and possible abscess. Admit the patient to medical inpatient. Of note the patient not septic at this time.General surgery was consulted and recommended that we admit the patient for IV antibiotic and general surgeon will consult in the morning. Continue IV vancomycin and ceftriaxone. N.p.o. for possible I&D tomorrow. Hyperglycemia with history of insulin-dependent diabetes. Patient glucose initially 400s with repeat in the 300s after 10 units of subcu insulin and 2 L of IV fluid. Continue IV fluid. Continue to monitor glucose closely. Start Lantus 40 units now and daily. Will place patient on sliding scale. Dehydration. IV fluid. Hypertension. Monitor blood pressure and resume home medication accordingly. Medical noncompliance. Of note patient has ran out of his Lantus and also has blood pressure medication over 2 weeks now. Will have oncology social worker in the morning to see the patient and assists the patient with getting his prescribed medication prior to discharge home. DVT prophylaxis SCDs for now due to possible I&D in the morning. CODE STATUS full code. Disposition likely home in 2 to 3 days. - As the provider of this telehealth evaluation, requested by the patient's evaluating physician, I attest that I introduced myself to the patient, provided my credentials and determined that telemedicine via a real-time, 2 way interactive audio and video platform is an appropriate and effective means of providing this service. - I reviewed the patient's chart and had a discussion with the member of the patient's treatment team. - The patient and I mutually agreed with continuation of this evaluation via telemedicine. The patient consented for the telemedicine evaluation. - This virtual encounter was taken place from [place]. The encounter was approximately 35 minutes. The nurse was present during the entire time of the encounter and was able to move the stethoscope in appropriate directions. The patient was evaluated at [facility]. Time-Based Coding :: [TOTAL MINUTES] spent with patient and on the chart (including review of chart, obtaining history, exam, reviewing outside data, placing orders, documenting exam and treatment plan, and counseling patient) on [DATE]. Quality VTE Deep Vein Thrombosis/Pulmonary Embolism Present on Admission: No
[2024-10-29 04:00] VITALS: BP 167/101; PULSE 98; RESP 12; TEMP 36.8; O2SAT 98
--- NOTE | 2024-10-29 05:12 | PC.WOUNDPHOT ---
R inner arm, forearm perpendicular to bed Visible portion of R hand w/ cast present on admission Alternative view of R hand L hand L BKA stump w/ exudate, open area approx 1 cm in diameter, allevyn placed 10/28 Alternate view of L BKA stump L knee L neil, ulceration approx 1.25 cm long x 0.75 wide, allevyn placed 10/28
[2024-10-29] MEDS: VANCOMYCIN 1,000 MG in SODIUM CHLORIDE 0.9% 250 ML 125 MG IV ×2 (06:05→18:36)
[2024-10-29 06:07] LABS: Add Manual Diff / Slide Review NO; Basophils Absolute Auto 100 /uL (0-100); Basophils Percent Auto 1.5 % (0-2); Eosinophils Absolute Auto 300 /uL (0-450); Eosinophils Percent Auto 3.3 % (2-4); Hematocrit 36.7 % (41-53); Hemoglobin 13.3 g/dL (13.5-17.5); Lymphocytes Absolute Auto 2400 /uL (1100-4500); Lymphocytes Percent Auto 26.2 % (25-40); Mean Corpuscular HGB Conc 36.3 % (30-36); Mean Corpuscular Hemoglobin 31.5 PG (26-34); Mean Corpuscular Volume 86.7 fL (80-100); Monocytes Absolute Auto 800 /uL (0-900); Monocytes Percent Auto 8.8 % (3-14); Neutrophils Absolute Auto 5500 /uL (1500-7000); Neutrophils Percent Auto 60.2 % (50-75); Platelet Count 254 X10^3/uL (150-400); Red Blood Cell Count 4.24 X10^6/uL (4.5-5.9); Red Cell Distribution Width 14.1 % (11.6-14.8); White Blood Cell Count 9.1 X10^3/uL (4.5-11.0)
[2024-10-29 06:19] LABS: Blood Urea Nitrogen 17 mg/dL (9-20); Calcium 8.5 mg/dL (8.4-10.2); Carbon Dioxide 25 mmol/L (22-32); Chloride 106 mmol/L (98-107); Estimated Glomerular Filt Rate > 60 mL/min (>60); Glucose 93 mg/dL (70-100); HEMOLYSIS < 15 (0-50); Potassium 3.2 mmol/L (3.4-5.1); Sodium 136 mmol/L (137-145)
[2024-10-29 08:00] VITALS: BP 160/96; PULSE 95; RESP 15; TEMP 36.6; O2SAT 99
[2024-10-29] MEDS: POTASSIUM CHLORIDE IN WATER 10 MEQ/100 ML PIGGYBACK 100 MEQ IV (08:08)
[2024-10-29] MEDS: INSULIN GLARGINE 100 UNIT/ML 3ML PEN 40 UNIT SUBCUT (09:22)
[2024-10-29] MEDS: cefTRIAXone 1,000 MG in SODIUM CHLORIDE 0.9% 100 ML 200 MG IV (09:23)
--- NOTE | 2024-10-29 10:00 | PT.IIE ---
Surgical History (Last Reviewed 10/06/24 @ 18:23 by Trent Guo MD) Hx of BKA Medical History (Last Reviewed 10/06/24 @ 18:23 by Trent Guo MD) Type 1 diabetes mellitus Physical Therapy Inpatient Evaluation/Re-Eval M1 PT/OT-IP Prior Functional Status Start: 10/29/24 12:15 Freq: NEEDED Status: Active Protocol: Document 10/29/24 10:00 AB (Rec: 10/29/24 12:36 AB [id number]) Medical Review Prior Functional Status Medical History Reviewed Yes Communication able to make needs known Mobility and Gait pt stated that he was modified independent with all mobilities and ambulation using his prosthesis; pt has an Iwalk knee crutch that he occasionally uses Social History Household Members none Living Arrangements Mobile home Number of Floors (Floors) One Floor Number of Stairs To Enter/Railing? 5 steps B rails to enter Home Environment Standard Height Toilet,Walk in Shower Home Equipment Crutches,Manual Wheelchair, Shower Seat without Backrest, Hand Held Shower,Grab Bars In Shower M1 PT/OT-IP Prior Functional Status Start: 10/29/24 12:16 Freq: NEEDED Status: Active Protocol: Document 10/29/24 12:17 [facility] (Rec: 10/29/24 12:36 [facility] Desktop) Medical Review Prior Functional Status Communication I Mobility and Gait Pt states uses free knee crutch to walk longer distance and in the trailer able to hop on his RLE. Activities of Daily Living and IADL's Pt is independent for needs. Pt's mom drive him to appointments. Prior Functional Level (Other details) Pt;s right hand 4th and 5th digit fx and in a cast, per pt to be taken off in a week. Social History Household Members none Living Arrangements Mobile home Number of Floors (Floors) One Floor Number of Stairs To Enter/Railing? 4-5 steps with bilateral rails . Home Environment Standard Height Toilet,Walk in Shower Home Equipment Crutches,Manual Wheelchair, Shower Seat without Backrest, Hand Held Shower,Grab Bars In Shower Additional Social History Comment Pt has free knee crutch M2 PT-IP Current Condition Start: 10/29/24 12:15 Freq: NEEDED Status: Active Protocol: Document 10/29/24 10:00 AB (Rec: 10/29/24 12:36 [id number]) Physical Therapy Current Condition Current Condition Evaluation Date 10/29/24 Treatment Diagnosis L BKA stump cellulitis; difficulty in walking Onset Date 10/28/24 M3 PT-IP Subjective Start: 10/29/24 12:15 Freq: NEEDED Status: Active Protocol: Document 10/29/24 10:00 AB (Rec: 10/29/24 12:36 [id number]) Subjective Physical Therapy Visit Type Type Initial Evaluation Visit Start Time 10:00 Visit Stop Time 10:36 Number of INSTITUTION DIRECTOR Visits 0 Physical Therapy Visit Comments Patient Comments agreeable to do PT; stated that he is hungry Therapy Pain Assessment Pain When Pain Assessed At Rest Pain Present Pain Present Pain Reported Location left BKA Intensity 4 Scale Used Numeric (0 - 10) Pain Management Techniques Modification of Treatment, Timing of Activity with Medications M4 PT-IP Mobility and Gait Start: 10/29/24 12:15 Freq: NEEDED Status: Active Protocol: Document 10/29/24 10:00 AB (Rec: 10/29/24 12:36 [id number]) PT-Bed Mobility Assessment Supine to Sit Supine to Sit Independent Sit to Supine Sit to Supine Independent PT-Transfer Assessment Sit to and From Stand Sit to and from Stand Standby Assistance,Minimal Assistance,1 Person Assistance ,Use of Upper Extremities Equipment Transfer Assistive Device Gait Belt Orthotic/Prosthetic Devices or Brace: No Transfers Transfer Destination Chair Transfer Technique ambulated Transfer Ability Level of Assist Standby Assistance Comments Mobility Comments pt in bed and was initially sleepy. agreed to do PT. obtained PLOF and home set up. pt has his Iwalk knee crutch in room that he occasionally uses but usually uses his LBKA prosthesis. pt currently has L stump cellulitis. Used Iwalk crutch for now due to L stump cellulitis. BP supine: 145/85 pt is independent with bed mobility. pt can be impulsive and stated that he is moving around ok. got up without prosthesis or crutch and has initial LOB requiring min A. pt sat back on EOB. pao iwalk crutch. sit to stand sBA and ambulated in room ~ 25 ft SBA using iwalk knee crutch. pt able to stand by the sink SBA to do ADLs. pt ambulated to chair sBA. agreed to do steps. completed up/down step stool using 1 rail SBA. pt ambulated to the chair SBA. c/o dizziness. BP: 105/67. pt wants to go back to bed. SBA with step transfer to bed with iwalk crutch. mod I with sit to supine. positioned pt in bed. call light and table placed within reach. Gait Assessment Gait Gait Assistance Required: Independent Distance (Feet) 25 Able to Maintain Weight Bearing Status Yes During Gait Assistive Devices Assistive Device Gait Belt Orthotic/Prosthetic Devices or Brace: No Gait Deviations General Gait Pattern Decreased Stride Length, Decreased Feet Clearance Factors Limiting Gait Function Factors Limiting Gait Function Decreased Activity Tolerance, Decreased Strength,Limited Range of Motion,Pain,Poor Balance,Poor Safety Awareness PT-Balance Assessment Sitting Balance and Reactions Static Sitting Balance Ability Normal Dynamic Sitting Balance Ability Normal Standing Balance and Reactions Static Standing Balance Ability Good Dynamic Standing Balance Ability Fair Device Used iwalk knee crutch M5 PT-IP Objective Assessments Start: 10/29/24 12:15 Freq: NEEDED Status: Active Protocol: Document 10/29/24 10:00 AB (Rec: 10/29/24 12:36 AB [id number]) Orientation Orientation/Cognition Level of Alertness Alert Orientation Name,Place,Situation Language Function Ability No Deficits Noted Safety Awareness Decreased Safety Awareness Memory Description No Deficits Noted Gross Range of Motion Lower Extremity ROM Assessment Within Functional Limits Strength Lower Extremity Strength Assessment Within Functional Limits Muscle Tone Muscle Tone WNL Yes M6 PT-IP Treatment Start: 10/29/24 12:15 Freq: NEEDED Status: Active Protocol: Document 10/29/24 10:00 AB (Rec: 10/29/24 12:36 AB [id number]) Physical Therapy Treatment Education Education Provided Safety M7 PT-IP Assessment and Plan Start: 10/29/24 12:15 Freq: NEEDED Status: Active Protocol: Document 10/29/24 10:00 AB (Rec: 10/29/24 12:36 AB [id number]) PT Summary Assessment and Plan Potential Rehabilitation Potential Fair Status of Condition at Evaluation Evolving Summary Impairments Pain,ROM,Strength,Balance, Coordination,Sensation, Cognition,Bed Mobility, Transfers,Gait,Activity Tolerance Assessment Summary pt is a 48 y/o M who is admitted for L BKA stump cellulitis. pt also has R hand /wrist cast for 4th and 5th finger fx and present from last hospitalization: 10/06/24. pt is modified independent with bed mobility and SBA for transfers, ambulation and stair climbing using his Iwalk knee crutch on LLE. Pt need SBA for safety but otherwise is at PLOF. due to current L BKA stump cellulitis, informed pt to use iwalk knee crutch unless cleared by the doctor that he can use his prosthesis . No further PT intervention needed at this time. Frequency of Treatment Frequency Of Treatment Discharge Treatment Plan Physical Therapy Treatment Plan Bed Mobility Training,Transfer Training,Gait Training, Therapeutic Exercise,Balance Retraining,Discharge Planning, Neuromuscular Re-ed, Coordination Retraining Precautions Other Precautions contact precaution Recommendations To Nursing Amount of Assist Needed 1 Person Assist Discharge Recommendations PT Discharge Recommendations Home Transportation Needs at Discharge Private Vehicle - PT assist 1
--- NOTE | 2024-10-29 10:07 | OT.IP.EVAL ---
Past Medical History (Last Reviewed 10/06/24 @ 18:23 by Trent Guo MD) Type 1 diabetes mellitus Surgical History (Last Reviewed 10/06/24 @ 18:23 by Trent Guo MD) Hx of BKA Occupational Therapy Inpatient Evaluation/Re-Eval M1 PT/OT-IP Prior Functional Status Start: 10/29/24 12:16 Freq: NEEDED Status: Active Protocol: Document 10/29/24 12:17 [facility] (Rec: 10/29/24 12:36 [facility] Desktop) Medical Review Prior Functional Status Communication I Mobility and Gait Pt states uses free knee crutch to walk longer distance and in the trailer able to hop on his RLE. Activities of Daily Living and IADL's Pt is independent for needs. Pt's mom drives him to appointments. Prior Functional Level (Other details) Pt's right hand 4th and 5th digit fx and in a cast, per pt to be taken off in a week. Social History Household Members none Living Arrangements Mobile home Number of Floors (Floors) One Floor Number of Stairs To Enter/Railing? 4-5 steps with bilateral rails . Home Environment Standard Height Toilet,Walk in Shower Home Equipment Crutches,Manual Wheelchair, Shower Seat without Backrest, Hand Held Shower,Grab Bars In Shower Additional Social History Comment Pt has free knee crutch M2 OT-IP Current Condition Start: 10/29/24 12:16 Freq: Status: Active Protocol: Document 10/29/24 12:17 [facility] (Rec: 10/29/24 12:36 [facility] Desktop) Occupational Therapy Current Condition Current Condition Evaluation Date 10/29/24 Treatment Diagnosis Left [id number] BKA cellulitis Diagnosis Onset Date 10/28/24 Weight Bearing Status Allowed Weight Bearing Amount (enter % NWB to Left stump due to the or #) (%) wound at this time. M3 OT- IP Subjective and Pain Start: 10/29/24 12:16 Freq: Status: Active Protocol: Document 10/29/24 12:17 [facility] (Rec: 10/29/24 12:36 [facility] Desktop) OT- Subjective Occupational Therapy Visit Type Type Initial Evaluation Visit Start Time 10:07 Visit Stop Time 10:34 Occupational Therapy Visit Comments Patient Comments Pt agreed to get up to brush his teeth. Patient/Caregiver Goals TO go home. OT Pain Assessment Pain When Pain Assessed At Rest Pain Present Pain Present Pain Reported Location left BKA Intensity 4 Scale Used Numeric (0 - 10) M4 OT- IP ADL's Start: 10/29/24 12:16 Freq: Status: Active Protocol: Document 10/29/24 12:17 [facility] (Rec: 10/29/24 12:36 [facility] Desktop) OT [id number] General Evaluation Self-Feeding Ability Independent OT ADL-Grooming General Evaluation Grooming Ability Independent Areas Needing Assistance Retrieving/Set-up of Grooming Items Comments OT Grooming Comments Able to do while at the sink. OT ADL-Oral Care General Eval Oral Care Ability Independent OT ADL-Dressing General Eval Lower Body Dressing Ability Minimal Assistance Areas Needing Assistance Orthosis/Prosthesis Comments OT Dressing Comments Assist to help buckle strap for the free knee crutch. OT ADL-Toileting Comments OT Toileting Comments NOt performed. OT ADL-Bathing Comments OT Bathing Comments NOt performed. M5 OT- IP IADL's Start: 10/29/24 12:16 Freq: Status: Active Protocol: Document 10/29/24 12:17 [facility] (Rec: 10/29/24 12:36 [facility] Desktop) OT-Instrumental Activities of Daily Living Home Safety Awareness Awareness of Need for Assistance at Home Good Awareness Ability to Problem Solve Emergency Able to Problem Solve Situations Medication Management Medication Management No Deficits Identified Money Management Money Management No Deficits Identified Meal Preparation Meal Preparation Comments At this time would be best to have some assist as needed. Driving Driving Caregiver Provides Assist M6 OT- IP Functional Cognition Start: 10/29/24 12:16 Freq: Status: Active Protocol: Document 10/29/24 12:17 [facility] (Rec: 10/29/24 12:36 [facility] Desktop) Cognitive Factors Limiting Selfcare Function Cognitive Ability Level of Alertness Alert Patient Orientation Name,Place,Situation Attention Span Ability Capable of Focused Attention Ability to Follow Commands Able to Follow Multi-Step Commands Cognitive Comments Cognitive Assessment Comments Pt able to follow commands for ADL and mobility needs. M7 OT- IP Mobility and Balance Start: 10/29/24 12:16 Freq: Status: Active Protocol: Document 10/29/24 12:17 [facility] (Rec: 10/29/24 12:36 [facility] Desktop) OT- Bed Mobility Assessment Supine to Sit Supine to Sit Assist Independent Sit to Supine Sit to Supine Assist Independent OT-Transfer Assessment Sit to and From Stand Sit to and from Stand Standby Assistance Transfers Transfer Ability Independent Technique Transfer Destination Bed,Chair Transfer Technique Stand Step Pivot Devices Transfer Assistive Devices Gait Belt Comments Mobility Comments Pt able to use free knee crutch with SBA to walk in the room. BP supine 145/85 and dropped to 105/67 after standing. Nursing notified. OT- Balance Assessment Sitting Balance and Reactions Static Sitting Balance Ability Normal Dynamic Sitting Balance Ability Normal Standing Balance and Reactions Static Standing Balance Ability Normal Dynamic Standing Balance Ability Good M8 OT- IP Objective Assessments Start: 10/29/24 12:16 Freq: Status: Active Protocol: Document 10/29/24 12:17 [facility] (Rec: 10/29/24 12:36 [facility] Desktop) OT Gross Range of Motion Upper Extremity Range of Motion ROM Impairments decreased at end ROM OT Strength Comments Strength Comments 4+/5 for most of BUE. M9 OT- IP Assessment and Plan Start: 10/29/24 12:16 Freq: Status: Active Protocol: Document 10/29/24 12:17 [facility] (Rec: 10/29/24 12:36 [facility] Desktop) OT Summary Assessment and Plan Potential Rehabilitation Potential Good Analytic Complexity at Evaluation Low Summary OT Impairments Pain Progress Towards Goals Progressing Toward Goals,Safe For Discharge Assessment Summary Pt here due to cellulitis of stump L BKA. Pt able to get up and use his free knee crutch with initial assist for buckle and strap. Pt distal SBA while in the room and assist to move the IV pole. Pt BP 145/85 supine and walking back to the recliner and sitting BP 105/67 and feeling woozy, nursing notified. Pt states has no OT needs and that his mom will assist for driving needs. Discharge pt for OT services. Frequency of Treatment Frequency Of Treatment Discharge Discharge Recommendations OT Discharge Recommendations Home with Assistance Transportation Needs at Discharge Private Vehicle
--- NOTE | 2024-10-29 10:10 | DIET.CONS ---
Addendum entered by Kimmie Mack 10/29/24 16:05: Attempted visit with pt this afternoon. Initially sleepy, but responded to name, then fell back asleep and didn't wake up when calling out name again. F/u tomorrow. Original Note: Dietary Consultation Note Admission Date: 10/28/2024 21:03 Assessment: 48 y M admitted for infection below knee amputation site. Dietitian consulted for DM and chronic wound. Attempted visit - pt asked to come back later when more awake. Will check back in later today. Pt ran out of [employer]. Per last RD note in Apr 2024, pt reported following endo in [place], has previous considered insulin pump. A1c 8.5% on 10/04/24. Ht: 180.34 cm Wt: 63.5 kg BMI: 19.5 UBW: 67.2 kg on 10/05/24 (-5% weight loss in 1 month, severe), 61.054 kg on 04/16/24 Last BM: 10/27/24 (10/28/24 21:43) MNA: 12 Blue Score: 20 Diet: 10/29/24 00:01 NPO Diet Diet Modifications: NPO Type: NPO after Midnight Labs: RBC 4.24 X10^6/uL (4.5-5.9) L 10/29/24 05:50 Hgb 13.3 g/dL (13.5-17.5) L 10/29/24 05:50 Hct 36.7 % (41-53) L 10/29/24 05:50 Creatinine 0.68 mg/dL (0.66-1.25) 10/29/24 05:50 Lactate 1.7 mmol/L (0.7-2.1) 10/28/24 15:41 Electronically Signed by: Kimmie Mack 10/29/24 10:[address] [address]
[2024-10-29] MEDS: POTASSIUM CHLORIDE 20 MEQ TAB 40 MEQ PO ×2 (10:54→17:07)
[2024-10-29 12:00] VITALS: BP 149/95; PULSE 95; RESP 18; TEMP 36.6; O2SAT 99
--- NOTE | 2024-10-29 12:37 | PM.CN ---
History of Present Illness Consult details Date Patient Seen: 10/29/24 Time Patient Seen: 12:30 Chief complaint: Infection below knee amputation site Narrative: The patient is a 48-year-old male with insulin dependent diabetes mellitus and previous left BKA in 2013 who was admitted to the hospital yesterday with cellulitis of the left BKA stump. The patient reports a 3 day history of redness and drainage from the distal aspect of the stump. He denies having any pain or discomfort. He has been using a prosthesis for ambulation. The patient does have a past history of having ulcers on his stump in the past but has not had any recently. He was found to have significant hyperglycemia and mild leukocytosis. CT scan showed evidence for abscess or flag man on distal left BKA stump but no obvious osteomyelitis. X-rays also did not show any sign of osteomyelitis. The patient was admitted to the hospital for control of blood sugars and was started on IV antibiotic therapy. The patient does not currently smokes cigarettes. Meds Home Medications and Allergies Home Medications Medication Instructions Recorded Confirmed Type insulin aspart U-100 100 unit/mL See Rx Instructions .Route .COMPLEX 04/03/18 10/28/24 History (3 mL) subcutaneous pen (Novolog FlexPen U-100 Insulin aspart) insulin glargine 100 unit/mL (3 39 unit SUBCUT DAILY 07/30/19 10/28/24 History mL) subcutaneous pen (Basaglar KwikPen U-100 Insulin) methylphenidate HCl 36 mg 72 mg PO DAILY 07/30/19 10/28/24 History tablet,extended release 24 hr Allergies Allergy/AdvReac Type Severity Reaction Status Date / Time promethazine AdvReac Unknown GET LOOPY Verified 04/16/24 08:40 Review of Systems Cardiovascular Comments: No chest pain Respiratory Comments: No shortness of breath Exam Vital Signs (past 8 hours): - 10/29/24 08:00 10/29/24 12:00 Temperature 97.9 F 97.8 F Pulse Rate 95 H 95 H Respiratory Rate 15 18 Blood Pressure 160/96 H 149/95 H Pulse Oximetry 99 99 Oxygen Flow Rate 0 0 Oxygen Delivery Method Room Air Oxygen Flow Rate 0 Narrative Exam Narrative: Well-developed well-nourished male who is somnolent but arousable, no apparent distress Skin Other: Mild erythema distal left BKA stump, 2.5 cm ulcer with maceration of periwound skin and purulent drainage. The ulcer extends to the tibia. Neuro Other: Decreased lower extremity sensation Extrem Other: Left BKA Objective Labs 10/29/24 05:50 10/29/24 05:50 Labs: Laboratory Results - last 24 hr 10/28/24 10/28/24 10/28/24 15:41 15:45 16:44 WBC 11.3 H RBC 4.42 L Hgb 13.5 Hct 39.3 L MCV 89.1 MCH 30.6 MCHC 34.4 RDW 13.6 Plt Count 261 Neut % (Auto) 78.5 H Lymph % (Auto) 13.1 L [place] % (Auto) 6.8 Eos % (Auto) 0.9 L Baso % (Auto) 0.7 Neut # (Auto) 8800 H Lymph # (Auto) 1500 [place] # (Auto) 800 Eos # (Auto) 100 Baso # (Auto) 100 PT 10.3 INR 0.9 APTT 36 VBG pH 7.35 VBG pCO2 42.6 L VBG pO2 41 VBG HCO3 23 L VBG Total CO2 23 L VBG O2 Saturation 74 VBG Base Excess -2.5 L Sodium 129 L Potassium 4.2 Chloride 95 L Carbon Dioxide 21 L BUN 25 H Creatinine 0.85 Estimated GFR > 60 BUN/Creatinine Ratio 29.4 H Glucose 424 H Lactate 1.7 Calcium 9.7 Total Bilirubin 1.0 AST 33 ALT 40 Alkaline Phosphatase 164 H Total Protein 6.4 Albumin 3.7 Globulin 2.7 Albumin/Globulin Ratio 1.4 Lipase 25 Procalcitonin 0.493 Urine RBC 0-1/hpf Urine WBC 0-1/hpf Ur Squamous Epith Cells 0-1 /hpf Urine Bacteria Occasional (0-1) Ur Culture Indicated? Cult not indicated Vol Urine Centrifuged 10ml (spun) Ketones 4.74 H 10/29/24 05:50 WBC 9.1 RBC 4.24 L Hgb 13.3 L Hct 36.7 L MCV 86.7 MCH 31.5 MCHC 36.3 H RDW 14.1 Plt Count 254 Neut % (Auto) 60.2 Lymph % (Auto) 26.2 [place] % (Auto) 8.8 Eos % (Auto) 3.3 Baso % (Auto) 1.5 Neut # (Auto) 5500 Lymph # (Auto) 2400 [place] # (Auto) 800 Eos # (Auto) 300 Baso # (Auto) 100 PT INR APTT VBG pH VBG pCO2 VBG pO2 VBG HCO3 VBG Total CO2 VBG O2 Saturation VBG Base Excess Sodium 136 L Potassium 3.2 L Chloride 106 Carbon Dioxide 25 BUN 17 Creatinine 0.68 Estimated GFR > 60 BUN/Creatinine Ratio 25.0 H Glucose 93 D Lactate Calcium 8.5 Total Bilirubin AST ALT Alkaline Phosphatase Total Protein Albumin Globulin Albumin/Globulin Ratio Lipase Procalcitonin Urine RBC Urine WBC Ur Squamous Epith Cells Urine Bacteria Ur Culture Indicated? Vol Urine Centrifuged Ketones PFSH Medical History (Updated 10/29/24 @ 12:52 by Shiva Blackwood MD) Type 1 diabetes mellitus Surgical History Hx of BKA Social History household members: none Tobacco & Substance Use Smoking Status: Former smoker alcohol intake: never Assessment & Plan Assessment and plan (1) Pressure ulcer of other site, stage 4: Status: Acute (2) Hx of BKA: Problem details: left leg after severe talus fracture per patient Status: Acute (3) Abscess of left leg: Status: Acute (4) Cellulitis of left leg: Status: Acute (5) Type 2 diabetes mellitus with other skin ulcer: Status: Acute Assessment & Plan narrative: Ulcer left BKA that extends to bone and is associated with infection and possible abscess. Plan for wound culture, continue antibiotics, start dressing changes with 1/2 inch iodoform gauze, surgical consult for possible I&D, follow up at wound center after discharge. Time-Based Coding :: [45 MINUTES] spent with patient and on the chart (including review of chart, obtaining history, exam, reviewing outside data, placing orders, documenting exam and treatment plan, and counseling patient) on [10/29/24].
--- NOTE | 2024-10-29 14:40 | PC.NURSE ---
Wound care completed per MD orders. Site covered with stephanie cruz. Pt tolerated well.
--- NOTE | 2024-10-29 15:20 | CM.DANOTE ---
B DCP Assessment Note pt is a 48yo M admitted with infected wound and possible abscess. PMH of left BKA. readmit, recently here for DKA/meth use. per chart, pt ran out of lantis/home BP med, issues with financial/non compliance of meds. PCP Neftaly Jiménez Payer Medicaid/[employer] OPEN DIE INSPECTOR reviewed EMR. per chart, pt lives alone in [place]. local mother support/is listed as the emergency contact, assists as needed (Lisa Curves [phone]) indep, uses prosthetic/ knee crutch at baseline for mobility. has a manual wc. mom transports him as needed. per chart, pending if Le[facility] wants to do I&D of wound. on IV abx now. per Jaison VIERA note, rec f/[place] PT/OT discharged pt, doing well with mobility except drop in BP. OPEN DIE INSPECTOR attempted to meet with pt x3, either with other staff or sleeping soundly. P: Medical POC pending. OPEN DIE INSPECTOR will f/u re: wound care, abx plan, and resources for med management. NAWAF Lopez Discharge Planning/Care Management CM Discharge Assessment Start: 10/29/24 15:19 Freq: Status: Active Protocol: Document 10/29/24 15:19 [facility] (Rec: 10/29/24 15:20 [facility] Desktop) Discharge Planning Assessment Assigned Credentialing Assistant NAWAF Johnson Advance Directives? No History Provided By Patient,Medical Record Prior Living Arrangements Mobile home Household Members family Type of transporation used prior to Relies on Others admit Independent with ADL's Yes Is patient alert and oriented? Yes DME Already Rented / Owned Wheelchair,Crutches Discharge Plan Home Referrals Initiated None needed Review Status In Process Please Provide Date Initial DC 10/29/24 Assessment Was Performed Next Review Type Continued Stay Review
--- NOTE | 2024-10-29 15:26 | PM.PN.1 ---
Subjective Subjective Interval history: 48 M with PMH of DM, L BKA admitted with L stump cellulitis, possible abscess. Surgeon this morning recommended wound care, wound care recommended evaluation for abscess with possible bone bx. Surgeon will add on tomorrow for I&D after discussion today. Remains on antibiotics, pain is improved today. Exam Vital Signs (past 8 hours): - 10/29/24 08:00 10/29/24 12:00 Temperature 97.9 F 97.8 F Pulse Rate 95 H 95 H Respiratory Rate 15 18 Blood Pressure 160/96 H 149/95 H Pulse Oximetry 99 99 Oxygen Flow Rate 0 0 Oxygen Delivery Method Room Air Oxygen Flow Rate 0 Narrative Exam Narrative: Physical Exam: GENERAL: The patient is not in any acute distressed. Awake and alert. HEENT: Nonicteric sclerae, PERRLA, EOMI. Oropharynx clear. Moist mucous membranes. Conjunctivae appear well perfused. HEART: Regular rate and rhythm without murmurs. No lower extremities edema. LUNGS: Clear to auscultation bilaterally. No wheezing, crackles or rhonchi ABDOMEN: Soft, positive bowel sounds, nontender. SKIN: Left stumb BKA shows mild erythema improved, with 2.5 cm wound currently packed. no excessive bruising, petechiae, or purpura. NEUROLOGIC: AxO x 3. Cranial nerves II-XII intact without motor/sensory deficit. Objective Labs 10/29/24 05:50 10/29/24 05:50 Labs: Laboratory Results - last 24 hr 10/28/24 10/28/24 10/28/24 15:41 15:45 16:44 WBC 11.3 H RBC 4.42 L Hgb 13.5 Hct 39.3 L MCV 89.1 MCH 30.6 MCHC 34.4 RDW 13.6 Plt Count 261 Neut % (Auto) 78.5 H Lymph % (Auto) 13.1 L [place] % (Auto) 6.8 Eos % (Auto) 0.9 L Baso % (Auto) 0.7 Neut # (Auto) 8800 H Lymph # (Auto) 1500 [place] # (Auto) 800 Eos # (Auto) 100 Baso # (Auto) 100 PT 10.3 INR 0.9 APTT 36 VBG pH 7.35 VBG pCO2 42.6 L VBG pO2 41 VBG HCO3 23 L VBG Total CO2 23 L VBG O2 Saturation 74 VBG Base Excess -2.5 L Sodium 129 L Potassium 4.2 Chloride 95 L Carbon Dioxide 21 L BUN 25 H Creatinine 0.85 Estimated GFR > 60 BUN/Creatinine Ratio 29.4 H Glucose 424 H Lactate 1.7 Calcium 9.7 Total Bilirubin 1.0 AST 33 ALT 40 Alkaline Phosphatase 164 H Total Protein 6.4 Albumin 3.7 Globulin 2.7 Albumin/Globulin Ratio 1.4 Lipase 25 Procalcitonin 0.493 Urine RBC 0-1/hpf Urine WBC 0-1/hpf Ur Squamous Epith Cells 0-1 /hpf Urine Bacteria Occasional (0-1) Ur Culture Indicated? Cult not indicated Vol Urine Centrifuged 10ml (spun) Ketones 4.74 H 10/29/24 05:50 WBC 9.1 RBC 4.24 L Hgb 13.3 L Hct 36.7 L MCV 86.7 MCH 31.5 MCHC 36.3 H RDW 14.1 Plt Count 254 Neut % (Auto) 60.2 Lymph % (Auto) 26.2 [place] % (Auto) 8.8 Eos % (Auto) 3.3 Baso % (Auto) 1.5 Neut # (Auto) 5500 Lymph # (Auto) 2400 [place] # (Auto) 800 Eos # (Auto) 300 Baso # (Auto) 100 PT INR APTT VBG pH VBG pCO2 VBG pO2 VBG HCO3 VBG Total CO2 VBG O2 Saturation VBG Base Excess Sodium 136 L Potassium 3.2 L Chloride 106 Carbon Dioxide 25 BUN 17 Creatinine 0.68 Estimated GFR > 60 BUN/Creatinine Ratio 25.0 H Glucose 93 D Lactate Calcium 8.5 Total Bilirubin AST ALT Alkaline Phosphatase Total Protein Albumin Globulin Albumin/Globulin Ratio Lipase Procalcitonin Urine RBC Urine WBC Ur Squamous Epith Cells Urine Bacteria Ur Culture Indicated? Vol Urine Centrifuged Ketones [facility] Medical History (Updated 10/29/24 @ 12:52 by Shiva Blackwood MD) Type 1 diabetes mellitus Surgical History Hx of BKA Social History household members: family Smoking Status: Former smoker alcohol intake: never Assessment & Plan Assessment & Plan narrative: Left stump below BKA cellulitis and possible abscess with possible osteomyelitis, POA - continue ceftriaxone and vancomycin - imaging with CT showing abscess vs phlegmon. Surgery recommended bedside wound care consultation, which probed wound to his tibia. Wound care recommended surgery for I&D. - discussed with surgeon this afternoon, will add on for I&D with possible bone biopsy tomorrow. - follow up OR cultures to narrow therapy. If osteo present will likely need ID consultation and at least 6 weeks IV antibiotics. Hyperglycemia with history of insulin-dependent diabetes, POA - continue Lantus 40 U daily, glucose is 80s-90s today thus far. - also on sliding scale insulin - somewhat remarkably not in DKA despite no insulin for 2 weeks prior to admission. Hypertension. - consider michelle/arb if continued hypertension, but will avoid for now with OR plan for tomorrow. DVT prophylaxis SCDs for now due to I&D in the morning. CODE STATUS full code. Disposition likely home in 2 to 3 days. Time-Based Coding :: [TOTAL MINUTES] spent with patient and on the chart (including review of chart, obtaining history, exam, reviewing outside data, placing orders, documenting exam and treatment plan, and counseling patient) on [DATE]. Quality VTE Deep Vein Thrombosis/Pulmonary Embolism Present on Admission: No
--- NOTE | 2024-10-29 15:44 | P.CONS_ITS ---
History of Present Illness Consult details Date Patient Seen: 10/29/24 Time Patient Seen: 15:45 Chief complaint: Infection below knee amputation site Narrative: Daniel is a 48-year-old diabetic male with a prior left leg below-knee amputation who presented with new cellulitis and purulent drainage from the bottom of his stump. He uses a prosthetic for ambulation. He had a prior wound infection at the same location about 5 years ago which was debrided in the OR by Dr. Barrera. He was [facility] by [facility] who noted that the wound extends to the bone and recommended operative debridement. Meds Home Medications and Allergies Home Medications Medication Instructions Recorded Confirmed Type insulin aspart U-100 100 unit/mL See Rx Instructions .Route .COMPLEX 04/03/18 10/28/24 History (3 mL) subcutaneous pen (Novolog FlexPen U-100 Insulin aspart) insulin glargine 100 unit/mL (3 39 unit SUBCUT DAILY 07/30/19 10/28/24 History mL) subcutaneous pen (Basaglar KwikPen U-100 Insulin) methylphenidate HCl 36 mg 72 mg PO DAILY 07/30/19 10/28/24 History tablet,extended release 24 hr Allergies Allergy/AdvReac Type Severity Reaction Status Date / Time promethazine AdvReac Unknown GET LOOPY Verified 04/16/24 08:40 Exam Vital Signs (past 8 hours): - 10/29/24 08:00 10/29/24 12:00 Temperature 97.9 F 97.8 F Pulse Rate 95 H 95 H Respiratory Rate 15 18 Blood Pressure 160/96 H 149/95 H Pulse Oximetry 99 99 Oxygen Flow Rate 0 0 Oxygen Delivery Method Room Air Oxygen Flow Rate 0 Narrative Exam Narrative: There was erythema and purulent drainage from the distal aspect of the left BKA stump There is a proximally 1 cm circular opening Objective Labs 10/29/24 05:50 10/29/24 05:50 Labs: Laboratory Results - last 24 hr 10/28/24 10/28/24 10/28/24 15:41 15:45 16:44 WBC 11.3 H RBC 4.42 L Hgb 13.5 Hct 39.3 L MCV 89.1 MCH 30.6 MCHC 34.4 RDW 13.6 Plt Count 261 Neut % (Auto) 78.5 H Lymph % (Auto) 13.1 L [place] % (Auto) 6.8 Eos % (Auto) 0.9 L Baso % (Auto) 0.7 Neut # (Auto) 8800 H Lymph # (Auto) 1500 [place] # (Auto) 800 Eos # (Auto) 100 Baso # (Auto) 100 PT 10.3 INR 0.9 APTT 36 VBG pH 7.35 VBG pCO2 42.6 L VBG pO2 41 VBG HCO3 23 L VBG Total CO2 23 L VBG O2 Saturation 74 VBG Base Excess -2.5 L Sodium 129 L Potassium 4.2 Chloride 95 L Carbon Dioxide 21 L BUN 25 H Creatinine 0.85 Estimated GFR > 60 BUN/Creatinine Ratio 29.4 H Glucose 424 H Lactate 1.7 Calcium 9.7 Total Bilirubin 1.0 AST 33 ALT 40 Alkaline Phosphatase 164 H Total Protein 6.4 Albumin 3.7 Globulin 2.7 Albumin/Globulin Ratio 1.4 Lipase 25 Procalcitonin 0.493 Urine RBC 0-1/hpf Urine WBC 0-1/hpf Ur Squamous Epith Cells 0-1 /hpf Urine Bacteria Occasional (0-1) Ur Culture Indicated? Cult not indicated Vol Urine Centrifuged 10ml (spun) Ketones 4.74 H 10/29/24 05:50 WBC 9.1 RBC 4.24 L Hgb 13.3 L Hct 36.7 L MCV 86.7 MCH 31.5 MCHC 36.3 H RDW 14.1 Plt Count 254 Neut % (Auto) 60.2 Lymph % (Auto) 26.2 [place] % (Auto) 8.8 Eos % (Auto) 3.3 Baso % (Auto) 1.5 Neut # (Auto) 5500 Lymph # (Auto) 2400 [place] # (Auto) 800 Eos # (Auto) 300 Baso # (Auto) 100 PT INR APTT VBG pH VBG pCO2 VBG pO2 VBG HCO3 VBG Total CO2 VBG O2 Saturation VBG Base Excess Sodium 136 L Potassium 3.2 L Chloride 106 Carbon Dioxide 25 BUN 17 Creatinine 0.68 Estimated GFR > 60 BUN/Creatinine Ratio 25.0 H Glucose 93 D Lactate Calcium 8.5 Total Bilirubin AST ALT Alkaline Phosphatase Total Protein Albumin Globulin Albumin/Globulin Ratio Lipase Procalcitonin Urine RBC Urine WBC Ur Squamous Epith Cells Urine Bacteria Ur Culture Indicated? Vol Urine Centrifuged Ketones [facility] Medical History (Updated 10/29/24 @ 12:52 by Shiva Blackwood MD) Type 1 diabetes mellitus Surgical History Hx of BKA Social History household members: family Tobacco & Substance Use Smoking Status: Former smoker alcohol intake: never Assessment & Plan Assessment and plan (1) Pressure ulcer of other site, stage 4: Status: Acute Plan Plan for debridement in the operating room tomorrow. If the open wound does extend to the bone a biopsy can be performed to rule out osteomyelitis. The wound will be left opened with wet-to-dry dressings and continuation of daily wound care. Time-Based Coding :: [TOTAL MINUTES] spent with patient and on the chart (including review of chart, obtaining history, exam, reviewing outside data, placing orders, documenting exam and treatment plan, and counseling patient) on [DATE]. PROFEE Charge Codes Inpatient or Observation consultation: [id number]
[2024-10-29 16:00] VITALS: BP 132/80; PULSE 96; RESP 16; TEMP 37; O2SAT 93
[2024-10-29 20:00] VITALS: BP 124/80; PULSE 96; RESP 16; TEMP 36.9; O2SAT 98
--- NOTE | 2024-10-29 21:36 | PC.NURSE ---
wound care 2130 dressing to L lower stump changed as previous dressing became stuck to bedding. wound cleansed with saline and 1/2 iodiform gauze packed into wound. Telfa externally over stump with alyvyn dressing as outmost layer. pt tolerated well. stating a little discomfort with procedure.
[2024-10-30] VITALS (13 sets, daily range): BP systolic 103–169; BP diastolic 69–107; PULSE 87–114; RESP 12–20; TEMP 35.8–37; O2SAT 94–100; BMI 19.6
[2024-10-30] MEDS: SODIUM CHLORIDE 0.9% 1,000 ML 100 ML IV ×2 (01:02→13:11)
[2024-10-30 05:42] LABS: Add Manual Diff / Slide Review NO; Basophils Absolute Auto 100 /uL (0-100); Eosinophils Absolute Auto 400 /uL (0-450); Eosinophils Percent Auto 6.4 % (2-4); Hematocrit 33.9 % (41-53); Hemoglobin 12.3 g/dL (13.5-17.5); Lymphocytes Absolute Auto 1800 /uL (1100-4500); Lymphocytes Percent Auto 32.1 % (25-40); Mean Corpuscular HGB Conc 36.3 % (30-36); Mean Corpuscular Hemoglobin 31.5 PG (26-34); Mean Corpuscular Volume 86.8 fL (80-100); Monocytes Absolute Auto 500 /uL (0-900); Monocytes Percent Auto 7.9 % (3-14); Neutrophils Absolute Auto 3000 /uL (1500-7000); Neutrophils Percent Auto 52.6 % (50-75); Platelet Count 223 X10^3/uL (150-400); Red Cell Distribution Width 13.9 % (11.6-14.8); White Blood Cell Count 5.8 X10^3/uL (4.5-11.0)
[2024-10-30 05:48] LABS: Hemoglobin A1C% w Est Avg Glu 9.1 % (4.0-6.0)
[2024-10-30 05:54] LABS: BUN Creatinine Ratio 34.5 (6-22); Blood Urea Nitrogen 20 mg/dL (9-20); Calcium 8.3 mg/dL (8.4-10.2); Carbon Dioxide 29 mmol/L (22-32); Chloride 105 mmol/L (98-107); Estimated Glomerular Filt Rate > 60 mL/min (>60); Glucose 201 mg/dL (70-99); HEMOLYSIS < 15 (0-50); Potassium 3.7 mmol/L (3.4-5.1); Sodium 135 mmol/L (137-145)
[2024-10-30 05:58] LABS: C-Reactive Protein Quant 3.7 mg/dL (<1.0); Erythrocyte Sedimentation Rate 36 MM/HR (0-15)
[2024-10-30 06:13] LABS: Vancomycin Trough 7.3 ug/mL (10-20)
[2024-10-30] MEDS: VANCOMYCIN TROUGH 1 REQUEST MISC (06:25)
[2024-10-30] MEDS: VANCOMYCIN 1,000 MG in SODIUM CHLORIDE 0.9% 250 ML 125 MG IV (06:25)
--- NOTE | 2024-10-30 07:39 | P.PN_ITS ---
Subjective Subjective Interval history: Summary: 48 M with PMH of DM 2, L BKA admitted with L stump cellulitis, possible abscess. Added on tomorrow for I&D today. Remains on antibiotics, pain is improved. S: He was doing well. He has good pain control. He was scheduled for the operating room later today. Exam Vital Signs (past 8 hours): - 10/30/24 00:00 10/30/24 04:00 Temperature 98.6 F 97.7 F this afternoon. Pulse Rate 91 H 87 Respiratory Rate 12 12 Blood Pressure 146/98 H 148/95 H Pulse Oximetry 99 98 Oxygen Flow Rate 0 0 Oxygen Delivery Method Room Air Oxygen Flow Rate 0 Narrative Exam Narrative: NAD, alert and oriented. Fluent speech. Lungs are clear, normal rate and effort. Heart is regular, no murmur gallop or rub. Abdomen is soft, non distended. Extremities are free of edema. Left BKA with the a end of the limb wrapped. Objective Labs 10/30/24 05:30 10/30/24 05:30 Labs: Laboratory Results - last 24 hr 10/30/24 05:30 WBC 5.8 RBC 3.90 L Hgb 12.3 L Hct 33.9 L MCV 86.8 MCH 31.5 MCHC 36.3 H RDW 13.9 Plt Count 223 Neut % (Auto) 52.6 Lymph % (Auto) 32.1 [place] % (Auto) 7.9 Eos % (Auto) 6.4 H Baso % (Auto) 1.0 Neut # (Auto) 3000 Lymph # (Auto) 1800 [place] # (Auto) 500 Eos # (Auto) 400 Baso # (Auto) 100 ESR 36 H Sodium 135 L Potassium 3.7 Chloride 105 Carbon Dioxide 29 BUN 20 Creatinine 0.58 L Estimated GFR > 60 BUN/Creatinine Ratio 34.5 H Glucose 201 H D Hemoglobin A1c 9.1 H Calcium 8.3 L C-Reactive Protein 3.7 H Vancomycin Trough 7.3 L PFSH Medical History Type 1 diabetes mellitus Surgical History Hx of BKA Social History household members: family Smoking Status: Former smoker alcohol intake: never Assessment & Plan Assessment & Plan narrative: Left stump below BKA cellulitis and possible abscess with possible osteomyelitis, POA - continue ceftriaxone and vancomycin - imaging with CT showing abscess vs phlegmon. Surgery recommended bedside wound care consultation, which probed wound to his tibia. Wound care recommended surgery for I&D. - discussed with surgeon this afternoon, will add on for I&D with possible bone biopsy tomorrow. - follow up OR cultures to narrow therapy. If osteo present will likely need ID consultation and at least 6 weeks IV antibiotics. Hyperglycemia with history of insulin-dependent diabetes, POA - continue Lantus 40 U daily, glucose is 80s-90s today thus far. - also on sliding scale insulin - somewhat remarkably not in DKA despite no insulin for 2 weeks prior to admission. Hypertension. - stable. PLAN: -continue antibiotics. -OR for exploration today. DVT prophylaxis SCDs for now due to I&D in the morning. CODE STATUS full code. Time-Based Coding :: [TOTAL MINUTES] spent with patient and on the chart (including review of chart, obtaining history, exam, reviewing outside data, placing orders, documenting exam and treatment plan, and counseling patient) on [DATE]. Quality VTE Deep Vein Thrombosis/Pulmonary Embolism Present on Admission: No
[2024-10-30] MEDS: cefTRIAXone 1,000 MG in SODIUM CHLORIDE 0.9% 100 ML 200 MG IV (08:42)
[2024-10-30] MEDS: METHYLPHENIDATE HCL 36 MG 72 EACH PO (08:43)
[2024-10-30] MEDS: VANCOMYCIN PEAK 1 REQUEST MISC (08:43)
[2024-10-30] MEDS: INSULIN GLARGINE 100 UNIT/ML 3ML PEN 40 UNIT SUBCUT (08:43)
[2024-10-30 08:44] LABS: Vancomycin Peak 21.5 ug/mL (20-40)
--- NOTE | 2024-10-30 13:37 | CM.DPNOTE ---
DCP note TRAVEL SPECIALIST reviewed EMR. per nursing staff, plan for I&D of wound today with Lebron at 1545. TRAVEL SPECIALIST unable to meet with pt today due to triaging needs. P: Medical POC pending. CM team will f/u re: wound care, abx plan, and resources for financial assistance with medication and any additional DCP needs that arise. Elizabeth Faulkner, NAWAF
--- NOTE | 2024-10-30 13:47 | PM.PREOP ---
Pre-operative Note COVID-19 COVID-19 status: Not tested Interval Note History & Physical reviewed/Exam performed by Physician: Yes Changes to H&P: No ASA Class (for procedural sedation): III
--- NOTE | 2024-10-30 16:24 | SUR.OPER ---
Supine on padded OR bed, head on pillow, arms secured on padded arm boards at <90 degrees abduction, legs uncrossed, safety belt at thigh, tape over blanket over right lower leg, left leg under control of surgeon.
[2024-10-30] MEDS: VANCOMYCIN 1,500 MG/300 ML PIGGYBACK 200 MG IV (19:18)
--- NOTE | 2024-10-30 19:21 | PM.OP.1 ---
Operative Date/Time/Diagnoses Date of procedure: 10/30/24 Time of procedure: 19:21 Pre-op diagnosis: Left below-knee amputation stump infected wound Post-op diagnosis: same Procedure & Clinicians Procedure: Debridement of left below-knee amputation stump wound infection Same procedure as scheduled: Yes Surgeon: Matthew Diana Physics Faculty Member: Jose Carrillo Anesthesia Type: General Operative Notes Procedure in detail: The patient was brought to the operating room and anesthesia was induced. The left lower extremity stump was prepped and draped in the usual fashion it was hemorrhoid was performed. We sharply debrided the edges of the chronic pressure wound. The wound extended to the distal aspect of the transected tibia bone. All of the chronic wound capsule was excised. We removed a layer of soft tissue overlying the bone an attempted to take a piece of bone with rongeur was however the bone appeared healthy and intact and because it had a smooth round surface no biopsy specimen could be retrieved. Bone was felt to be healthy and not infected. A few bleeders in the soft tissue were cauterized. We then applied a small wound VAC and attached it to suctioned. EBL: 10 mL Specimen: soft tissue from the wound to micro Jose SMITH provided assistance with exposure, retraction and closure of incisions. Post-operative Condition: stable Disposition: PACU
[2024-10-30] MEDS: INSULIN LISPRO 100 UNIT/ML 3ML VIAL SUBCUT (21:22)
[2024-10-30] MEDS: cefTRIAXone 2,000 MG in SODIUM CHLORIDE 0.9% 100 ML 200 MG IV (21:29)
[2024-10-30] MEDS: HYDROCODONE/ACET 5/325 TABLET 1 TAB PO (23:45)
[2024-10-31] VITALS: BP 142/89; PULSE 104; RESP 16; TEMP 36.6; O2SAT 99
[2024-10-31 04:00] VITALS: BP 129/81; PULSE 90; RESP 12; TEMP 36.6; O2SAT 99
[2024-10-31 05:18] LABS: Add Manual Diff / Slide Review NO; Basophils Absolute Auto 100 /uL (0-100); Basophils Percent Auto 1.1 % (0-2); Eosinophils Absolute Auto 300 /uL (0-450); Eosinophils Percent Auto 4.3 % (2-4); Hematocrit 32.4 % (41-53); Hemoglobin 11.8 g/dL (13.5-17.5); Lymphocytes Absolute Auto 2000 /uL (1100-4500); Lymphocytes Percent Auto 33.5 % (25-40); Mean Corpuscular HGB Conc 36.4 % (30-36); Mean Corpuscular Hemoglobin 31.6 PG (26-34); Monocytes Absolute Auto 500 /uL (0-900); Monocytes Percent Auto 7.7 % (3-14); Neutrophils Absolute Auto 3100 /uL (1500-7000); Neutrophils Percent Auto 53.4 % (50-75); Platelet Count 205 X10^3/uL (150-400); Red Blood Cell Count 3.73 X10^6/uL (4.5-5.9); Red Cell Distribution Width 13.9 % (11.6-14.8); White Blood Cell Count 5.9 X10^3/uL (4.5-11.0)
[2024-10-31 05:27] LABS: BUN Creatinine Ratio 22.9 (6-22); Blood Urea Nitrogen 16 mg/dL (9-20); Calcium 8.4 mg/dL (8.4-10.2); Carbon Dioxide 31 mmol/L (22-32); Chloride 103 mmol/L (98-107); Estimated Glomerular Filt Rate > 60 mL/min (>60); Glucose 184 mg/dL (70-99); HEMOLYSIS < 15 (0-50); Potassium 3.2 mmol/L (3.4-5.1); Sodium 137 mmol/L (137-145)
[2024-10-31] MEDS: VANCOMYCIN 1,500 MG/300 ML PIGGYBACK 200 MG IV (06:46)
--- NOTE | 2024-10-31 07:20 | PM.PN.1 ---
Subjective Subjective Interval history: S: He was doing well. Minimal pain at the resection of wound tissue site. Per the operative report, the bone looked healthy and not infected. A wound VAC is in place. Exam Vital Signs (past 8 hours): - 10/31/24 00:00 10/31/24 04:00 Temperature 97.9 F 97.8 F Pulse Rate 104 H 90 Respiratory Rate 16 12 Blood Pressure 142/89 H 129/81 Pulse Oximetry 99 99 Oxygen Flow Rate 0 0 Oxygen Delivery Method Room Air Oxygen Flow Rate 0 Narrative Exam Narrative: NAD, alert and oriented. Fluent speech. Lungs are clear, normal rate and effort. Heart is regular, no murmur gallop or rub. Abdomen is soft, non distended. Extremities are free of edema. Left stump wound with a vac in place. Objective Labs 10/31/24 04:20 10/31/24 04:20 Labs: Laboratory Results - last 24 hr 10/30/24 10/31/24 08:11 04:20 WBC 5.9 RBC 3.73 L Hgb 11.8 L Hct 32.4 L MCV 87.0 MCH 31.6 MCHC 36.4 H RDW 13.9 Plt Count 205 Neut % (Auto) 53.4 Lymph % (Auto) 33.5 [place] % (Auto) 7.7 Eos % (Auto) 4.3 H Baso % (Auto) 1.1 Neut # (Auto) 3100 Lymph # (Auto) 2000 [place] # (Auto) 500 Eos # (Auto) 300 Baso # (Auto) 100 Sodium 137 Potassium 3.2 L Chloride 103 Carbon Dioxide 31 BUN 16 Creatinine 0.70 Estimated GFR > 60 BUN/Creatinine Ratio 22.9 H Glucose 184 H Calcium 8.4 Vancomycin Peak 21.5 PFSH Medical History Type 1 diabetes mellitus Surgical History Hx of BKA Social History household members: family Smoking Status: Former smoker alcohol intake: never Assessment & Plan Assessment & Plan narrative: 1. Left stump below BKA cellulitis and possible abscess with possible osteomyelitis, present on admission and active. - continue ceftriaxone and vancomycin - imaging with CT showing abscess vs phlegmon. If osteomyelitis is present will likely need ID consultation and at least 6 weeks IV antibiotics. - debrided 10/30. 2. Hyperglycemia (IDDM), present on admission and improved. - continue Lantus 40 U daily, glucose is 80s-90s today thus far. - also on sliding scale insulin - somewhat remarkably not in DKA despite no insulin for 2 weeks prior to admission. 3. Hypertension, present on admission and active. - stable. PLAN: -continue antibiotics. -OR for exploration 10/30. Bone appeared healthy. -Monitor cultures. -Wound vac. -Wound care consult. OP wound plan. MILAGROS: 11/01. Time-Based Coding :: [TOTAL MINUTES] spent with patient and on the chart (including review of chart, obtaining history, exam, reviewing outside data, placing orders, documenting exam and treatment plan, and counseling patient) on [DATE]. Quality VTE Deep Vein Thrombosis/Pulmonary Embolism Present on Admission: No
[2024-10-31 08:00] VITALS: BP 127/77; PULSE 90; RESP 18; TEMP 36.2; O2SAT 98
[2024-10-31] MEDS: INSULIN LISPRO 100 UNIT/ML 3ML VIAL SUBCUT ×2 (08:15→11:17)
[2024-10-31] MEDS: INSULIN GLARGINE 100 UNIT/ML 3ML PEN 39 UNIT SUBCUT (08:15)
[2024-10-31] MEDS: POTASSIUM CHLORIDE 20 MEQ TAB 40 MEQ PO ×2 (08:16→12:54)
[2024-10-31] MEDS: HYDROCODONE/ACET 5/325 TABLET 1 TAB PO (10:08)
[2024-10-31] MEDS: METHYLPHENIDATE HCL 36 MG 72 EACH PO (10:55)
[2024-10-31 12:00] VITALS: BP 165/104; PULSE 100; RESP 16; TEMP 36.8; O2SAT 99
--- NOTE | 2024-10-31 12:18 | DIET.PN1 ---
Addendum entered by Kimmie Mack 10/31/24 12:40: *correction- latest A1c 9.1% not 9.5% Original Note: Dietary Progress Note Assessment: f/u and consulted for wound Met with pt at bedside. Reports no recent decline in weight and changes in intakes. Was unable to get his lantus and doesn't have CGM anymore. Reports wasn't able to get refill of this prescription and there were supply issues with CGM. Hasn't seen endo in awhile. Unsure when next appt is or if has appt. Was dosing with bolus insulin. Open to seeing [facility] here at [place] and wants to get insulin pump. Pt reports he is very hungry. Ht: 180.34 cm Wt: 64 kg BMI: 19.5 *BKA- Adjusted DBW is 162 lb (73.36 kg) UBW: 61 kg on 04/16/24, 67 kg on 10/05/24 (-4% weight loss in 1 month, non-severe) Last BM: 10/27/24 (10/30/24 15:36) MNA: 12 Blue Score: 19 Diet: 10/31/24 Breakfast Carbohydrate Consistent Diet Diet Modifications: Carbohydrate level: Large (4 CHO) Reflex DM orders: No Food Texture: Level 7 - Regular Liquid Consistency: Level 0 - Thin Nutrition Percent Meal Consumed 100% 10/30/24 18:00 Percent Meal Consumed 100% 10/29/24 18:00 Percent Meal Consumed 100% 10/29/24 12:44 Labs: RBC 3.73 X10^6/uL (4.5-5.9) L 10/31/24 04:20 Hgb 11.8 g/dL (13.5-17.5) L 10/31/24 04:20 Hct 32.4 % (41-53) L 10/31/24 04:20 Creatinine 0.70 mg/dL (0.66-1.25) 10/31/24 04:20 Hemoglobin A1c 9.1 % (4.0-6.0) H 10/30/24 05:30 Lactate 1.7 mmol/L (0.7-2.1) 10/28/24 15:41 Nutrition Diagnosis: Altered nutrition related lab values (a1c) r/t endocrine dysfunction and not having all medications and supplies for managing BG aeb A1c 9.5% Increased nutrient needs (protein) r/t healing needs aeb stage 4 wound Interventions: -Requested referral from PCP for diabetes educ -extra protein serving on trays x2 meals EER: 100g protein (1.5g/kg per wound) Monitoring/Evaluations: PO intakes Electronically Signed by: Kimmie Mack 10/31/24 12:18 Clinical Dietitian [address] [address]
[2024-10-31 12:54] VITALS: BP 165/104; PULSE 100
[2024-10-31] MEDS: lisinopriL 5 MG TABLET PO (12:54)
--- NOTE | 2024-10-31 14:42 | PC.NURSE ---
Day shift: MD Diana aware that wound vac not working overnight and this AM. This RN asked if I could change the wound vac, MD Diana stated just to remove it and replace with iodoform and dry gauze. Wound care consult in per MD Guo. Called wound care clinic - unable to reach anyone. Patient would like to discharge home, but MD Guo states not until there is a firm wound care plan. Will continue to try reaching wound care clinic. formula room worker, Le, also aware. Will continue to monitor.
--- NOTE | 2024-10-31 15:43 | PM.DS.1 ---
History of Present Illness History of Present Illness Chief complaint: Infection below knee amputation site Narrative: From H&P: 48-year-old male with past medical history of insulin-dependent diabetes, left BKA, and hypertension presents with concern for cellulitis. Per the patient's report, about 2 days ago, the patient started to notice increased redness and swelling below his left knee amputation site. The patient denies any known injury directly to this area. The patient also states that he ran out of his Lantus about 2 weeks ago as well as his lisinopril. The patient does notice that his glucose was elevated at home. Otherwise the patient denies any recent fever, chills, nausea, vomiting, diarrhea or chest pain. In the emergency room, the patient was hemodynamically stable without signs of sepsis. Blood close however was in the 400s. CT scan of the left lower leg shows sign of cellulitis as well as small 2.4 cm phlegmon versus abscess at the base of the stump. General surgery was consulted and recommended that we admit the patient for IV antibiotic and general surgeon will consult in the morning. The patient was given IV fluid, IV vancomycin, IV ceftriaxone and 10 units subcu insulin. Recheck glucose was in the 300s. Of note the patient has no clear sign of DKA at this point. Discharge Providers Provider Date of admission: 10/28/24 21:03 Discharge Date: 10/31/24 Primary care physician: Neftaly Champagne MD Consults: 10/28/24 20:46 Consult to Occupational Therapy Evaluate & Treat Comment: Physician Instructions: Evaluate and treat Consult to Physical Therapy Evaluate & Treat Comment: Physician Instructions: Evaluate and Treat 10/28/24 22:09 Consult to Dietitian, Adult Routine Comment: Reason For Exam: DM, interested in CGM & pump, diff controlling glu 10/29/24 08:44 Consult to Dietitian, Adult Routine Comment: Reason For Exam: L BKA stump chronic wound Consult to Wound Care Routine Comment: Consulting Provider: [facility] 10/30/24 10:00 Consult to TOILET AND LAUNDRY SOAP SUPERVISOR - Front Office Supervisor Routine Comment: Front Office Supervisor Consult needed for:: Unable to care for self Comment: Unable to obtain medications, self care deficit 10/31/24 10:28 Consult to Dietitian, Adult Urgent Comment: Reason For Exam: Nutrition Consult to Inpatient Wound Care Nurse Routine Comment: Reason for consultation: residual limb wound and vac Has provider been notified: Yes Consult to Wound Care Routine Comment: Consulting Provider: [facility] Discharge provider: Trent Guo MD Summary Hospital Course Discharge Diagnosis: 1. Left stump below BKA cellulitis and possible abscess with possible osteomyelitis, present on admission and active. - debrided 10/30. 2. Hyperglycemia (IDDM), present on admission and improved. - continue Lantus 40 U daily, glucose is 80s-90s today thus far. - also on sliding scale insulin - somewhat remarkably not in DKA despite no insulin for 2 weeks prior to admission. 3. Hypertension, present on admission and active. - stable. Hospital Course: The patient was admitted and treated with IV antibiotics. He was seen by surgery and ultimately underwent debridement of his wound. Operative note indicates that the wound did not appear infected, in the of the bone appeared healthy. There is a sharp excision of eschar and all nonviable tissue. Post wound care recommendations from surgery indicated a non wound VAC placed care plan with a simple wound dressing a very close follow up with wound care. It was unclear if there was infected component to the wound, the patient will be covered with doxycycline 100 b.i.d. until follow up with wound care. Cultures are pending. No bone samples were obtained operatively. The patient was very happy with the plan is also given refills for glargine insulin which he had run out of before admission. Status at Discharge Cognitive/behavioral status at discharge: oriented Functional status at discharge: independent ambulation Overall status at discharge: patient is back to baseline Time Spent with Patient Time spent: Greater than 30 minutes Exam Vital Signs (past 8 hours): - 10/31/24 08:00 10/31/24 12:00 10/31/24 12:54 Temperature 97.2 F L 98.2 F Pulse Rate 90 100 H 100 H Respiratory Rate 18 16 Blood Pressure 127/77 165/104 H 165/104 H Pulse Oximetry 98 99 Oxygen Flow Rate 0 Oxygen Delivery Method Room Air Oxygen Flow Rate 0 Narrative Exam Narrative: NAD, alert and oriented. Fluent speech. Lungs are clear, normal rate and effort. Heart is regular, no murmur gallop or rub. Abdomen is soft, non distended. Extremities are free of edema. Left stump has excision of necrotic tissue now has a clean based wound. This was dressed as noted in nursing documentation after the wound VAC was removed. Objective ECG Impression: Intervals [place] Rate: 112 P: 78 [place]: 138 QRS: -66 QRSD: 92 T: 71 QT: 342 QTc: 466 Interpretive Statements Sinus tachycardia Left anterior fascicular block Inferior infarct , age undetermined Possible Anteroseptal infarct , age undetermined Imaging Multiple studies:: Radiologist's impression: Lower extremity CT: 1. Small 2.4 cm phlegmon versus abscess at the base of the stump, with likely cellulitis. 2. No CT evidence of osteomyelitis or intramuscular emphysema. Tib fib x-ray: Possible subcutaneous emphysema at the posterior stump without radiographic evidence of osteomyelitis. Chest x-ray: No acute cardiopulmonary pathology. Labs 10/31/24 04:20 10/31/24 04:20 Labs: Laboratory Results - last 24 hr 10/31/24 04:20 WBC 5.9 RBC 3.73 L Hgb 11.8 L Hct 32.4 L MCV 87.0 MCH 31.6 MCHC 36.4 H RDW 13.9 Plt Count 205 Neut % (Auto) 53.4 Lymph % (Auto) 33.5 [place] % (Auto) 7.7 Eos % (Auto) 4.3 H Baso % (Auto) 1.1 Neut # (Auto) 3100 Lymph # (Auto) 2000 [place] # (Auto) 500 Eos # (Auto) 300 Baso # (Auto) 100 Sodium 137 Potassium 3.2 L Chloride 103 Carbon Dioxide 31 BUN 16 Creatinine 0.70 Estimated GFR > 60 BUN/Creatinine Ratio 22.9 H Glucose 184 H Calcium 8.4 PFSH Medical History Type 1 diabetes mellitus Surgical History Hx of BKA Social History household members: family Smoking Status: Former smoker alcohol intake: never Discharge Assessment & Plan Assessment and Plan Assessment: 1. Left stump below BKA cellulitis and possible abscess with possible osteomyelitis, present on admission and active. - debrided 10/30. 2. Hyperglycemia (IDDM), present on admission and improved. - continue Lantus 40 U daily, glucose is 80s-90s today thus far. - also on sliding scale insulin - somewhat remarkably not in DKA despite no insulin for 2 weeks prior to admission. 3. Hypertension, present on admission and active. - stable. Plan of Treatment: Discharge home on doxycycline 100 b.i.d. and he will call wound care tomorrow. A referral was also sent for wound care. He was a dressing in place at the time of discharge. His glargine was also refilled. Discharge Plan Discharge Plan Patient Disposition: Home Provider Discharge Comment: Stable for discharge home on oral antibiotics with very close follow up with the wound care. He will call tomorrow morning. They have worked with him in the past. Discharge orders & Medications Prescriptions: New doxycycline hyclate 100 mg capsule 100 mg PO BID Qty: 14 0RF Continued methylphenidate HCl 36 mg tablet extended release 24hr 72 mg PO DAILY insulin aspart U-100 [Novolog FlexPen U-100 Insulin] 100 unit/mL Insulin Pen See Rx Instructions .ROUTE .COMPLEX Rx Instructions: Sliding scale: Patient does own sliding scale no direct instructions. 13-18 units before meals based on what pt eats insulin glargine [Basaglar KwikPen U-100 Insulin] 100 unit/mL (3 mL) insulin pen 39 unit SUBCUT DAILY Qty: 15 8RF Follow up/Referrals: Shiva Blackwood MD [Physician] - Neftaly Champagne MD [Primary Care Provider] - Activity Restrictions/Additional Instructions: No weight on wound. Diet/Activity/Treatments Diet: Carb-consistent/Diabetic Activity: No weight on wound. Visit Report/Discharge Packet Instructions: DI for Incision and Drainage, [facility]: Wound Care Stand Alone Forms: Patient Portal/API Discharge Data Primary Care Provider: Neftaly Champagne Quality VTE Deep Vein Thrombosis/Pulmonary Embolism Present on Admission: No
--- NOTE | 2024-10-31 16:20 | PC.NURSE ---
Day shift: Discharge instructions gone over with patient. Patient stated understanding, all questions answered. Both MD Guo and MD Diana ok'ed discharge today on oral antibiotics with close follow up with wound care. PIV removed prior to discharge. Patient has wound care supplies and states understanding on dressing changes until seen by wound care. All belongings with patient, including patient's home methylphenidate returned by pharmacy. PCT Astrid escorted patient to exit where he has has a ride home.
== END 2024-10-31 16:22 | disposition home or self-care (01) | DRG 349 ==
LOC: ED 19:43 → AC 21:04
PROVIDERS: Emergency Medicine; Internal Medicine; Surgery; Admitting Provider Internal Medicine; Emergency Provider Student in an Organized Health Care Education/Training Program; Family Provider Internal Medicine; PCP Internal Medicine; Referring Provider Student in an Organized Health Care Education/Training Program; Visit Provider Internal Medicine
PROC: 0JBP0ZZ Excision of Left Lower Leg Subcutaneous Tissue and Fascia, Open Approach (ICD-10-PCS; principal; 2024-10-30 15:45)
DX: T87.44 Infection of amputation stump, left lower extremity (principal); L89.894 Pressure ulcer of other site, stage 4; E10.65 Type 1 diabetes mellitus with hyperglycemia; E10.69 Type 1 diabetes mellitus with other specified complication; M86.9 Osteomyelitis, unspecified; Z79.4 Long term (current) use of insulin; L03.116 Cellulitis of left lower limb; I10 Essential (primary) hypertension; L02.416 Cutaneous abscess of left lower limb; Z87.891 Personal history of nicotine dependence
CPT/HCPCS: 36415; 71045; 73590; 73701; 80048; 80053; 80202; 81003; 81015; 82009; 82805; 82962; 83036; 83605; 83690; 84145; 85025; 85610; 85651; 85730; 86140; 87040; 87070; 87075; 87077; 87147; 87176; 87186; 87205; 93005; 93010; 96361; 96365; 96366; 96367; 96375; 97161; 97165; 97530; 99233; 99284; J0696; J1815; J2250; J2405; J2704; J3010

== ENCOUNTER 2024-11-01 14:35 | Observation (INO) | payer OTHER, SELFPAY ==
[2024-10-28 21:43] VITALS: BMI 19.5
[2024-11-01 14:41] VITALS: BP 166/93; PULSE 118; RESP 18; TEMP 36.6; O2SAT 98; BMI 19.5
[2024-11-01 14:50] VITALS: PULSE 118; RESP 16; O2SAT 98
[2024-11-01 15:00] VITALS: BP 139/90; PULSE 115; RESP 22; O2SAT 98
--- NOTE | 2024-11-01 15:03 | ED.WOUNDLAC ---
HPI - Wound/Laceration General Chief Complaint: Wound/Laceration Stated Complaint: post sx wound needs dressing Time Seen by Provider: 11/01/24 14:58 History of Present Illness HPI narrative: Patient here for evaluation of his left below-knee wound. Patient was here this past week and had debridement of the stump. I have reviewed the discharge summary from yesterday. It indicates he does not need a wound VAC according to the surgeon Dr. Diana. Discharge summary was completed by Dr. Trent Guo. Patient was to go home with simple wound dressing and doxycycline pain follow up with wound clinic. Related Data Home Medications Medication Instructions Recorded Confirmed insulin aspart U-100 100 unit/mL See Rx Instructions .Route .COMPLEX 04/03/18 11/01/24 (3 mL) subcutaneous pen (Novolog FlexPen U-100 Insulin aspart) methylphenidate HCl 36 mg 72 mg PO DAILY 07/30/19 11/01/24 tablet,extended release 24 hr Previous Rx's Medication Instructions Recorded insulin glargine 100 unit/mL (3 39 unit (0.39 mL) SUBCUT DAILY #15 10/31/24 mL) subcutaneous pen (Basaglar mL KwikPen U-100 Insulin) cephalexin 500 mg capsule 500 mg PO TID #21 caps 11/02/24 hydrocodone 5 mg-acetaminophen 325 1 tab PO Q4H PRN Pain, Moderate 11/02/24 mg tablet (4-6) #20 tabs Allergies Allergy/AdvReac Type Severity Reaction Status Date / Time promethazine AdvReac Unknown GET LOOPY Verified 11/01/24 14:39 Review of Systems Review of Systems Narrative: GENERAL: Negative chills, fatigue, malaise, fever, sweats. HEENT: Negative sinus pain, ear pain, sore throat RESPIRATORY: Negative dyspnea, cough CARDIOVASCULAR: Negative chest pain, palpitations GASTROINTESTINAL: Negative vomiting, nausea, abdominal pain : Negative dysuria, frequency, hematuria MUSCULOSKELETAL: Negative muscle or bony pain SKIN: Negative rash, skin lesions NEUROLOGIC: Negative weakness, numbness ROS Unobtainable: All systems reviewed & are unremarkable except as noted in HPI and below Patient History Medical History Type 1 diabetes mellitus Surgical History Hx of BKA Social History household members: none Smoking Status: Former smoker alcohol intake: never Smoking Status: Former smoker tobacco type: cigarettes alcohol intake frequency: 0-2 drinks per day Exam Narrative Exam Narrative: GENERAL: in no distress, not toxic not dyspneic HEAD: Normocephalic. EYES: Pupils equal round EXTREMITIES: No gross deformities. Left lower extremity, dressing on below-knee stump. No strike through bleeding. No foul odor. BACK: No flank tenderness. NEURO: AOx4. Clear speech SKIN: Warm and dry PSYCH: Not anxious, is cooperative Initial Vital Signs Initial Vital Signs: Vital Signs Temperature 97.9 F 11/01/24 14:41 Pulse Rate 118 H 11/01/24 14:41 Respiratory Rate 18 11/01/24 14:41 Blood Pressure 166/93 H 11/01/24 14:41 Pulse Oximetry 98 11/01/24 14:41 Oxygen Delivery Method Room Air 11/01/24 14:41 Course Orders Ordered: Discontinued Medications Acetaminophen (Acetaminophen 325 Mg Tablet) 650 mg PO Q6H PRN PRN Reason: Fever/Mild Pain (1-3) Last Admin: 11/02/24 14:21 Dose: 650 mg Documented By: CORDELL Hydrocodone Bitart/Acetaminophen (Hydrocodone/Acet 5/325 Tablet) 1 tab PO Q4H PRN PRN Reason: Pain, Moderate (4-6) Last Admin: 11/02/24 14:22 Dose: 1 tab Documented By: Admin: 11/02/24 08:14 Dose: 1 tab Documented By: Admin: 11/01/24 23:41 Dose: 1 tab Documented By: Admin: 11/01/24 20:49 Dose: 1 tab Documented By: Doxycycline Hyclate (Doxycycline Hyclate 100 Mg Tablet) 100 mg PO BID [facility] Last Admin: 11/02/24 08:14 Dose: 100 mg Documented By: Admin: 11/01/24 20:50 Dose: 100 mg Documented By: Dextrose (D10w) 100 mls @ 999 mls/hr IV PRN PRN PRN Reason: Hypoglycemia Insulin Glargine (Insulin Glargine 100 Unit/Ml 3ml Pen) 40 unit SUBCUT 0800 [facility] Last Admin: 11/02/24 08:14 Dose: 40 unit Documented By: CORDELL Co-signed By: RAYMOND Insulin Human Lispro (Insulin Lispro 100 Unit/Ml 3ml Vial) 0 unit SUBCUT [facility]; Protocol Last Admin: 11/02/24 12:09 Dose: 2 unit Documented By: CORDELL Co-signed By: RAYMOND Admin: 11/02/24 08:16 Dose: 8 unit Documented By: CORDELL Co-signed By: RAYMOND Admin: 11/01/24 20:50 Dose: 7 unit Documented By: Co-signed By: WILLI Insulin Human Lispro (Insulin Lispro 100 Unit/Ml 3ml Vial) 3 unit SUBCUT NOW ONE Stop: 11/01/24 23:00 Last Admin: 11/01/24 23:42 Dose: 3 unit Documented By: Co-signed By: WILLI Insulin Human Lispro (Insulin Lispro 100 Unit/Ml 3ml Vial) 10 unit SUBCUT NOW ONE Stop: 11/02/24 09:12 Last Admin: 11/02/24 09:33 Dose: 10 unit Documented By: CORDELL Co-signed By: GLORIA Naloxone HCl (Naloxone 0.4 Mg/Ml Vial) 0.2 mg IV Q2MIN PRN PRN Reason: Opiate Reversal Methylphenidate Hcl 36 Mg Tablet Extended Release 24hr 72 mg PO DAILY [facility] Last Admin: 11/02/24 08:17 Dose: Not Given Documented By: CORDELL Vital Signs Vital signs: Vital Signs - 8 hr 11/01/24 14:41 11/01/24 14:50 11/01/24 15:00 Temperature 97.9 F Pulse Rate 118 H 118 H 115 H Respiratory Rate 18 16 22 Blood Pressure 166/93 H Pulse Oximetry 98 98 98 Oxygen Delivery Method Room Air 11/01/24 15:00 Temperature Pulse Rate Respiratory Rate Blood Pressure 139/90 Pulse Oximetry Oxygen Delivery Method MDM - Wound/Laceration Lab Data 11/02/24 05:10 11/02/24 05:10 [facility] Narrative Medical decision making narrative: Patient here for evaluation of his left below-knee wound. Patient was here this past week and had debridement of the stump. I have reviewed the discharge summary from yesterday. It indicates he does not need a wound VAC according to the surgeon Dr. Diana. Discharge summary was completed by Dr. Trent Guo. Patient was to go home with simple wound dressing and doxycycline pain follow up with wound clinic. After history and exam, no imaging or blood work indicated this time. I will contact Dr. Guo who discharge patient yesterday as well as surgeon, Dr. Diana for more review of patient's care plan. Patient is only here for more directions about wound care he. He has already changed the dressing himself. I will contact social work as well. [facility] Medical records reviewed: Discharge summary from yesterday. Differential considered: Includes but not limited to postoperative pain hyperglycemia Lab Test results independently reviewed as above. Pertinent findings: Consultations: 3:07 p.m.. I spoke with Dr. Guo, hospitalist, he discharge patient yesterday. Wound care did not see patient while he was here, patient was eager to be discharged and was discharged before wound care was able to see him. He would like me to contact Dr. Diana, general surgeon about whether patient needs wound VAC or not because as of yesterday he was informed by Dr. Diana no wound VAC was needed. Patient just needed to go to wound care for continued management 3:10 p.m.. I spoke with Dr. Diana, general surgeon, at this time he did not feel patient needed wound VAC but patient needed evaluation by wound care whether patient will need it in the future. 3:13 p.m.. I will contact social work here in the ER to help manage patient's referral to wound care. 4:[address] Guo, hospitalist, who will admit patient Re-evaluations: Updated patient and he does agree for readmission. Discussion: Appropriate for admission as patient will need wound VAC and unavailable this weekend outpatient. Social work has been involved trying to get patient is set up but unsuccessful. Diagnosis: Hyperglycemia below-knee amputation Discharge Plan Departure Patient Disposition: Admitted as Observation Clinical Impression: Hyperglycemia due to type 1 diabetes mellitus, Hx of left BKA Admit Date/Time: 11/01/24 16:31 Admit Provider: Trent Guo
--- NOTE | 2024-11-01 16:48 | P.HP_ITS ---
History of Present Illness History of Present Illness Date Patient Seen: 11/01/24 Chief complaint: post sx wound needs dressing Narrative: The patient was a 48-year-old male with history of insulin-dependent diabetes and left BKA who presented with a possible cellulitis and stump wound. When debridement on October 30 and was found to have essentially an eschar which was excised and clean bone underneath. He was on IV antibiotics while in the hospital and the surgeon felt there was no evidence of osteomyelitis. Surgery removed the wound VAC and recommended a all dressing in the day of discharge. Wound Care was consulted but was not able to see the patient on the day of discharge which was October 31. The patient was quite concerned about leaving the hospital as quickly as possible and agreed to follow up with wound care within the next day. The patient has worked with our wound care center in the past. The patient was discharged with doxycycline b.i.d. with the expectation that he would be evaluated with wound care within the next 1-2 days and the wound care plan would be instituted at that point. It was unclear whether they would elect to pursue a wound VAC given that the surgeon had discontinued the wound VAC. The patient presented to Wound Care today, and they stated he could not be seen without a referral. Other barriers may have also existed, it was unclear. He then presented to the ED. The ED discussing with surgery who was undecided in the best wound care plan at that time. Given all of these barriers, and issues the patient will be admitted for observation and wound care. Given the general size of the wound, wound VAC will be placed with a week the patient can be seen by our wound care program. He had no other problems. His wound has been wrapped since he left the hospital. His current insurance has covered this wound care in the past but apparently something has changed as they can not accept him at this point. [facility], [facility] Medical History Type 1 diabetes mellitus Surgical History Hx of BKA Social History household members: none alcohol intake: never Meds Home Medications and Allergies Home Medications Medication Instructions Recorded Confirmed Type insulin aspart U-100 100 unit/mL See Rx Instructions .Route .COMPLEX 04/03/18 11/01/24 History (3 mL) subcutaneous pen (Novolog FlexPen U-100 Insulin aspart) methylphenidate HCl 36 mg 72 mg PO DAILY 07/30/19 11/01/24 History tablet,extended release 24 hr doxycycline hyclate 100 mg capsule 100 mg PO BID #14 caps 10/31/24 11/01/24 Rx insulin glargine 100 unit/mL (3 39 unit (0.39 mL) SUBCUT DAILY #15 10/31/24 11/01/24 Rx mL) subcutaneous pen (Basaglar mL KwikPen U-100 Insulin) Allergies Allergy/AdvReac Type Severity Reaction Status Date / Time promethazine AdvReac Unknown GET LOOPY Verified 11/01/24 14:39 Review of Systems Review of Systems Narrative: All else reviewed and otherwise unremarkable except as noted in the history and physical. Exam Vital Signs (past 8 hours): - 11/01/24 14:41 11/01/24 14:50 11/01/24 15:00 Temperature 97.9 F Pulse Rate 118 H 118 H 115 H Respiratory Rate 18 16 22 Blood Pressure 166/93 H Pulse Oximetry 98 98 98 Oxygen Delivery Method Room Air 11/01/24 15:00 Temperature Pulse Rate Respiratory Rate Blood Pressure 139/90 Pulse Oximetry Oxygen Delivery Method Oxygen Delivery Method Room Air Narrative Exam Narrative: NAD, alert and oriented, fluent speech, calm. Normocephalic skull, EOMI, anicteric sclera, symmetric pupils. Oropharynx unremarkable, no droop. Neck supple, midline trachea, no adenopathy. Lungs clear, normal rate and effort. Heart regular, no murmur gallop or rub. Abdomen is soft, non distended and non tender. Extremities are free of edema. Left BKA with stump wound which is dressed. Skin is free of rash or lesions. Joints are not swollen or deformed. Judgment appears to be normal. Assessment & Plan Assessment & Plan narrative: 1. Left stump wound with recent debridement, present on admission and active. - debrided 10/30. 2. IDDM), present on admission and improved. - continue Lantus 40 U daily, glucose is 80s-90s today thus far. - also on sliding scale insulin 3. Hypertension, present on admission and active. - stable. PLAN: -local wound care recommended by surgery. -he will need some type of wound care plan for this significant wound. -we are hoping that he would be able to establishing wound care, but this appears to not be a possibility. -we can explore home health services or other options with social work in the morning. -I discussed with Dr. Diana, the surgeon who performed his debridement. He believes that this wound does not necessarily need a wound VAC. Anticipate 1 night in the hospital, supports observation status. Time-Based Coding :: 35 min spent with patient and on the chart (including review of chart, obtaining history, exam, reviewing outside data, placing orders, documenting exam and treatment plan, and counseling patient) on 11/01. Quality MIPS - Admit The patient?s Advance Care plan is not present because I confirmed today that the patient does not wish or was not able to name a surrogate decision maker or provide an Advance Care Plan.: Yes MIPS - Meds 'Current medications' to include all prescriptions, [id number] products, herbals, cannabis/cannabidiol products, and vitamin/mineral/dietary (nutritional) supplements. I have utilized all available resources to obtain, update, or review the patient?s current medications. [If Yes, STOP here]: Yes
--- NOTE | 2024-11-01 16:57 | CM.IDA ---
Initial DCP Assessment Patient is 48 y/o male who presents to the ED due to concern for wound care dressing. Patient states he was not able to establish with wound care. Patient states that [facility] wound care does not take his insurance and [facility] wound care could not set up appt until two weeks from now. Patient presents requesting wound vac. Patient just discharged from inpatient admission on 10/28/24-10/31/24 due to concern for wound on left BKA, patient had I &D with Dr. Diana, required wound vac and antibiotics. [facility] Patient has [employer] insurance. Prior to meeting with patient, CLOTH WINDER MACHINE OPERATOR reviews outpatient website and observes that they do not take [employer] insurance as patient was informed via phone. CLOTH WINDER MACHINE OPERATOR calls [facility] Wound care clinic and leaves . CLOTH WINDER MACHINE OPERATOR calls [place] wound care clinic and leaves . Given that it is Monday at 1600 in the afternoon, this CLOTH WINDER MACHINE OPERATOR was unable to get ahold of anyone in either of the wound clinics and it is unlikely to hear back at this time. ED provider reviews patient with hospitalist and patient is accepted as OBS for further wound care needs and evaluation for wound vac. CLOTH WINDER MACHINE OPERATOR enters room to meet with patient, patient presents as A/Ox4. Patient endorses he lives alone, patient uses crutches at baseline, relies on mother for transport. Patient resides in [place]. Patient states that was trying to manage wound at home and it was difficult to manage but he was able to do so, patient presents with concern that his leg will be amputated and is concerned about his wound healing. Patient states that [facility] wound care does not take his insurance and states that he called [facility] wound care and they were not able to schedule him for another two weeks. Plan: patient admitted as OBS for wound care and to determine appropriate plan of care for patient's wound care upon d/c. CHAD Bullock Discharge Planning/Care Management CM Discharge Assessment Start: 11/01/24 16:43 Freq: Status: Active Protocol: Document 11/01/24 16:43 LN (Rec: 11/01/24 16:47 LN [id number]) Discharge Planning Assessment Assigned Iron Bender CHAD Lindsey Advance Directives? No History Provided By Patient,Medical Record Has Patient been admitted in last 30 Yes days? Comment 4/21/25-10/31/24 Prior Living Arrangements Mobile home Type of transporation used prior to Relies on Others admit Independent with ADL's Yes Is patient alert and oriented? Yes Comment Patient needs wound care referral, [facility] wound care does not take his insurance. Discharge Plan Home Additional Comment wound care referral needed for [facility] wound clinic or [place] [facility] if they take patient insurance.
[2024-11-01 17:35] VITALS: BMI 19.3
[2024-11-01 17:39] VITALS: BP 140/82; PULSE 106; RESP 18; O2SAT 96
[2024-11-01 17:45] VITALS: BP 153/94; PULSE 115; RESP 18; O2SAT 99
[2024-11-01 19:00] VITALS: BP 154/101; PULSE 112; RESP 20; TEMP 36.7; O2SAT 97
--- NOTE | 2024-11-01 19:20 | PM.PN.1 ---
Subjective Subjective Interval history: 48 yo male w/DM1, HTN, prior hx of BKA d/t traumatic talus fx, former smoker, hx of substance abuse, and ADHD admitted d/t breakdown of care for his debrided stump wound. Exam Vital Signs (past 8 hours): - 11/01/24 14:41 11/01/24 14:50 11/01/24 15:00 Temperature 97.9 F Pulse Rate 118 H 118 H 115 H Respiratory Rate 18 16 22 Blood Pressure 166/93 H Pulse Oximetry 98 98 98 Oxygen Delivery Method Room Air Oxygen Flow Rate 11/01/24 15:00 11/01/24 17:39 11/01/24 17:45 Temperature Pulse Rate 106 H 115 H Respiratory Rate 18 18 Blood Pressure 139/90 140/82 153/94 H Pulse Oximetry 96 99 Oxygen Delivery Method Room Air Oxygen Flow Rate 0 Oxygen Delivery Method Room Air Oxygen Flow Rate 0 PFSH Medical History Type 1 diabetes mellitus Surgical History Hx of BKA Social History household members: none Smoking Status: Former smoker alcohol intake: never Assessment & Plan Assessment & Plan narrative: 1. Left stump wound with recent debridement s/p debridement 10/30. Readmitted 11/01 d/t difficulty getting into Wound Care clinic. 2. DM1 Continue Lantus 40units SQ daily and SSI. 3. Hypertension Time-Based Coding :: [TOTAL MINUTES] spent with patient and on the chart (including review of chart, obtaining history, exam, reviewing outside data, placing orders, documenting exam and treatment plan, and counseling patient) on [DATE]. Quality VTE Deep Vein Thrombosis/Pulmonary Embolism Present on Admission: No
[2024-11-01 20:23] LABS: Add Manual Diff / Slide Review NO; Basophils Absolute Auto 100 /uL (0-100); Basophils Percent Auto 1.2 % (0-2); Eosinophils Absolute Auto 200 /uL (0-450); Eosinophils Percent Auto 3.6 % (2-4); Hematocrit 35.4 % (41-53); Hemoglobin 12.4 g/dL (13.5-17.5); Lymphocytes Absolute Auto 1300 /uL (1100-4500); Mean Corpuscular HGB Conc 34.9 % (30-36); Mean Corpuscular Hemoglobin 31.1 PG (26-34); Mean Corpuscular Volume 88.9 fL (80-100); Monocytes Absolute Auto 400 /uL (0-900); Monocytes Percent Auto 7.2 % (3-14); Neutrophils Absolute Auto 4000 /uL (1500-7000); Platelet Count 228 X10^3/uL (150-400); Red Blood Cell Count 3.99 X10^6/uL (4.5-5.9); Red Cell Distribution Width 13.6 % (11.6-14.8); White Blood Cell Count 6.1 X10^3/uL (4.5-11.0)
[2024-11-01 20:34] LABS: Alanine Aminotransferase 40 IU/L (<50); Albumin 3.5 g/dL (3.5-5.0); Albumin Globulin Ratio 1.4 (1.0-2.8); Alkaline Phosphatase 130 U/L (38-126); Aspartate Aminotransferase 41 IU/L (17-59); Bilirubin Total 0.3 mg/dL (0.2-1.3); Blood Urea Nitrogen 27 mg/dL (9-20); Calcium 9.2 mg/dL (8.4-10.2); Carbon Dioxide 31 mmol/L (22-32); Chloride 99 mmol/L (98-107); Estimated Glomerular Filt Rate > 60 mL/min (>60); Globulin 2.5 g/dL (1.7-4.1); Glucose 421 mg/dL (70-99); HEMOLYSIS < 15 (0-50); Potassium 4.9 mmol/L (3.4-5.1); Sodium 135 mmol/L (137-145)
[2024-11-01] MEDS: HYDROCODONE/ACET 5/325 TABLET 1 TAB PO ×2 (20:49→23:41)
[2024-11-01] MEDS: DOXYCYCLINE HYCLATE 100 MG TABLET PO (20:50)
[2024-11-01] MEDS: INSULIN LISPRO 100 UNIT/ML 3ML VIAL SUBCUT ×2 (20:50→23:42)
[2024-11-02 06:00] LABS: BUN Creatinine Ratio 36.9 (6-22); Blood Urea Nitrogen 24 mg/dL (9-20); Calcium 8.8 mg/dL (8.4-10.2); Carbon Dioxide 29 mmol/L (22-32); Chloride 100 mmol/L (98-107); Estimated Glomerular Filt Rate > 60 mL/min (>60); Glucose 287 mg/dL (70-99); HEMOLYSIS < 15 (0-50); Potassium 4.1 mmol/L (3.4-5.1); Sodium 133 mmol/L (137-145)
[2024-11-02 07:00] VITALS: BP 124/83; PULSE 95; RESP 16; TEMP 36.2; O2SAT 98
[2024-11-02 08:08] LABS: Add Manual Diff / Slide Review NO; Basophils Absolute Auto 100 /uL (0-100); Basophils Percent Auto 1.1 % (0-2); Eosinophils Absolute Auto 400 /uL (0-450); Eosinophils Percent Auto 6.8 % (2-4); Hematocrit 33.8 % (41-53); Hemoglobin 12.1 g/dL (13.5-17.5); Lymphocytes Absolute Auto 1800 /uL (1100-4500); Lymphocytes Percent Auto 30.6 % (25-40); Mean Corpuscular HGB Conc 35.9 % (30-36); Mean Corpuscular Hemoglobin 31.5 PG (26-34); Mean Corpuscular Volume 87.9 fL (80-100); Monocytes Absolute Auto 500 /uL (0-900); Monocytes Percent Auto 8.6 % (3-14); Neutrophils Absolute Auto 3000 /uL (1500-7000); Neutrophils Percent Auto 52.9 % (50-75); Platelet Count 210 X10^3/uL (150-400); Red Blood Cell Count 3.85 X10^6/uL (4.5-5.9); Red Cell Distribution Width 13.9 % (11.6-14.8); White Blood Cell Count 5.8 X10^3/uL (4.5-11.0)
[2024-11-02] MEDS: INSULIN GLARGINE 100 UNIT/ML 3ML PEN 40 UNIT SUBCUT (08:14)
[2024-11-02] MEDS: DOXYCYCLINE HYCLATE 100 MG TABLET PO (08:14)
[2024-11-02] MEDS: HYDROCODONE/ACET 5/325 TABLET 1 TAB PO ×2 (08:14→14:22)
[2024-11-02] MEDS: INSULIN LISPRO 100 UNIT/ML 3ML VIAL SUBCUT ×2 (08:16→12:09)
[2024-11-02] MEDS: INSULIN LISPRO 100 UNIT/ML 3ML VIAL 10 UNIT SUBCUT (09:33)
[2024-11-02] MEDS: ACETAMINOPHEN 325 MG TABLET 650 MG PO (14:21)
--- NOTE | 2024-11-02 15:42 | P.DS_ITS ---
History of Present Illness History of Present Illness Chief complaint: post sx wound needs dressing Narrative: Per H&P: The patient was a 48-year-old male with history of insulin-dependent diabetes and left BKA who presented with a possible cellulitis and stump wound. When debridement on October 30 and was found to have essentially an eschar which was excised and clean bone underneath. He was on IV antibiotics while in the hospital and the surgeon felt there was no evidence of osteomyelitis. Surgery removed the wound VAC and recommended a all dressing in the day of discharge. Wound Care was consulted but was not able to see the patient on the day of discharge which was October 31. The patient was quite concerned about leaving the hospital as quickly as possible and agreed to follow up with wound care within the next day. The patient has worked with our wound care center in the past. The patient was discharged with doxycycline b.i.d. with the expectation that he would be evaluated with wound care within the next 1-2 days and the wound care plan would be instituted at that point. It was unclear whether they would elect to pursue a wound VAC given that the surgeon had discontinued the wound VAC. The patient presented to Wound Care today, and they stated he could not be seen without a referral. Other barriers may have also existed, it was unclear. He then presented to the ED. The ED discussing with surgery who was undecided in the best wound care plan at that time. Given all of these barriers, and issues the patient will be admitted for observation and wound care. Given the general size of the wound, wound VAC will be placed with a week the patient can be seen by our wound care program. He had no other problems. His wound has been wrapped since he left the hospital. His current insurance has covered this wound care in the past but apparently something has changed as they can not accept him at this point. Discharge Providers Provider Date of admission: 11/01/24 16:31 Discharge Date: 11/02/24 Primary care physician: Augustina Draper MD Consults: 11/01/24 15:11 Consult to [facility] - Banjo Repairer Stat Comment: Banjo Repairer Consult needed for:: Other reason (Comment) Comment: Facilitation of wound care consult 11/01/24 15:13 Consult to [facility] - Banjo Repairer Stat Comment: Banjo Repairer Consult needed for:: Other reason (Comment) Comment: Wound care referral Discharge provider: Brooke Thompson MD Summary Hospital Course Discharge Diagnosis: 1. Left stump wound with recent debridement s/p debridement 10/30. Readmitted 11/01 d/t difficulty getting into Wound Care clinic. 2. DM1 Continue Lantus 40units SQ daily and SSI. 3. Hypertension, chronic, stable 4. ADHD, on stimulants chronically Hospital Course: Patient was previously admitted from October 29 through October 31 with an infected stump which required surgical debridement. At the time of discharge, there were plans for him to follow-up at the Wound Care Clinic. Unfortunately, he was unable to obtain follow-up secondary to difficulties with his insurance. There is also unclear dressing change recommendations. He returned to the emergency department on November 01 and ultimately was admitted for new plan to be created. After readmission it was determined that it was not a lack of referral to the Wound Care Clinic but rather that he is on state insurance. Historically, [facility] has taken [facility] and he is planning to switch to [facility] in order to continue being followed at the Wound Care Clinic. Typically that can be changed online and will go into effect on the 1st day of the following month. As it is approaching end of October, this could be initiated and in 5 days at the beginning of November would be effective. If that isn't the case and he can not continue at the wound care clinic here with [facility], he will seek out care at the Wound Care Clinic at [facility] that does accept all state insurance plans. At the time of discharge here, he will use the dressing change as recommended below. His wound culture results did reveal light strep growth. He was therefore changed from doxycycline to Keflex at discharge and Keflex will be taken for a total of 7 days. He is discharged in stable condition. He has a follow-up appointment at [facility]'s amputation clinic on November 08 as well. Status at Discharge Cognitive/behavioral status at discharge: at baseline, oriented Functional status at discharge: independent ambulation Overall status at discharge: patient is progressing back to baseline Exam Vital Signs (past 8 hours): Oxygen Delivery Method Room Air Oxygen Flow Rate 0 Narrative Exam Narrative: GEN: Middle-aged male, Alert and oriented x 3, NAD HEENT:NC, Face symmetric CHEST: Respiratory excursions symmetric, CTAB CV: RRR, no M/R/G ABD: Soft, NT/ND, BT present in all 4 quadrants, no organomegaly or masses EXTR: warm, well perfused, no C/C/E noted to the right leg, left stump reveals clean wound bed with some bloody drainage on the dressing, no purulence SKIN: warm and dry, no rash NEURO: Alert and oriented x 3, nonfocal Objective Labs 11/02/24 05:10 11/02/24 05:10 Labs: Laboratory Results - last 24 hr 11/01/24 11/02/24 20:16 05:10 WBC 6.1 5.8 RBC 3.99 L 3.85 L Hgb 12.4 L 12.1 L Hct 35.4 L 33.8 L MCV 88.9 87.9 MCH 31.1 31.5 MCHC 34.9 35.9 RDW 13.6 13.9 Plt Count 228 210 Neut % (Auto) 66.0 52.9 Lymph % (Auto) 22.0 L 30.6 [place] % (Auto) 7.2 8.6 Eos % (Auto) 3.6 6.8 H Baso % (Auto) 1.2 1.1 Neut # (Auto) 4000 3000 Lymph # (Auto) 1300 1800 [place] # (Auto) 400 500 Eos # (Auto) 200 400 Baso # (Auto) 100 100 Sodium 135 L 133 L Potassium 4.9 D 4.1 Chloride 99 100 Carbon Dioxide 31 29 BUN 27 H 24 H Creatinine 0.87 0.65 L Estimated GFR > 60 > 60 BUN/Creatinine Ratio 31.0 H 36.9 H Glucose 421 H D 287 H D Calcium 9.2 8.8 Total Bilirubin 0.3 AST 41 ALT 40 Alkaline Phosphatase 130 H Total Protein 6.0 L Albumin 3.5 Globulin 2.5 Albumin/Globulin Ratio 1.4 [facility] Medical History Type 1 diabetes mellitus Surgical History Hx of BKA Social History household members: none Smoking Status: Former smoker alcohol intake: never Discharge Plan Discharge Plan Patient Disposition: Home Provider Discharge Comment: 1) Change your State insurance, if possible, to [facility] if you want to continue to get wound care at the [facility]. My understanding is that [facility] continues to accept [facility] insurance. 2) change your wound dressing as follows: Gently cleanse the wound Apply Xeroform Next apply an alginate dressing if available Next apply a foam dressing Next apply gauze (be cautious not to apply it tightly) Next apply Coban (again wrap securely but not tightly) Change the dressing at least every 48 hours, or earlier if needed if the dressing is saturated 3) call the Wound Care Clinic on 11/04 to schedule a follow-up appointment and advised that you are changing your insurance [facility] If they advised they do not accept the insurance, please call [facility] to establish care there. Advise you were referred by Dr. Thompson who was working as a hospitalist this weekend and took care of you as an inpatient. 4) if you run out of dressings and are unable to get more before you are able to get reestablished with wound care, please reach out to Dr. Thompson at [facility] - 5) return to the emergency department for: Fevers, increasing pain or redness at your stump site, foul odor or pus draining from your wound Blood sugars greater than 450 consistently, or reading high Nausea or vomiting, inability to hold down food or fluids Discharge orders & Medications Prescriptions: New hydrocodone-acetaminophen 5-325 mg Tablet 1 tab PO Q4H PRN (Reason: Pain, Moderate (4-6)) Qty: 20 0RF cephalexin 500 mg capsule 500 mg PO TID Qty: 21 0RF Continued methylphenidate HCl 36 mg tablet extended release 24hr 72 mg PO DAILY insulin aspart U-100 [Novolog FlexPen U-100 Insulin] 100 unit/mL Insulin Pen See Rx Instructions .ROUTE .COMPLEX Rx Instructions: Sliding scale: Patient does own sliding scale no direct instructions. 13-18 units before meals based on what pt eats insulin glargine [Basaglar KwikPen U-100 Insulin] 100 unit/mL (3 mL) insulin pen 39 unit SUBCUT DAILY Qty: 15 8RF Discontinued doxycycline hyclate 100 mg capsule 100 mg PO BID Qty: 14 0RF Follow up/Referrals: Augustina Draper MD [Primary Care Provider] - Discharge Health Status Multidrug resistant organism: No MDRO Diet/Activity/Treatments Diet: Diet as Tolerated, Regular and Carb-consistent/Diabetic Activity: As tolerated Oxygen: N/A Skin/Wound/Dressing Care Dressing: See above Visit Report/Discharge Packet Instructions: DI for Debridement of a Wound, Infection, or Burn, DI for Prescription Opioid Use Stand Alone Forms: Patient Portal/API, Stroke Signs & Symptoms Discharge Data Primary Care Provider: Augustina Draper Attending Provider: Trent Guo Admit Date/Time: 11/01/24 16:31 Quality VTE Deep Vein Thrombosis/Pulmonary Embolism Present on Admission: No
--- NOTE | 2024-11-02 16:19 | CM.DPNOTE ---
Addendum entered by NAWAF Lopez 11/02/24 16:23: FUR TRAPPER cancelled referral with Carlashamir GODINEZ [facility] Original Note: DCP note FUR TRAPPER reviewed EMR per provider, hope to get pt to dc today. will educate pt on wound care dressing change needs and provide enough supplies until OP f/u with [facility] wound care/PCP Appt this week. (PCP Roseanna Draper). FUR TRAPPER had Carla GODINEZ preliminary review in case able to provide option (only HH available with coordinated care). per eloisa, would need managerial/clinical manager purchasing approval on Monday. FUR TRAPPER met with pt in room. introduced self and role. denies wanting HH and prefers OP f/u. Has PCP Appt with Roseanna Draper later this week. feels comfortable managing wound care on own until can see Whid provider for OP f/u. FUR TRAPPER provided information on how to change Medicaid plans if he would rather return here for OP f/u. appreciative of updates. denies other CM/DCP needs. P: Dc today with OP PCP and wound care f/u. transport with family. no other DCP/CM needs at this time NAWAF Lopez
== END 2024-11-02 16:02 | disposition home or self-care (01) ==
LOC: ED 14:58 → AC 16:33
PROVIDERS: Admitting Provider Hospitalist; Emergency Provider Emergency Medicine; Family Provider Internal Medicine; PCP Hospitalist; Referring Provider Emergency Medicine; Visit Provider Hospitalist
DX: T81.89XA Other complications of procedures, not elsewhere classified, initial encounter (principal); E10.8 Type 1 diabetes mellitus with unspecified complications; I10 Essential (primary) hypertension; F90.9 Attention-deficit hyperactivity disorder, unspecified type; Z79.4 Long term (current) use of insulin; Z89.512 Acquired absence of left leg below knee
CPT/HCPCS: 36415; 80048; 80053; 82962; 85025; 96372; 99281; 99284; G0378; J1815